=== PATIENT | male | born 1950 | race African-American/Black ===

== ENCOUNTER 2022-11-03 07:01 | Emergency (ER) | payer OTHER ==
--- OUTSIDE RECORDS SUMMARY | 2022-11-03 07:13 | XMS REPORT | Continuity of Care Document ---
:1950 Author Organization [facility] t Address [address] [facility] [address] [place] [address] Care Team Providers Name Role Phone Shannan RECIO, [facility] Primary Care Physician [phone] Problems This patient has no known problems. Allergies, Adverse Reactions, Alerts This patient has no known allergies or adverse reactions. Medications Ordered Filled Start Stop Current Ordering Indication Dosage Frequency Signature Comments Components Source Medication Medication Date Date Medication? Clinician (SIG) Name Name memantine No 14 mg 1-15 capsule 00:00: monika merino 00 tended release 24hr celecoxib No 200 mg 1-15 capsule 00:00: 00 Dose 2021-08 No Unknown 2-13 00:00: 00 TAKE 1 2021-08 No CAPSULE BY 2-13 MOUTH DAILY 00:00: FOR 00 URINATION ONCE A DAY 90 DAYS lisinopril 2021-08 No 40 mg 2-13 tablet 00:00: 00 TAKE 1 2021-08 No TABLET BY 2-13 MOUTH TWICE 00:00: A DAY WITH 00 FOOD FOR 90 DAYS memantine 5 2021-08 No mg tablet 2-13 00:00: 00 Dose 2021-08 No Unknown 2-13 00:00: 00 TAKE 1 2021-08 No TABLET BY 2-13 MOUTH EVERY 00:00: DAY FOR 90 00 DAYS Shingrix 2021-08 No (PF) 50 2-13 mcg/0.5 mL 00:00: intramuscul 00 ar suspension, kit Fluad Quad 2021-08 No [id number](6 2-13 5yr up)(PF) 00:00: 60 mcg (15 00 mcg x 4)/0.5mL IM syringe Fluzone 2021-08 No High-Dose 2-13 Quad 00:00: 00 (PF) 240 mcg/0.7 mL IM syringe Dose 2021-08 No Unknown 2-13 00:00: 00 LISINOPRIL 2021-08 No 40 MG 2-13 TABLET 00:00: 00 tamsulosin 2021-08 No 0.4 mg 2-13 capsule 00:00: 00 celecoxib 2021-08 No 200 mg 2-13 capsule 00:00: 00 Dose 2021-08 No Unknown 2-13 00:00: 00 TAKE 2021-08 No CAPSULE BY 2-13 MOUTH DAILY 00:00: FOR 00 URINATION ONCE A DAY 90 DAYS TAKE 2021-08 No TABLET BY 2-13 MOUTH EVERY 00:00: DAY FOR 90 00 DAYS TAKE 2021-08 No TABLET BY 2-13 MOUTH TWICE 00:00: A DAY WITH 00 FOOD FOR 90 DAYS Dose 2021-08 No Unknown 2-13 00:00: 00 memantine 2021-08 No 10 mg 2-13 tablet 00:00: 00 TAKE 2021-08 No TABLET BY 2-13 MOUTH EVERY 00:00: DAY FOR 90 00 DAYS Shingrix 2021-08 No (PF) 50 2-13 mcg/0.5 mL 00:00: intramuscul 00 ar suspension, kit Fluad Quad 2021-08 No [id number](6 2-13 5yr up)(PF) 00:00: 60 mcg (15 00 mcg x 4)/0.5mL IM syringe Fluzone 2021-08 No High-Dose 2-13 Quad 00:00: 00 (PF) 240 mcg/0.7 mL IM syringe donepezil 5 2021-08 No mg tablet 2-13 00:00: 00 TAKE 2021-08 No TABLET BY 2-13 MOUTH EVERY 00:00: DAY FOR 90 00 DAYS tamsulosin 2021-08 No 0.4 mg 2-13 capsule 00:00: 00 celecoxib 2021-08 No 200 mg 2-13 capsule 00:00: 00 Dose 2021-08 No Unknown 2-13 00:00: 00 TAKE 2021-08 No CAPSULE BY 2-13 MOUTH DAILY 00:00: FOR 00 URINATION ONCE A DAY 90 DAYS lisinopril 2021-08 No 40 mg 2-13 tablet 00:00: 00 TAKE 2021-08 No TABLET BY 2-13 MOUTH TWICE 00:00: A DAY WITH 00 FOOD FOR 90 DAYS memantine 5 2021-08 No mg tablet 2-13 00:00: 00 Dose 2021-08 No Unknown 2-13 00:00: 00 TAKE 2021-08 No TABLET BY 2-13 MOUTH EVERY 00:00: DAY FOR 90 00 DAYS Shingrix 2021-08 No (PF) 50 2-13 mcg/0.5 mL 00:00: intramuscul 00 ar suspension, kit Fluad Quad 2021-08 No [id number](6 2-13 5yr up)(PF) 00:00: 60 mcg (15 00 mcg x 4)/0.5mL IM syringe Fluzone 2021-08 No High-Dose 2-13 Quad 00:00: 00 (PF) 240 mcg/0.7 mL IM syringe Dose 2021-08 No Unknown 2-13 00:00: 00 LISINOPRIL 2021-08 No 40 MG 2-13 TABLET 00:00: 00 tamsulosin 2021-08 No 0.4 mg 2-13 capsule 00:00: 00 TAKE 2021-08 No TABLET BY 0-05 MOUTH TWICE 00:00: A DAY 00 TAKE 2021-08 No TABLET BY 0-05 MOUTH TWICE 00:00: A DAY 00 TAKE 2021-08 No TABLET BY 0-05 MOUTH TWICE 00:00: A DAY 00 TAKE 2021-08 No TABLET BY 0-05 MOUTH TWICE 00:00: A DAY 00 memantine 2021-08 No 14 mg 0-04 capsule 00:00: sprinkle,ex 00 tended release 24hr memantine 2021-08 No 14 mg 0-04 capsule 00:00: sprinkle,ex 00 tended release 24hr memantine 2021-08 No 14 mg 0-04 capsule 00:00: sprinkle,ex 00 tended release 24hr Dose 2021-0 No Unknown 4-13 00:00: 00 Dose 2021-0 No Unknown 4-13 00:00: 00 Dose 2021-0 No Unknown 4-13 00:00: 00 Dose 2021-0 No Unknown 4-13 00:00: 00 Dose 2021-0 No Unknown 4-13 00:00: 00 Dose 2021-0 No Unknown 4-13 00:00: 00 Dose 2022-0 No Unknown 4-13 00:00: 00 Dose 2022-0 No Unknown 4-13 00:00: 00 Dose 2022-0 No Unknown 4-13 00:00: 00 Dose 2022-0 No Unknown 4-13 00:00: 00 Dose 2022-0 No Unknown 4-13 00:00: 00 Dose 2022-0 No Unknown 4-13 00:00: 00 Dose 2022-0 No Unknown 4-13 00:00: 00 Dose 2022-0 No Unknown 4-13 00:00: 00 Dose 2022-0 No Unknown 4-13 00:00: 00 Dose 2022-0 No Unknown 4-13 00:00: 00 Dose 2022-0 No Unknown 4-13 00:00: 00 Dose 2022-0 No Unknown 4-13 00:00: 00 Dose 2022-0 No Unknown 4-13 00:00: 00 Dose 2022-0 No Unknown 4-13 00:00: 00 Dose 2022-0 No Unknown 4-13 00:00: 00 Dose 2022-0 No Unknown 4-13 00:00: 00 Dose 2022-0 No Unknown 4-13 00:00: 00 Dose 2022-0 No Unknown 4-13 00:00: 00 Dose 2022-0 No Unknown 4-13 00:00: 00 Dose 2022-0 No Unknown 4-13 00:00: 00 Dose 2022-0 No Unknown 4-13 00:00: 00 Dose 2022-0 No Unknown 4-13 00:00: 00 Dose 2021-0 No Unknown 3-12 00:00: 00 Dose 2021-0 No Unknown 3-12 00:00: 00 Dose 2021-0 No Unknown 3-12 00:00: 00 Dose 2021-0 No Unknown 3-12 00:00: 00 Dose 2021-0 No Unknown 1-04 00:00: 00 Dose 2021-0 No Unknown 1-04 00:00: 00 Dose 2021-0 No Unknown 1-04 00:00: 00 Dose 2021-0 No Unknown 1-04 00:00: 00 Dose 2021-0 No Unknown 1-04 00:00: 00 Dose 2021-0 No Unknown 1-04 00:00: 00 Dose 2021-0 No Unknown 1-04 00:00: 00 Dose 2021-0 No Unknown 1-04 00:00: 00 Dose 1-0 No Unknown 1-04 00:00: 00 Dose 2020-0 No Unknown 1-04 00:00: 00 Dose 2020-0 No Unknown 1-04 00:00: 00 Dose 2020-0 No Unknown 1-04 00:00: 00 Dose 2020-0 No Unknown 1-04 00:00: 00 Dose 2020-0 No Unknown 1-04 00:00: 00 Dose 2020-0 No Unknown 1-04 00:00: 00 Dose 2020-0 No Unknown 1-04 00:00: 00 Dose 2020-0 No Unknown 1-04 00:00: 00 Dose 2020-0 No Unknown 1-04 00:00: 00 Dose 2020-0 No Unknown 1-04 00:00: 00 Dose 2020-0 No Unknown 1-04 00:00: 00 Dose 2019-1 No Unknown 2-14 00:00: 00 lisinopril 2019-08 No 1mg 40 mg 2-14 tablet 00:00: 00 amlodipine 2019-08 No 1mg 5 mg tablet 2-14 00:00: 00 memantine 5 2019-08 No 1mg mg tablet 2-14 00:00: 00 metoprolol 2019-08 No 1mg tartrate 50 2-14 mg tablet 00:00: 00 Flomax 0.4 2019-08 No 1mg mg capsule 2-14 00:00: 00 Dose 2019- No Unknown 2-14 00:00: 00 Dose 2019-1 No Unknown 2-14 00:00: 00 lisinopril 2019- No 1mg 40 mg 2-14 tablet 00:00: 00 amlodipine 2019-08 No 1mg 5 mg tablet 2-14 00:00: 00 memantine 5 2019-08 No 1mg mg tablet 2-14 00:00: 00 metoprolol 2019-08 No 1mg tartrate 50 2-14 mg tablet 00:00: 00 Flomax 0.4 2019-08 No 1mg mg capsule 2-14 00:00: 00 Vitamin D3 2019- No 1%-" 50 mcg 2-14 (2,000 00:00: unit) 00 capsule Dose 2019-08 No Unknown 2-14 00:00: 00 lisinopril 2019- No 1mg 40 mg 2-14 tablet 00:00: 00 amlodipine 2020-1 No 1mg 5 mg tablet 2-14 00:00: 00 memantine 5 2020-1 No 1mg mg tablet 2-14 00:00: 00 metoprolol 2020-1 No 1mg tartrate 50 2-14 mg tablet 00:00: 00 Flomax 0.4 2020-1 No 1mg mg capsule 2-14 00:00: 00 Dose 2020-1 No Unknown 2-14 00:00: 00 Dose 2020-1 No Unknown 2-14 00:00: 00 lisinopril 2020-1 No 1mg 40 mg 2-14 tablet 00:00: 00 amlodipine 2019-1 No 1mg 5 mg tablet 2-14 00:00: 00 memantine 5 2019-1 No 1mg mg tablet 2-14 00:00: 00 metoprolol 2020-1 No 1mg tartrate 50 2-14 mg tablet 00:00: 00 Flomax 0.4 2019-1 No 1mg mg capsule 2-14 00:00: 00 Dose 2020-1 No Unknown 2-14 00:00: 00 lisinopril 2020-0 No 1mg 20 8-25 mg-hydrochl 00:00: orothiazide 00 12.5 mg tablet Flomax 0.4 2020-0 No 1mg mg capsule 8-25 00:00: 00 lisinopril 2020-0 No 1mg 20 8-25 mg-hydrochl 00:00: orothiazide 00 12.5 mg tablet Flomax 0.4 2020-0 No 1mg mg capsule 8-25 00:00: 00 lisinopril 2020-0 No 1mg 20 8-25 mg-hydrochl 00:00: orothiazide 00 12.5 mg tablet Flomax 0.4 2020-0 No 1mg mg capsule 8-25 00:00: 00 lisinopril 2020-0 No 1mg 20 8-25 mg-hydrochl 00:00: orothiazide 00 12.5 mg tablet Flomax 0.4 2020-0 No 1mg mg capsule 825 00:00: 00 diclofenac 2020-0 No 1% 1 % topical 6-16 gel 00:00: 00 diclofenac 2020-0 No 1% 1 % topical 6-16 gel 00:00: 00 donepezil 2020-0 No 1mg 10 mg 6-16 tablet 00:00: 00 lisinopril 2020-0 No 1mg 20 6-16 mg-hydrochl 00:00: orothiazide 00 12.5 mg tablet lisinopril 2020-0 No 1mg 20 6-16 mg-hydrochl 00:00: orothiazide 00 12.5 mg tablet rivastigmin 2020-0 No 2mg e 6 mg 6-16 capsule 00:00: 00 Flomax 0.4 2020-0 No 1mg mg capsule 6-16 00:00: 00 rivastigmin 2020-0 No 2mg e 6 mg 6-16 capsule 00:00: 00 Flomax 0.4 2020-0 No 1mg mg capsule 6-16 00:00: 00 Vitamin D2 2020-0 No 1(50,00 1,250 mcg 6-16 0 unit) (50,000 00:00: unit) 00 capsule Vitamin D2 2020-0 No 1(50,00 1,250 mcg 6-16 0 unit) (50,000 00:00: unit) 00 capsule diclofenac 2020-0 No 1% 1 % topical 6-16 gel 00:00: 00 diclofenac 2020-0 No 1% 1 % topical 6-16 gel 00:00: 00 donepezil 2020-0 No 1mg 10 mg 6-16 tablet 00:00: 00 lisinopril 2020-0 No 1mg 20 6-16 mg-hydrochl 00:00: orothiazide 00 12.5 mg tablet lisinopril 2020-0 No 1mg 20 6-16 mg-hydrochl 00:00: orothiazide 00 12.5 mg tablet rivastigmin 2020-0 No 2mg e 6 mg 6-16 capsule 00:00: 00 Flomax 0.4 2020-0 No 1mg mg capsule 6-16 00:00: 00 rivastigmin 2020-0 No 2mg e 6 mg 6-16 capsule 00:00: 00 Flomax 0.4 2020-0 No 1mg mg capsule 6-16 00:00: 00 Vitamin D2 2020-0 No 1(50,00 1,250 mcg 6-16 0 unit) (50,000 00:00: unit) 00 capsule Vitamin D2 2020-0 No 1(50,00 1,250 mcg 6-16 0 unit) (50,000 00:00: unit) 00 capsule diclofenac 2020-0 No 1% 1 % topical 6-16 gel 00:00: 00 diclofenac 2020-0 No 1% 1 % topical 6-16 gel 00:00: 00 donepezil 2020-0 No 1mg 10 mg 6-16 tablet 00:00: 00 lisinopril 2020-0 No 1mg 20 6-16 mg-hydrochl 00:00: orothiazide 00 12.5 mg tablet lisinopril 2020-0 No 1mg 20 6-16 mg-hydrochl 00:00: orothiazide 00 12.5 mg tablet rivastigmin 2020-0 No 2mg e 6 mg 6-16 capsule 00:00: 00 Flomax 0.4 2020-0 No 1mg mg capsule 6-16 00:00: 00 rivastigmin 2020-0 No 2mg e 6 mg 6-16 capsule 00:00: 00 Flomax 0.4 2020-0 No 1mg mg capsule 6-16 00:00: 00 Vitamin D2 2020-0 No 1(50,00 1,250 mcg 6-16 0 unit) (50,000 00:00: unit) 00 capsule Vitamin D2 2020-0 No 1(50,00 1,250 mcg 6-16 0 unit) (50,000 00:00: unit) 00 capsule diclofenac 2020-0 No 1% 1 % topical 6-16 gel 00:00: 00 diclofenac 2020-0 No 1% 1 % topical 6-16 gel 00:00: 00 donepezil 2020-0 No 1mg 10 mg 6-16 tablet 00:00: 00 lisinopril 2020-0 No 1mg 20 6-16 mg-hydrochl 00:00: orothiazide 00 12.5 mg tablet lisinopril 2020-0 No 1mg 20 6-16 mg-hydrochl 00:00: orothiazide 00 12.5 mg tablet rivastigmin 2020-0 No 2mg e 6 mg 6-16 capsule 00:00: 00 Flomax 0.4 2020-0 No 1mg mg capsule 6-16 00:00: 00 rivastigmin 2020-0 No 2mg e 6 mg 6-16 capsule 00:00: 00 Flomax 0.4 2020-0 No 1mg mg capsule 6-16 00:00: 00 Vitamin D2 2020-0 No 1(50,00 1,250 mcg 6-16 0 unit) (50,000 00:00: unit) 00 capsule Vitamin D2 2020-0 No 1(50,00 1,250 mcg 6-16 0 unit) (50,000 00:00: unit) 00 capsule diclofenac 2020-0 No 1% 1 % topical 3-24 gel 00:00: 00 diclofenac 2020-0 No 1% 1 % topical 3-24 gel 00:00: 00 lisinopril 2020-0 No 1mg 20 3-24 mg-hydrochl 00:00: orothiazide 00 12.5 mg tablet metoprolol 2020-0 No 1mg tartrate 50 3-24 mg tablet 00:00: 00 lisinopril 2020-0 No 1mg 20 3-24 mg-hydrochl 00:00: orothiazide 00 12.5 mg tablet metoprolol 2020-0 No 1mg tartrate 50 3-24 mg tablet 00:00: 00 diclofenac 2020-0 No 1% 1 % topical 3-24 gel 00:00: 00 diclofenac 2020-0 No 1% 1 % topical 3-24 gel 00:00: 00 lisinopril 2020-0 No 1mg 20 3-24 mg-hydrochl 00:00: orothiazide 00 12.5 mg tablet metoprolol 2020-0 No 1mg tartrate 50 3-24 mg tablet 00:00: 00 lisinopril 2020-0 No 1mg 20 3-24 mg-hydrochl 00:00: orothiazide 00 12.5 mg tablet metoprolol 2020-0 No 1mg tartrate 50 3-24 mg tablet 00:00: 00 rivastigmin 2020-0 No 2mg e 6 mg 3-24 capsule 00:00: 00 rivastigmin 2020-0 No 2mg e 6 mg 3-24 capsule 00:00: 00 Flomax 0.4 2020-0 No 1mg mg capsule 3-24 00:00: 00 rivastigmin 2020-0 No 2mg e 6 mg 3-24 capsule 00:00: 00 Flomax 0.4 2020-0 No 1mg mg capsule 3-24 00:00: 00 Vitamin D2 2020-0 No 1(50,00 1,250 mcg 3-24 0 unit) (50, 00:00: unit) 00 capsule Vitamin D2 2020-0 No 1(50,00 1,250 mcg 3-24 0 unit) (50, 00:00: unit) 00 capsule Flomax 0.4 2020-0 No 1mg mg capsule 3-24 00:00: 00 rivastigmin 2020-0 No 2mg e 6 mg 3-24 capsule 00:00: 00 Flomax 0.4 2020-0 No 1mg mg capsule 3-24 00:00: 00 Vitamin D2 2020-0 No 1(50,00 1,250 mcg 3-24 0 unit) (50,000 00:00: unit) 00 capsule Vitamin D2 2020-0 No 1(50,00 1,250 mcg 3-24 0 unit) (50,000 00:00: unit) 00 capsule diclofenac 2020-0 No 1% 1 % topical 3-24 gel 00:00: 00 diclofenac 2020-0 No 1% 1 % topical 3-24 gel 00:00: 00 lisinopril 2020-0 No 1mg 20 3-24 mg-hydrochl 00:00: orothiazide 00 12.5 mg tablet metoprolol 2020-0 No 1mg tartrate 50 3-24 mg tablet 00:00: 00 lisinopril 2020-0 No 1mg 20 3-24 mg-hydrochl 00:00: orothiazide 00 12.5 mg tablet metoprolol 2020-0 No 1mg tartrate 50 3-24 mg tablet 00:00: 00 rivastigmin 2020-0 No 2mg e 6 mg 3-24 capsule 00:00: 00 Flomax 0.4 2020-0 No 1mg mg capsule 3-24 00:00: 00 rivastigmin 2020-0 No 2mg e 6 mg 3-24 capsule 00:00: 00 Flomax 0.4 2020-0 No 1mg mg capsule 3-24 00:00: 00 Vitamin D2 2020-0 No 1(50,00 1,250 mcg 3-24 0 unit) (50,000 00:00: unit) 00 capsule Vitamin D2 2020-0 No 1(50,00 1,250 mcg 3-24 0 unit) (50,000 00:00: unit) 00 capsule diclofenac 2020-0 No 1% 1 % topical 3-24 gel 00:00: 00 diclofenac 2020-0 No 1% 1 % topical 3-24 gel 00:00: 00 lisinopril 2020-0 No 1mg 20 3-24 mg-hydrochl 00:00: orothiazide 00 12.5 mg tablet metoprolol 2020-0 No 1mg tartrate 50 3-24 mg tablet 00:00: 00 lisinopril 2020-0 No 1mg 20 3-24 mg-hydrochl 00:00: orothiazide 00 12.5 mg tablet metoprolol 2020-0 No 1mg tartrate 50 3-24 mg tablet 00:00: 00 rivastigmin 2020-0 No 2mg e 6 mg 3-24 capsule 00:00: 00 Flomax 0.4 2020-0 No 1mg mg capsule 3-24 00:00: 00 rivastigmin 2020-0 No 2mg e 6 mg 3-24 capsule 00:00: 00 Flomax 0.4 2020-0 No 1mg mg capsule 3-24 00:00: 00 Vitamin D2 2020-0 No 1(50,00 1,250 mcg 3-24 0 unit) (50,000 00:00: unit) 00 capsule Vitamin D2 2020-0 No 1(50,00 1,250 mcg 3-24 0 unit) (50,000 00:00: unit) 00 capsule rivastigmin 2020-0 No 2mg e 6 mg 1-15 capsule 00:00: 00 Vitamin D2 2020-0 No 1(50,00 1,250 mcg 1-15 0 unit) (50,000 00:00: unit) 00 capsule rivastigmin 2020-0 No 2mg e 6 mg 1-15 capsule 00:00: 00 Vitamin D2 2020-0 No 1(50,00 1,250 mcg 1-15 0 unit) (50,000 00:00: unit) 00 capsule rivastigmin 2020-0 No 2mg e 6 mg 1-15 capsule 00:00: 00 Vitamin D2 2020-0 No 1(50,00 1,250 mcg 1-15 0 unit) (50,000 00:00: unit) 00 capsule rivastigmin 2020-0 No 2mg e 6 mg 1-15 capsule 00:00: 00 Vitamin D2 2020-0 No 1(50,00 1,250 mcg 1-15 0 unit) (50,000 00:00: unit) 00 capsule Flomax 0.4 2020-0 No 1mg mg capsule 1-14 00:00: 00 diclofenac 2020-0 No 1% 1 % topical 1-14 gel 00:00: 00 metoprolol 2020-0 No 1mg tartrate 50 1-14 mg tablet 00:00: 00 lisinopril 2020-0 No 1mg 20 1-14 mg-hydrochl 00:00: orothiazide 00 12.5 mg tablet lisinopril 2020-0 No 1mg 20 1-14 mg-hydrochl 00:00: orothiazide 00 12.5 mg tablet simvastatin 2020-0 No 1mg 20 mg 1-14 tablet 00:00: 00 Flomax 0.4 2020-0 No 1mg mg capsule 1-14 00:00: 00 diclofenac 2020-0 No 1% 1 % topical 1-14 gel 00:00: 00 metoprolol 2020-0 No 1mg tartrate 50 1-14 mg tablet 00:00: 00 lisinopril 2020-0 No 1mg 20 1-14 mg-hydrochl 00:00: orothiazide 00 12.5 mg tablet lisinopril 2020-0 No 1mg 20 1-14 mg-hydrochl 00:00: orothiazide 00 12.5 mg tablet simvastatin 2020-0 No 1mg 20 mg 1-14 tablet 00:00: 00 Flomax 0.4 2020-0 No 1mg mg capsule 1-14 00:00: 00 diclofenac 2020-0 No 1% 1 % topical 1-14 gel 00:00: 00 metoprolol 2020-0 No 1mg tartrate 50 1-14 mg tablet 00:00: 00 lisinopril 2020-0 No 1mg 20 1-14 mg-hydrochl 00:00: orothiazide 00 12.5 mg tablet lisinopril 2020-0 No 1mg 20 1-14 mg-hydrochl 00:00: orothiazide 00 12.5 mg tablet simvastatin 2020-0 No 1mg 20 mg 1-14 tablet 00:00: 00 Flomax 0.4 2020-0 No 1mg mg capsule 1-14 00:00: 00 diclofenac 2020-0 No 1% 1 % topical 1-14 gel 00:00: 00 metoprolol 2020-0 No 1mg tartrate 50 1-14 mg tablet 00:00: 00 lisinopril 2020-0 No 1mg 20 1-14 mg-hydrochl 00:00: orothiazide 00 12.5 mg tablet lisinopril 2020-0 No 1mg 20 1-14 mg-hydrochl 00:00: orothiazide 00 12.5 mg tablet simvastatin 2020-0 No 1mg 20 mg 1-14 tablet 00:00: 00 lisinopril 2019-0 No 1mg 20 9-26 mg-hydrochl 00:00: orothiazide 00 12.5 mg tablet metoprolol 2019-0 No 1mg tartrate 50 9-26 mg tablet 00:00: 00 lisinopril 2019-0 No 1mg 20 9-26 mg-hydrochl 00:00: orothiazide 00 12.5 mg tablet metoprolol 2019-0 No 1mg tartrate 50 9-26 mg tablet 00:00: 00 lisinopril 2019-0 No 1mg 20 9-26 mg-hydrochl 00:00: orothiazide 00 12.5 mg tablet metoprolol 2019-0 No 1mg tartrate 50 9-26 mg tablet 00:00: 00 lisinopril 2019-0 No 1mg 20 9-26 mg-hydrochl 00:00: orothiazide 00 12.5 mg tablet simvastatin 2019-0 No 1mg 20 mg 9-26 tablet 00:00: 00 simvastatin 2019-0 No 1mg 20 mg 9-26 tablet 00:00: 00 simvastatin 2019-0 No 1mg 20 mg 9-26 tablet 00:00: 00 Flomax 0.4 2019-0 No 1mg mg capsule 05-23 00:00: 00 Flomax 0.4 2019-0 No 1mg mg capsule 05-23 00:00: 00 Flomax 0.4 2019-0 No 1mg mg capsule 05-23 00:00: 00 lisinopril 2019-0 No 1mg 20 9-26 mg-hydrochl 00:00: orothiazide 00 12.5 mg tablet metoprolol 2019-0 No 1mg tartrate 50 9-26 mg tablet 00:00: 00 lisinopril 2019-0 No 1mg 20 9-26 mg-hydrochl 00:00: orothiazide 00 12.5 mg tablet metoprolol 2019-0 No 1mg tartrate 50 9-26 mg tablet 00:00: 00 lisinopril 2019-0 No 1mg 20 9-26 mg-hydrochl 00:00: orothiazide 00 12.5 mg tablet metoprolol 2019-0 No 1mg tartrate 50 9-26 mg tablet 00:00: 00 lisinopril 2019-0 No 1mg 20 9-26 mg-hydrochl 00:00: orothiazide 00 12.5 mg tablet simvastatin 2019-0 No 1mg 20 mg 9-26 tablet 00:00: 00 simvastatin 2019-0 No 1mg 20 mg 9-26 tablet 00:00: 00 simvastatin 2019-0 No 1mg 20 mg 9- tablet 00:00: 00 Flomax 0.4 2019-0 No 1mg mg capsule 05-23 00:00: 00 Flomax 0.4 2019-0 No 1mg mg capsule 05-23 00:00: 00 Flomax 0.4 2019-0 No 1mg mg capsule 05-23 00:00: 00 lisinopril 2019-0 No 1mg 20 9-26 mg-hydrochl 00:00: orothiazide 00 12.5 mg tablet metoprolol 2019-0 No 1mg tartrate 50 9-26 mg tablet 00:00: 00 lisinopril 2019-0 No 1mg 20 9-26 mg-hydrochl 00:00: orothiazide 00 12.5 mg tablet metoprolol 2019-0 No 1mg tartrate 50 9-26 mg tablet 00:00: 00 lisinopril 2019-0 No 1mg 20 9-26 mg-hydrochl 00:00: orothiazide 00 12.5 mg tablet metoprolol 2019-0 No 1mg tartrate 50 9-26 mg tablet 00:00: 00 lisinopril 2019-0 No 1mg 20 9-26 mg-hydrochl 00:00: orothiazide 00 12.5 mg tablet simvastatin 2019-0 No 1mg 20 mg - tablet 00:00: 00 simvastatin 2019-0 No 1mg 20 mg - tablet 00:00: 00 simvastatin 2019-0 No 1mg 20 mg -26 tablet 00:00: 00 Flomax 0.4 2019-0 No 1mg mg capsule 05-23 00:00: 00 Flomax 0.4 2019-0 No 1mg mg capsule 05-23 00:00: 00 Flomax 0.4 2019-0 No 1mg mg capsule 05-23 00:00: 00 lisinopril 2019-0 No 1mg 20 9-26 mg-hydrochl 00:00: orothiazide 00 12.5 mg tablet metoprolol 2019-0 No 1mg tartrate 50 9-26 mg tablet 00:00: 00 lisinopril 2019-0 No 1mg 20 9-26 mg-hydrochl 00:00: orothiazide 00 12.5 mg tablet metoprolol 2019-0 No 1mg tartrate 50 9-26 mg tablet 00:00: 00 lisinopril 2019-0 No 1mg 20 9-26 mg-hydrochl 00:00: orothiazide 00 12.5 mg tablet metoprolol 2019-0 No 1mg tartrate 50 9-26 mg tablet 00:00: 00 lisinopril 2019-0 No 1mg 20 9-26 mg-hydrochl 00:00: orothiazide 00 12.5 mg tablet simvastatin 2019-0 No 1mg 20 mg 9-26 tablet 00:00: 00 simvastatin 2019-0 No 1mg 20 mg 9-26 tablet 00:00: 00 simvastatin 2019-0 No 1mg 20 mg 9-26 tablet 00:00: 00 Flomax 0.4 2019-0 No 1mg mg capsule 05-23 00:00: 00 Flomax 0.4 2019-0 No 1mg mg capsule 05-23 00:00: 00 Flomax 0.4 2019-0 No 1mg mg capsule 05-23 00:00: 00 metoprolol 2019-0 No 1mg tartrate 50 9-24 mg tablet 00:00: 00 lisinopril 2019-0 No 1mg 20 9-24 mg-hydrochl 00:00: orothiazide 00 12.5 mg tablet metoprolol 2019-0 No 1mg tartrate 50 9-24 mg tablet 00:00: 00 lisinopril 2019-0 No 1mg 20 9-24 mg-hydrochl 00:00: orothiazide 00 12.5 mg tablet simvastatin 2019-0 No 1mg 20 mg 9-24 tablet 00:00: 00 simvastatin 2019-0 No 1mg 20 mg 9-24 tablet 00:00: 00 Flomax 0.4 2019-0 No 1mg mg capsule 05-21 00:00: 00 Flomax 0.4 2019-0 No 1mg mg capsule 05-21 00:00: 00 metoprolol 2019-0 No 1mg tartrate 50 9-24 mg tablet 00:00: 00 lisinopril 2019-0 No 1mg 20 9-24 mg-hydrochl 00:00: orothiazide 00 12.5 mg tablet metoprolol 2019-0 No 1mg tartrate 50 9-24 mg tablet 00:00: 00 lisinopril 2019-0 No 1mg 20 9-24 mg-hydrochl 00:00: orothiazide 00 12.5 mg tablet simvastatin 2019-0 No 1mg 20 mg 9-24 tablet 00:00: 00 simvastatin 2019-0 No 1mg 20 mg 9-24 tablet 00:00: 00 Flomax 0.4 2019-0 No 1mg mg capsule 05-21 00:00: 00 Flomax 0.4 2019-0 No 1mg mg capsule 05-21 00:00: 00 metoprolol 2019-0 No 1mg tartrate 50 9-24 mg tablet 00:00: 00 lisinopril 2019-0 No 1mg 20 9-24 mg-hydrochl 00:00: orothiazide 00 12.5 mg tablet metoprolol 2019-0 No 1mg tartrate 50 9-24 mg tablet 00:00: 00 lisinopril 2019-0 No 1mg 20 9-24 mg-hydrochl 00:00: orothiazide 00 12.5 mg tablet simvastatin 2019-0 No 1mg 20 mg 9-24 tablet 00:00: 00 simvastatin 2019-0 No 1mg 20 mg 9-24 tablet 00:00: 00 Flomax 0.4 2019-0 No 1mg mg capsule 05-21 00:00: 00 metoprolol 2019-0 No 1mg tartrate 50 9-24 mg tablet 00:00: 00 Flomax 0.4 2019-0 No 1mg mg capsule 05-21 00:00: 00 lisinopril 2019-0 No 1mg 20 9-24 mg-hydrochl 00:00: orothiazide 00 12.5 mg tablet metoprolol 2019-0 No 1mg tartrate 50 9-24 mg tablet 00:00: 00 lisinopril 2019-0 No 1mg 20 9-24 mg-hydrochl 00:00: orothiazide 00 12.5 mg tablet simvastatin 2019-0 No 1mg 20 mg 9-24 tablet 00:00: 00 simvastatin 2019-0 No 1mg 20 mg 9-24 tablet 00:00: 00 Flomax 0.4 2019-0 No 1mg mg capsule 05-21 00:00: 00 Flomax 0.4 2019-0 No 1mg mg capsule 05-21 00:00: 00 metoprolol 2019-0 No 1mg tartrate 50 6-13 mg tablet 00:00: 00 lisinopril 2019-0 No 1mg 20 6-13 mg-hydrochl 00:00: orothiazide 00 12.5 mg tablet simvastatin 2019-0 No 1mg 20 mg 6-13 tablet 00:00: 00 Flomax 0.4 2019-0 No 1mg mg capsule 6-13 00:00: 00 metoprolol 2019-0 No 1mg tartrate 50 6-13 mg tablet 00:00: 00 lisinopril 2019-0 No 1mg 20 6-13 mg-hydrochl 00:00: orothiazide 00 12.5 mg tablet simvastatin 2019-0 No 1mg 20 mg 6-13 tablet 00:00: 00 Flomax 0.4 2019-0 No 1mg mg capsule 613 00:00: 00 metoprolol 2019-0 No 1mg tartrate 50 6-13 mg tablet 00:00: 00 lisinopril 2019-0 No 1mg 20 6-13 mg-hydrochl 00:00: orothiazide 00 12.5 mg tablet simvastatin 2019-0 No 1mg 20 mg 6-13 tablet 00:00: 00 metoprolol 2019-0 No 1mg tartrate 50 6-13 mg tablet 00:00: 00 Flomax 0.4 2019-0 No 1mg mg capsule 613 00:00: 00 lisinopril 2019-0 No 1mg 20 6-13 mg-hydrochl 00:00: orothiazide 00 12.5 mg tablet simvastatin 2019-0 No 1mg 20 mg 6-13 tablet 00:00: 00 Flomax 0.4 2019-0 No 1mg mg capsule 613 00:00: 00 metoprolol 2019-0 No 1mg tartrate 50 3-19 mg tablet 00:00: 00 lisinopril 2019-0 No 1mg 20 3-19 mg-hydrochl 00:00: orothiazide 00 12.5 mg tablet simvastatin 2019-0 No 1mg 20 mg 3-19 tablet 00:00: 00 Flomax 0.4 2019-0 No 1mg mg capsule 3-19 00:00: 00 metoprolol 2019-0 No 1mg tartrate 50 3-19 mg tablet 00:00: 00 lisinopril 2019-0 No 1mg 20 3-19 mg-hydrochl 00:00: orothiazide 00 12.5 mg tablet simvastatin 2019-0 No 1mg 20 mg 3-19 tablet 00:00: 00 Flomax 0.4 2019-0 No 1mg mg capsule 3-19 00:00: 00 metoprolol 2019-0 No 1mg tartrate 50 3-19 mg tablet 00:00: 00 lisinopril 2019-0 No 1mg 20 3-19 mg-hydrochl 00:00: orothiazide 00 12.5 mg tablet simvastatin 2019-0 No 1mg 20 mg 3-19 tablet 00:00: 00 Flomax 0.4 2019-0 No 1mg mg capsule 3-19 00:00: 00 metoprolol 2019-0 No 1mg tartrate 50 3-19 mg tablet 00:00: 00 lisinopril 2019-0 No 1mg 20 3-19 mg-hydrochl 00:00: orothiazide 00 12.5 mg tablet simvastatin 2019-0 No 1mg 20 mg 3-19 tablet 00:00: 00 Flomax 0.4 2019-0 No 1mg mg capsule 319 00:00: 00 metoprolol 2018-1 No 1mg tartrate 50 2-04 mg tablet 00:00: 00 lisinopril 2018-1 No 1mg 20 2-04 mg-hydrochl 00:00: orothiazide 00 12.5 mg tablet simvastatin 2018-1 No 1mg 20 mg 2-04 tablet 00:00: 00 Flomax 0.4 2018-1 No 1mg mg capsule 2-04 00:00: 00 metoprolol 2018-1 No 1mg tartrate 50 2-04 mg tablet 00:00: 00 lisinopril 2018-1 No 1mg 20 2-04 mg-hydrochl 00:00: orothiazide 00 12.5 mg tablet simvastatin 2018-1 No 1mg 20 mg 2-04 tablet 00:00: 00 Flomax 0.4 2018-1 No 1mg mg capsule 2-04 00:00: 00 metoprolol 2018-1 No 1mg tartrate 50 2-04 mg tablet 00:00: 00 lisinopril 2018-1 No 1mg 20 2-04 mg-hydrochl 00:00: orothiazide 00 12.5 mg tablet simvastatin 2018-1 No 1mg 20 mg 2-04 tablet 00:00: 00 Flomax 0.4 2018-1 No 1mg mg capsule 2-04 00:00: 00 metoprolol 2018-1 No 1mg tartrate 50 2-04 mg tablet 00:00: 00 lisinopril 2018-1 No 1mg 20 2-04 mg-hydrochl 00:00: orothiazide 00 12.5 mg tablet simvastatin 2018-1 No 1mg 20 mg 2-04 tablet 00:00: 00 Flomax 0.4 2018-1 No 1mg mg capsule 2-04 00:00: 00 meloxicam 2018-1 No 5mg 15 mg 0-10 tablet 00:00: 00 prednisone 2018-1 No mg 20 mg 0-10 tablet 00:00: 00 meloxicam 2018-1 No 5mg 15 mg 0-10 tablet 00:00: 00 prednisone 2018-1 No mg 20 mg 0-10 tablet 00:00: 00 meloxicam 2018-1 No 5mg 15 mg 0-10 tablet 00:00: 00 prednisone 2018-1 No mg 20 mg 0-10 tablet 00:00: 00 meloxicam 2018-1 No 5mg 15 mg 0-10 tablet 00:00: 00 prednisone 2018-1 No mg 20 mg 0-10 tablet 00:00: 00 simvastatin 2018-0 No 1mg 20 mg 8-08 tablet 00:00: 00 Flomax 0.4 2018-0 No 1mg mg capsule 8 00:00: 00 Flomax 0.4 2018-0 No 1mg mg capsule 8 00:00: 00 lisinopril 2018-0 No 1mg 20 8-08 mg-hydrochl 00:00: orothiazide 00 12.5 mg tablet metoprolol 2018-0 No 1mg tartrate 50 8-08 mg tablet 00:00: 00 lisinopril 2018-0 No 1mg 20 8-08 mg-hydrochl 00:00: orothiazide 00 12.5 mg tablet metoprolol 2018-0 No 1mg tartrate 50 8-08 mg tablet 00:00: 00 simvastatin 2018-0 No 1mg 20 mg 8-08 tablet 00:00: 00 simvastatin 2018-0 No 1mg 20 mg 8-08 tablet 00:00: 00 Flomax 0.4 2018-0 No 1mg mg capsule 808 00:00: 00 Flomax 0.4 2018-0 No 1mg mg capsule 808 00:00: 00 lisinopril 2018-0 No 1mg 20 8-08 mg-hydrochl 00:00: orothiazide 00 12.5 mg tablet metoprolol 2018-0 No 1mg tartrate 50 8-08 mg tablet 00:00: 00 lisinopril 2018-0 No 1mg 20 8-08 mg-hydrochl 00:00: orothiazide 00 12.5 mg tablet metoprolol 2018-0 No 1mg tartrate 50 8-08 mg tablet 00:00: 00 simvastatin 2018-0 No 1mg 20 mg 8-08 tablet 00:00: 00 simvastatin 2018-0 No 1mg 20 mg 8-08 tablet 00:00: 00 Flomax 0.4 2018-0 No 1mg mg capsule 8 00:00: 00 Flomax 0.4 2018-0 No 1mg mg capsule 8 00:00: 00 lisinopril 2018-0 No 1mg 20 8-08 mg-hydrochl 00:00: orothiazide 00 12.5 mg tablet metoprolol 2018-0 No 1mg tartrate 50 8-08 mg tablet 00:00: 00 lisinopril 2018-0 No 1mg 20 8-08 mg-hydrochl 00:00: orothiazide 00 12.5 mg tablet metoprolol 2018-0 No 1mg tartrate 50 8-08 mg tablet 00:00: 00 simvastatin 2018-0 No 1mg 20 mg 8-08 tablet 00:00: 00 simvastatin 2018-0 No 1mg 20 mg 8-08 tablet 00:00: 00 Flomax 0.4 2018-0 No 1mg mg capsule 8 00:00: 00 Flomax 0.4 2018-0 No 1mg mg capsule 8 00:00: 00 lisinopril 2018-0 No 1mg 20 8-08 mg-hydrochl 00:00: orothiazide 00 12.5 mg tablet metoprolol 2018-0 No 1mg tartrate 50 8-08 mg tablet 00:00: 00 lisinopril 2018-0 No 1mg 20 8-08 mg-hydrochl 00:00: orothiazide 00 12.5 mg tablet metoprolol 2018-0 No 1mg tartrate 50 8-08 mg tablet 00:00: 00 simvastatin 2018-0 No 1mg 20 mg 8-08 tablet 00:00: 00 metoprolol 2018-0 No 1mg tartrate 50 7-06 mg tablet 00:00: 00 lisinopril 2018-0 No 1mg 20 7-06 mg-hydrochl 00:00: orothiazide 00 12.5 mg tablet simvastatin 2018-0 No 1mg 20 mg 7-06 tablet 00:00: 00 Flomax 0.4 2018-0 No 1mg mg capsule 03-02 00:00: 00 metoprolol 2018-0 No 1mg tartrate 50 7-06 mg tablet 00:00: 00 lisinopril 2018-0 No 1mg 20 7-06 mg-hydrochl 00:00: orothiazide 00 12.5 mg tablet simvastatin 2018-0 No 1mg 20 mg 7-06 tablet 00:00: 00 Flomax 0.4 2018-0 No 1mg mg capsule 03-02 00:00: 00 metoprolol 2018-0 No 1mg tartrate 50 7-06 mg tablet 00:00: 00 lisinopril 2018-0 No 1mg 20 7-06 mg-hydrochl 00:00: orothiazide 00 12.5 mg tablet simvastatin 2018-0 No 1mg 20 mg 7-06 tablet 00:00: 00 Flomax 0.4 2018-0 No 1mg mg capsule 03-02 00:00: 00 metoprolol 2018-0 No 1mg tartrate 50 7-06 mg tablet 00:00: 00 lisinopril 2018-0 No 1mg 20 7-06 mg-hydrochl 00:00: orothiazide 00 12.5 mg tablet simvastatin 2018-0 No 1mg 20 mg 7-06 tablet 00:00: 00 Flomax 0.4 2018-0 No 1mg mg capsule 03-02 00:00: 00 Vitamin D2 2018-0 No 1unit 50,000 unit 4-08 capsule 00:00: 00 Vitamin D2 2018-0 No 1unit 50,000 unit 4-08 capsule 00:00: 00 Vitamin D2 2018-0 No 1unit 50,000 unit 4-08 capsule 00:00: 00 Vitamin D2 2018-0 No 1unit 50,000 unit 4-08 capsule 00:00: 00 lisinopril 2018-0 No 1mg 20 3-29 mg-hydrochl 00:00: orothiazide 00 12.5 mg tablet metoprolol 2018-0 No 1mg tartrate 50 3-29 mg tablet 00:00: 00 simvastatin 2018-0 No 1mg 20 mg 3-29 tablet 00:00: 00 Flomax 0.4 2018-0 No 1mg mg capsule 3-29 00:00: 00 lisinopril 2018-0 No 1mg 20 3-29 mg-hydrochl 00:00: orothiazide 00 12.5 mg tablet metoprolol 2018-0 No 1mg tartrate 50 3-29 mg tablet 00:00: 00 simvastatin 2018-0 No 1mg 20 mg 3-29 tablet 00:00: 00 Flomax 0.4 2018-0 No 1mg mg capsule 3 00:00: 00 lisinopril 2018-0 No 1mg 20 3-29 mg-hydrochl 00:00: orothiazide 00 12.5 mg tablet metoprolol 2018-0 No 1mg tartrate 50 3-29 mg tablet 00:00: 00 simvastatin 2018-0 No 1mg 20 mg 3-29 tablet 00:00: 00 Flomax 0.4 2018-0 No 1mg mg capsule 3 00:00: 00 lisinopril 2018-0 No 1mg 20 3-29 mg-hydrochl 00:00: orothiazide 00 12.5 mg tablet metoprolol 2018-0 No 1mg tartrate 50 3-29 mg tablet 00:00: 00 simvastatin 2018-0 No 1mg 20 mg 3-29 tablet 00:00: 00 Flomax 0.4 2018-0 No 1mg mg capsule 3 00:00: 00 metoprolol 2017-1 No 1mg tartrate 50 2-15 mg tablet 00:00: 00 lisinopril 2017-1 No 1mg 20 2-15 mg-hydrochl 00:00: orothiazide 00 12.5 mg tablet simvastatin 2017-1 No 1mg 20 mg 2-15 tablet 00:00: 00 Flomax 0.4 2017-1 No 1mg mg capsule 2-15 00:00: 00 metoprolol 2017-1 No 1mg tartrate 50 2-15 mg tablet 00:00: 00 metoprolol 2017-1 No 1mg tartrate 50 2-15 mg tablet 00:00: 00 lisinopril 2017-1 No 1mg 20 2-15 mg-hydrochl 00:00: orothiazide 00 12.5 mg tablet simvastatin 2017-1 No 1mg 20 mg 2-15 tablet 00:00: 00 Flomax 0.4 2016-1 No 1mg mg capsule 2-15 00:00: 00 lisinopril 2017-1 No 1mg 20 2-15 mg-hydrochl 00:00: orothiazide 00 12.5 mg tablet simvastatin 2017-1 No 1mg 20 mg 2-15 tablet 00:00: 00 Flomax 0.4 2017-1 No 1mg mg capsule 2-15 00:00: 00 metoprolol 2017-1 No 1mg tartrate 50 2-15 mg tablet 00:00: 00 lisinopril 2017-1 No 1mg 20 2-15 mg-hydrochl 00:00: orothiazide 00 12.5 mg tablet simvastatin 2017-1 No 1mg 20 mg 2-15 tablet 00:00: 00 Flomax 0.4 2017-1 No 1mg mg capsule 2-15 00:00: 00 lisinopril 2017-0 No 1mg 20 9-25 mg-hydrochl 00:00: orothiazide 00 12.5 mg tablet metoprolol 2017-0 No 1mg tartrate 50 9-25 mg tablet 00:00: 00 simvastatin 2017-0 No 1mg 20 mg 9-25 tablet 00:00: 00 Flomax 0.4 2017-0 No 1mg mg capsule 05-22 00:00: 00 lisinopril 2017-0 No 1mg 20 9-25 mg-hydrochl 00:00: orothiazide 00 12.5 mg tablet metoprolol 2017-0 No 1mg tartrate 50 9-25 mg tablet 00:00: 00 simvastatin 2017-0 No 1mg 20 mg 9-25 tablet 00:00: 00 Flomax 0.4 2017-0 No 1mg mg capsule 05-22 00:00: 00 lisinopril 2017-0 No 1mg 20 9-25 mg-hydrochl 00:00: orothiazide 00 12.5 mg tablet metoprolol 2017-0 No 1mg tartrate 50 9-25 mg tablet 00:00: 00 simvastatin 2017-0 No 1mg 20 mg 9-25 tablet 00:00: 00 Flomax 0.4 2017-0 No 1mg mg capsule 05-22 00:00: 00 lisinopril 2017-0 No 1mg 20 9-25 mg-hydrochl 00:00: orothiazide 00 12.5 mg tablet metoprolol 2017-0 No 1mg tartrate 50 9-25 mg tablet 00:00: 00 simvastatin 2017-0 No 1mg 20 mg 9-25 tablet 00:00: 00 Flomax 0.4 2017-0 No 1mg mg capsule 05-22 00:00: 00 lisinopril 2017-0 No 1mg 20 6-07 mg-hydrochl 00:00: orothiazide 00 12.5 mg tablet metoprolol 2017-0 No 1mg tartrate 50 6-07 mg tablet 00:00: 00 simvastatin 2017-0 No 1mg 20 mg 6-07 tablet 00:00: 00 Flomax 0.4 2017-0 No 1mg mg capsule 02-01 00:00: 00 lisinopril 2017-0 No 1mg 20 6-07 mg-hydrochl 00:00: orothiazide 00 12.5 mg tablet metoprolol 2017-0 No 1mg tartrate 50 6-07 mg tablet 00:00: 00 simvastatin 2017-0 No 1mg 20 mg 6-07 tablet 00:00: 00 Flomax 0.4 2017-0 No 1mg mg capsule 02-01 00:00: 00 lisinopril 2017-0 No 1mg 20 6-07 mg-hydrochl 00:00: orothiazide 00 12.5 mg tablet metoprolol 2017-0 No 1mg tartrate 50 6-07 mg tablet 00:00: 00 simvastatin 2017-0 No 1mg 20 mg 6-07 tablet 00:00: 00 Flomax 0.4 2017-0 No 1mg mg capsule 02-01 00:00: 00 lisinopril 2017-0 No 1mg 20 6-07 mg-hydrochl 00:00: orothiazide 00 12.5 mg tablet metoprolol 2017-0 No 1mg tartrate 50 6-07 mg tablet 00:00: 00 simvastatin 2017-0 No 1mg 20 mg 6-07 tablet 00:00: 00 Flomax 0.4 2017-0 No 1mg mg capsule 02-01 00:00: 00 metoprolol 2017-0 No 1mg tartrate 50 2-28 mg tablet 00:00: 00 lisinopril 2017-0 No 1mg 20 2-28 mg-hydrochl 00:00: orothiazide 00 12.5 mg tablet simvastatin 2017-0 No 1mg 20 mg 2-28 tablet 00:00: 00 Flomax 0.4 2017-0 No 1mg mg capsule 10-25 00:00: 00 metoprolol 2017-0 No 1mg tartrate 50 2-28 mg tablet 00:00: 00 lisinopril 2017-0 No 1mg 20 2-28 mg-hydrochl 00:00: orothiazide 00 12.5 mg tablet simvastatin 2017-0 No 1mg 20 mg 2-28 tablet 00:00: 00 Flomax 0.4 2017-0 No 1mg mg capsule 2-28 00:00: 00 metoprolol 2017-0 No 1mg tartrate 50 2-28 mg tablet 00:00: 00 lisinopril 2017-0 No 1mg 20 2-28 mg-hydrochl 00:00: orothiazide 00 12.5 mg tablet simvastatin 2017-0 No 1mg 20 mg 2-28 tablet 00:00: 00 Flomax 0.4 2017-0 No 1mg mg capsule 2-28 00:00: 00 metoprolol 2017-0 No 1mg tartrate 50 2-28 mg tablet 00:00: 00 lisinopril 2017-0 No 1mg 20 2-28 mg-hydrochl 00:00: orothiazide 00 12.5 mg tablet simvastatin 2017-0 No 1mg 20 mg 2-28 tablet 00:00: 00 Flomax 0.4 2017-0 No 1mg mg capsule 2-28 00:00: 00 Flomax 0.4 2017-0 No 1mg mg capsule 1-17 00:00: 00 Flomax 0.4 2016-0 No 1mg mg capsule 1-17 00:00: 00 Flomax 0.4 2016-0 No 1mg mg capsule 1-17 00:00: 00 Flomax 0.4 2016-0 No 1mg mg capsule 1-17 00:00: 00 lisinopril 2015-1 No 1mg 20 0-14 mg-hydrochl 00:00: orothiazide 00 12.5 mg tablet metoprolol 2015-1 No 1mg tartrate 50 0-14 mg tablet 00:00: 00 simvastatin 2015-1 No 1mg 20 mg 0-14 tablet 00:00: 00 lisinopril 2015-1 No 1mg 20 0-14 mg-hydrochl 00:00: orothiazide 00 12.5 mg tablet metoprolol 2015-1 No 1mg tartrate 50 0-14 mg tablet 00:00: 00 simvastatin 2015-1 No 1mg 20 mg 0-14 tablet 00:00: 00 lisinopril 2015- No 1mg 20 0-14 mg-hydrochl 00:00: orothiazide 00 12.5 mg tablet metoprolol 2016-1 No 1mg tartrate 50 0-14 mg tablet 00:00: 00 simvastatin 2016-1 No 1mg 20 mg 0-14 tablet 00:00: 00 lisinopril 2016-1 No 1mg 20 0-14 mg-hydrochl 00:00: orothiazide 00 12.5 mg tablet metoprolol 2016-1 No 1mg tartrate 50 0-14 mg tablet 00:00: 00 simvastatin 2016-1 No 1mg 20 mg 0-14 tablet 00:00: 00 metoprolol 2016-0 No 1mg tartrate 50 7-22 mg tablet 00:00: 00 naproxen 2016-0 No 1mg 500 mg 7-22 tablet 00:00: 00 simvastatin 2016-0 No 1mg 20 mg 7-22 tablet 00:00: 00 lisinopril 2016-0 No 1mg 20 7-22 mg-hydrochl 00:00: orothiazide 00 12.5 mg tablet metoprolol 2016-0 No 1mg tartrate 50 7-22 mg tablet 00:00: 00 naproxen 2016-0 No 1mg 500 mg 7-22 tablet 00:00: 00 simvastatin 2016-0 No 1mg 20 mg 7-22 tablet 00:00: 00 lisinopril 2016-0 No 1mg 20 7-22 mg-hydrochl 00:00: orothiazide 00 12.5 mg tablet metoprolol 2016-0 No 1mg tartrate 50 7-22 mg tablet 00:00: 00 naproxen 2016-0 No 1mg 500 mg 7-22 tablet 00:00: 00 simvastatin 2016-0 No 1mg 20 mg 7-22 tablet 00:00: 00 lisinopril 2016-0 No 1mg 20 7-22 mg-hydrochl 00:00: orothiazide 00 12.5 mg tablet metoprolol 2016-0 No 1mg tartrate 50 7-22 mg tablet 00:00: 00 naproxen 2016-0 No 1mg 500 mg 7-22 tablet 00:00: 00 simvastatin 2016-0 No 1mg 20 mg 7-22 tablet 00:00: 00 lisinopril 2016-0 No 1mg 20 7-22 mg-hydrochl 00:00: orothiazide 00 12.5 mg tablet metoprolol 2016-0 No 1mg tartrate 50 1-04 mg tablet 00:00: 00 lisinopril 2016-0 No 1mg 20 1-04 mg-hydrochl 00:00: orothiazide 00 12.5 mg tablet simvastatin 2016-0 No 1mg 20 mg 1-04 tablet 00:00: 00 metoprolol 2016-0 No 1mg tartrate 50 1-04 mg tablet 00:00: 00 lisinopril 2016-0 No 1mg 20 1-04 mg-hydrochl 00:00: orothiazide 00 12.5 mg tablet simvastatin 2016-0 No 1mg 20 mg 1-04 tablet 00:00: 00 metoprolol 2016-0 No 1mg tartrate 50 1-04 mg tablet 00:00: 00 lisinopril 2016-0 No 1mg 20 1-04 mg-hydrochl 00:00: orothiazide 00 12.5 mg tablet simvastatin 2016-0 No 1mg 20 mg 1-04 tablet 00:00: 00 metoprolol 2016-0 No 1mg tartrate 50 1-04 mg tablet 00:00: 00 lisinopril 2016-0 No 1mg 20 1-04 mg-hydrochl 00:00: orothiazide 00 12.5 mg tablet simvastatin 2016-0 No 1mg 20 mg 1-04 tablet 00:00: 00 metoprolol 2015-0 No 1mg tartrate 50 9-22 mg tablet 00:00: 00 metoprolol 2015-0 No 1mg tartrate 50 9-22 mg tablet 00:00: 00 metoprolol 2015-0 No 1mg tartrate 50 9-22 mg tablet 00:00: 00 metoprolol 2015-0 No 1mg tartrate 50 9-22 mg tablet 00:00: 00 Aricept 10 2015-0 No 1mg mg tablet 05-14 00:00: 00 simvastatin 2015-0 No 1mg 20 mg 9-17 tablet 00:00: 00 Aricept 10 2015-0 No 1mg mg tablet 05-14 00:00: 00 simvastatin 2015-0 No 1mg 20 mg 9-17 tablet 00:00: 00 Aricept 10 2015-0 No 1mg mg tablet 05-14 00:00: 00 simvastatin 2015-0 No 1mg 20 mg 9-17 tablet 00:00: 00 Aricept 10 2014-0 No 1mg mg tablet 05-14 00:00: 00 simvastatin 2015-0 No 1mg 20 mg 9-17 tablet 00:00: 00 lisinopril 2015-0 No 1mg 20 9-08 mg-hydrochl 00:00: orothiazide 00 12.5 mg tablet amlodipine 2015-0 No 1mg 5 mg tablet 05-05 00:00: 00 naproxen 2015-0 No 1mg 500 mg 9-08 tablet 00:00: 00 lisinopril 2015-0 No 1mg 20 9-08 mg-hydrochl 00:00: orothiazide 00 12.5 mg tablet amlodipine 2015-0 No 1mg 5 mg tablet 05-05 00:00: 00 naproxen 2015-0 No 1mg 500 mg 9-08 tablet 00:00: 00 lisinopril 2015-0 No 1mg 20 9-08 mg-hydrochl 00:00: orothiazide 00 12.5 mg tablet amlodipine 2015-0 No 1mg 5 mg tablet 05-05 00:00: 00 naproxen 2015-0 No 1mg 500 mg 9-08 tablet 00:00: 00 lisinopril 2015-0 No 1mg 20 9-08 mg-hydrochl 00:00: orothiazide 00 12.5 mg tablet amlodipine 2015-0 No 1mg 5 mg tablet 05-05 00:00: 00 naproxen 2015-0 No 1mg 500 mg 9-08 tablet 00:00: 00 Norvasc 5 2015-0 No 1mg mg tablet 3 00:00: 00 Norvasc 5 2015-0 No 1mg mg tablet 3 00:00: 00 Norvasc 5 2015-0 No 1mg mg tablet 3 00:00: 00 Norvasc 5 2015-0 No 1mg mg tablet 3 00:00: 00 lisinopril 2015-0 No 2mg 20 2-27 mg-hydrochl 00:00: orothiazide 00 12.5 mg tablet Aricept 10 2015-0 No 1mg mg tablet 2-27 00:00: 00 cetirizine 2015-0 No 1mg 10 mg 2-27 tablet 00:00: 00 naproxen 2015-0 No 1mg 500 mg 2-27 tablet 00:00: 00 lisinopril 2015-0 No 2mg 20 2-27 mg-hydrochl 00:00: orothiazide 00 12.5 mg tablet Aricept 10 2014-0 No 1mg mg tablet 2-27 00:00: 00 lisinopril 2015-0 No 2mg 20 2-27 mg-hydrochl 00:00: orothiazide 00 12.5 mg tablet Aricept 10 2015-0 No 1mg mg tablet 2-27 00:00: 00 cetirizine 2015-0 No 1mg 10 mg 2-27 tablet 00:00: 00 naproxen 2015-0 No 1mg 500 mg 2-27 tablet 00:00: 00 cetirizine 2015-0 No 1mg 10 mg 2-27 tablet 00:00: 00 naproxen 2015-0 No 1mg 500 mg 2-27 tablet 00:00: 00 lisinopril 2015-0 No 2mg 20 2-27 mg-hydrochl 00:00: orothiazide 00 12.5 mg tablet Aricept 10 2014-0 No 1mg mg tablet 2-27 00:00: 00 cetirizine 2015-0 No 1mg 10 mg 2-27 tablet 00:00: 00 naproxen 2015-0 No 1mg 500 mg 2-27 tablet 00:00: 00 Aricept 10 2015-0 No 1mg mg tablet 1-30 00:00: 00 Aricept 10 2015-0 No 1mg mg tablet 1-30 00:00: 00 lisinopril 2015-0 No 1mg 20 1-30 mg-hydrochl 00:00: orothiazide 00 12.5 mg tablet lisinopril 2015-0 No 1mg 20 1-30 mg-hydrochl 00:00: orothiazide 00 12.5 mg tablet Aricept 10 2014-0 No 1mg mg tablet 1-30 00:00: 00 lisinopril 2015-0 No 1mg 20 1-30 mg-hydrochl 00:00: orothiazide 00 12.5 mg tablet Aricept 10 2015-0 No 1mg mg tablet 1-30 00:00: 00 lisinopril 2015-0 No 1mg 20 1-30 mg-hydrochl 00:00: orothiazide 00 12.5 mg tablet Immunizations Ordered Immunization Filled Immunization Date Status Commen ts Source Name Name Meche NGID-19 2022-03-15 Completed Vaccine 00:00:00 Meche COVID-19 2022-03-15 Completed Vaccine 00:00:00 Peterjeff COVID-19 2022-03-15 Completed Vaccine 00:00:00 Meche COVID-19 2022-03-15 Completed Vaccine 00:00:00 Moderna COVID-19 2021-07-01 Completed Vaccine 00:00:00 Moderna COVID-19 2021-07-01 Completed Vaccine 00:00:00 Moderna COVID-19 2021-07-01 Completed Vaccine 00:00:00 Moderna COVID-19 2021-07-01 Completed Vaccine 00:00:00 Moderna COVID-19 2020-11-30 Completed Vaccine 00:00:00 Moderna COVID-19 2020-11-30 Completed Vaccine 00:00:00 Moderna COVID-19 2020-11-30 Completed Vaccine 00:00:00 Moderna COVID-19 2020-11-30 Completed Vaccine 00:00:00 Moderna COVID-19 2020-11-02 Completed Vaccine 00:00:00 Moderna COVID-19 2020-11-02 Completed Vaccine 00:00:00 Moderna COVID-19 2020-11-02 Completed Vaccine 00:00:00 Moderna COVID-19 2020-11-02 Completed Vaccine 00:00:00 Vital Signs Vital Name Observation Time Observation Value Comments Source BP Systolic 2022-09-08 11:01:00 159 mm[Hg] BP Diastolic 2022-09-08 11:01:00 80 mm[Hg] Weight Measured 2022-09-08 11:01:00 160.00 pounds Height Measured 2022-09-08 11:01:00 67.00 inches Body Temperature 2022-09-08 11:01:00 98.30 degrees Heart Rate 2022-09-08 11:01:00 53.00 /min Respiratory Rate 2022-09-08 11:01:00 18.00 /min BP Systolic 2022-08-18 10:24:00 152 mm[Hg] BP Diastolic 2022-08-18 10:24:00 79 mm[Hg] Weight Measured 2022-08-18 10:24:00 161.00 pounds Height Measured 2022-08-18 10:24:00 67.00 inches Body Temperature 2022-08-18 10:24:00 98.10 degrees Heart Rate 2022-08-18 10:24:00 70.00 /min Respiratory Rate 2022-08-18 10:24:00 18.00 /min BP Systolic 2022-08-09 11:00:00 167 mm[Hg] BP Diastolic 2022-08-09 11:00:00 80 mm[Hg] Weight Measured 2022-08-09 11:00:00 162.80 pounds Height Measured 2022-08-09 11:00:00 67.00 inches Body Temperature 2022-08-09 11:00:00 98.30 degrees Heart Rate 2022-08-09 11:00:00 63.00 /min Respiratory Rate 2022-08-09 11:00:00 18.00 /min BP Systolic 2022-06-01 10:10:00 159 mm[Hg] BP Diastolic 2022-06-01 10:10:00 86 mm[Hg] Weight Measured 2022-06-01 10:10:00 164.00 pounds Height Measured 2022-06-01 10:10:00 67.00 inches Body Temperature 2022-06-01 10:10:00 97.90 degrees Heart Rate 2022-06-01 10:10:00 59.00 /min Respiratory Rate 2022-06-01 10:10:00 BP Systolic 2020-08-31 09:15:00 125 mm[Hg] BP Diastolic 2020-08-31 09:15:00 68 mm[Hg] Weight Measured 2020-08-31 09:15:00 174.00 pounds Height Measured 2020-08-31 09:15:00 67.00 inches Body Temperature 2020-08-31 09:15:00 98.40 degrees Heart Rate 2020-08-31 09:15:00 54.00 /min Respiratory Rate 2020-08-31 09:15:00 16.00 /min BP Systolic 2020-08-10 10:21:00 143 mm[Hg] BP Diastolic 2020-08-10 10:21:00 74 mm[Hg] Weight Measured 2020-08-10 10:21:00 177.00 pounds Height Measured 2020-08-10 10:21:00 67.00 inches Body Temperature 2020-08-10 10:21:00 98.40 degrees Heart Rate 2020-08-10 10:21:00 61.00 /min Respiratory Rate 2020-08-10 10:21:00 15.00 /min BP Systolic 2020-04-21 10:22:00 135 mm[Hg] BP Diastolic 2020-04-21 10:22:00 75 mm[Hg] Weight Measured 2020-04-21 10:22:00 174.40 pounds Height Measured 2020-04-21 10:22:00 67.00 inches Body Temperature 2020-04-21 10:22:00 98.70 degrees Heart Rate 2020-04-21 10:22:00 52.00 /min Respiratory Rate 2020-04-21 10:22:00 16.00 /min BP Systolic 2020-04-21 09:41:00 135 mm[Hg] BP Diastolic 2020-04-21 09:41:00 75 mm[Hg] Weight Measured 2020-04-21 09:41:00 174.40 pounds Height Measured 2020-04-21 09:41:00 67.00 inches Body Temperature 2020-04-21 09:41:00 98.70 degrees Heart Rate 2020-04-21 09:41:00 52.00 /min Respiratory Rate 2020-04-21 09:41:00 16.00 /min BP Systolic 2020-02-11 10:50:00 152 mm[Hg] BP Diastolic 2020-02-11 10:50:00 76 mm[Hg] Weight Measured 2020-02-11 10:50:00 172.20 pounds Height Measured 2020-02-11 10:50:00 67.00 inches Body Temperature 2020-02-11 10:50:00 98.70 degrees Heart Rate 2020-02-11 10:50:00 51.00 /min Respiratory Rate 2020-02-11 10:50:00 16.00 /min BP Systolic 2019-11-19 14:09:00 123 mm[Hg] BP Diastolic 2019-11-19 14:09:00 70 mm[Hg] Weight Measured 2019-11-19 14:09:00 170.40 pounds Height Measured 2019-11-19 14:09:00 67.00 inches Body Temperature 2019-11-19 14:09:00 98.10 degrees Heart Rate 2019-11-19 14:09:00 64.00 /min Respiratory Rate 2019-11-19 14:09:00 18.00 /min BP Systolic 2019-09-10 10:29:00 111 mm[Hg] BP Diastolic 2019-09-10 10:29:00 70 mm[Hg] Weight Measured 2019-09-10 10:29:00 174.80 pounds Height Measured 2019-09-10 10:29:00 67.00 inches Body Temperature 2019-09-10 10:29:00 98.80 degrees Heart Rate 2019-09-10 10:29:00 65.00 /min Respiratory Rate 2019-09-10 10:29:00 17.00 /min BP Systolic 2019-06-19 08:25:00 147 mm[Hg] BP Diastolic 2019-06-19 08:25:00 74 mm[Hg] Weight Measured 2019-06-19 08:25:00 174.00 pounds Height Measured 2019-06-19 08:25:00 67.00 inches Body Temperature 2019-06-19 08:25:00 97.50 degrees Heart Rate 2019-06-19 08:25:00 75.00 /min Respiratory Rate 2019-06-19 08:25:00 18.00 /min BP Systolic 2019-05-21 08:36:00 158 mm[Hg] BP Diastolic 2019-05-21 08:36:00 82 mm[Hg] Weight Measured 2019-05-21 08:36:00 179.00 pounds Height Measured 2019-05-21 08:36:00 67.00 inches Body Temperature 2019-05-21 08:36:00 98.20 degrees Heart Rate 2019-05-21 08:36:00 55.00 /min Respiratory Rate 2019-05-21 08:36:00 19.00 /min Procedures Procedure Date / Time Performed Performing Clinician [facility] e [address] Ecg Routine Ecg W/least 12 2016-06-10 00:00:00 Lds W/i r Plan of Care Planned Activity Planned Date Details Comments Source Goal Plan of Care Note [code = 76775-0] Goal Plan of Care Note [code = 44731-6] Goal Plan of Care Note [code = 71504-3] Goal Plan of Care Note [code = 59959-6] Goal Plan of Care Note [code = 50904-5] Goal Plan of Care Note [code = 30151-6] Goal Plan of Care Note [code = 30657-1] Goal Plan of Care Note [code = 88179-5] Goal Plan of Care Note [code = 95601-6] Goal Plan of Care Note [code = 14138-8] Goal Plan of Care Note [code = 65086-7] Goal Plan of Care Note [code = 65989-1] Goal Plan of Care Note [code = 11295-5] Goal Plan of Care Note [code = 28516-4] Goal Plan of Care Note [code = 92093-1] Goal Plan of Care Note [code = 81425-1] Goal Plan of Care Note [code = 75424-7] Goal Plan of Care Note [code = 06372-7] Goal Plan of Care Note [code = 12561-6] Goal Plan of Care Note [code = 58460-2] Goal Plan of Care Note [code = 82869-8] Goal Plan of Care Note [code = 08051-4] Goal Plan of Care Note [code = 12392-0] Goal Plan of Care Note [code = 62999-0] Goal Plan of Care Note [code = 77710-7] Goal Plan of Care Note [code = 12309-7] Goal Plan of Care Note [code = 41446-3] Goal Plan of Care Note [code = 32041-6] Goal Plan of Care Note [code = 65509-9] Goal Plan of Care Note [code = 96590-4] Goal Plan of Care Note [code = 39468-8] Goal Plan of Care Note [code = 04763-9] Goal Plan of Care Note [code = 55888-5] Goal Plan of Care Note [code = 73048-2] Goal Plan of Care Note [code = 56173-2] Goal Plan of Care Note [code = 20897-8] Goal Plan of Care Note [code = 16227-2] Goal Plan of Care Note [code = 50442-9] Goal Plan of Care Note [code = 53046-0] Goal Plan of Care Note [code = 76544-1] Goal Plan of Care Note [code = 01389-3] Goal Plan of Care Note [code = 73171-8] Goal Plan of Care Note [code = 55776-0] Goal Plan of Care Note [code = 19717-6] Goal Plan of Care Note [code = 90009-8] Goal Plan of Care Note [code = 16138-7] Goal Plan of Care Note [code = 38845-7] Goal Plan of Care Note [code = 32812-2] Goal Plan of Care Note [code = 06079-3] Goal Plan of Care Note [code = 61753-1] Goal Plan of Care Note [code = 53034-4] Goal Plan of Care Note [code = 90854-2] Goal Plan of Care Note [code = 02270-1] Goal Plan of Care Note [code = 62309-3] Goal Plan of Care Note [code = 29838-6] Goal Plan of Care Note [code = 40943-1] Goal Plan of Care Note [code = 35942-0] Goal Plan of Care Note [code = 91762-4] Goal Plan of Care Note [code = 18923-9] Goal Plan of Care Note [code = 18110-9] Goal Plan of Care Note [code = 16699-3] Goal Plan of Care Note [code = 88480-0] Goal Plan of Care Note [code = 24720-2] Goal Plan of Care Note [code = 14471-9] Goal Plan of Care Note [code = 65761-1] Goal Plan of Care Note [code = 47266-4] Goal Plan of Care Note [code = 68434-1] Goal Plan of Care Note [code = 78061-0] Goal Plan of Care Note [code = 02587-8] Goal Plan of Care Note [code = 23621-0] Goal Plan of Care Note [code = 24445-9] Goal Plan of Care Note [code = 43378-8] Goal Plan of Care Note [code = 49075-0] Goal Plan of Care Note [code = 39542-5] Goal Plan of Care Note [code = 36200-4] Goal Plan of Care Note [code = 51026-8] Goal Plan of Care Note [code = 74942-8] Goal Plan of Care Note [code = 60373-9] Goal Plan of Care Note [code = 84363-1] Goal Plan of Care Note [code = 21073-9] Goal Plan of Care Note [code = 19850-8] Goal Plan of Care Note [code = 60078-7] Goal Plan of Care Note [code = 52772-9] Goal Plan of Care Note [code = 21782-2] Goal Plan of Care Note [code = 42204-4] Goal Plan of Care Note [code = 78385-5] Goal Plan of Care Note [code = 67055-2] Goal Plan of Care Note [code = 57940-8] Goal Plan of Care Note [code = 88084-7] Goal Plan of Care Note [code = 88485-6] Goal Plan of Care Note [code = 77126-3] Goal Plan of Care Note [code = 50595-2] Goal Plan of Care Note [code = 24635-4] Goal Plan of Care Note [code = 86957-5] Goal Plan of Care Note [code = 63741-9] Goal Plan of Care Note [code = 89953-6] Goal Plan of Care Note [code = 00443-0] Goal Plan of Care Note [code = 92489-2] Goal Plan of Care Note [code = 22397-2] Goal Plan of Care Note [code = 76809-2] Goal Plan of Care Note [code = 92387-0] Goal Plan of Care Note [code = 47972-3] Goal Plan of Care Note [code = 45395-3] Goal Plan of Care Note [code = 52495-4] Goal Plan of Care Note [code = 10484-4] Goal Plan of Care Note [code = 20943-2] Goal Plan of Care Note [code = 07067-2] Goal Plan of Care Note [code = 37958-8] Goal Plan of Care Note [code = 11799-5] Goal Plan of Care Note [code = 25693-4] Goal Plan of Care Note [code = 93655-5] Goal Plan of Care Note [code = 57167-8] Goal Plan of Care Note [code = 89720-6] Goal Plan of Care Note [code = 16671-0] Goal Plan of Care Note [code = 03514-5] Goal Plan of Care Note [code = 96851-3] Goal Plan of Care Note [code = 28854-4] Goal Plan of Care Note [code = 29398-1] Goal Plan of Care Note [code = 27112-6] Goal Plan of Care Note [code = 89022-2] Goal Plan of Care Note [code = 78911-9] Goal Plan of Care Note [code = 99353-7] Goal Plan of Care Note [code = 96700-6] Goal Plan of Care Note [code = 76902-3] Goal Plan of Care Note [code = 10796-6] Goal Plan of Care Note [code = 08396-3] Goal Plan of Care Note [code = 98596-1] Goal Plan of Care Note [code = 95153-9] Goal Plan of Care Note [code = 23758-7] Goal Plan of Care Note [code = 18512-6] Goal Plan of Care Note [code = 93278-7] Goal Plan of Care Note [code = 83073-4] Goal Plan of Care Note [code = 01063-8] Goal Plan of Care Note [code = 26173-6] Goal Plan of Care Note [code = 76414-5] Goal Plan of Care Note [code = 95878-4] Goal Plan of Care Note [code = 78450-3] Goal Plan of Care Note [code = 19481-3] Goal Plan of Care Note [code = 89062-8] Goal Plan of Care Note [code = 66275-8] Goal Plan of Care Note [code = 80264-9] Encounters Start End Encounter Admission Attending Care Care Encounter Source Date/Time Date/Time Type Type Clinicians Facility Department ID 2022-09-14 2022-09-14 Outpatient SFA SFA [id number] 023 [place] 09:25:22 09:25:22 0118 F Juarez 2022-09-08 2022-09-08 Outpatient SFA SFA [id number] 023 Roger 10:45:06 10:45:06 0112 F Juarez 2022-09-08 2022-09-08 Outpatient [id number] 00:00:00 00:00:00 Visit 7k6e-58gj h0e-49xk-m -f664-e3f 027-e6c4af 7kemx6dsn df5bfe 2022-08-18 2022-08-18 Outpatient SFA SFA [id number] 022 Roger 10:15:05 10:15:05 1222 F Juarez 2022-08-18 2022-08-18 Outpatient [id number] 00:00:00 00:00:00 Visit h59i-3e55 39d-4d55-8 -84ed-98b 4ed-98ba57 o02k90yo5 c29dd9 2022-08-09 2022-08-09 Outpatient SFA SFA [id number] 022 [place] 10:49:12 10:49:12 1213 F Juarez 2022-08-09 2022-08-09 Outpatient [id number] 00:00:00 00:00:00 Visit 0595-5007 769-4596-a -d97h-433 64a-0559b6 [id number] 74f006 2022-06-01 2022-06-01 Outpatient SFA SFA [id number] 022 [place] 11:18:06 11:18:06 1005 F Juarez 2022-06-01 2022-06-01 Outpatient [id number]- [id number] fa [id number]-q 00:00:00 00:00:00 Visit dfd2-458c fd2-458c-a -i40t-mgq 85c-adebcd ezs1qm47d 0fd62e Results Test Description Test Time Test Comments Results Result Comments Source VITAMIN B 12 AND FOLIC ACID 2022-08-10 06:16:45 Test Item Value Reference Range Interpretation Comme nts VITAMIN B-12 (test code = 379 PG/ML [phone]) FOLIC ACID (test code = 2695) 5.1 UG/L SEE BELOW L INTERPRETIVE RANGES DEFICIENCY . . . . . . . . . . . . . . . UG/L <4.0 POSSIBLE DEFICIENCY. . . . . . . . . . . UG/L 4.0-5.9 PAZ FFICIENT . . . . . . . . . . . . . . . UG/L >=6.0 TSH, THIRD [id number] 06:16:45 Test Item Value Reference Range Interpretation Comments TSH, THIRD 1.790 UIU/ML 0.400-4.100 UNLESS OTHERWI SE GENERATION (test INDICATED, ALL TESTING code = 2821) PERFORMED [facility], [facility]. [address] [place] [address] [facility] DIRECTOR: TOMER QUEZADA M.D. CLIA NUMBER [id number] CAP ACCREDITATION N O. [id number] HEPATITIS PANEL, [id number] 05:58:55 Test Item Value Reference Range Interpretation Comments HEPATITIS A IgM (test NON-REACTIVE NON-REACTIVE code = 74348) HEPATITIS B CORE IgM NON-REACTIVE NON-REACTIVE (test code = 4644) HEPATITIS B SURF AG NON-REACTIVE NON-REACTIVE (test code = 2739) HEPATITIS C ANTIBODY NON-REACTIVE NON-REACTIVE (test code = 4675) INTERPRETATION (NOTE) Hepatitis A HEPATITIS A: (test code sero logy shows no = 2552) evidence of acu te hepatitis A. INTERPRETATION (NOTE) Hepatitis B HEPATITIS B: (test code sero logy shows no = 09936) evidence of acu te hepatitis B and no indication of exposure to hepatitis B vir us in the previous juve eight months. INTERPRETATION (NOTE) Hepatitis C HEPATITIS C: (test code sero logy shows no = 40309) evidence of exposure to hepatitisC viru s at this time. I t can take up to 12 months after exposure tothe hepatitis C vir us for antibodies to become detectab le in the blood in certain patient s. COMPREHENSIVE METABOLIC [id number] 05:20:19 Test Item Value Reference Range Interpretation Comments GLUCOSE (test code = 100 MG/DL 70-99 H 2216) BUN (test code = 7 MG/DL 8-23 L 2207) CREATININE (test 1.07 MG/DL 0.80-1.40 code = 2214) eGFR (2020 CKD-EPI) 75 ML/MIN/1.73 >60 (test code = 89810) CALC BUN/CREAT (test 7 RATIO 6-28 code = 2235) SODIUM (test code = 144 MEQ/L 008-785 8267) POTASSIUM (test code 4.1 MEQ/L 3.5-5.4 = 2227) CHLORIDE (test code 105 MEQ/L 95-107 = 2215) CARBON DIOXIDE (test 26 MEQ/L 19-31 code = 2206) CALCIUM (test code = 10.5 MG/DL 8.5-10.5 2208) PROTEIN, TOTAL (test 7.5 G/DL 6.1-8.3 code = 222) ALBUMIN (test code = 4.7 G/DL 3.5-5.2 2200) CALC GLOBULIN (test 2.8 G/DL 1.9-3.7 code = 2240) CALC A/G RATIO (test 1.7 RATIO 1.0-2.6 code = 2234) BILIRUBIN, TOTAL 0.4 MG/DL See_Comment [Automated message] (test code = 2207) The syste m which generated this result transmit donnell reference range : <=1.2. The refe rence range was not u sed to interpret th is result as normal/abnormal . ALKALINE PHOSPHATASE 120 U/L 40-125 (test code = 2204) AST (test code = 14 U/L 9-50 2217) ALT (test code = 12 U/L 5-50 2218) RPR REFLEX TO T. PALLIDUM - [id number] 04:29:46 Test Item Value Reference Range Interpretation Comments RPR (test code = 31203) NON-REACTIVE NON-REACTIVE RPR TITER (test code = 3500) NOT INDIC. TITER NOT INDIC. COMPREHENSIVE METABOLIC [id number] 00:00:00 Test Item Value Reference Range Interpretation Comments GLUCOSE (test code = 2217) 100 MG/DL BUN (test code = 2208) 7 MG/DL CREATININE (test code = 2214) 1.07 MG/DL eGFR (2020 CKD-EPI) (test code 75 ML/MIN/1.73 = 81056) CALC BUN/CREAT (test code = 7 RATIO 2235) SODIUM (test code = 2231) 144 MEQ/L POTASSIUM (test code = 2228) 4.1 MEQ/L CHLORIDE (test code = 2215) 105 MEQ/L CARBON DIOXIDE (test code = 26 MEQ/L 2205) CALCIUM (test code = 2209) 10.5 MG/DL PROTEIN, TOTAL (test code = 7.5 G/DL 2228) ALBUMIN (test code = 2201) 4.7 G/DL CALC GLOBULIN (test code = 2.8 G/DL 2239) CALC A/G RATIO (test code = 1.7 RATIO 2233) BILIRUBIN, TOTAL (test code = 0.4 MG/DL 2206) ALKALINE PHOSPHATASE (test 120 U/L code = 2204) AST (test code = 2218) 14 U/L ALT (test code = 2219) 12 U/L COMPREHENSIVE METABOLIC [id number] 00:00:00 Test Item Value Reference Range Interpretation Comments GLUCOSE (test code = 2217) 100 MG/DL BUN (test code = 2208) 7 MG/DL CREATININE (test code = 2214) 1.07 MG/DL eGFR (2020 CKD-EPI) (test code 75 ML/MIN/1.73 = 65923) CALC BUN/CREAT (test code = 7 RATIO 2234) SODIUM (test code = 2231) 144 MEQ/L POTASSIUM (test code = 2228) 4.1 MEQ/L CHLORIDE (test code = 2215) 105 MEQ/L CARBON DIOXIDE (test code = 26 MEQ/L 2205) CALCIUM (test code = 220) 10.5 MG/DL PROTEIN, TOTAL (test code = 7.5 G/DL 2228) ALBUMIN (test code = 220) 4.7 G/DL CALC GLOBULIN (test code = 2.8 G/DL 2239) CALC A/G RATIO (test code = 1.7 RATIO 2233) BILIRUBIN, TOTAL (test code = 0.4 MG/DL 2206) ALKALINE PHOSPHATASE (test 120 U/L code = 2203) AST (test code = 2218) 14 U/L ALT (test code = 2219) 12 U/L RPR REFLEX TO T. PALLIDUM - [id number] 00:00:00 Test Item Value Reference Range Interpretation Comments RPR (test code = 13591) NON-REACTIVE RPR TITER (test code = 3500) NOT INDIC. TITER RPR REFLEX TO T. PALLIDUM - [id number] 00:00:00 Test Item Value Reference Range Interpretation Comments RPR (test code = 05801) NON-REACTIVE RPR TITER (test code = 3500) NOT INDIC. TITER VITAMIN B 12 AND FOLIC [id number] 00:00:00 Test Item Value Reference Range Interpretation Comments VITAMIN B-12 (test code = 2840) 379 PG/ML FOLIC ACID (test code = 2695) 5.1 UG/L VITAMIN B 12 AND FOLIC [id number] 00:00:00 Test Item Value Reference Range Interpretation Comments VITAMIN B-12 (test code = 2840) 379 PG/ML FOLIC ACID (test code = 2695) 5.1 UG/L ACUTE HEPATITIS [id number] 00:00:00 Test Item Value Reference Range Interpretation Comments HEPATITIS A IgM (test code = NON-REACTIVE 39662) HEPATITIS B CORE IgM (test code NON-REACTIVE = 3912) HEPATITIS B SURF AG (test code = NON-REACTIVE 2739) HEPATITIS C ANTIBODY (test code NON-REACTIVE = 4675) INTERPRETATION HEPATITIS A: (NOTE) (test code = 2552) INTERPRETATION HEPATITIS B: (NOTE) (test code = 91934) INTERPRETATION HEPATITIS C: (NOTE) (test code = 04277) ACUTE HEPATITIS [id number] 00:00:00 Test Item Value Reference Range Interpretation Comments HEPATITIS A IgM (test code = NON-REACTIVE 96155) HEPATITIS B CORE IgM (test code NON-REACTIVE = 4644) HEPATITIS B SURF AG (test code = NON-REACTIVE 2739) HEPATITIS C ANTIBODY (test code NON-REACTIVE = 4675) INTERPRETATION HEPATITIS A: (NOTE) (test code = 2552) INTERPRETATION HEPATITIS B: (NOTE) (test code = 97490) INTERPRETATION HEPATITIS C: (NOTE) (test code = 84779) [id number] 00:00:00 Test Item Value Reference Range Interpretation Comments TSH, THIRD GENERATION (test code 1.790 UIU/ML = 2821) [id number] 00:00:00 Test Item Value Reference Range Interpretation Comments TSH, THIRD GENERATION (test code 1.790 UIU/ML = 2821) [id number] 00:00:00 Test Item Value Reference Range Interpretation Comments TSH, THIRD GENERATION (test code 1.790 UIU/ML = 2821) COMPREHENSIVE METABOLIC [id number] 00:00:00 Test Item Value Reference Range Interpretation Comments GLUCOSE (test code = 2217) 100 MG/DL BUN (test code = 2208) 7 MG/DL CREATININE (test code = 2214) 1.07 MG/DL eGFR (2020 CKD-EPI) (test code 75 ML/MIN/1.73 = 37945) CALC BUN/CREAT (test code = 7 RATIO 2235) SODIUM (test code = 2231) 144 MEQ/L POTASSIUM (test code = 2228) 4.1 MEQ/L CHLORIDE (test code = 2215) 105 MEQ/L CARBON DIOXIDE (test code = 26 MEQ/L 2205) CALCIUM (test code = 2209) 10.5 MG/DL PROTEIN, TOTAL (test code = 7.5 G/DL 2228) ALBUMIN (test code = 2201) 4.7 G/DL CALC GLOBULIN (test code = 2.8 G/DL 2239) CALC A/G RATIO (test code = 1.7 RATIO 2234) BILIRUBIN, TOTAL (test code = 0.4 MG/DL 2206) ALKALINE PHOSPHATASE (test 120 U/L code = 2204) AST (test code = 2218) 14 U/L ALT (test code = 2219) 12 U/L COMPREHENSIVE METABOLIC [id number] 00:00:00 Test Item Value Reference Range Interpretation Comments GLUCOSE (test code = 2217) 100 MG/DL BUN (test code = 2208) 7 MG/DL CREATININE (test code = 2214) 1.07 MG/DL eGFR (2020 CKD-EPI) (test code 75 ML/MIN/1.73 = 72811) CALC BUN/CREAT (test code = 7 RATIO 2235) SODIUM (test code = 2231) 144 MEQ/L POTASSIUM (test code = 2228) 4.1 MEQ/L CHLORIDE (test code = 2215) 105 MEQ/L CARBON DIOXIDE (test code = 26 MEQ/L 2205) CALCIUM (test code = 2209) 10.5 MG/DL PROTEIN, TOTAL (test code = 7.5 G/DL 2228) ALBUMIN (test code = 2201) 4.7 G/DL CALC GLOBULIN (test code = 2.8 G/DL 2240) CALC A/G RATIO (test code = 1.7 RATIO 2234) BILIRUBIN, TOTAL (test code = 0.4 MG/DL 2206) ALKALINE PHOSPHATASE (test 120 U/L code = 2204) AST (test code = 2218) 14 U/L ALT (test code = 2219) 12 U/L RPR REFLEX TO T. PALLIDUM - [id number] 00:00:00 Test Item Value Reference Range Interpretation Comments RPR (test code = 19109) NON-REACTIVE RPR TITER (test code = 3500) NOT INDIC. TITER RPR REFLEX TO T. PALLIDUM - [id number] 00:00:00 Test Item Value Reference Range Interpretation Comments RPR (test code = 08717) NON-REACTIVE RPR TITER (test code = 3500) NOT INDIC. TITER VITAMIN B 12 AND FOLIC [id number] 00:00:00 Test Item Value Reference Range Interpretation Comments VITAMIN B-12 (test code = 2840) 379 PG/ML FOLIC ACID (test code = 5875) 5.1 UG/L VITAMIN B 12 AND FOLIC [id number] 00:00:00 Test Item Value Reference Range Interpretation Comments VITAMIN B-12 (test code = 2840) 379 PG/ML FOLIC ACID (test code = 2695) 5.1 UG/L ACUTE HEPATITIS [id number] 00:00:00 Test Item Value Reference Range Interpretation Comments HEPATITIS A IgM (test code = NON-REACTIVE 86016) HEPATITIS B CORE IgM (test code NON-REACTIVE = 4644) HEPATITIS B SURF AG (test code = NON-REACTIVE 2739) HEPATITIS C ANTIBODY (test code NON-REACTIVE = 4675) INTERPRETATION HEPATITIS A: (NOTE) (test code = 2552) INTERPRETATION HEPATITIS B: (NOTE) (test code = 61353) INTERPRETATION HEPATITIS C: (NOTE) (test code = 19292) ACUTE HEPATITIS [id number] 00:00:00 Test Item Value Reference Range Interpretation Comments HEPATITIS A IgM (test code = NON-REACTIVE 89768) HEPATITIS B CORE IgM (test code NON-REACTIVE = 4644) HEPATITIS B SURF AG (test code = NON-REACTIVE 2739) HEPATITIS C ANTIBODY (test code NON-REACTIVE = 4675) INTERPRETATION HEPATITIS A: (NOTE) (test code = 2552) INTERPRETATION HEPATITIS B: (NOTE) (test code = 43948) INTERPRETATION HEPATITIS C: (NOTE) (test code = 37729) [id number] 00:00:00 Test Item Value Reference Range Interpretation Comments TSH, THIRD GENERATION (test code 1.790 UIU/ML = 2821) [id number] 00:00:00 Test Item Value Reference Range Interpretation Comments TSH, THIRD GENERATION (test code 1.790 UIU/ML = 2821) [id number] 00:00:00 Test Item Value Reference Range Interpretation Comments TSH, THIRD GENERATION (test code 1.790 UIU/ML = 2821) CBC W/AUTO DIFF WITH [id number] 06:52:48 Test Item Value Reference Range Interpretation Comments WBC (test code = 6.3 K/UL 3.5-11.0 1001) RBC (test code = 4.78 M/UL 4.50-6.10 1002) HEMOGLOBIN (test code 13.2 G/DL 13.5-17.0 L = 1003) HEMATOCRIT (test code 40.3 % 40.0-51.0 = 1004) MCV (test code = 84.3 fL 80.0-99.0 1005) MCH (test code = 27.6 PG 25.0-33.0 1006) MCHC (test code = 32.8 G/DL 31.0-36.0 1007) RDW (test code = 13.8 % 11.5-15.0 1038) NEUTROPHILS (test 63.5 % code = 1008) LYMPHOCYTES (test 25.0 % code = 1010) MONOCYTES (test code 8.3 % = 1011) EOSINOPHILS (test 2.4 % code = 1012) BASOPHILS (test code 0.6 % = 1013) IMMATURE GRANULOCYTES 0.2 % (test code = 1036) NUCLEATED RBCS (test 0.0 /100 WBC'S See_Comment [Aut omated code = 1065) message] The sy stem which generated this result transmitted reference range : 0.0. The refere nce range was not u sed to interpret th is result as normal/abnormal . PLATELET COUNT (test 271 K/UL 130-400 code = 1015) ABSOLUTE NEUTROPHILS 4.00 K/UL 1.50-7.50 (test code = 1066) ABSOLUTE LYMPHOCYTES 1.57 K/UL 1.00-4.00 (test code = 1067) ABSOLUTE MONOCYTES 0.52 K/UL 0.20-1.00 (test code = 1068) ABSOLUTE EOSINOPHILS 0.15 K/UL 0.00-0.50 (test code = 1040) ABSOLUTE BASOPHILS 0.04 K/UL 0.00-0.20 (test code = 1069) ABS IMMATURE 0.01 K/UL 0.00-0.10 GRANULOCYTES (test code = 1020) ABS NUCLEATED RBCS 0.00 K/UL 0.00-0.11 (test code = 78016) HEMOGLOBIN [id number] 06:15:02 Test Item Value Reference Range Interpretation Comments HEMOGLOBIN A1c (test 5.6 % 4.2-5.6 UNLESS OTHERWISE code = 49815) INDICATED, ALL TESTING PERFORMED [facility] [employer] [address] [facility] [place] [address] [facility] DIRECTOR: TOMER QUEZADA M.D. CLIA NUMBER [id number] CAP ACCREDITATION N O. [id number] COMPREHENSIVE METABOLIC [id number] 03:59:12 Test Item Value Reference Range Interpretation Comments GLUCOSE (test code = 81 MG/DL 70-99 2216) BUN (test code = 9 MG/DL 8-23 2207) CREATININE (test 1.09 MG/DL 0.80-1.40 code = 2214) eGFR (2020 CKD-EPI) 73 ML/MIN/1.73 >60 (test code = 37487) CALC BUN/CREAT (test 8 RATIO 6-28 code = 2235) SODIUM (test code = 145 MEQ/L 892-806 4205) POTASSIUM (test code 4.7 MEQ/L 3.5-5.4 = 2227) CHLORIDE (test code 105 MEQ/L 95-107 = 221) CARBON DIOXIDE (test 28 MEQ/L 19-31 code = 220) CALCIUM (test code = 10.4 MG/DL 8.5-10.5 2208) PROTEIN, TOTAL (test 7.2 G/DL 6.1-8.3 code = 222) ALBUMIN (test code = 4.7 G/DL 3.5-5.2 2200) CALC GLOBULIN (test 2.5 G/DL 1.9-3.7 code = 224) CALC A/G RATIO (test 1.9 RATIO 1.0-2.6 code = 2234) BILIRUBIN, TOTAL 0.5 MG/DL See_Comment [Automated message] (test code = 220) The syste m which generated this result transmit donnell reference range : <=1.2. The refe rence range was not u sed to interpret th is result as normal/abnormal . ALKALINE PHOSPHATASE 116 U/L 40-125 (test code = 2204) AST (test code = 14 U/L 9-50 2217) ALT (test code = 11 U/L 5-50 2218) COMPREHENSIVE METABOLIC [id number] 00:00:00 Test Item Value Reference Range Interpretation Comments GLUCOSE (test code = 2216) 81 MG/DL BUN (test code = 2207) 9 MG/DL CREATININE (test code = 2214) 1.09 MG/DL eGFR (2020 CKD-EPI) (test code 73 ML/MIN/1.73 = 94094) CALC BUN/CREAT (test code = 8 RATIO 2234) SODIUM (test code = 2231) 145 MEQ/L POTASSIUM (test code = 2228) 4.7 MEQ/L CHLORIDE (test code = 2215) 105 MEQ/L CARBON DIOXIDE (test code = 28 MEQ/L 220) CALCIUM (test code = 2209) 10.4 MG/DL PROTEIN, TOTAL (test code = 7.2 G/DL 2228) ALBUMIN (test code = 2201) 4.7 G/DL CALC GLOBULIN (test code = 2.5 G/DL 2240) CALC A/G RATIO (test code = 1.9 RATIO 2234) BILIRUBIN, TOTAL (test code = 0.5 MG/DL 2206) ALKALINE PHOSPHATASE (test 116 U/L code = 2204) AST (test code = 2218) 14 U/L ALT (test code = 2219) 11 U/L COMPREHENSIVE METABOLIC [id number] 00:00:00 Test Item Value Reference Range Interpretation Comments GLUCOSE (test code = 2217) 81 MG/DL BUN (test code = 2208) 9 MG/DL CREATININE (test code = 2214) 1.09 MG/DL eGFR (2020 CKD-EPI) (test code 73 ML/MIN/1.73 = 29121) CALC BUN/CREAT (test code = 8 RATIO 2235) SODIUM (test code = 2231) 145 MEQ/L POTASSIUM (test code = 2228) 4.7 MEQ/L CHLORIDE (test code = 2215) 105 MEQ/L CARBON DIOXIDE (test code = 28 MEQ/L 2205) CALCIUM (test code = 2209) 10.4 MG/DL PROTEIN, TOTAL (test code = 7.2 G/DL 2228) ALBUMIN (test code = 2201) 4.7 G/DL CALC GLOBULIN (test code = 2.5 G/DL 2240) CALC A/G RATIO (test code = 1.9 RATIO 2234) BILIRUBIN, TOTAL (test code = 0.5 MG/DL 7) ALKALINE PHOSPHATASE (test 116 U/L code = 2204) AST (test code = 2218) 14 U/L ALT (test code = 2219) 11 U/L CBC W/AUTO [id number] 00:00:00 Test Item Value Reference Range Interpretation Comments WBC (test code = 1001) 6.3 K/UL RBC (test code = 1002) 4.78 M/UL HEMOGLOBIN (test code = 1003) 13.2 G/DL HEMATOCRIT (test code = 1004) 40.3 % MCV (test code = 1005) 84.3 fL MCH (test code = 1006) 27.6 PG MCHC (test code = 1007) 32.8 G/DL RDW (test code = 1038) 13.8 % NEUTROPHILS (test code = 1008) 63.5 % LYMPHOCYTES (test code = 1010) 25.0 % MONOCYTES (test code = 1011) 8.3 % EOSINOPHILS (test code = 1012) 2.4 % BASOPHILS (test code = 1013) 0.6 % IMMATURE GRANULOCYTES (test 0.2 % code = 1036) NUCLEATED RBCS (test code = 0.0 /100WBC'S 1065) PLATELET COUNT (test code = 271 K/UL 1015) ABSOLUTE NEUTROPHILS (test code 4.00 K/UL = 1066) ABSOLUTE LYMPHOCYTES (test code 1.57 K/UL = 1067) ABSOLUTE MONOCYTES (test code = 0.52 K/UL 1068) ABSOLUTE EOSINOPHILS (test code 0.15 K/UL = 1040) ABSOLUTE BASOPHILS (test code = 0.04 K/UL 1069) ABS IMMATURE GRANULOCYTES (test 0.01 K/UL code = 1020) ABS NUCLEATED RBCS (test code = 0.00 K/UL 87668) CBC W/AUTO [id number] 00:00:00 Test Item Value Reference Range Interpretation Comments WBC (test code = 1001) 6.3 K/UL RBC (test code = 1002) 4.78 M/UL HEMOGLOBIN (test code = 1003) 13.2 G/DL HEMATOCRIT (test code = 1004) 40.3 % MCV (test code = 1005) 84.3 fL MCH (test code = 1006) 27.6 PG MCHC (test code = 1007) 32.8 G/DL RDW (test code = 1038) 13.8 % NEUTROPHILS (test code = 1008) 63.5 % LYMPHOCYTES (test code = 1010) 25.0 % MONOCYTES (test code = 1011) 8.3 % EOSINOPHILS (test code = 1012) 2.4 % BASOPHILS (test code = 1013) 0.6 % IMMATURE GRANULOCYTES (test 0.2 % code = 1036) NUCLEATED RBCS (test code = 0.0 /100WBC'S 1065) PLATELET COUNT (test code = 271 K/UL 1015) ABSOLUTE NEUTROPHILS (test code 4.00 K/UL = 1066) ABSOLUTE LYMPHOCYTES (test code 1.57 K/UL = 1067) ABSOLUTE MONOCYTES (test code = 0.52 K/UL 1068) ABSOLUTE EOSINOPHILS (test code 0.15 K/UL = 1040) ABSOLUTE BASOPHILS (test code = 0.04 K/UL 1069) ABS IMMATURE GRANULOCYTES (test 0.01 K/UL code = 1020) ABS NUCLEATED RBCS (test code = 0.00 K/UL 82114) CBC W/AUTO [id number] 00:00:00 Test Item Value Reference Range Interpretation Comments WBC (test code = 1001) 6.3 K/UL RBC (test code = 1002) 4.78 M/UL HEMOGLOBIN (test code = 1003) 13.2 G/DL HEMATOCRIT (test code = 1004) 40.3 % MCV (test code = 1005) 84.3 fL MCH (test code = 1006) 27.6 PG MCHC (test code = 1007) 32.8 G/DL RDW (test code = 1038) 13.8 % NEUTROPHILS (test code = 1008) 63.5 % LYMPHOCYTES (test code = 1010) 25.0 % MONOCYTES (test code = 1011) 8.3 % EOSINOPHILS (test code = 1012) 2.4 % BASOPHILS (test code = 1013) 0.6 % IMMATURE GRANULOCYTES (test 0.2 % code = 1036) NUCLEATED RBCS (test code = 0.0 /100WBC'S 1065) PLATELET COUNT (test code = 271 K/UL 1015) ABSOLUTE NEUTROPHILS (test code 4.00 K/UL = 1066) ABSOLUTE LYMPHOCYTES (test code 1.57 K/UL = 1067) ABSOLUTE MONOCYTES (test code = 0.52 K/UL 1068) ABSOLUTE EOSINOPHILS (test code 0.15 K/UL = 1040) ABSOLUTE BASOPHILS (test code = 0.04 K/UL 1069) ABS IMMATURE GRANULOCYTES (test 0.01 K/UL code = 1020) ABS NUCLEATED RBCS (test code = 0.00 K/UL 23594) HEMOGLOBIN [id number] 00:00:00 Test Item Value Reference Range Interpretation Comments HEMOGLOBIN A1c (test code = 97653) 5.6 % HEMOGLOBIN [id number] 00:00:00 Test Item Value Reference Range Interpretation Comments HEMOGLOBIN A1c (test code = 84179) 5.6 % HEMOGLOBIN [id number] 00:00:00 Test Item Value Reference Range Interpretation Comments HEMOGLOBIN A1c (test code = 21703) 5.6 % COMPREHENSIVE METABOLIC [id number] 00:00:00 Test Item Value Reference Range Interpretation Comments GLUCOSE (test code = 2217) 81 MG/DL BUN (test code = 2208) 9 MG/DL CREATININE (test code = 2214) 1.09 MG/DL eGFR (2020 CKD-EPI) (test code 73 ML/MIN/1.73 = 60152) CALC BUN/CREAT (test code = 8 RATIO 2235) SODIUM (test code = 2231) 145 MEQ/L POTASSIUM (test code = 2228) 4.7 MEQ/L CHLORIDE (test code = 2215) 105 MEQ/L CARBON DIOXIDE (test code = 28 MEQ/L 2206) CALCIUM (test code = 2209) 10.4 MG/DL PROTEIN, TOTAL (test code = 7.2 G/DL 2228) ALBUMIN (test code = 2201) 4.7 G/DL CALC GLOBULIN (test code = 2.5 G/DL 2240) CALC A/G RATIO (test code = 1.9 RATIO 2234) BILIRUBIN, TOTAL (test code = 0.5 MG/DL 2206) ALKALINE PHOSPHATASE (test 116 U/L code = 2204) AST (test code = 2218) 14 U/L ALT (test code = 2219) 11 U/L COMPREHENSIVE METABOLIC [id number] 00:00:00 Test Item Value Reference Range Interpretation Comments GLUCOSE (test code = 2217) 81 MG/DL BUN (test code = 2208) 9 MG/DL CREATININE (test code = 2214) 1.09 MG/DL eGFR (2020 CKD-EPI) (test code 73 ML/MIN/1.73 = 17557) CALC BUN/CREAT (test code = 8 RATIO 2235) SODIUM (test code = 2231) 145 MEQ/L POTASSIUM (test code = 2228) 4.7 MEQ/L CHLORIDE (test code = 2215) 105 MEQ/L CARBON DIOXIDE (test code = 28 MEQ/L 2206) CALCIUM (test code = 2209) 10.4 MG/DL PROTEIN, TOTAL (test code = 7.2 G/DL 2229) ALBUMIN (test code = 2201) 4.7 G/DL CALC GLOBULIN (test code = 2.5 G/DL 2240) CALC A/G RATIO (test code = 1.9 RATIO 2234) BILIRUBIN, TOTAL (test code = 0.5 MG/DL 2207) ALKALINE PHOSPHATASE (test 116 U/L code = 2204) AST (test code = 2218) 14 U/L ALT (test code = 2219) 11 U/L CBC W/AUTO [id number] 00:00:00 Test Item Value Reference Range Interpretation Comments WBC (test code = 1001) 6.3 K/UL RBC (test code = 1002) 4.78 M/UL HEMOGLOBIN (test code = 1003) 13.2 G/DL HEMATOCRIT (test code = 1004) 40.3 % MCV (test code = 1005) 84.3 fL MCH (test code = 1006) 27.6 PG MCHC (test code = 1007) 32.8 G/DL RDW (test code = 1038) 13.8 % NEUTROPHILS (test code = 1008) 63.5 % LYMPHOCYTES (test code = 1010) 25.0 % MONOCYTES (test code = 1011) 8.3 % EOSINOPHILS (test code = 1012) 2.4 % BASOPHILS (test code = 1013) 0.6 % IMMATURE GRANULOCYTES (test 0.2 % code = 1036) NUCLEATED RBCS (test code = 0.0 /100WBC'S 1065) PLATELET COUNT (test code = 271 K/UL 1015) ABSOLUTE NEUTROPHILS (test code 4.00 K/UL = 1066) ABSOLUTE LYMPHOCYTES (test code 1.57 K/UL = 1067) ABSOLUTE MONOCYTES (test code = 0.52 K/UL 1068) ABSOLUTE EOSINOPHILS (test code 0.15 K/UL = 1040) ABSOLUTE BASOPHILS (test code = 0.04 K/UL 1069) ABS IMMATURE GRANULOCYTES (test 0.01 K/UL code = 1020) ABS NUCLEATED RBCS (test code = 0.00 K/UL 22080) CBC W/AUTO [id number] 00:00:00 Test Item Value Reference Range Interpretation Comments WBC (test code = 1001) 6.3 K/UL RBC (test code = 1002) 4.78 M/UL HEMOGLOBIN (test code = 1003) 13.2 G/DL HEMATOCRIT (test code = 1004) 40.3 % MCV (test code = 1005) 84.3 fL MCH (test code = 1006) 27.6 PG MCHC (test code = 1007) 32.8 G/DL RDW (test code = 1038) 13.8 % NEUTROPHILS (test code = 1008) 63.5 % LYMPHOCYTES (test code = 1010) 25.0 % MONOCYTES (test code = 1011) 8.3 % EOSINOPHILS (test code = 1012) 2.4 % BASOPHILS (test code = 1013) 0.6 % IMMATURE GRANULOCYTES (test 0.2 % code = 1036) NUCLEATED RBCS (test code = 0.0 /100WBC'S 1065) PLATELET COUNT (test code = 271 K/UL 1015) ABSOLUTE NEUTROPHILS (test code 4.00 K/UL = 1066) ABSOLUTE LYMPHOCYTES (test code 1.57 K/UL = 1067) ABSOLUTE MONOCYTES (test code = 0.52 K/UL 1068) ABSOLUTE EOSINOPHILS (test code 0.15 K/UL = 1040) ABSOLUTE BASOPHILS (test code = 0.04 K/UL 1069) ABS IMMATURE GRANULOCYTES (test 0.01 K/UL code = 1020) ABS NUCLEATED RBCS (test code = 0.00 K/UL 05624) CBC W/AUTO [id number] 00:00:00 Test Item Value Reference Range Interpretation Comments WBC (test code = 1001) 6.3 K/UL RBC (test code = 1002) 4.78 M/UL HEMOGLOBIN (test code = 1003) 13.2 G/DL HEMATOCRIT (test code = 1004) 40.3 % MCV (test code = 1005) 84.3 fL MCH (test code = 1006) 27.6 PG MCHC (test code = 1007) 32.8 G/DL RDW (test code = 1038) 13.8 % NEUTROPHILS (test code = 1008) 63.5 % LYMPHOCYTES (test code = 1010) 25.0 % MONOCYTES (test code = 1011) 8.3 % EOSINOPHILS (test code = 1012) 2.4 % BASOPHILS (test code = 1013) 0.6 % IMMATURE GRANULOCYTES (test 0.2 % code = 1036) NUCLEATED RBCS (test code = 0.0 /100WBC'S 1065) PLATELET COUNT (test code = 271 K/UL 1015) ABSOLUTE NEUTROPHILS (test code 4.00 K/UL = 1066) ABSOLUTE LYMPHOCYTES (test code 1.57 K/UL = 1067) ABSOLUTE MONOCYTES (test code = 0.52 K/UL 1068) ABSOLUTE EOSINOPHILS (test code 0.15 K/UL = 1040) ABSOLUTE BASOPHILS (test code = 0.04 K/UL 1069) ABS IMMATURE GRANULOCYTES (test 0.01 K/UL code = 1020) ABS NUCLEATED RBCS (test code = 0.00 K/UL 96140) HEMOGLOBIN [id number] 00:00:00 Test Item Value Reference Range Interpretation Comments HEMOGLOBIN A1c (test code = 72333) 5.6 % HEMOGLOBIN [id number] 00:00:00 Test Item Value Reference Range Interpretation Comments HEMOGLOBIN A1c (test code = 43066) 5.6 % HEMOGLOBIN [id number] 00:00:00 Test Item Value Reference Range Interpretation Comments HEMOGLOBIN A1c (test code = 71698) 5.6 % COMPREHENSIVE METABOLIC [id number] 00:00:00 Test Item Value Reference Range Interpretation Comments GLUCOSE (test code = 2217) 81 MG/DL BUN (test code = 2208) 9 MG/DL CREATININE (test code = 2214) 1.09 MG/DL eGFR (2020 CKD-EPI) (test code 73 ML/MIN/1.73 = 47157) CALC BUN/CREAT (test code = 8 RATIO 2235) SODIUM (test code = 2231) 145 MEQ/L POTASSIUM (test code = 2228) 4.7 MEQ/L CHLORIDE (test code = 2215) 105 MEQ/L CARBON DIOXIDE (test code = 28 MEQ/L 2206) CALCIUM (test code = 2209) 10.4 MG/DL PROTEIN, TOTAL (test code = 7.2 G/DL 222) ALBUMIN (test code = 2201) 4.7 G/DL CALC GLOBULIN (test code = 2.5 G/DL 2240) CALC A/G RATIO (test code = 1.9 RATIO 2234) BILIRUBIN, TOTAL (test code = 0.5 MG/DL 2207) ALKALINE PHOSPHATASE (test 116 U/L code = 2204) AST (test code = 2218) 14 U/L ALT (test code = 2219) 11 U/L COMPREHENSIVE METABOLIC [id number] 00:00:00 Test Item Value Reference Range Interpretation Comments GLUCOSE (test code = 2217) 81 MG/DL BUN (test code = 2208) 9 MG/DL CREATININE (test code = 2214) 1.09 MG/DL eGFR (2020 CKD-EPI) (test code 73 ML/MIN/1.73 = 62098) CALC BUN/CREAT (test code = 8 RATIO 2235) SODIUM (test code = 2231) 145 MEQ/L POTASSIUM (test code = 2228) 4.7 MEQ/L CHLORIDE (test code = 2215) 105 MEQ/L CARBON DIOXIDE (test code = 28 MEQ/L 2205) CALCIUM (test code = 2209) 10.4 MG/DL PROTEIN, TOTAL (test code = 7.2 G/DL 2228) ALBUMIN (test code = 2201) 4.7 G/DL CALC GLOBULIN (test code = 2.5 G/DL 2239) CALC A/G RATIO (test code = 1.9 RATIO 2233) BILIRUBIN, TOTAL (test code = 0.5 MG/DL 2206) ALKALINE PHOSPHATASE (test 116 U/L code = 2204) AST (test code = 2218) 14 U/L ALT (test code = 2219) 11 U/L CBC W/AUTO [id number] 00:00:00 Test Item Value Reference Range Interpretation Comments WBC (test code = 1001) 6.3 K/UL RBC (test code = 1002) 4.78 M/UL HEMOGLOBIN (test code = 1003) 13.2 G/DL HEMATOCRIT (test code = 1004) 40.3 % MCV (test code = 1005) 84.3 fL MCH (test code = 1006) 27.6 PG MCHC (test code = 1007) 32.8 G/DL RDW (test code = 1038) 13.8 % NEUTROPHILS (test code = 1008) 63.5 % LYMPHOCYTES (test code = 1010) 25.0 % MONOCYTES (test code = 1011) 8.3 % EOSINOPHILS (test code = 1012) 2.4 % BASOPHILS (test code = 1013) 0.6 % IMMATURE GRANULOCYTES (test 0.2 % code = 1036) NUCLEATED RBCS (test code = 0.0 /100WBC'S 1065) PLATELET COUNT (test code = 271 K/UL 1015) ABSOLUTE NEUTROPHILS (test code 4.00 K/UL = 1066) ABSOLUTE LYMPHOCYTES (test code 1.57 K/UL = 1067) ABSOLUTE MONOCYTES (test code = 0.52 K/UL 1068) ABSOLUTE EOSINOPHILS (test code 0.15 K/UL = 1040) ABSOLUTE BASOPHILS (test code = 0.04 K/UL 1069) ABS IMMATURE GRANULOCYTES (test 0.01 K/UL code = 1020) ABS NUCLEATED RBCS (test code = 0.00 K/UL 44271) CBC W/AUTO [id number] 00:00:00 Test Item Value Reference Range Interpretation Comments WBC (test code = 1001) 6.3 K/UL RBC (test code = 1002) 4.78 M/UL HEMOGLOBIN (test code = 1003) 13.2 G/DL HEMATOCRIT (test code = 1004) 40.3 % MCV (test code = 1005) 84.3 fL MCH (test code = 1006) 27.6 PG MCHC (test code = 1007) 32.8 G/DL RDW (test code = 1038) 13.8 % NEUTROPHILS (test code = 1008) 63.5 % LYMPHOCYTES (test code = 1010) 25.0 % MONOCYTES (test code = 1011) 8.3 % EOSINOPHILS (test code = 1012) 2.4 % BASOPHILS (test code = 1013) 0.6 % IMMATURE GRANULOCYTES (test 0.2 % code = 1036) NUCLEATED RBCS (test code = 0.0 /100WBC'S 1065) PLATELET COUNT (test code = 271 K/UL 1015) ABSOLUTE NEUTROPHILS (test code 4.00 K/UL = 1066) ABSOLUTE LYMPHOCYTES (test code 1.57 K/UL = 1067) ABSOLUTE MONOCYTES (test code = 0.52 K/UL 1068) ABSOLUTE EOSINOPHILS (test code 0.15 K/UL = 1040) ABSOLUTE BASOPHILS (test code = 0.04 K/UL 1069) ABS IMMATURE GRANULOCYTES (test 0.01 K/UL code = 1020) ABS NUCLEATED RBCS (test code = 0.00 K/UL 08797) CBC W/AUTO [id number] 00:00:00 Test Item Value Reference Range Interpretation Comments WBC (test code = 1001) 6.3 K/UL RBC (test code = 1002) 4.78 M/UL HEMOGLOBIN (test code = 1003) 13.2 G/DL HEMATOCRIT (test code = 1004) 40.3 % MCV (test code = 1005) 84.3 fL MCH (test code = 1006) 27.6 PG MCHC (test code = 1007) 32.8 G/DL RDW (test code = 1038) 13.8 % NEUTROPHILS (test code = 1008) 63.5 % LYMPHOCYTES (test code = 1010) 25.0 % MONOCYTES (test code = 1011) 8.3 % EOSINOPHILS (test code = 1012) 2.4 % BASOPHILS (test code = 1013) 0.6 % IMMATURE GRANULOCYTES (test 0.2 % code = 1036) NUCLEATED RBCS (test code = 0.0 /100WBC'S 1065) PLATELET COUNT (test code = 271 K/UL 1015) ABSOLUTE NEUTROPHILS (test code 4.00 K/UL = 1066) ABSOLUTE LYMPHOCYTES (test code 1.57 K/UL = 1067) ABSOLUTE MONOCYTES (test code = 0.52 K/UL 1068) ABSOLUTE EOSINOPHILS (test code 0.15 K/UL = 1040) ABSOLUTE BASOPHILS (test code = 0.04 K/UL 1069) ABS IMMATURE GRANULOCYTES (test 0.01 K/UL code = 1020) ABS NUCLEATED RBCS (test code = 0.00 K/UL 98850) HEMOGLOBIN [id number] 00:00:00 Test Item Value Reference Range Interpretation Comments HEMOGLOBIN A1c (test code = 13020) 5.6 % HEMOGLOBIN [id number] 00:00:00 Test Item Value Reference Range Interpretation Comments HEMOGLOBIN A1c (test code = 49689) 5.6 % HEMOGLOBIN [id number] 00:00:00 Test Item Value Reference Range Interpretation Comments HEMOGLOBIN A1c (test code = 46513) 5.6 % COMPREHENSIVE METABOLIC [id number] 00:00:00 Test Item Value Reference Range Interpretation Comments GLUCOSE (test code = 2217) 100 MG/DL BUN (test code = 2208) 7 MG/DL CREATININE (test code = 2214) 1.08 MG/DL eGFR AMER. (test code 82 ML/MIN/1.73 = 43863) eGFR NON- AMER. (test 71 ML/MIN/1.73 code = 22771) CALC BUN/CREAT (test code = 6 RATIO 2235) SODIUM (test code = 2231) 139 MEQ/L POTASSIUM (test code = 2228) 4.2 MEQ/L CHLORIDE (test code = 2215) 100 MEQ/L CARBON DIOXIDE (test code = 28 MEQ/L 2205) CALCIUM (test code = 2209) 10.6 MG/DL PROTEIN, TOTAL (test code = 7.4 G/DL 2228) ALBUMIN (test code = 2201) 4.7 G/DL CALC GLOBULIN (test code = 2.7 G/DL 2240) CALC A/G RATIO (test code = 1.7 RATIO 2234) BILIRUBIN, TOTAL (test code = 0.2 MG/DL 2206) ALKALINE PHOSPHATASE (test 87 U/L code = 2204) AST (test code = 2218) 27 U/L ALT (test code = 2219) 29 U/L COMPREHENSIVE METABOLIC [id number] 00:00:00 Test Item Value Reference Range Interpretation Comments GLUCOSE (test code = 2217) 100 MG/DL BUN (test code = 2208) 7 MG/DL CREATININE (test code = 2214) 1.08 MG/DL eGFR AMER. (test code 82 ML/MIN/1.73 = 94675) eGFR NON- AMER. (test 71 ML/MIN/1.73 code = 31498) CALC BUN/CREAT (test code = 6 RATIO 2235) SODIUM (test code = 2231) 139 MEQ/L POTASSIUM (test code = 2228) 4.2 MEQ/L CHLORIDE (test code = 2215) 100 MEQ/L CARBON DIOXIDE (test code = 28 MEQ/L 2205) CALCIUM (test code = 2209) 10.6 MG/DL PROTEIN, TOTAL (test code = 7.4 G/DL 2228) ALBUMIN (test code = 2201) 4.7 G/DL CALC GLOBULIN (test code = 2.7 G/DL 2240) CALC A/G RATIO (test code = 1.7 RATIO 2234) BILIRUBIN, TOTAL (test code = 0.2 MG/DL 2206) ALKALINE PHOSPHATASE (test 87 U/L code = 2204) AST (test code = 2218) 27 U/L ALT (test code = 2219) 29 U/L LIPID [id number] 00:00:00 Test Item Value Reference Range Interpretation Comments CHOLESTEROL (test code = 2210) 182 MG/DL TRIGLYCERIDES (test code = 2232) 96 MG/DL HDL CHOLESTEROL (test code = 2220) 44 MG/DL CALC LDL CHOL (test code = 2237) 118 MG/DL RISK RATIO LDL/HDL (test code = 2.68 RATIO 2238) LIPID [id number] 00:00:00 Test Item Value Reference Range Interpretation Comments CHOLESTEROL (test code = 2210) 182 MG/DL TRIGLYCERIDES (test code = 2232) 96 MG/DL HDL CHOLESTEROL (test code = 2220) 44 MG/DL CALC LDL CHOL (test code = 2237) 118 MG/DL RISK RATIO LDL/HDL (test code = 2.68 RATIO 2238) COMPREHENSIVE METABOLIC [id number] 00:00:00 Test Item Value Reference Range Interpretation Comments GLUCOSE (test code = 2217) 100 MG/DL BUN (test code = 2208) 7 MG/DL CREATININE (test code = 2214) 1.08 MG/DL eGFR AMER. (test code 82 ML/MIN/1.73 = 30388) eGFR NON- AMER. (test 71 ML/MIN/1.73 code = 47740) CALC BUN/CREAT (test code = 6 RATIO 2235) SODIUM (test code = 2231) 139 MEQ/L POTASSIUM (test code = 2228) 4.2 MEQ/L CHLORIDE (test code = 2215) 100 MEQ/L CARBON DIOXIDE (test code = 28 MEQ/L 2205) CALCIUM (test code = 2209) 10.6 MG/DL PROTEIN, TOTAL (test code = 7.4 G/DL 2228) ALBUMIN (test code = 2201) 4.7 G/DL CALC GLOBULIN (test code = 2.7 G/DL 2240) CALC A/G RATIO (test code = 1.7 RATIO 2234) BILIRUBIN, TOTAL (test code = 0.2 MG/DL 2206) ALKALINE PHOSPHATASE (test 87 U/L code = 2204) AST (test code = 2218) 27 U/L ALT (test code = 2219) 29 U/L COMPREHENSIVE METABOLIC [id number] 00:00:00 Test Item Value Reference Range Interpretation Comments GLUCOSE (test code = 2217) 100 MG/DL BUN (test code = 2208) 7 MG/DL CREATININE (test code = 2214) 1.08 MG/DL eGFR AMER. (test code 82 ML/MIN/1.73 = 33741) eGFR NON- AMER. (test 71 ML/MIN/1.73 code = 79173) CALC BUN/CREAT (test code = 6 RATIO 2235) SODIUM (test code = 2231) 139 MEQ/L POTASSIUM (test code = 2228) 4.2 MEQ/L CHLORIDE (test code = 2215) 100 MEQ/L CARBON DIOXIDE (test code = 28 MEQ/L 2205) CALCIUM (test code = 2209) 10.6 MG/DL PROTEIN, TOTAL (test code = 7.4 G/DL 2228) ALBUMIN (test code = 2201) 4.7 G/DL CALC GLOBULIN (test code = 2.7 G/DL 224) CALC A/G RATIO (test code = 1.7 RATIO 4) BILIRUBIN, TOTAL (test code = 0.2 MG/DL 2206) ALKALINE PHOSPHATASE (test 87 U/L code = 2204) AST (test code = 2218) 27 U/L ALT (test code = 2219) 29 U/L LIPID [id number] 00:00:00 Test Item Value Reference Range Interpretation Comments CHOLESTEROL (test code = 2210) 182 MG/DL TRIGLYCERIDES (test code = 2232) 96 MG/DL HDL CHOLESTEROL (test code = 2220) 44 MG/DL CALC LDL CHOL (test code = 2237) 118 MG/DL RISK RATIO LDL/HDL (test code = 2.68 RATIO 2238) LIPID [id number] 00:00:00 Test Item Value Reference Range Interpretation Comments CHOLESTEROL (test code = 2210) 182 MG/DL TRIGLYCERIDES (test code = 2232) 96 MG/DL HDL CHOLESTEROL (test code = 2220) 44 MG/DL CALC LDL CHOL (test code = 2237) 118 MG/DL RISK RATIO LDL/HDL (test code = 2.68 RATIO 2238) COMPREHENSIVE METABOLIC [id number] 00:00:00 Test Item Value Reference Range Interpretation Comments GLUCOSE (test code = 2217) 100 MG/DL BUN (test code = 2208) 7 MG/DL CREATININE (test code = 2214) 1.08 MG/DL eGFR AMER. (test code 82 ML/MIN/1.73 = 75235) eGFR NON- AMER. (test 71 ML/MIN/1.73 code = 59211) CALC BUN/CREAT (test code = 6 RATIO 2235) SODIUM (test code = 2231) 139 MEQ/L POTASSIUM (test code = 2228) 4.2 MEQ/L CHLORIDE (test code = 2215) 100 MEQ/L CARBON DIOXIDE (test code = 28 MEQ/L 2206) CALCIUM (test code = 2209) 10.6 MG/DL PROTEIN, TOTAL (test code = 7.4 G/DL 222) ALBUMIN (test code = 2201) 4.7 G/DL CALC GLOBULIN (test code = 2.7 G/DL 2240) CALC A/G RATIO (test code = 1.7 RATIO 2234) BILIRUBIN, TOTAL (test code = 0.2 MG/DL 2206) ALKALINE PHOSPHATASE (test 87 U/L code = 2204) AST (test code = 2218) 27 U/L ALT (test code = 2219) 29 U/L COMPREHENSIVE METABOLIC [id number] 00:00:00 Test Item Value Reference Range Interpretation Comments GLUCOSE (test code = 2217) 100 MG/DL BUN (test code = 2208) 7 MG/DL CREATININE (test code = 2214) 1.08 MG/DL eGFR AMER. (test code 82 ML/MIN/1.73 = 06152) eGFR NON- AMER. (test 71 ML/MIN/1.73 code = 56376) CALC BUN/CREAT (test code = 6 RATIO 2235) SODIUM (test code = 2231) 139 MEQ/L POTASSIUM (test code = 2228) 4.2 MEQ/L CHLORIDE (test code = 2215) 100 MEQ/L CARBON DIOXIDE (test code = 28 MEQ/L 2205) CALCIUM (test code = 2209) 10.6 MG/DL PROTEIN, TOTAL (test code = 7.4 G/DL 2229) ALBUMIN (test code = 2201) 4.7 G/DL CALC GLOBULIN (test code = 2.7 G/DL 2240) CALC A/G RATIO (test code = 1.7 RATIO 2234) BILIRUBIN, TOTAL (test code = 0.2 MG/DL 2206) ALKALINE PHOSPHATASE (test 87 U/L code = 2204) AST (test code = 2218) 27 U/L ALT (test code = 2219) 29 U/L LIPID [id number] 00:00:00 Test Item Value Reference Range Interpretation Comments CHOLESTEROL (test code = 2210) 182 MG/DL TRIGLYCERIDES (test code = 2232) 96 MG/DL HDL CHOLESTEROL (test code = 2220) 44 MG/DL CALC LDL CHOL (test code = 2237) 118 MG/DL RISK RATIO LDL/HDL (test code = 2.68 RATIO 2238) LIPID [id number] 00:00:00 Test Item Value Reference Range Interpretation Comments CHOLESTEROL (test code = 2210) 182 MG/DL TRIGLYCERIDES (test code = 2232) 96 MG/DL HDL CHOLESTEROL (test code = 2220) 44 MG/DL CALC LDL CHOL (test code = 2237) 118 MG/DL RISK RATIO LDL/HDL (test code = 2.68 RATIO 2238) COMPREHENSIVE METABOLIC [id number] 00:00:00 Test Item Value Reference Range Interpretation Comments GLUCOSE (test code = 2217) 100 MG/DL BUN (test code = 2208) 7 MG/DL CREATININE (test code = 2214) 1.08 MG/DL eGFR AMER. (test code 82 ML/MIN/1.73 = 35656) eGFR NON- AMER. (test 71 ML/MIN/1.73 code = 69714) CALC BUN/CREAT (test code = 6 RATIO 2235) SODIUM (test code = 2231) 139 MEQ/L POTASSIUM (test code = 2228) 4.2 MEQ/L CHLORIDE (test code = 2215) 100 MEQ/L CARBON DIOXIDE (test code = 28 MEQ/L 2206) CALCIUM (test code = 2209) 10.6 MG/DL PROTEIN, TOTAL (test code = 7.4 G/DL 2228) ALBUMIN (test code = 2201) 4.7 G/DL CALC GLOBULIN (test code = 2.7 G/DL 2240) CALC A/G RATIO (test code = 1.7 RATIO 2234) BILIRUBIN, TOTAL (test code = 0.2 MG/DL 2206) ALKALINE PHOSPHATASE (test 87 U/L code = 2204) AST (test code = 2218) 27 U/L ALT (test code = 2219) 29 U/L COMPREHENSIVE METABOLIC [id number] 00:00:00 Test Item Value Reference Range Interpretation Comments GLUCOSE (test code = 2217) 100 MG/DL BUN (test code = 2208) 7 MG/DL CREATININE (test code = 2214) 1.08 MG/DL eGFR AMER. (test code 82 ML/MIN/1.73 = 34523) eGFR NON- AMER. (test 71 ML/MIN/1.73 code = 61405) CALC BUN/CREAT (test code = 6 RATIO 2235) SODIUM (test code = 2231) 139 MEQ/L POTASSIUM (test code = 2228) 4.2 MEQ/L CHLORIDE (test code = 2215) 100 MEQ/L CARBON DIOXIDE (test code = 28 MEQ/L 2205) CALCIUM (test code = 2209) 10.6 MG/DL PROTEIN, TOTAL (test code = 7.4 G/DL 2228) ALBUMIN (test code = 2201) 4.7 G/DL CALC GLOBULIN (test code = 2.7 G/DL 2239) CALC A/G RATIO (test code = 1.7 RATIO 2234) BILIRUBIN, TOTAL (test code = 0.2 MG/DL 2206) ALKALINE PHOSPHATASE (test 87 U/L code = 2204) AST (test code = 2218) 27 U/L ALT (test code = 2219) 29 U/L LIPID [id number] 00:00:00 Test Item Value Reference Range Interpretation Comments CHOLESTEROL (test code = 2210) 182 MG/DL TRIGLYCERIDES (test code = 2232) 96 MG/DL HDL CHOLESTEROL (test code = 2220) 44 MG/DL CALC LDL CHOL (test code = 2237) 118 MG/DL RISK RATIO LDL/HDL (test code = 2.68 RATIO 2238) LIPID [id number] 00:00:00 Test Item Value Reference Range Interpretation Comments CHOLESTEROL (test code = 2210) 182 MG/DL TRIGLYCERIDES (test code = 2232) 96 MG/DL HDL CHOLESTEROL (test code = 2220) 44 MG/DL CALC LDL CHOL (test code = 2237) 118 MG/DL RISK RATIO LDL/HDL (test code = 2.68 RATIO 2238) VITAMIN [id number] 00:00:00 Test Item Value Reference Range Interpretation Comments VITAMIN B-12 (test code = 2840) 421 PG/ML VITAMIN [id number] 00:00:00 Test Item Value Reference Range Interpretation Comments VITAMIN B-12 (test code = 2840) 421 PG/ML VITAMIN [id number] 00:00:00 Test Item Value Reference Range Interpretation Comments VITAMIN B-12 (test code = 2840) 421 PG/ML VITAMIN D, 25 [id number] 00:00:00 Test Item Value Reference Range Interpretation Comments VITAMIN D, 25 OH (test code = 4958) 23 NG/ML VITAMIN D, 25 [id number] 00:00:00 Test Item Value Reference Range Interpretation Comments VITAMIN D, 25 OH (test code = 4958) 23 NG/ML [id number] 00:00:00 Test Item Value Reference Range Interpretation Comments TESTOSTERONE (test code = 2830) 419 NG/DL [id number] 00:00:00 Test Item Value Reference Range Interpretation Comments TESTOSTERONE (test code = 2830) 419 NG/DL VITAMIN [id number] 00:00:00 Test Item Value Reference Range Interpretation Comments VITAMIN B-12 (test code = 2840) 421 PG/ML VITAMIN [id number] 00:00:00 Test Item Value Reference Range Interpretation Comments VITAMIN B-12 (test code = 2840) 421 PG/ML VITAMIN [id number] 00:00:00 Test Item Value Reference Range Interpretation Comments VITAMIN B-12 (test code = 2840) 421 PG/ML VITAMIN D, 25 [id number] 00:00:00 Test Item Value Reference Range Interpretation Comments VITAMIN D, 25 OH (test code = 4958) 23 NG/ML VITAMIN D, 25 [id number] 00:00:00 Test Item Value Reference Range Interpretation Comments VITAMIN D, 25 OH (test code = 4958) 23 NG/ML [id number] 00:00:00 Test Item Value Reference Range Interpretation Comments TESTOSTERONE (test code = 2830) 419 NG/DL [id number] 00:00:00 Test Item Value Reference Range Interpretation Comments TESTOSTERONE (test code = 2830) 419 NG/DL VITAMIN [id number] 00:00:00 Test Item Value Reference Range Interpretation Comments VITAMIN B-12 (test code = 2840) 421 PG/ML VITAMIN [id number] 00:00:00 Test Item Value Reference Range Interpretation Comments VITAMIN B-12 (test code = 2840) 421 PG/ML VITAMIN [id number] 00:00:00 Test Item Value Reference Range Interpretation Comments VITAMIN B-12 (test code = 2840) 421 PG/ML VITAMIN D, 25 [id number] 00:00:00 Test Item Value Reference Range Interpretation Comments VITAMIN D, 25 OH (test code = 4958) 23 NG/ML VITAMIN D, 25 [id number] 00:00:00 Test Item Value Reference Range Interpretation Comments VITAMIN D, 25 OH (test code = 4958) 23 NG/ML [id number] 00:00:00 Test Item Value Reference Range Interpretation Comments TESTOSTERONE (test code = 2830) 419 NG/DL [id number] 00:00:00 Test Item Value Reference Range Interpretation Comments TESTOSTERONE (test code = 2830) 419 NG/DL VITAMIN [id number] 00:00:00 Test Item Value Reference Range Interpretation Comments VITAMIN B-12 (test code = 2840) 421 PG/ML VITAMIN [id number] 00:00:00 Test Item Value Reference Range Interpretation Comments VITAMIN B-12 (test code = 2840) 421 PG/ML VITAMIN [id number] 00:00:00 Test Item Value Reference Range Interpretation Comments VITAMIN B-12 (test code = 2840) 421 PG/ML VITAMIN D, 25 [id number] 00:00:00 Test Item Value Reference Range Interpretation Comments VITAMIN D, 25 OH (test code = 4958) 23 NG/ML VITAMIN D, 25 [id number] 00:00:00 Test Item Value Reference Range Interpretation Comments VITAMIN D, 25 OH (test code = 4958) 23 NG/ML [id number] 00:00:00 Test Item Value Reference Range Interpretation Comments TESTOSTERONE (test code = 2830) 419 NG/DL [id number] 00:00:00 Test Item Value Reference Range Interpretation Comments TESTOSTERONE (test code = 2830) 419 NG/DL HEMOGLOBIN [id number] 00:00:00 Test Item Value Reference Range Interpretation Comments HEMOGLOBIN A1c (test code = 84412) 5.8 % HEMOGLOBIN [id number] 00:00:00 Test Item Value Reference Range Interpretation Comments HEMOGLOBIN A1c (test code = 12690) 5.8 % HEMOGLOBIN [id number] 00:00:00 Test Item Value Reference Range Interpretation Comments HEMOGLOBIN A1c (test code = 75361) 5.8 % LIPID [id number] 00:00:00 Test Item Value Reference Range Interpretation Comments CHOLESTEROL (test code = 2210) 151 MG/DL TRIGLYCERIDES (test code = 2232) 82 MG/DL HDL CHOLESTEROL (test code = 2220) 39 MG/DL CALC LDL CHOL (test code = 2237) 96 MG/DL RISK RATIO LDL/HDL (test code = 2.45 RATIO 2238) LIPID [id number] 00:00:00 Test Item Value Reference Range Interpretation Comments CHOLESTEROL (test code = 2210) 151 MG/DL TRIGLYCERIDES (test code = 2232) 82 MG/DL HDL CHOLESTEROL (test code = 2220) 39 MG/DL CALC LDL CHOL (test code = 2237) 96 MG/DL RISK RATIO LDL/HDL (test code = 2.45 RATIO 2238) COMPREHENSIVE METABOLIC [id number] 00:00:00 Test Item Value Reference Range Interpretation Comments GLUCOSE (test code = 2217) 93 MG/DL BUN (test code = 2208) 5 MG/DL CREATININE (test code = 2214) 0.95 MG/DL eGFR AMER. (test code 96 ML/MIN/1.73 = 48603) eGFR NON- AMER. (test 83 ML/MIN/1.73 code = 98923) CALC BUN/CREAT (test code = 5 RATIO 2235) SODIUM (test code = 2231) 143 MEQ/L POTASSIUM (test code = 2228) 4.6 MEQ/L CHLORIDE (test code = 2215) 102 MEQ/L CARBON DIOXIDE (test code = 27 MEQ/L 2205) CALCIUM (test code = 2209) 10.4 MG/DL PROTEIN, TOTAL (test code = 7.6 G/DL 2228) ALBUMIN (test code = 2201) 4.7 G/DL CALC GLOBULIN (test code = 2.9 G/DL 2240) CALC A/G RATIO (test code = 1.6 RATIO 2234) BILIRUBIN, TOTAL (test code = 0.4 MG/DL 2206) ALKALINE PHOSPHATASE (test 95 U/L code = 2204) AST (test code = 2218) 22 U/L ALT (test code = 2219) 22 U/L COMPREHENSIVE METABOLIC [id number] 00:00:00 Test Item Value Reference Range Interpretation Comments GLUCOSE (test code = 2217) 93 MG/DL BUN (test code = 2208) 5 MG/DL CREATININE (test code = 2214) 0.95 MG/DL eGFR AMER. (test code 96 ML/MIN/1.73 = 77227) eGFR NON- AMER. (test 83 ML/MIN/1.73 code = 86645) CALC BUN/CREAT (test code = 5 RATIO 2235) SODIUM (test code = 2231) 143 MEQ/L POTASSIUM (test code = 2228) 4.6 MEQ/L CHLORIDE (test code = 2215) 102 MEQ/L CARBON DIOXIDE (test code = 27 MEQ/L 2205) CALCIUM (test code = 2209) 10.4 MG/DL PROTEIN, TOTAL (test code = 7.6 G/DL 2228) ALBUMIN (test code = 2201) 4.7 G/DL CALC GLOBULIN (test code = 2.9 G/DL 2239) CALC A/G RATIO (test code = 1.6 RATIO 2233) BILIRUBIN, TOTAL (test code = 0.4 MG/DL 2206) ALKALINE PHOSPHATASE (test 95 U/L code = 2204) AST (test code = 2218) 22 U/L ALT (test code = 2219) 22 U/L VITAMIN D, 25 [id number] 00:00:00 Test Item Value Reference Range Interpretation Comments VITAMIN D, 25 OH (test code = 4958) 22 NG/ML VITAMIN D, 25 [id number] 00:00:00 Test Item Value Reference Range Interpretation Comments VITAMIN D, 25 OH (test code = 4958) 22 NG/ML VITAMIN B 12 AND FOLIC [id number] 00:00:00 Test Item Value Reference Range Interpretation Comments VITAMIN B-12 (test code = 2840) 437 PG/ML FOLIC ACID (test code = 2695) 6.6 UG/L VITAMIN B 12 AND FOLIC [id number] 00:00:00 Test Item Value Reference Range Interpretation Comments VITAMIN B-12 (test code = 2840) 437 PG/ML FOLIC ACID (test code = 2695) 6.6 UG/L HEPATITIS C [id number] 00:00:00 Test Item Value Reference Range Interpretation Comments HEPATITIS C ANTIBODY (test code NON-REACTIVE = 4675) HCV INDEX (test code = 94375) 0.12 HEPATITIS C [id number] 00:00:00 Test Item Value Reference Range Interpretation Comments HEPATITIS C ANTIBODY (test code NON-REACTIVE = 4675) HCV INDEX (test code = 52289) 0.12 HEMOGLOBIN [id number] 00:00:00 Test Item Value Reference Range Interpretation Comments HEMOGLOBIN A1c (test code = 22292) 5.8 % HEMOGLOBIN [id number] 00:00:00 Test Item Value Reference Range Interpretation Comments HEMOGLOBIN A1c (test code = 68848) 5.8 % HEMOGLOBIN [id number] 00:00:00 Test Item Value Reference Range Interpretation Comments HEMOGLOBIN A1c (test code = 04185) 5.8 % LIPID [id number] 00:00:00 Test Item Value Reference Range Interpretation Comments CHOLESTEROL (test code = 2210) 151 MG/DL TRIGLYCERIDES (test code = 2232) 82 MG/DL HDL CHOLESTEROL (test code = 2220) 39 MG/DL CALC LDL CHOL (test code = 2237) 96 MG/DL RISK RATIO LDL/HDL (test code = 2.45 RATIO 2238) LIPID [id number] 00:00:00 Test Item Value Reference Range Interpretation Comments CHOLESTEROL (test code = 2210) 151 MG/DL TRIGLYCERIDES (test code = 2232) 82 MG/DL HDL CHOLESTEROL (test code = 2220) 39 MG/DL CALC LDL CHOL (test code = 2237) 96 MG/DL RISK RATIO LDL/HDL (test code = 2.45 RATIO 2238) COMPREHENSIVE METABOLIC [id number] 00:00:00 Test Item Value Reference Range Interpretation Comments GLUCOSE (test code = 2217) 93 MG/DL BUN (test code = 2208) 5 MG/DL CREATININE (test code = 2214) 0.95 MG/DL eGFR AMER. (test code 96 ML/MIN/1.73 = 78729) eGFR NON- AMER. (test 83 ML/MIN/1.73 code = 62224) CALC BUN/CREAT (test code = 5 RATIO 2235) SODIUM (test code = 2231) 143 MEQ/L POTASSIUM (test code = 2228) 4.6 MEQ/L CHLORIDE (test code = 2215) 102 MEQ/L CARBON DIOXIDE (test code = 27 MEQ/L 2205) CALCIUM (test code = 2209) 10.4 MG/DL PROTEIN, TOTAL (test code = 7.6 G/DL 2228) ALBUMIN (test code = 2201) 4.7 G/DL CALC GLOBULIN (test code = 2.9 G/DL 2240) CALC A/G RATIO (test code = 1.6 RATIO 2234) BILIRUBIN, TOTAL (test code = 0.4 MG/DL 2206) ALKALINE PHOSPHATASE (test 95 U/L code = 2204) AST (test code = 2218) 22 U/L ALT (test code = 2219) 22 U/L COMPREHENSIVE METABOLIC [id number] 00:00:00 Test Item Value Reference Range Interpretation Comments GLUCOSE (test code = 2217) 93 MG/DL BUN (test code = 2208) 5 MG/DL CREATININE (test code = 2214) 0.95 MG/DL eGFR AMER. (test code 96 ML/MIN/1.73 = 18163) eGFR NON- AMER. (test 83 ML/MIN/1.73 code = 92160) CALC BUN/CREAT (test code = 5 RATIO 2235) SODIUM (test code = 2231) 143 MEQ/L POTASSIUM (test code = 2228) 4.6 MEQ/L CHLORIDE (test code = 2215) 102 MEQ/L CARBON DIOXIDE (test code = 27 MEQ/L 2205) CALCIUM (test code = 2209) 10.4 MG/DL PROTEIN, TOTAL (test code = 7.6 G/DL 2228) ALBUMIN (test code = 2201) 4.7 G/DL CALC GLOBULIN (test code = 2.9 G/DL 2240) CALC A/G RATIO (test code = 1.6 RATIO 2234) BILIRUBIN, TOTAL (test code = 0.4 MG/DL 2206) ALKALINE PHOSPHATASE (test 95 U/L code = 2204) AST (test code = 2218) 22 U/L ALT (test code = 2219) 22 U/L VITAMIN D, 25 [id number] 00:00:00 Test Item Value Reference Range Interpretation Comments VITAMIN D, 25 OH (test code = 4958) 22 NG/ML VITAMIN D, 25 [id number] 00:00:00 Test Item Value Reference Range Interpretation Comments VITAMIN D, 25 OH (test code = 4958) 22 NG/ML VITAMIN B 12 AND FOLIC [id number] 00:00:00 Test Item Value Reference Range Interpretation Comments VITAMIN B-12 (test code = 2840) 437 PG/ML FOLIC ACID (test code = 2695) 6.6 UG/L VITAMIN B 12 AND FOLIC [id number] 00:00:00 Test Item Value Reference Range Interpretation Comments VITAMIN B-12 (test code = 2840) 437 PG/ML FOLIC ACID (test code = 2695) 6.6 UG/L HEPATITIS C [id number] 00:00:00 Test Item Value Reference Range Interpretation Comments HEPATITIS C ANTIBODY (test code NON-REACTIVE = 4675) HCV INDEX (test code = 11533) 0.12 HEPATITIS C [id number] 00:00:00 Test Item Value Reference Range Interpretation Comments HEPATITIS C ANTIBODY (test code NON-REACTIVE = 4675) HCV INDEX (test code = 10396) 0.12 HEMOGLOBIN [id number] 00:00:00 Test Item Value Reference Range Interpretation Comments HEMOGLOBIN A1c (test code = 65751) 5.8 % HEMOGLOBIN [id number] 00:00:00 Test Item Value Reference Range Interpretation Comments HEMOGLOBIN A1c (test code = 79904) 5.8 % HEMOGLOBIN [id number] 00:00:00 Test Item Value Reference Range Interpretation Comments HEMOGLOBIN A1c (test code = 20206) 5.8 % LIPID [id number] 00:00:00 Test Item Value Reference Range Interpretation Comments CHOLESTEROL (test code = 2210) 151 MG/DL TRIGLYCERIDES (test code = 2232) 82 MG/DL HDL CHOLESTEROL (test code = 2220) 39 MG/DL CALC LDL CHOL (test code = 2237) 96 MG/DL RISK RATIO LDL/HDL (test code = 2.45 RATIO 2238) LIPID [id number] 00:00:00 Test Item Value Reference Range Interpretation Comments CHOLESTEROL (test code = 2210) 151 MG/DL TRIGLYCERIDES (test code = 2232) 82 MG/DL HDL CHOLESTEROL (test code = 2220) 39 MG/DL CALC LDL CHOL (test code = 2237) 96 MG/DL RISK RATIO LDL/HDL (test code = 2.45 RATIO 2238) COMPREHENSIVE METABOLIC [id number] 00:00:00 Test Item Value Reference Range Interpretation Comments GLUCOSE (test code = 2217) 93 MG/DL BUN (test code = 2208) 5 MG/DL CREATININE (test code = 2214) 0.95 MG/DL eGFR AMER. (test code 96 ML/MIN/1.73 = 29360) eGFR NON- AMER. (test 83 ML/MIN/1.73 code = 22457) CALC BUN/CREAT (test code = 5 RATIO 2235) SODIUM (test code = 2231) 143 MEQ/L POTASSIUM (test code = 2228) 4.6 MEQ/L CHLORIDE (test code = 2215) 102 MEQ/L CARBON DIOXIDE (test code = 27 MEQ/L 220) CALCIUM (test code = 2209) 10.4 MG/DL PROTEIN, TOTAL (test code = 7.6 G/DL 2228) ALBUMIN (test code = 2201) 4.7 G/DL CALC GLOBULIN (test code = 2.9 G/DL 2240) CALC A/G RATIO (test code = 1.6 RATIO 2234) BILIRUBIN, TOTAL (test code = 0.4 MG/DL 2206) ALKALINE PHOSPHATASE (test 95 U/L code = 2204) AST (test code = 2218) 22 U/L ALT (test code = 2219) 22 U/L COMPREHENSIVE METABOLIC [id number] 00:00:00 Test Item Value Reference Range Interpretation Comments GLUCOSE (test code = 2217) 93 MG/DL BUN (test code = 2208) 5 MG/DL CREATININE (test code = 2214) 0.95 MG/DL eGFR AMER. (test code 96 ML/MIN/1.73 = 57484) eGFR NON- AMER. (test 83 ML/MIN/1.73 code = 75191) CALC BUN/CREAT (test code = 5 RATIO 2235) SODIUM (test code = 2231) 143 MEQ/L POTASSIUM (test code = 2228) 4.6 MEQ/L CHLORIDE (test code = 2215) 102 MEQ/L CARBON DIOXIDE (test code = 27 MEQ/L 2206) CALCIUM (test code = 2209) 10.4 MG/DL PROTEIN, TOTAL (test code = 7.6 G/DL 222) ALBUMIN (test code = 2201) 4.7 G/DL CALC GLOBULIN (test code = 2.9 G/DL 2240) CALC A/G RATIO (test code = 1.6 RATIO 2234) BILIRUBIN, TOTAL (test code = 0.4 MG/DL 2206) ALKALINE PHOSPHATASE (test 95 U/L code = 2204) AST (test code = 2218) 22 U/L ALT (test code = 2219) 22 U/L VITAMIN D, 25 [id number] 00:00:00 Test Item Value Reference Range Interpretation Comments VITAMIN D, 25 OH (test code = 4958) 22 NG/ML VITAMIN D, 25 [id number] 00:00:00 Test Item Value Reference Range Interpretation Comments VITAMIN D, 25 OH (test code = 4958) 22 NG/ML VITAMIN B 12 AND FOLIC [id number] 00:00:00 Test Item Value Reference Range Interpretation Comments VITAMIN B-12 (test code = 2840) 437 PG/ML FOLIC ACID (test code = 2695) 6.6 UG/L VITAMIN B 12 AND FOLIC [id number] 00:00:00 Test Item Value Reference Range Interpretation Comments VITAMIN B-12 (test code = 2840) 437 PG/ML FOLIC ACID (test code = 2695) 6.6 UG/L HEPATITIS C [id number] 00:00:00 Test Item Value Reference Range Interpretation Comments HEPATITIS C ANTIBODY (test code NON-REACTIVE = 4675) HCV INDEX (test code = 27811) 0.12 HEPATITIS C [id number] 00:00:00 Test Item Value Reference Range Interpretation Comments HEPATITIS C ANTIBODY (test code NON-REACTIVE = 4675) HCV INDEX (test code = 46938) 0.12 HEMOGLOBIN [id number] 00:00:00 Test Item Value Reference Range Interpretation Comments HEMOGLOBIN A1c (test code = 18616) 5.8 % HEMOGLOBIN [id number] 00:00:00 Test Item Value Reference Range Interpretation Comments HEMOGLOBIN A1c (test code = 43969) 5.8 % HEMOGLOBIN [id number] 00:00:00 Test Item Value Reference Range Interpretation Comments HEMOGLOBIN A1c (test code = 06346) 5.8 % LIPID [id number] 00:00:00 Test Item Value Reference Range Interpretation Comments CHOLESTEROL (test code = 2210) 151 MG/DL TRIGLYCERIDES (test code = 2232) 82 MG/DL HDL CHOLESTEROL (test code = 2220) 39 MG/DL CALC LDL CHOL (test code = 2237) 96 MG/DL RISK RATIO LDL/HDL (test code = 2.45 RATIO 2238) LIPID [id number] 00:00:00 Test Item Value Reference Range Interpretation Comments CHOLESTEROL (test code = 2210) 151 MG/DL TRIGLYCERIDES (test code = 2232) 82 MG/DL HDL CHOLESTEROL (test code = 2220) 39 MG/DL CALC LDL CHOL (test code = 2237) 96 MG/DL RISK RATIO LDL/HDL (test code = 2.45 RATIO 2238) COMPREHENSIVE METABOLIC [id number] 00:00:00 Test Item Value Reference Range Interpretation Comments GLUCOSE (test code = 2217) 93 MG/DL BUN (test code = 2208) 5 MG/DL CREATININE (test code = 2214) 0.95 MG/DL eGFR AMER. (test code 96 ML/MIN/1.73 = 07997) eGFR NON- AMER. (test 83 ML/MIN/1.73 code = 08137) CALC BUN/CREAT (test code = 5 RATIO 2235) SODIUM (test code = 2231) 143 MEQ/L POTASSIUM (test code = 2228) 4.6 MEQ/L CHLORIDE (test code = 2215) 102 MEQ/L CARBON DIOXIDE (test code = 27 MEQ/L 2205) CALCIUM (test code = 2209) 10.4 MG/DL PROTEIN, TOTAL (test code = 7.6 G/DL 2228) ALBUMIN (test code = 2201) 4.7 G/DL CALC GLOBULIN (test code = 2.9 G/DL 2240) CALC A/G RATIO (test code = 1.6 RATIO 2234) BILIRUBIN, TOTAL (test code = 0.4 MG/DL 2206) ALKALINE PHOSPHATASE (test 95 U/L code = 2204) AST (test code = 2218) 22 U/L ALT (test code = 2219) 22 U/L COMPREHENSIVE METABOLIC [id number] 00:00:00 Test Item Value Reference Range Interpretation Comments GLUCOSE (test code = 2217) 93 MG/DL BUN (test code = 2208) 5 MG/DL CREATININE (test code = 2214) 0.95 MG/DL eGFR AMER. (test code 96 ML/MIN/1.73 = 59097) eGFR NON- AMER. (test 83 ML/MIN/1.73 code = 57387) CALC BUN/CREAT (test code = 5 RATIO 5) SODIUM (test code = 2231) 143 MEQ/L POTASSIUM (test code = 2228) 4.6 MEQ/L CHLORIDE (test code = 2215) 102 MEQ/L CARBON DIOXIDE (test code = 27 MEQ/L 2205) CALCIUM (test code = 2209) 10.4 MG/DL PROTEIN, TOTAL (test code = 7.6 G/DL 2228) ALBUMIN (test code = 220) 4.7 G/DL CALC GLOBULIN (test code = 2.9 G/DL 2239) CALC A/G RATIO (test code = 1.6 RATIO 2233) BILIRUBIN, TOTAL (test code = 0.4 MG/DL 2206) ALKALINE PHOSPHATASE (test 95 U/L code = 220) AST (test code = 2218) 22 U/L ALT (test code = 2219) 22 U/L VITAMIN D, 25 [id number] 00:00:00 Test Item Value Reference Range Interpretation Comments VITAMIN D, 25 OH (test code = 4958) 22 NG/ML VITAMIN D, 25 [id number] 00:00:00 Test Item Value Reference Range Interpretation Comments VITAMIN D, 25 OH (test code = 4958) 22 NG/ML VITAMIN B 12 AND FOLIC [id number] 00:00:00 Test Item Value Reference Range Interpretation Comments VITAMIN B-12 (test code = 2840) 437 PG/ML FOLIC ACID (test code = 2695) 6.6 UG/L VITAMIN B 12 AND FOLIC [id number] 00:00:00 Test Item Value Reference Range Interpretation Comments VITAMIN B-12 (test code = 2840) 437 PG/ML FOLIC ACID (test code = 2695) 6.6 UG/L HEPATITIS C [id number] 00:00:00 Test Item Value Reference Range Interpretation Comments HEPATITIS C ANTIBODY (test code NON-REACTIVE = 4675) HCV INDEX (test code = 60354) 0.12 HEPATITIS C [id number] 00:00:00 Test Item Value Reference Range Interpretation Comments HEPATITIS C ANTIBODY (test code NON-REACTIVE = 4675) HCV INDEX (test code = 21672) 0.12 COMPREHENSIVE METABOLIC [id number] 00:00:00 Test Item Value Reference Range Interpretation Comments GLUCOSE (test code = 2217) 97 MG/DL BUN (test code = 2208) 14 MG/DL CREATININE (test code = 2214) 1.10 MG/DL eGFR AMER. (test code 81 ML/MIN/1.73 = 91311) eGFR NON- AMER. (test 70 ML/MIN/1.73 code = 35891) CALC BUN/CREAT (test code = 13 RATIO 2235) SODIUM (test code = 2231) 138 MEQ/L POTASSIUM (test code = 2228) 4.4 MEQ/L CHLORIDE (test code = 2215) 98 MEQ/L CARBON DIOXIDE (test code = 25 MEQ/L 2205) CALCIUM (test code = 2209) 10.1 MG/DL PROTEIN, TOTAL (test code = 7.5 G/DL 2228) ALBUMIN (test code = 2201) 4.8 G/DL CALC GLOBULIN (test code = 2.7 G/DL 2239) CALC A/G RATIO (test code = 1.8 RATIO 2234) BILIRUBIN, TOTAL (test code = 0.3 MG/DL 2206) ALKALINE PHOSPHATASE (test 85 U/L code = 2204) AST (test code = 2218) 17 U/L ALT (test code = 2219) 20 U/L COMPREHENSIVE METABOLIC [id number] 00:00:00 Test Item Value Reference Range Interpretation Comments GLUCOSE (test code = 2217) 97 MG/DL BUN (test code = 2208) 14 MG/DL CREATININE (test code = 2214) 1.10 MG/DL eGFR AMER. (test code 81 ML/MIN/1.73 = 65198) eGFR NON- AMER. (test 70 ML/MIN/1.73 code = 18210) CALC BUN/CREAT (test code = 13 RATIO 2235) SODIUM (test code = 2231) 138 MEQ/L POTASSIUM (test code = 2228) 4.4 MEQ/L CHLORIDE (test code = 2215) 98 MEQ/L CARBON DIOXIDE (test code = 25 MEQ/L 220) CALCIUM (test code = 2209) 10.1 MG/DL PROTEIN, TOTAL (test code = 7.5 G/DL 2228) ALBUMIN (test code = 2201) 4.8 G/DL CALC GLOBULIN (test code = 2.7 G/DL 2240) CALC A/G RATIO (test code = 1.8 RATIO 2234) BILIRUBIN, TOTAL (test code = 0.3 MG/DL 2206) ALKALINE PHOSPHATASE (test 85 U/L code = 2204) AST (test code = 2218) 17 U/L ALT (test code = 2219) 20 U/L LIPID [id number] 00:00:00 Test Item Value Reference Range Interpretation Comments CHOLESTEROL (test code = 2210) 149 MG/DL TRIGLYCERIDES (test code = 2232) 102 MG/DL HDL CHOLESTEROL (test code = 2220) 37 MG/DL CALC LDL CHOL (test code = 2237) 92 MG/DL RISK RATIO LDL/HDL (test code = 2.48 RATIO 2238) LIPID [id number] 00:00:00 Test Item Value Reference Range Interpretation Comments CHOLESTEROL (test code = 2210) 149 MG/DL TRIGLYCERIDES (test code = 2232) 102 MG/DL HDL CHOLESTEROL (test code = 2220) 37 MG/DL CALC LDL CHOL (test code = 2237) 92 MG/DL RISK RATIO LDL/HDL (test code = 2.48 RATIO 2238) CBC W/AUTO [id number] 00:00:00 Test Item Value Reference Range Interpretation Comments WBC (test code = 1001) 6.3 K/UL RBC (test code = 1002) 5.03 M/UL HEMOGLOBIN (test code = 1003) 13.6 G/DL HEMATOCRIT (test code = 1004) 40.7 % MCV (test code = 1005) 80.9 fL MCH (test code = 1006) 27.0 PG MCHC (test code = 1007) 33.4 G/DL RDW (test code = 1038) 13.6 % NEUTROPHILS (test code = 1008) 56.4 % LYMPHOCYTES (test code = 1010) 31.3 % MONOCYTES (test code = 1011) 10.0 % EOSINOPHILS (test code = 1012) 1.8 % BASOPHILS (test code = 1013) 0.5 % PLATELET COUNT (test code = 1015) 300 K/UL CBC W/AUTO [id number] 00:00:00 Test Item Value Reference Range Interpretation Comments WBC (test code = 1001) 6.3 K/UL RBC (test code = 1002) 5.03 M/UL HEMOGLOBIN (test code = 1003) 13.6 G/DL HEMATOCRIT (test code = 1004) 40.7 % MCV (test code = 1005) 80.9 fL MCH (test code = 1006) 27.0 PG MCHC (test code = 1007) 33.4 G/DL RDW (test code = 1038) 13.6 % NEUTROPHILS (test code = 1008) 56.4 % LYMPHOCYTES (test code = 1010) 31.3 % MONOCYTES (test code = 1011) 10.0 % EOSINOPHILS (test code = 1012) 1.8 % BASOPHILS (test code = 1013) 0.5 % PLATELET COUNT (test code = 1015) 300 K/UL CBC W/AUTO [id number] 00:00:00 Test Item Value Reference Range Interpretation Comments WBC (test code = 1001) 6.3 K/UL RBC (test code = 1002) 5.03 M/UL HEMOGLOBIN (test code = 1003) 13.6 G/DL HEMATOCRIT (test code = 1004) 40.7 % MCV (test code = 1005) 80.9 fL MCH (test code = 1006) 27.0 PG MCHC (test code = 1007) 33.4 G/DL RDW (test code = 1038) 13.6 % NEUTROPHILS (test code = 1008) 56.4 % LYMPHOCYTES (test code = 1010) 31.3 % MONOCYTES (test code = 1011) 10.0 % EOSINOPHILS (test code = 1012) 1.8 % BASOPHILS (test code = 1013) 0.5 % PLATELET COUNT (test code = 1015) 300 K/UL HEMOGLOBIN [id number] 00:00:00 Test Item Value Reference Range Interpretation Comments HEMOGLOBIN A1c (test code = 07780) 5.7 % HEMOGLOBIN [id number] 00:00:00 Test Item Value Reference Range Interpretation Comments HEMOGLOBIN A1c (test code = 54633) 5.7 % HEMOGLOBIN [id number] 00:00:00 Test Item Value Reference Range Interpretation Comments HEMOGLOBIN A1c (test code = 36515) 5.7 % [id number] 00:00:00 Test Item Value Reference Range Interpretation Comments TSH (test code = 2821) 1.170 UIU/ML [id number] 00:00:00 Test Item Value Reference Range Interpretation Comments TSH (test code = 2821) 1.170 UIU/ML [id number] 00:00:00 Test Item Value Reference Range Interpretation Comments TSH (test code = 2821) 1.170 UIU/ML VITAMIN [id number] 00:00:00 Test Item Value Reference Range Interpretation Comments VITAMIN B-12 (test code = 2840) 380 PG/ML VITAMIN [id number] 00:00:00 Test Item Value Reference Range Interpretation Comments VITAMIN B-12 (test code = 2840) 380 PG/ML VITAMIN [id number] 00:00:00 Test Item Value Reference Range Interpretation Comments VITAMIN B-12 (test code = 2840) 380 PG/ML VITAMIN D, 25 [id number] 00:00:00 Test Item Value Reference Range Interpretation Comments VITAMIN D, 25 OH (test code = 4958) 19 NG/ML VITAMIN D, 25 [id number] 00:00:00 Test Item Value Reference Range Interpretation Comments VITAMIN D, 25 OH (test code = 4958) 19 NG/ML COMPREHENSIVE METABOLIC [id number] 00:00:00 Test Item Value Reference Range Interpretation Comments GLUCOSE (test code = 2217) 97 MG/DL BUN (test code = 2208) 14 MG/DL CREATININE (test code = 2214) 1.10 MG/DL eGFR AMER. (test code 81 ML/MIN/1.73 = 80023) eGFR NON- AMER. (test 70 ML/MIN/1.73 code = 64759) CALC BUN/CREAT (test code = 13 RATIO 2234) SODIUM (test code = 2231) 138 MEQ/L POTASSIUM (test code = 2228) 4.4 MEQ/L CHLORIDE (test code = 2215) 98 MEQ/L CARBON DIOXIDE (test code = 25 MEQ/L 2205) CALCIUM (test code = 2209) 10.1 MG/DL PROTEIN, TOTAL (test code = 7.5 G/DL 2228) ALBUMIN (test code = 220) 4.8 G/DL CALC GLOBULIN (test code = 2.7 G/DL 2239) CALC A/G RATIO (test code = 1.8 RATIO 2233) BILIRUBIN, TOTAL (test code = 0.3 MG/DL 2207) ALKALINE PHOSPHATASE (test 85 U/L code = 2204) AST (test code = 2218) 17 U/L ALT (test code = 2219) 20 U/L COMPREHENSIVE METABOLIC [id number] 00:00:00 Test Item Value Reference Range Interpretation Comments GLUCOSE (test code = 2217) 97 MG/DL BUN (test code = 2208) 14 MG/DL CREATININE (test code = 2214) 1.10 MG/DL eGFR AMER. (test code 81 ML/MIN/1.73 = 07189) eGFR NON- AMER. (test 70 ML/MIN/1.73 code = 09831) CALC BUN/CREAT (test code = 13 RATIO 2235) SODIUM (test code = 2231) 138 MEQ/L POTASSIUM (test code = 2228) 4.4 MEQ/L CHLORIDE (test code = 2215) 98 MEQ/L CARBON DIOXIDE (test code = 25 MEQ/L 2205) CALCIUM (test code = 2209) 10.1 MG/DL PROTEIN, TOTAL (test code = 7.5 G/DL 2228) ALBUMIN (test code = 2201) 4.8 G/DL CALC GLOBULIN (test code = 2.7 G/DL 2240) CALC A/G RATIO (test code = 1.8 RATIO 2234) BILIRUBIN, TOTAL (test code = 0.3 MG/DL 2206) ALKALINE PHOSPHATASE (test 85 U/L code = 2204) AST (test code = 2218) 17 U/L ALT (test code = 2219) 20 U/L LIPID [id number] 00:00:00 Test Item Value Reference Range Interpretation Comments CHOLESTEROL (test code = 2210) 149 MG/DL TRIGLYCERIDES (test code = 2232) 102 MG/DL HDL CHOLESTEROL (test code = 2220) 37 MG/DL CALC LDL CHOL (test code = 2237) 92 MG/DL RISK RATIO LDL/HDL (test code = 2.48 RATIO 2238) LIPID [id number] 00:00:00 Test Item Value Reference Range Interpretation Comments CHOLESTEROL (test code = 2210) 149 MG/DL TRIGLYCERIDES (test code = 2232) 102 MG/DL HDL CHOLESTEROL (test code = 2220) 37 MG/DL CALC LDL CHOL (test code = 2237) 92 MG/DL RISK RATIO LDL/HDL (test code = 2.48 RATIO 2238) CBC W/AUTO [id number] 00:00:00 Test Item Value Reference Range Interpretation Comments WBC (test code = 1001) 6.3 K/UL RBC (test code = 1002) 5.03 M/UL HEMOGLOBIN (test code = 1003) 13.6 G/DL HEMATOCRIT (test code = 1004) 40.7 % MCV (test code = 1005) 80.9 fL MCH (test code = 1006) 27.0 PG MCHC (test code = 1007) 33.4 G/DL RDW (test code = 1038) 13.6 % NEUTROPHILS (test code = 1008) 56.4 % LYMPHOCYTES (test code = 1010) 31.3 % MONOCYTES (test code = 1011) 10.0 % EOSINOPHILS (test code = 1012) 1.8 % BASOPHILS (test code = 1013) 0.5 % PLATELET COUNT (test code = 1015) 300 K/UL CBC W/AUTO [id number] 00:00:00 Test Item Value Reference Range Interpretation Comments WBC (test code = 1001) 6.3 K/UL RBC (test code = 1002) 5.03 M/UL HEMOGLOBIN (test code = 1003) 13.6 G/DL HEMATOCRIT (test code = 1004) 40.7 % MCV (test code = 1005) 80.9 fL MCH (test code = 1006) 27.0 PG MCHC (test code = 1007) 33.4 G/DL RDW (test code = 1038) 13.6 % NEUTROPHILS (test code = 1008) 56.4 % LYMPHOCYTES (test code = 1010) 31.3 % MONOCYTES (test code = 1011) 10.0 % EOSINOPHILS (test code = 1012) 1.8 % BASOPHILS (test code = 1013) 0.5 % PLATELET COUNT (test code = 1015) 300 K/UL CBC W/AUTO [id number] 00:00:00 Test Item Value Reference Range Interpretation Comments WBC (test code = 1001) 6.3 K/UL RBC (test code = 1002) 5.03 M/UL HEMOGLOBIN (test code = 1003) 13.6 G/DL HEMATOCRIT (test code = 1004) 40.7 % MCV (test code = 1005) 80.9 fL MCH (test code = 1006) 27.0 PG MCHC (test code = 1007) 33.4 G/DL RDW (test code = 1038) 13.6 % NEUTROPHILS (test code = 1008) 56.4 % LYMPHOCYTES (test code = 1010) 31.3 % MONOCYTES (test code = 1011) 10.0 % EOSINOPHILS (test code = 1012) 1.8 % BASOPHILS (test code = 1013) 0.5 % PLATELET COUNT (test code = 1015) 300 K/UL HEMOGLOBIN [id number] 00:00:00 Test Item Value Reference Range Interpretation Comments HEMOGLOBIN A1c (test code = 44109) 5.7 % HEMOGLOBIN [id number] 00:00:00 Test Item Value Reference Range Interpretation Comments HEMOGLOBIN A1c (test code = 11333) 5.7 % HEMOGLOBIN [id number] 00:00:00 Test Item Value Reference Range Interpretation Comments HEMOGLOBIN A1c (test code = 00832) 5.7 % [id number] 00:00:00 Test Item Value Reference Range Interpretation Comments TSH (test code = 2821) 1.170 UIU/ML [id number] 00:00:00 Test Item Value Reference Range Interpretation Comments TSH (test code = 2821) 1.170 UIU/ML [id number] 00:00:00 Test Item Value Reference Range Interpretation Comments TSH (test code = 2821) 1.170 UIU/ML VITAMIN [id number] 00:00:00 Test Item Value Reference Range Interpretation Comments VITAMIN B-12 (test code = 2840) 380 PG/ML VITAMIN [id number] 00:00:00 Test Item Value Reference Range Interpretation Comments VITAMIN B-12 (test code = 2840) 380 PG/ML VITAMIN [id number] 00:00:00 Test Item Value Reference Range Interpretation Comments VITAMIN B-12 (test code = 2840) 380 PG/ML VITAMIN D, 25 [id number] 00:00:00 Test Item Value Reference Range Interpretation Comments VITAMIN D, 25 OH (test code = 4958) 19 NG/ML VITAMIN D, 25 [id number] 00:00:00 Test Item Value Reference Range Interpretation Comments VITAMIN D, 25 OH (test code = 4958) 19 NG/ML COMPREHENSIVE METABOLIC [id number] 00:00:00 Test Item Value Reference Range Interpretation Comments GLUCOSE (test code = 2217) 97 MG/DL BUN (test code = 2208) 14 MG/DL CREATININE (test code = 2214) 1.10 MG/DL eGFR AMER. (test code 81 ML/MIN/1.73 = 72122) eGFR NON- AMER. (test 70 ML/MIN/1.73 code = 83511) CALC BUN/CREAT (test code = 13 RATIO 2235) SODIUM (test code = 2231) 138 MEQ/L POTASSIUM (test code = 2228) 4.4 MEQ/L CHLORIDE (test code = 2215) 98 MEQ/L CARBON DIOXIDE (test code = 25 MEQ/L 2205) CALCIUM (test code = 2209) 10.1 MG/DL PROTEIN, TOTAL (test code = 7.5 G/DL 2228) ALBUMIN (test code = 2201) 4.8 G/DL CALC GLOBULIN (test code = 2.7 G/DL 2240) CALC A/G RATIO (test code = 1.8 RATIO 2233) BILIRUBIN, TOTAL (test code = 0.3 MG/DL 2206) ALKALINE PHOSPHATASE (test 85 U/L code = 2204) AST (test code = 2218) 17 U/L ALT (test code = 2219) 20 U/L COMPREHENSIVE METABOLIC [id number] 00:00:00 Test Item Value Reference Range Interpretation Comments GLUCOSE (test code = 2217) 97 MG/DL BUN (test code = 2208) 14 MG/DL CREATININE (test code = 2214) 1.10 MG/DL eGFR AMER. (test code 81 ML/MIN/1.73 = 54870) eGFR NON- AMER. (test 70 ML/MIN/1.73 code = 41756) CALC BUN/CREAT (test code = 13 RATIO 2235) SODIUM (test code = 2231) 138 MEQ/L POTASSIUM (test code = 2228) 4.4 MEQ/L CHLORIDE (test code = 2215) 98 MEQ/L CARBON DIOXIDE (test code = 25 MEQ/L 220) CALCIUM (test code = 2209) 10.1 MG/DL PROTEIN, TOTAL (test code = 7.5 G/DL 2228) ALBUMIN (test code = 2201) 4.8 G/DL CALC GLOBULIN (test code = 2.7 G/DL 2240) CALC A/G RATIO (test code = 1.8 RATIO 2234) BILIRUBIN, TOTAL (test code = 0.3 MG/DL 2206) ALKALINE PHOSPHATASE (test 85 U/L code = 2204) AST (test code = 2218) 17 U/L ALT (test code = 2219) 20 U/L LIPID [id number] 00:00:00 Test Item Value Reference Range Interpretation Comments CHOLESTEROL (test code = 2210) 149 MG/DL TRIGLYCERIDES (test code = 2232) 102 MG/DL HDL CHOLESTEROL (test code = 2220) 37 MG/DL CALC LDL CHOL (test code = 2237) 92 MG/DL RISK RATIO LDL/HDL (test code = 2.48 RATIO 2238) LIPID [id number] 00:00:00 Test Item Value Reference Range Interpretation Comments CHOLESTEROL (test code = 2210) 149 MG/DL TRIGLYCERIDES (test code = 2232) 102 MG/DL HDL CHOLESTEROL (test code = 2220) 37 MG/DL CALC LDL CHOL (test code = 2237) 92 MG/DL RISK RATIO LDL/HDL (test code = 2.48 RATIO 2238) CBC W/AUTO [id number] 00:00:00 Test Item Value Reference Range Interpretation Comments WBC (test code = 1001) 6.3 K/UL RBC (test code = 1002) 5.03 M/UL HEMOGLOBIN (test code = 1003) 13.6 G/DL HEMATOCRIT (test code = 1004) 40.7 % MCV (test code = 1005) 80.9 fL MCH (test code = 1006) 27.0 PG MCHC (test code = 1007) 33.4 G/DL RDW (test code = 1038) 13.6 % NEUTROPHILS (test code = 1008) 56.4 % LYMPHOCYTES (test code = 1010) 31.3 % MONOCYTES (test code = 1011) 10.0 % EOSINOPHILS (test code = 1012) 1.8 % BASOPHILS (test code = 1013) 0.5 % PLATELET COUNT (test code = 1015) 300 K/UL CBC W/AUTO [id number] 00:00:00 Test Item Value Reference Range Interpretation Comments WBC (test code = 1001) 6.3 K/UL RBC (test code = 1002) 5.03 M/UL HEMOGLOBIN (test code = 1003) 13.6 G/DL HEMATOCRIT (test code = 1004) 40.7 % MCV (test code = 1005) 80.9 fL MCH (test code = 1006) 27.0 PG MCHC (test code = 1007) 33.4 G/DL RDW (test code = 1038) 13.6 % NEUTROPHILS (test code = 1008) 56.4 % LYMPHOCYTES (test code = 1010) 31.3 % MONOCYTES (test code = 1011) 10.0 % EOSINOPHILS (test code = 1012) 1.8 % BASOPHILS (test code = 1013) 0.5 % PLATELET COUNT (test code = 1015) 300 K/UL CBC W/AUTO [id number] 00:00:00 Test Item Value Reference Range Interpretation Comments WBC (test code = 1001) 6.3 K/UL RBC (test code = 1002) 5.03 M/UL HEMOGLOBIN (test code = 1003) 13.6 G/DL HEMATOCRIT (test code = 1004) 40.7 % MCV (test code = 1005) 80.9 fL MCH (test code = 1006) 27.0 PG MCHC (test code = 1007) 33.4 G/DL RDW (test code = 1038) 13.6 % NEUTROPHILS (test code = 1008) 56.4 % LYMPHOCYTES (test code = 1010) 31.3 % MONOCYTES (test code = 1011) 10.0 % EOSINOPHILS (test code = 1012) 1.8 % BASOPHILS (test code = 1013) 0.5 % PLATELET COUNT (test code = 1015) 300 K/UL HEMOGLOBIN [id number] 00:00:00 Test Item Value Reference Range Interpretation Comments HEMOGLOBIN A1c (test code = 04634) 5.7 % HEMOGLOBIN [id number] 00:00:00 Test Item Value Reference Range Interpretation Comments HEMOGLOBIN A1c (test code = 94344) 5.7 % HEMOGLOBIN [id number] 00:00:00 Test Item Value Reference Range Interpretation Comments HEMOGLOBIN A1c (test code = 06811) 5.7 % [id number] 00:00:00 Test Item Value Reference Range Interpretation Comments TSH (test code = 2821) 1.170 UIU/ML [id number] 00:00:00 Test Item Value Reference Range Interpretation Comments TSH (test code = 2821) 1.170 UIU/ML [id number] 00:00:00 Test Item Value Reference Range Interpretation Comments TSH (test code = 2821) 1.170 UIU/ML VITAMIN [id number] 00:00:00 Test Item Value Reference Range Interpretation Comments VITAMIN B-12 (test code = 2840) 380 PG/ML VITAMIN [id number] 00:00:00 Test Item Value Reference Range Interpretation Comments VITAMIN B-12 (test code = 2840) 380 PG/ML VITAMIN [id number] 00:00:00 Test Item Value Reference Range Interpretation Comments VITAMIN B-12 (test code = 2840) 380 PG/ML VITAMIN D, 25 [id number] 00:00:00 Test Item Value Reference Range Interpretation Comments VITAMIN D, 25 OH (test code = 4958) 19 NG/ML VITAMIN D, 25 [id number] 00:00:00 Test Item Value Reference Range Interpretation Comments VITAMIN D, 25 OH (test code = 4958) 19 NG/ML COMPREHENSIVE METABOLIC [id number] 00:00:00 Test Item Value Reference Range Interpretation Comments GLUCOSE (test code = 2217) 97 MG/DL BUN (test code = 2208) 14 MG/DL CREATININE (test code = 2214) 1.10 MG/DL eGFR AMER. (test code 81 ML/MIN/1.73 = 99328) eGFR NON- AMER. (test 70 ML/MIN/1.73 code = 95779) CALC BUN/CREAT (test code = 13 RATIO 2234) SODIUM (test code = 2231) 138 MEQ/L POTASSIUM (test code = 2228) 4.4 MEQ/L CHLORIDE (test code = 2215) 98 MEQ/L CARBON DIOXIDE (test code = 25 MEQ/L 2205) CALCIUM (test code = 2209) 10.1 MG/DL PROTEIN, TOTAL (test code = 7.5 G/DL 2228) ALBUMIN (test code = 220) 4.8 G/DL CALC GLOBULIN (test code = 2.7 G/DL 2239) CALC A/G RATIO (test code = 1.8 RATIO 2233) BILIRUBIN, TOTAL (test code = 0.3 MG/DL 2207) ALKALINE PHOSPHATASE (test 85 U/L code = 2204) AST (test code = 2218) 17 U/L ALT (test code = 2219) 20 U/L COMPREHENSIVE METABOLIC [id number] 00:00:00 Test Item Value Reference Range Interpretation Comments GLUCOSE (test code = 2217) 97 MG/DL BUN (test code = 2208) 14 MG/DL CREATININE (test code = 2214) 1.10 MG/DL eGFR AMER. (test code 81 ML/MIN/1.73 = 89015) eGFR NON- AMER. (test 70 ML/MIN/1.73 code = 92521) CALC BUN/CREAT (test code = 13 RATIO 2235) SODIUM (test code = 2231) 138 MEQ/L POTASSIUM (test code = 2228) 4.4 MEQ/L CHLORIDE (test code = 2215) 98 MEQ/L CARBON DIOXIDE (test code = 25 MEQ/L 2205) CALCIUM (test code = 2209) 10.1 MG/DL PROTEIN, TOTAL (test code = 7.5 G/DL 2228) ALBUMIN (test code = 2201) 4.8 G/DL CALC GLOBULIN (test code = 2.7 G/DL 2240) CALC A/G RATIO (test code = 1.8 RATIO 2234) BILIRUBIN, TOTAL (test code = 0.3 MG/DL 2206) ALKALINE PHOSPHATASE (test 85 U/L code = 2204) AST (test code = 2218) 17 U/L ALT (test code = 2219) 20 U/L LIPID [id number] 00:00:00 Test Item Value Reference Range Interpretation Comments CHOLESTEROL (test code = 2210) 149 MG/DL TRIGLYCERIDES (test code = 2232) 102 MG/DL HDL CHOLESTEROL (test code = 2220) 37 MG/DL CALC LDL CHOL (test code = 2237) 92 MG/DL RISK RATIO LDL/HDL (test code = 2.48 RATIO 2238) LIPID [id number] 00:00:00 Test Item Value Reference Range Interpretation Comments CHOLESTEROL (test code = 2210) 149 MG/DL TRIGLYCERIDES (test code = 2232) 102 MG/DL HDL CHOLESTEROL (test code = 2220) 37 MG/DL CALC LDL CHOL (test code = 2237) 92 MG/DL RISK RATIO LDL/HDL (test code = 2.48 RATIO 2238) CBC W/AUTO [id number] 00:00:00 Test Item Value Reference Range Interpretation Comments WBC (test code = 1001) 6.3 K/UL RBC (test code = 1002) 5.03 M/UL HEMOGLOBIN (test code = 1003) 13.6 G/DL HEMATOCRIT (test code = 1004) 40.7 % MCV (test code = 1005) 80.9 fL MCH (test code = 1006) 27.0 PG MCHC (test code = 1007) 33.4 G/DL RDW (test code = 1038) 13.6 % NEUTROPHILS (test code = 1008) 56.4 % LYMPHOCYTES (test code = 1010) 31.3 % MONOCYTES (test code = 1011) 10.0 % EOSINOPHILS (test code = 1012) 1.8 % BASOPHILS (test code = 1013) 0.5 % PLATELET COUNT (test code = 1015) 300 K/UL CBC W/AUTO [id number] 00:00:00 Test Item Value Reference Range Interpretation Comments WBC (test code = 1001) 6.3 K/UL RBC (test code = 1002) 5.03 M/UL HEMOGLOBIN (test code = 1003) 13.6 G/DL HEMATOCRIT (test code = 1004) 40.7 % MCV (test code = 1005) 80.9 fL MCH (test code = 1006) 27.0 PG MCHC (test code = 1007) 33.4 G/DL RDW (test code = 1038) 13.6 % NEUTROPHILS (test code = 1008) 56.4 % LYMPHOCYTES (test code = 1010) 31.3 % MONOCYTES (test code = 1011) 10.0 % EOSINOPHILS (test code = 1012) 1.8 % BASOPHILS (test code = 1013) 0.5 % PLATELET COUNT (test code = 1015) 300 K/UL CBC W/AUTO [id number] 00:00:00 Test Item Value Reference Range Interpretation Comments WBC (test code = 1001) 6.3 K/UL RBC (test code = 1002) 5.03 M/UL HEMOGLOBIN (test code = 1003) 13.6 G/DL HEMATOCRIT (test code = 1004) 40.7 % MCV (test code = 1005) 80.9 fL MCH (test code = 1006) 27.0 PG MCHC (test code = 1007) 33.4 G/DL RDW (test code = 1038) 13.6 % NEUTROPHILS (test code = 1008) 56.4 % LYMPHOCYTES (test code = 1010) 31.3 % MONOCYTES (test code = 1011) 10.0 % EOSINOPHILS (test code = 1012) 1.8 % BASOPHILS (test code = 1013) 0.5 % PLATELET COUNT (test code = 1015) 300 K/UL HEMOGLOBIN [id number] 00:00:00 Test Item Value Reference Range Interpretation Comments HEMOGLOBIN A1c (test code = 51820) 5.7 % HEMOGLOBIN [id number] 00:00:00 Test Item Value Reference Range Interpretation Comments HEMOGLOBIN A1c (test code = 34109) 5.7 % HEMOGLOBIN [id number] 00:00:00 Test Item Value Reference Range Interpretation Comments HEMOGLOBIN A1c (test code = 05922) 5.7 % [id number] 00:00:00 Test Item Value Reference Range Interpretation Comments TSH (test code = 2821) 1.170 UIU/ML [id number] 00:00:00 Test Item Value Reference Range Interpretation Comments TSH (test code = 2821) 1.170 UIU/ML [id number] 00:00:00 Test Item Value Reference Range Interpretation Comments TSH (test code = 2821) 1.170 UIU/ML VITAMIN [id number] 00:00:00 Test Item Value Reference Range Interpretation Comments VITAMIN B-12 (test code = 2840) 380 PG/ML VITAMIN [id number] 00:00:00 Test Item Value Reference Range Interpretation Comments VITAMIN B-12 (test code = 2840) 380 PG/ML VITAMIN [id number] 00:00:00 Test Item Value Reference Range Interpretation Comments VITAMIN B-12 (test code = 2840) 380 PG/ML VITAMIN D, 25 [id number] 00:00:00 Test Item Value Reference Range Interpretation Comments VITAMIN D, 25 OH (test code = 4958) 19 NG/ML VITAMIN D, 25 [id number] 00:00:00 Test Item Value Reference Range Interpretation Comments VITAMIN D, 25 OH (test code = 4958) 19 NG/ML COMPREHENSIVE METABOLIC [id number] 00:00:00 Test Item Value Reference Range Interpretation Comments GLUCOSE (test code = 2217) 101 MG/DL BUN (test code = 2208) 8 MG/DL CREATININE (test code = 2214) 1.04 MG/DL eGFR AMER. (test code 87 ML/MIN/1.73 = 10331) eGFR NON- AMER. (test 75 ML/MIN/1.73 code = 94182) CALC BUN/CREAT (test code = 8 RATIO 2235) SODIUM (test code = 2231) 143 MEQ/L POTASSIUM (test code = 2228) 4.3 MEQ/L CHLORIDE (test code = 2215) 102 MEQ/L CARBON DIOXIDE (test code = 27 MEQ/L 220) CALCIUM (test code = 2209) 9.8 MG/DL PROTEIN, TOTAL (test code = 7.4 G/DL 2228) ALBUMIN (test code = 2201) 4.7 G/DL CALC GLOBULIN (test code = 2.7 G/DL 2240) CALC A/G RATIO (test code = 1.7 RATIO 2234) BILIRUBIN, TOTAL (test code = 0.2 MG/DL 2206) ALKALINE PHOSPHATASE (test 89 U/L code = 2204) AST (test code = 2218) 22 U/L ALT (test code = 2219) 26 U/L COMPREHENSIVE METABOLIC [id number] 00:00:00 Test Item Value Reference Range Interpretation Comments GLUCOSE (test code = 2217) 101 MG/DL BUN (test code = 2208) 8 MG/DL CREATININE (test code = 2214) 1.04 MG/DL eGFR AMER. (test code 87 ML/MIN/1.73 = 49085) eGFR NON- AMER. (test 75 ML/MIN/1.73 code = 51904) CALC BUN/CREAT (test code = 8 RATIO 2235) SODIUM (test code = 2231) 143 MEQ/L POTASSIUM (test code = 2228) 4.3 MEQ/L CHLORIDE (test code = 2215) 102 MEQ/L CARBON DIOXIDE (test code = 27 MEQ/L 2206) CALCIUM (test code = 2209) 9.8 MG/DL PROTEIN, TOTAL (test code = 7.4 G/DL 2228) ALBUMIN (test code = 2201) 4.7 G/DL CALC GLOBULIN (test code = 2.7 G/DL 2240) CALC A/G RATIO (test code = 1.7 RATIO 2234) BILIRUBIN, TOTAL (test code = 0.2 MG/DL 2207) ALKALINE PHOSPHATASE (test 89 U/L code = 2204) AST (test code = 2218) 22 U/L ALT (test code = 2219) 26 U/L COMPREHENSIVE METABOLIC [id number] 00:00:00 Test Item Value Reference Range Interpretation Comments GLUCOSE (test code = 2217) 101 MG/DL BUN (test code = 2208) 8 MG/DL CREATININE (test code = 2214) 1.04 MG/DL eGFR AMER. (test code 87 ML/MIN/1.73 = 61287) eGFR NON- AMER. (test 75 ML/MIN/1.73 code = 64195) CALC BUN/CREAT (test code = 8 RATIO 2235) SODIUM (test code = 2231) 143 MEQ/L POTASSIUM (test code = 2228) 4.3 MEQ/L CHLORIDE (test code = 2215) 102 MEQ/L CARBON DIOXIDE (test code = 27 MEQ/L 2205) CALCIUM (test code = 2209) 9.8 MG/DL PROTEIN, TOTAL (test code = 7.4 G/DL 9) ALBUMIN (test code = 2201) 4.7 G/DL CALC GLOBULIN (test code = 2.7 G/DL 2240) CALC A/G RATIO (test code = 1.7 RATIO 2234) BILIRUBIN, TOTAL (test code = 0.2 MG/DL 2206) ALKALINE PHOSPHATASE (test 89 U/L code = 2204) AST (test code = 2218) 22 U/L ALT (test code = 2219) 26 U/L COMPREHENSIVE METABOLIC [id number] 00:00:00 Test Item Value Reference Range Interpretation Comments GLUCOSE (test code = 2217) 101 MG/DL BUN (test code = 2208) 8 MG/DL CREATININE (test code = 2214) 1.04 MG/DL eGFR AMER. (test code 87 ML/MIN/1.73 = 83329) eGFR NON- AMER. (test 75 ML/MIN/1.73 code = 42111) CALC BUN/CREAT (test code = 8 RATIO 2235) SODIUM (test code = 2231) 143 MEQ/L POTASSIUM (test code = 2228) 4.3 MEQ/L CHLORIDE (test code = 2215) 102 MEQ/L CARBON DIOXIDE (test code = 27 MEQ/L 220) CALCIUM (test code = 2209) 9.8 MG/DL PROTEIN, TOTAL (test code = 7.4 G/DL 222) ALBUMIN (test code = 2201) 4.7 G/DL CALC GLOBULIN (test code = 2.7 G/DL 2240) CALC A/G RATIO (test code = 1.7 RATIO 2234) BILIRUBIN, TOTAL (test code = 0.2 MG/DL 2206) ALKALINE PHOSPHATASE (test 89 U/L code = 2204) AST (test code = 2218) 22 U/L ALT (test code = 2219) 26 U/L COMPREHENSIVE METABOLIC [id number] 00:00:00 Test Item Value Reference Range Interpretation Comments GLUCOSE (test code = 2217) 101 MG/DL BUN (test code = 2208) 8 MG/DL CREATININE (test code = 2214) 1.04 MG/DL eGFR AMER. (test code 87 ML/MIN/1.73 = 71867) eGFR NON- AMER. (test 75 ML/MIN/1.73 code = 19575) CALC BUN/CREAT (test code = 8 RATIO 2235) SODIUM (test code = 2231) 143 MEQ/L POTASSIUM (test code = 2228) 4.3 MEQ/L CHLORIDE (test code = 2215) 102 MEQ/L CARBON DIOXIDE (test code = 27 MEQ/L 2205) CALCIUM (test code = 2209) 9.8 MG/DL PROTEIN, TOTAL (test code = 7.4 G/DL 2228) ALBUMIN (test code = 2201) 4.7 G/DL CALC GLOBULIN (test code = 2.7 G/DL 2240) CALC A/G RATIO (test code = 1.7 RATIO 2234) BILIRUBIN, TOTAL (test code = 0.2 MG/DL 2206) ALKALINE PHOSPHATASE (test 89 U/L code = 2204) AST (test code = 2218) 22 U/L ALT (test code = 2219) 26 U/L COMPREHENSIVE METABOLIC [id number] 00:00:00 Test Item Value Reference Range Interpretation Comments GLUCOSE (test code = 2217) 101 MG/DL BUN (test code = 2208) 8 MG/DL CREATININE (test code = 2214) 1.04 MG/DL eGFR AMER. (test code 87 ML/MIN/1.73 = 21333) eGFR NON- AMER. (test 75 ML/MIN/1.73 code = 67474) CALC BUN/CREAT (test code = 8 RATIO 2235) SODIUM (test code = 2231) 143 MEQ/L POTASSIUM (test code = 2228) 4.3 MEQ/L CHLORIDE (test code = 2215) 102 MEQ/L CARBON DIOXIDE (test code = 27 MEQ/L 220) CALCIUM (test code = 2209) 9.8 MG/DL PROTEIN, TOTAL (test code = 7.4 G/DL 2228) ALBUMIN (test code = 2201) 4.7 G/DL CALC GLOBULIN (test code = 2.7 G/DL 2240) CALC A/G RATIO (test code = 1.7 RATIO 2234) BILIRUBIN, TOTAL (test code = 0.2 MG/DL 2206) ALKALINE PHOSPHATASE (test 89 U/L code = 2204) AST (test code = 2218) 22 U/L ALT (test code = 2219) 26 U/L COMPREHENSIVE METABOLIC [id number] 00:00:00 Test Item Value Reference Range Interpretation Comments GLUCOSE (test code = 2217) 101 MG/DL BUN (test code = 2208) 8 MG/DL CREATININE (test code = 2214) 1.04 MG/DL eGFR AMER. (test code 87 ML/MIN/1.73 = 93467) eGFR NON- AMER. (test 75 ML/MIN/1.73 code = 12214) CALC BUN/CREAT (test code = 8 RATIO 2235) SODIUM (test code = 2231) 143 MEQ/L POTASSIUM (test code = 2228) 4.3 MEQ/L CHLORIDE (test code = 2215) 102 MEQ/L CARBON DIOXIDE (test code = 27 MEQ/L 220) CALCIUM (test code = 2209) 9.8 MG/DL PROTEIN, TOTAL (test code = 7.4 G/DL 2228) ALBUMIN (test code = 2201) 4.7 G/DL CALC GLOBULIN (test code = 2.7 G/DL 2240) CALC A/G RATIO (test code = 1.7 RATIO 2234) BILIRUBIN, TOTAL (test code = 0.2 MG/DL 2206) ALKALINE PHOSPHATASE (test 89 U/L code = 2204) AST (test code = 2218) 22 U/L ALT (test code = 2219) 26 U/L COMPREHENSIVE METABOLIC [id number] 00:00:00 Test Item Value Reference Range Interpretation Comments GLUCOSE (test code = 2217) 101 MG/DL BUN (test code = 2208) 8 MG/DL CREATININE (test code = 2214) 1.04 MG/DL eGFR AMER. (test code 87 ML/MIN/1.73 = 71823) eGFR NON- AMER. (test 75 ML/MIN/1.73 code = 36331) CALC BUN/CREAT (test code = 8 RATIO 2235) SODIUM (test code = 2231) 143 MEQ/L POTASSIUM (test code = 2228) 4.3 MEQ/L CHLORIDE (test code = 2215) 102 MEQ/L CARBON DIOXIDE (test code = 27 MEQ/L 2205) CALCIUM (test code = 2209) 9.8 MG/DL PROTEIN, TOTAL (test code = 7.4 G/DL 2228) ALBUMIN (test code = 2201) 4.7 G/DL CALC GLOBULIN (test code = 2.7 G/DL 2240) CALC A/G RATIO (test code = 1.7 RATIO 4) BILIRUBIN, TOTAL (test code = 0.2 MG/DL 2206) ALKALINE PHOSPHATASE (test 89 U/L code = 2204) AST (test code = 2218) 22 U/L ALT (test code = 2219) 26 U/L HEMOGLOBIN [id number] 00:00:00 Test Item Value Reference Range Interpretation Comments HEMOGLOBIN A1c (test code = 72763) 5.9 % HEMOGLOBIN [id number] 00:00:00 Test Item Value Reference Range Interpretation Comments HEMOGLOBIN A1c (test code = 45762) 5.9 % HEMOGLOBIN [id number] 00:00:00 Test Item Value Reference Range Interpretation Comments HEMOGLOBIN A1c (test code = 64407) 5.9 % HEMOGLOBIN [id number] 00:00:00 Test Item Value Reference Range Interpretation Comments HEMOGLOBIN A1c (test code = 37840) 5.9 % HEMOGLOBIN [id number] 00:00:00 Test Item Value Reference Range Interpretation Comments HEMOGLOBIN A1c (test code = 72347) 5.9 % HEMOGLOBIN [id number] 00:00:00 Test Item Value Reference Range Interpretation Comments HEMOGLOBIN A1c (test code = 52607) 5.9 % HEMOGLOBIN [id number] 00:00:00 Test Item Value Reference Range Interpretation Comments HEMOGLOBIN A1c (test code = 78479) 5.9 % HEMOGLOBIN [id number] 00:00:00 Test Item Value Reference Range Interpretation Comments HEMOGLOBIN A1c (test code = 08801) 5.9 % HEMOGLOBIN [id number] 00:00:00 Test Item Value Reference Range Interpretation Comments HEMOGLOBIN A1c (test code = 33045) 5.9 % HEMOGLOBIN [id number] 00:00:00 Test Item Value Reference Range Interpretation Comments HEMOGLOBIN A1c (test code = 51157) 5.9 % HEMOGLOBIN [id number] 00:00:00 Test Item Value Reference Range Interpretation Comments HEMOGLOBIN A1c (test code = 79960) 5.9 % HEMOGLOBIN [id number] 00:00:00 Test Item Value Reference Range Interpretation Comments HEMOGLOBIN A1c (test code = 84782) 5.9 % LIPID [id number] 00:00:00 Test Item Value Reference Range Interpretation Comments CHOLESTEROL (test code = 2210) 139 MG/DL TRIGLYCERIDES (test code = 2232) 122 MG/DL HDL CHOLESTEROL (test code = 2220) 40 MG/DL CALC LDL CHOL (test code = 2237) 75 MG/DL RISK RATIO LDL/HDL (test code = 1.87 RATIO 2238) LIPID [id number] 00:00:00 Test Item Value Reference Range Interpretation Comments CHOLESTEROL (test code = 2210) 139 MG/DL TRIGLYCERIDES (test code = 2232) 122 MG/DL HDL CHOLESTEROL (test code = 2220) 40 MG/DL CALC LDL CHOL (test code = 2237) 75 MG/DL RISK RATIO LDL/HDL (test code = 1.87 RATIO 2238) HEMOGLOBIN [id number] 00:00:00 Test Item Value Reference Range Interpretation Comments HEMOGLOBIN A1c (test code = 95223) 6.0 % HEMOGLOBIN [id number] 00:00:00 Test Item Value Reference Range Interpretation Comments HEMOGLOBIN A1c (test code = 23205) 6.0 % HEMOGLOBIN [id number] 00:00:00 Test Item Value Reference Range Interpretation Comments HEMOGLOBIN A1c (test code = 94003) 6.0 % COMPREHENSIVE METABOLIC [id number] 00:00:00 Test Item Value Reference Range Interpretation Comments GLUCOSE (test code = 2217) 89 MG/DL BUN (test code = 2208) 9 MG/DL CREATININE (test code = 2214) 1.03 MG/DL eGFR AMER. (test code 89 ML/MIN/1.73 = 49980) eGFR NON- AMER. (test 76 ML/MIN/1.73 code = 99988) CALC BUN/CREAT (test code = 9 RATIO 2235) SODIUM (test code = 2231) 138 MEQ/L POTASSIUM (test code = 2228) 4.3 MEQ/L CHLORIDE (test code = 2215) 99 MEQ/L CARBON DIOXIDE (test code = 27 MEQ/L 2205) CALCIUM (test code = 2209) 10.1 MG/DL PROTEIN, TOTAL (test code = 7.4 G/DL 2228) ALBUMIN (test code = 2201) 4.8 G/DL CALC GLOBULIN (test code = 2.6 G/DL 2239) CALC A/G RATIO (test code = 1.8 RATIO 2234) BILIRUBIN, TOTAL (test code = 0.3 MG/DL 2206) ALKALINE PHOSPHATASE (test 89 U/L code = 2204) AST (test code = 2218) 24 U/L ALT (test code = 2219) 15 U/L COMPREHENSIVE METABOLIC [id number] 00:00:00 Test Item Value Reference Range Interpretation Comments GLUCOSE (test code = 2217) 89 MG/DL BUN (test code = 2208) 9 MG/DL CREATININE (test code = 2214) 1.03 MG/DL eGFR AMER. (test code 89 ML/MIN/1.73 = 81347) eGFR NON- AMER. (test 76 ML/MIN/1.73 code = 81890) CALC BUN/CREAT (test code = 9 RATIO 2235) SODIUM (test code = 2231) 138 MEQ/L POTASSIUM (test code = 2228) 4.3 MEQ/L CHLORIDE (test code = 2215) 99 MEQ/L CARBON DIOXIDE (test code = 27 MEQ/L 220) CALCIUM (test code = 2209) 10.1 MG/DL PROTEIN, TOTAL (test code = 7.4 G/DL 2228) ALBUMIN (test code = 2201) 4.8 G/DL CALC GLOBULIN (test code = 2.6 G/DL 2240) CALC A/G RATIO (test code = 1.8 RATIO 2234) BILIRUBIN, TOTAL (test code = 0.3 MG/DL 2206) ALKALINE PHOSPHATASE (test 89 U/L code = 2204) AST (test code = 2218) 24 U/L ALT (test code = 2219) 15 U/L LIPID [id number] 00:00:00 Test Item Value Reference Range Interpretation Comments CHOLESTEROL (test code = 2210) 139 MG/DL TRIGLYCERIDES (test code = 2232) 122 MG/DL HDL CHOLESTEROL (test code = 2220) 40 MG/DL CALC LDL CHOL (test code = 2237) 75 MG/DL RISK RATIO LDL/HDL (test code = 1.87 RATIO 2238) LIPID [id number] 00:00:00 Test Item Value Reference Range Interpretation Comments CHOLESTEROL (test code = 2210) 139 MG/DL TRIGLYCERIDES (test code = 2232) 122 MG/DL HDL CHOLESTEROL (test code = 2220) 40 MG/DL CALC LDL CHOL (test code = 2237) 75 MG/DL RISK RATIO LDL/HDL (test code = 1.87 RATIO 2238) HEMOGLOBIN [id number] 00:00:00 Test Item Value Reference Range Interpretation Comments HEMOGLOBIN A1c (test code = 19989) 6.0 % HEMOGLOBIN [id number] 00:00:00 Test Item Value Reference Range Interpretation Comments HEMOGLOBIN A1c (test code = 49278) 6.0 % HEMOGLOBIN [id number] 00:00:00 Test Item Value Reference Range Interpretation Comments HEMOGLOBIN A1c (test code = 28021) 6.0 % COMPREHENSIVE METABOLIC [id number] 00:00:00 Test Item Value Reference Range Interpretation Comments GLUCOSE (test code = 2217) 89 MG/DL BUN (test code = 2208) 9 MG/DL CREATININE (test code = 2214) 1.03 MG/DL eGFR AMER. (test code 89 ML/MIN/1.73 = 13838) eGFR NON- AMER. (test 76 ML/MIN/1.73 code = 52315) CALC BUN/CREAT (test code = 9 RATIO 2235) SODIUM (test code = 2231) 138 MEQ/L POTASSIUM (test code = 2228) 4.3 MEQ/L CHLORIDE (test code = 2215) 99 MEQ/L CARBON DIOXIDE (test code = 27 MEQ/L 2206) CALCIUM (test code = 2209) 10.1 MG/DL PROTEIN, TOTAL (test code = 7.4 G/DL 2228) ALBUMIN (test code = 2201) 4.8 G/DL CALC GLOBULIN (test code = 2.6 G/DL 2240) CALC A/G RATIO (test code = 1.8 RATIO 2234) BILIRUBIN, TOTAL (test code = 0.3 MG/DL 2206) ALKALINE PHOSPHATASE (test 89 U/L code = 2204) AST (test code = 2218) 24 U/L ALT (test code = 2219) 15 U/L COMPREHENSIVE METABOLIC [id number] 00:00:00 Test Item Value Reference Range Interpretation Comments GLUCOSE (test code = 2217) 89 MG/DL BUN (test code = 2208) 9 MG/DL CREATININE (test code = 2214) 1.03 MG/DL eGFR AMER. (test code 89 ML/MIN/1.73 = 77248) eGFR NON- AMER. (test 76 ML/MIN/1.73 code = 04655) CALC BUN/CREAT (test code = 9 RATIO 2235) SODIUM (test code = 2231) 138 MEQ/L POTASSIUM (test code = 2228) 4.3 MEQ/L CHLORIDE (test code = 2215) 99 MEQ/L CARBON DIOXIDE (test code = 27 MEQ/L 2206) CALCIUM (test code = 2209) 10.1 MG/DL PROTEIN, TOTAL (test code = 7.4 G/DL 2228) ALBUMIN (test code = 2201) 4.8 G/DL CALC GLOBULIN (test code = 2.6 G/DL 2240) CALC A/G RATIO (test code = 1.8 RATIO 2234) BILIRUBIN, TOTAL (test code = 0.3 MG/DL 2206) ALKALINE PHOSPHATASE (test 89 U/L code = 2204) AST (test code = 2218) 24 U/L ALT (test code = 2219) 15 U/L LIPID [id number] 00:00:00 Test Item Value Reference Range Interpretation Comments CHOLESTEROL (test code = 2210) 139 MG/DL TRIGLYCERIDES (test code = 2232) 122 MG/DL HDL CHOLESTEROL (test code = 2220) 40 MG/DL CALC LDL CHOL (test code = 2237) 75 MG/DL RISK RATIO LDL/HDL (test code = 1.87 RATIO 2238) LIPID [id number] 00:00:00 Test Item Value Reference Range Interpretation Comments CHOLESTEROL (test code = 2210) 139 MG/DL TRIGLYCERIDES (test code = 2232) 122 MG/DL HDL CHOLESTEROL (test code = 2220) 40 MG/DL CALC LDL CHOL (test code = 2237) 75 MG/DL RISK RATIO LDL/HDL (test code = 1.87 RATIO 2238) HEMOGLOBIN [id number] 00:00:00 Test Item Value Reference Range Interpretation Comments HEMOGLOBIN A1c (test code = 20419) 6.0 % HEMOGLOBIN [id number] 00:00:00 Test Item Value Reference Range Interpretation Comments HEMOGLOBIN A1c (test code = 79134) 6.0 % HEMOGLOBIN [id number] 00:00:00 Test Item Value Reference Range Interpretation Comments HEMOGLOBIN A1c (test code = 90778) 6.0 % COMPREHENSIVE METABOLIC [id number] 00:00:00 Test Item Value Reference Range Interpretation Comments GLUCOSE (test code = 2217) 89 MG/DL BUN (test code = 2208) 9 MG/DL CREATININE (test code = 2214) 1.03 MG/DL eGFR AMER. (test code 89 ML/MIN/1.73 = 09157) eGFR NON- AMER. (test 76 ML/MIN/1.73 code = 50757) CALC BUN/CREAT (test code = 9 RATIO 2235) SODIUM (test code = 2231) 138 MEQ/L POTASSIUM (test code = 2228) 4.3 MEQ/L CHLORIDE (test code = 2215) 99 MEQ/L CARBON DIOXIDE (test code = 27 MEQ/L 2205) CALCIUM (test code = 2209) 10.1 MG/DL PROTEIN, TOTAL (test code = 7.4 G/DL 2228) ALBUMIN (test code = 220) 4.8 G/DL CALC GLOBULIN (test code = 2.6 G/DL 2239) CALC A/G RATIO (test code = 1.8 RATIO 223) BILIRUBIN, TOTAL (test code = 0.3 MG/DL 2206) ALKALINE PHOSPHATASE (test 89 U/L code = 2204) AST (test code = 2218) 24 U/L ALT (test code = 2219) 15 U/L COMPREHENSIVE METABOLIC [id number] 00:00:00 Test Item Value Reference Range Interpretation Comments GLUCOSE (test code = 2217) 89 MG/DL BUN (test code = 2208) 9 MG/DL CREATININE (test code = 2214) 1.03 MG/DL eGFR AMER. (test code 89 ML/MIN/1.73 = 13736) eGFR NON- AMER. (test 76 ML/MIN/1.73 code = 05111) CALC BUN/CREAT (test code = 9 RATIO 2235) SODIUM (test code = 2231) 138 MEQ/L POTASSIUM (test code = 2228) 4.3 MEQ/L CHLORIDE (test code = 2215) 99 MEQ/L CARBON DIOXIDE (test code = 27 MEQ/L 2205) CALCIUM (test code = 2209) 10.1 MG/DL PROTEIN, TOTAL (test code = 7.4 G/DL 2228) ALBUMIN (test code = 2201) 4.8 G/DL CALC GLOBULIN (test code = 2.6 G/DL 224) CALC A/G RATIO (test code = 1.8 RATIO 2234) BILIRUBIN, TOTAL (test code = 0.3 MG/DL 2206) ALKALINE PHOSPHATASE (test 89 U/L code = 2204) AST (test code = 2218) 24 U/L ALT (test code = 2219) 15 U/L LIPID [id number] 00:00:00 Test Item Value Reference Range Interpretation Comments CHOLESTEROL (test code = 2210) 139 MG/DL TRIGLYCERIDES (test code = 2232) 122 MG/DL HDL CHOLESTEROL (test code = 2220) 40 MG/DL CALC LDL CHOL (test code = 2237) 75 MG/DL RISK RATIO LDL/HDL (test code = 1.87 RATIO 2238) LIPID [id number] 00:00:00 Test Item Value Reference Range Interpretation Comments CHOLESTEROL (test code = 2210) 139 MG/DL TRIGLYCERIDES (test code = 2232) 122 MG/DL HDL CHOLESTEROL (test code = 2220) 40 MG/DL CALC LDL CHOL (test code = 2237) 75 MG/DL RISK RATIO LDL/HDL (test code = 1.87 RATIO 2238) HEMOGLOBIN [id number] 00:00:00 Test Item Value Reference Range Interpretation Comments HEMOGLOBIN A1c (test code = 13339) 6.0 % HEMOGLOBIN [id number] 00:00:00 Test Item Value Reference Range Interpretation Comments HEMOGLOBIN A1c (test code = 63749) 6.0 % HEMOGLOBIN [id number] 00:00:00 Test Item Value Reference Range Interpretation Comments HEMOGLOBIN A1c (test code = 64152) 6.0 % COMPREHENSIVE METABOLIC [id number] 00:00:00 Test Item Value Reference Range Interpretation Comments GLUCOSE (test code = 2217) 89 MG/DL BUN (test code = 2208) 9 MG/DL CREATININE (test code = 2214) 1.03 MG/DL eGFR AMER. (test code 89 ML/MIN/1.73 = 12689) eGFR NON- AMER. (test 76 ML/MIN/1.73 code = 75583) CALC BUN/CREAT (test code = 9 RATIO 2235) SODIUM (test code = 2231) 138 MEQ/L POTASSIUM (test code = 2228) 4.3 MEQ/L CHLORIDE (test code = 2215) 99 MEQ/L CARBON DIOXIDE (test code = 27 MEQ/L 2205) CALCIUM (test code = 2209) 10.1 MG/DL PROTEIN, TOTAL (test code = 7.4 G/DL 2228) ALBUMIN (test code = 2201) 4.8 G/DL CALC GLOBULIN (test code = 2.6 G/DL 2240) CALC A/G RATIO (test code = 1.8 RATIO 2234) BILIRUBIN, TOTAL (test code = 0.3 MG/DL 2206) ALKALINE PHOSPHATASE (test 89 U/L code = 2204) AST (test code = 2218) 24 U/L ALT (test code = 2219) 15 U/L COMPREHENSIVE METABOLIC [id number] 00:00:00 Test Item Value Reference Range Interpretation Comments GLUCOSE (test code = 2217) 89 MG/DL BUN (test code = 2208) 9 MG/DL CREATININE (test code = 2214) 1.03 MG/DL eGFR AMER. (test code 89 ML/MIN/1.73 = 26299) eGFR NON- AMER. (test 76 ML/MIN/1.73 code = 10032) CALC BUN/CREAT (test code = 9 RATIO 2235) SODIUM (test code = 2231) 138 MEQ/L POTASSIUM (test code = 2228) 4.3 MEQ/L CHLORIDE (test code = 2215) 99 MEQ/L CARBON DIOXIDE (test code = 27 MEQ/L 2205) CALCIUM (test code = 2209) 10.1 MG/DL PROTEIN, TOTAL (test code = 7.4 G/DL 2228) ALBUMIN (test code = 2201) 4.8 G/DL CALC GLOBULIN (test code = 2.6 G/DL 2239) CALC A/G RATIO (test code = 1.8 RATIO 2233) BILIRUBIN, TOTAL (test code = 0.3 MG/DL 2206) ALKALINE PHOSPHATASE (test 89 U/L code = 2204) AST (test code = 2218) 24 U/L ALT (test code = 2219) 15 U/L CULTURE, [id number] 00:00:00 Test Item Value Reference Range Interpretation Comments CULTURE, URINE (test SPECIMEN NUMBER: code = 33893) [id number] CULTURE, [id number] 00:00:00 Test Item Value Reference Range Interpretation Comments CULTURE, URINE (test SPECIMEN NUMBER: code = 89336) [id number] CULTURE, [id number] 00:00:00 Test Item Value Reference Range Interpretation Comments CULTURE, URINE (test SPECIMEN NUMBER: code = 34245) [id number] CULTURE, [id number] 00:00:00 Test Item Value Reference Range Interpretation Comments CULTURE, URINE (test SPECIMEN NUMBER: code = 93479) [id number] CULTURE, [id number] 00:00:00 Test Item Value Reference Range Interpretation Comments CULTURE, URINE (test SPECIMEN NUMBER: code = 00085) [id number] CULTURE, [id number] 00:00:00 Test Item Value Reference Range Interpretation Comments CULTURE, URINE (test SPECIMEN NUMBER: code = 08780) [id number] CULTURE, [id number] 00:00:00 Test Item Value Reference Range Interpretation Comments CULTURE, URINE (test SPECIMEN NUMBER: code = 64478) [id number] CULTURE, [id number] 00:00:00 Test Item Value Reference Range Interpretation Comments CULTURE, URINE (test SPECIMEN NUMBER: code = 38988) [id number] COMPREHENSIVE METABOLIC [id number] 00:00:00 Test Item Value Reference Range Interpretation Comments GLUCOSE (test code = 2217) 102 MG/DL BUN (test code = 2208) 8 MG/DL CREATININE (test code = 2214) 1.14 MG/DL eGFR AMER. (test code 78 ML/MIN/1.73 = 24183) eGFR NON- AMER. (test 68 ML/MIN/1.73 code = 70419) CALC BUN/CREAT (test code = 7 RATIO 2235) SODIUM (test code = 2231) 143 MEQ/L POTASSIUM (test code = 2228) 4.3 MEQ/L CHLORIDE (test code = 2215) 102 MEQ/L CARBON DIOXIDE (test code = 29 MEQ/L 220) CALCIUM (test code = 2209) 9.8 MG/DL PROTEIN, TOTAL (test code = 7.1 G/DL 2228) ALBUMIN (test code = 2201) 4.5 G/DL CALC GLOBULIN (test code = 2.6 G/DL 2240) CALC A/G RATIO (test code = 1.7 RATIO 2234) BILIRUBIN, TOTAL (test code = 0.1 MG/DL 2206) ALKALINE PHOSPHATASE (test 88 U/L code = 2204) AST (test code = 2218) 17 U/L ALT (test code = 2219) 20 U/L COMPREHENSIVE METABOLIC [id number] 00:00:00 Test Item Value Reference Range Interpretation Comments GLUCOSE (test code = 2217) 102 MG/DL BUN (test code = 2208) 8 MG/DL CREATININE (test code = 2214) 1.14 MG/DL eGFR AMER. (test code 78 ML/MIN/1.73 = 35954) eGFR NON- AMER. (test 68 ML/MIN/1.73 code = 23014) CALC BUN/CREAT (test code = 7 RATIO 2235) SODIUM (test code = 2231) 143 MEQ/L POTASSIUM (test code = 2228) 4.3 MEQ/L CHLORIDE (test code = 2215) 102 MEQ/L CARBON DIOXIDE (test code = 29 MEQ/L 2206) CALCIUM (test code = 2209) 9.8 MG/DL PROTEIN, TOTAL (test code = 7.1 G/DL 2228) ALBUMIN (test code = 2201) 4.5 G/DL CALC GLOBULIN (test code = 2.6 G/DL 2240) CALC A/G RATIO (test code = 1.7 RATIO 2233) BILIRUBIN, TOTAL (test code = 0.1 MG/DL 2206) ALKALINE PHOSPHATASE (test 88 U/L code = 2204) AST (test code = 2218) 17 U/L ALT (test code = 2219) 20 U/L PSA, [id number] 00:00:00 Test Item Value Reference Range Interpretation Comments PSA, TOTAL (test code = 2606) 1.39 NG/ML PSA, [id number] 00:00:00 Test Item Value Reference Range Interpretation Comments PSA, TOTAL (test code = 2606) 1.39 NG/ML PSA, [id number] 00:00:00 Test Item Value Reference Range Interpretation Comments PSA, TOTAL (test code = 2606) 1.39 NG/ML HEMOGLOBIN [id number] 00:00:00 Test Item Value Reference Range Interpretation Comments HEMOGLOBIN A1c (test code = 69420) 6.2 % HEMOGLOBIN [id number] 00:00:00 Test Item Value Reference Range Interpretation Comments HEMOGLOBIN A1c (test code = 44884) 6.2 % HEMOGLOBIN [id number] 00:00:00 Test Item Value Reference Range Interpretation Comments HEMOGLOBIN A1c (test code = 27849) 6.2 % COMPREHENSIVE METABOLIC [id number] 00:00:00 Test Item Value Reference Range Interpretation Comments GLUCOSE (test code = 2217) 102 MG/DL BUN (test code = 2208) 8 MG/DL CREATININE (test code = 2214) 1.14 MG/DL eGFR AMER. (test code 78 ML/MIN/1.73 = 91615) eGFR NON- AMER. (test 68 ML/MIN/1.73 code = 97400) CALC BUN/CREAT (test code = 7 RATIO 2235) SODIUM (test code = 2231) 143 MEQ/L POTASSIUM (test code = 2228) 4.3 MEQ/L CHLORIDE (test code = 2215) 102 MEQ/L CARBON DIOXIDE (test code = 29 MEQ/L 2205) CALCIUM (test code = 2209) 9.8 MG/DL PROTEIN, TOTAL (test code = 7.1 G/DL 2228) ALBUMIN (test code = 2201) 4.5 G/DL CALC GLOBULIN (test code = 2.6 G/DL 2240) CALC A/G RATIO (test code = 1.7 RATIO 2234) BILIRUBIN, TOTAL (test code = 0.1 MG/DL 220) ALKALINE PHOSPHATASE (test 88 U/L code = 2204) AST (test code = 2218) 17 U/L ALT (test code = 2219) 20 U/L COMPREHENSIVE METABOLIC [id number] 00:00:00 Test Item Value Reference Range Interpretation Comments GLUCOSE (test code = 2217) 102 MG/DL BUN (test code = 2208) 8 MG/DL CREATININE (test code = 2214) 1.14 MG/DL eGFR AMER. (test code 78 ML/MIN/1.73 = 13134) eGFR NON- AMER. (test 68 ML/MIN/1.73 code = 26747) CALC BUN/CREAT (test code = 7 RATIO 2235) SODIUM (test code = 2231) 143 MEQ/L POTASSIUM (test code = 2228) 4.3 MEQ/L CHLORIDE (test code = 2215) 102 MEQ/L CARBON DIOXIDE (test code = 29 MEQ/L 2205) CALCIUM (test code = 2209) 9.8 MG/DL PROTEIN, TOTAL (test code = 7.1 G/DL 9) ALBUMIN (test code = 2201) 4.5 G/DL CALC GLOBULIN (test code = 2.6 G/DL 2240) CALC A/G RATIO (test code = 1.7 RATIO 2234) BILIRUBIN, TOTAL (test code = 0.1 MG/DL 2206) ALKALINE PHOSPHATASE (test 88 U/L code = 2204) AST (test code = 2218) 17 U/L ALT (test code = 2219) 20 U/L PSA, [id number] 00:00:00 Test Item Value Reference Range Interpretation Comments PSA, TOTAL (test code = 2606) 1.39 NG/ML PSA, [id number] 00:00:00 Test Item Value Reference Range Interpretation Comments PSA, TOTAL (test code = 2606) 1.39 NG/ML PSA, [id number] 00:00:00 Test Item Value Reference Range Interpretation Comments PSA, TOTAL (test code = 2606) 1.39 NG/ML HEMOGLOBIN [id number] 00:00:00 Test Item Value Reference Range Interpretation Comments HEMOGLOBIN A1c (test code = 03677) 6.2 % HEMOGLOBIN [id number] 00:00:00 Test Item Value Reference Range Interpretation Comments HEMOGLOBIN A1c (test code = 31054) 6.2 % HEMOGLOBIN [id number] 00:00:00 Test Item Value Reference Range Interpretation Comments HEMOGLOBIN A1c (test code = 65689) 6.2 % COMPREHENSIVE METABOLIC [id number] 00:00:00 Test Item Value Reference Range Interpretation Comments GLUCOSE (test code = 2217) 102 MG/DL BUN (test code = 2208) 8 MG/DL CREATININE (test code = 2214) 1.14 MG/DL eGFR AMER. (test code 78 ML/MIN/1.73 = 81064) eGFR NON- AMER. (test 68 ML/MIN/1.73 code = 97242) CALC BUN/CREAT (test code = 7 RATIO 2235) SODIUM (test code = 2231) 143 MEQ/L POTASSIUM (test code = 2228) 4.3 MEQ/L CHLORIDE (test code = 2215) 102 MEQ/L CARBON DIOXIDE (test code = 29 MEQ/L 6) CALCIUM (test code = 2209) 9.8 MG/DL PROTEIN, TOTAL (test code = 7.1 G/DL 222) ALBUMIN (test code = 2201) 4.5 G/DL CALC GLOBULIN (test code = 2.6 G/DL 2240) CALC A/G RATIO (test code = 1.7 RATIO 2234) BILIRUBIN, TOTAL (test code = 0.1 MG/DL 2207) ALKALINE PHOSPHATASE (test 88 U/L code = 2204) AST (test code = 2218) 17 U/L ALT (test code = 2219) 20 U/L COMPREHENSIVE METABOLIC [id number] 00:00:00 Test Item Value Reference Range Interpretation Comments GLUCOSE (test code = 2217) 102 MG/DL BUN (test code = 2208) 8 MG/DL CREATININE (test code = 2214) 1.14 MG/DL eGFR AMER. (test code 78 ML/MIN/1.73 = 26339) eGFR NON- AMER. (test 68 ML/MIN/1.73 code = 35135) CALC BUN/CREAT (test code = 7 RATIO 2235) SODIUM (test code = 2231) 143 MEQ/L POTASSIUM (test code = 2228) 4.3 MEQ/L CHLORIDE (test code = 2215) 102 MEQ/L CARBON DIOXIDE (test code = 29 MEQ/L 2205) CALCIUM (test code = 2209) 9.8 MG/DL PROTEIN, TOTAL (test code = 7.1 G/DL 2228) ALBUMIN (test code = 2201) 4.5 G/DL CALC GLOBULIN (test code = 2.6 G/DL 2239) CALC A/G RATIO (test code = 1.7 RATIO 2233) BILIRUBIN, TOTAL (test code = 0.1 MG/DL 2206) ALKALINE PHOSPHATASE (test 88 U/L code = 2204) AST (test code = 2218) 17 U/L ALT (test code = 2219) 20 U/L PSA, [id number] 00:00:00 Test Item Value Reference Range Interpretation Comments PSA, TOTAL (test code = 2606) 1.39 NG/ML PSA, [id number] 00:00:00 Test Item Value Reference Range Interpretation Comments PSA, TOTAL (test code = 2606) 1.39 NG/ML PSA, [id number] 00:00:00 Test Item Value Reference Range Interpretation Comments PSA, TOTAL (test code = 2606) 1.39 NG/ML HEMOGLOBIN [id number] 00:00:00 Test Item Value Reference Range Interpretation Comments HEMOGLOBIN A1c (test code = 36187) 6.2 % HEMOGLOBIN [id number] 00:00:00 Test Item Value Reference Range Interpretation Comments HEMOGLOBIN A1c (test code = 91396) 6.2 % HEMOGLOBIN [id number] 00:00:00 Test Item Value Reference Range Interpretation Comments HEMOGLOBIN A1c (test code = 20432) 6.2 % COMPREHENSIVE METABOLIC [id number] 00:00:00 Test Item Value Reference Range Interpretation Comments GLUCOSE (test code = 2217) 102 MG/DL BUN (test code = 2208) 8 MG/DL CREATININE (test code = 2214) 1.14 MG/DL eGFR AMER. (test code 78 ML/MIN/1.73 = 14409) eGFR NON- AMER. (test 68 ML/MIN/1.73 code = 35852) CALC BUN/CREAT (test code = 7 RATIO 2235) SODIUM (test code = 2231) 143 MEQ/L POTASSIUM (test code = 2228) 4.3 MEQ/L CHLORIDE (test code = 2215) 102 MEQ/L CARBON DIOXIDE (test code = 29 MEQ/L 2205) CALCIUM (test code = 2209) 9.8 MG/DL PROTEIN, TOTAL (test code = 7.1 G/DL 222) ALBUMIN (test code = 2201) 4.5 G/DL CALC GLOBULIN (test code = 2.6 G/DL 2240) CALC A/G RATIO (test code = 1.7 RATIO 2234) BILIRUBIN, TOTAL (test code = 0.1 MG/DL 2206) ALKALINE PHOSPHATASE (test 88 U/L code = 2204) AST (test code = 2218) 17 U/L ALT (test code = 2219) 20 U/L COMPREHENSIVE METABOLIC [id number] 00:00:00 Test Item Value Reference Range Interpretation Comments GLUCOSE (test code = 2217) 102 MG/DL BUN (test code = 2208) 8 MG/DL CREATININE (test code = 2214) 1.14 MG/DL eGFR AMER. (test code 78 ML/MIN/1.73 = 38317) eGFR NON- AMER. (test 68 ML/MIN/1.73 code = 05141) CALC BUN/CREAT (test code = 7 RATIO 2235) SODIUM (test code = 2231) 143 MEQ/L POTASSIUM (test code = 2228) 4.3 MEQ/L CHLORIDE (test code = 2215) 102 MEQ/L CARBON DIOXIDE (test code = 29 MEQ/L 2205) CALCIUM (test code = 2209) 9.8 MG/DL PROTEIN, TOTAL (test code = 7.1 G/DL 2228) ALBUMIN (test code = 2201) 4.5 G/DL CALC GLOBULIN (test code = 2.6 G/DL 2240) CALC A/G RATIO (test code = 1.7 RATIO 2234) BILIRUBIN, TOTAL (test code = 0.1 MG/DL 2206) ALKALINE PHOSPHATASE (test 88 U/L code = 2204) AST (test code = 2218) 17 U/L ALT (test code = 2219) 20 U/L PSA, [id number] 00:00:00 Test Item Value Reference Range Interpretation Comments PSA, TOTAL (test code = 2606) 1.39 NG/ML PSA, [id number] 00:00:00 Test Item Value Reference Range Interpretation Comments PSA, TOTAL (test code = 2606) 1.39 NG/ML PSA, [id number] 00:00:00 Test Item Value Reference Range Interpretation Comments PSA, TOTAL (test code = 2606) 1.39 NG/ML HEMOGLOBIN [id number] 00:00:00 Test Item Value Reference Range Interpretation Comments HEMOGLOBIN A1c (test code = 86278) 6.2 % HEMOGLOBIN [id number] 00:00:00 Test Item Value Reference Range Interpretation Comments HEMOGLOBIN A1c (test code = 35737) 6.2 % HEMOGLOBIN [id number] 00:00:00 Test Item Value Reference Range Interpretation Comments HEMOGLOBIN A1c (test code = 14299) 6.2 % COMPREHENSIVE METABOLIC [id number] 00:00:00 Test Item Value Reference Range Interpretation Comments GLUCOSE (test code = 2217) 103 MG/DL BUN (test code = 2208) 10 MG/DL CREATININE (test code = 2214) 1.11 MG/DL eGFR AMER. (test code 81 ML/MIN/1.73 = 65011) eGFR NON- AMER. (test 70 ML/MIN/1.73 code = 15756) CALC BUN/CREAT (test code = 9 RATIO 5) SODIUM (test code = 2231) 134 MEQ/L POTASSIUM (test code = 2228) 4.4 MEQ/L CHLORIDE (test code = 2215) 91 MEQ/L CARBON DIOXIDE (test code = 21 MEQ/L 2205) CALCIUM (test code = 2209) 10.2 MG/DL PROTEIN, TOTAL (test code = 7.3 G/DL 2228) ALBUMIN (test code = 2201) 4.7 G/DL CALC GLOBULIN (test code = 2.6 G/DL 0) CALC A/G RATIO (test code = 1.8 RATIO 2233) BILIRUBIN, TOTAL (test code = 0.3 MG/DL 2206) ALKALINE PHOSPHATASE (test 100 U/L code = 2204) AST (test code = 2218) 21 U/L ALT (test code = 2219) 24 U/L COMPREHENSIVE METABOLIC [id number] 00:00:00 Test Item Value Reference Range Interpretation Comments GLUCOSE (test code = 2217) 103 MG/DL BUN (test code = 2208) 10 MG/DL CREATININE (test code = 2214) 1.11 MG/DL eGFR AMER. (test code 81 ML/MIN/1.73 = 53454) eGFR NON- AMER. (test 70 ML/MIN/1.73 code = 40488) CALC BUN/CREAT (test code = 9 RATIO 2235) SODIUM (test code = 2231) 134 MEQ/L POTASSIUM (test code = 2228) 4.4 MEQ/L CHLORIDE (test code = 2215) 91 MEQ/L CARBON DIOXIDE (test code = 21 MEQ/L 2205) CALCIUM (test code = 2209) 10.2 MG/DL PROTEIN, TOTAL (test code = 7.3 G/DL 2228) ALBUMIN (test code = 220) 4.7 G/DL CALC GLOBULIN (test code = 2.6 G/DL 2239) CALC A/G RATIO (test code = 1.8 RATIO 2233) BILIRUBIN, TOTAL (test code = 0.3 MG/DL 2206) ALKALINE PHOSPHATASE (test 100 U/L code = 2204) AST (test code = 2218) 21 U/L ALT (test code = 2219) 24 U/L LIPID [id number] 00:00:00 Test Item Value Reference Range Interpretation Comments CHOLESTEROL (test code = 2210) 140 MG/DL TRIGLYCERIDES (test code = 2232) 114 MG/DL HDL CHOLESTEROL (test code = 2220) 39 MG/DL CALC LDL CHOL (test code = 2237) 78 MG/DL RISK RATIO LDL/HDL (test code = 2.01 RATIO 2238) LIPID [id number] 00:00:00 Test Item Value Reference Range Interpretation Comments CHOLESTEROL (test code = 2210) 140 MG/DL TRIGLYCERIDES (test code = 2232) 114 MG/DL HDL CHOLESTEROL (test code = 2220) 39 MG/DL CALC LDL CHOL (test code = 2237) 78 MG/DL RISK RATIO LDL/HDL (test code = 2.01 RATIO 2238) [id number] 00:00:00 Test Item Value Reference Range Interpretation Comments TSH (test code = 2821) 0.9 UIU/ML [id number] 00:00:00 Test Item Value Reference Range Interpretation Comments TSH (test code = 2821) 0.9 UIU/ML [id number] 00:00:00 Test Item Value Reference Range Interpretation Comments TSH (test code = 2821) 0.9 UIU/ML PSA, [id number] 00:00:00 Test Item Value Reference Range Interpretation Comments PSA, TOTAL (test code = 2606) 1.3 NG/ML PSA, [id number] 00:00:00 Test Item Value Reference Range Interpretation Comments PSA, TOTAL (test code = 2606) 1.3 NG/ML PSA, [id number] 00:00:00 Test Item Value Reference Range Interpretation Comments PSA, TOTAL (test code = 2606) 1.3 NG/ML COMPREHENSIVE METABOLIC [id number] 00:00:00 Test Item Value Reference Range Interpretation Comments GLUCOSE (test code = 2217) 103 MG/DL BUN (test code = 2208) 10 MG/DL CREATININE (test code = 2214) 1.11 MG/DL eGFR AMER. (test code 81 ML/MIN/1.73 = 00193) eGFR NON- AMER. (test 70 ML/MIN/1.73 code = 00240) CALC BUN/CREAT (test code = 9 RATIO 2235) SODIUM (test code = 2231) 134 MEQ/L POTASSIUM (test code = 2228) 4.4 MEQ/L CHLORIDE (test code = 2215) 91 MEQ/L CARBON DIOXIDE (test code = 21 MEQ/L 2205) CALCIUM (test code = 2209) 10.2 MG/DL PROTEIN, TOTAL (test code = 7.3 G/DL 2228) ALBUMIN (test code = 2201) 4.7 G/DL CALC GLOBULIN (test code = 2.6 G/DL 2239) CALC A/G RATIO (test code = 1.8 RATIO 2234) BILIRUBIN, TOTAL (test code = 0.3 MG/DL 2206) ALKALINE PHOSPHATASE (test 100 U/L code = 2204) AST (test code = 2218) 21 U/L ALT (test code = 2219) 24 U/L COMPREHENSIVE METABOLIC [id number] 00:00:00 Test Item Value Reference Range Interpretation Comments GLUCOSE (test code = 2217) 103 MG/DL BUN (test code = 2208) 10 MG/DL CREATININE (test code = 2214) 1.11 MG/DL eGFR AMER. (test code 81 ML/MIN/1.73 = 68889) eGFR NON- AMER. (test 70 ML/MIN/1.73 code = 74896) CALC BUN/CREAT (test code = 9 RATIO 2235) SODIUM (test code = 2231) 134 MEQ/L POTASSIUM (test code = 2228) 4.4 MEQ/L CHLORIDE (test code = 2215) 91 MEQ/L CARBON DIOXIDE (test code = 21 MEQ/L 2205) CALCIUM (test code = 2209) 10.2 MG/DL PROTEIN, TOTAL (test code = 7.3 G/DL 2228) ALBUMIN (test code = 2201) 4.7 G/DL CALC GLOBULIN (test code = 2.6 G/DL 2239) CALC A/G RATIO (test code = 1.8 RATIO 223) BILIRUBIN, TOTAL (test code = 0.3 MG/DL 2206) ALKALINE PHOSPHATASE (test 100 U/L code = 2204) AST (test code = 2218) 21 U/L ALT (test code = 2219) 24 U/L LIPID [id number] 00:00:00 Test Item Value Reference Range Interpretation Comments CHOLESTEROL (test code = 2210) 140 MG/DL TRIGLYCERIDES (test code = 2232) 114 MG/DL HDL CHOLESTEROL (test code = 2220) 39 MG/DL CALC LDL CHOL (test code = 2237) 78 MG/DL RISK RATIO LDL/HDL (test code = 2.01 RATIO 2238) LIPID [id number] 00:00:00 Test Item Value Reference Range Interpretation Comments CHOLESTEROL (test code = 2210) 140 MG/DL TRIGLYCERIDES (test code = 2232) 114 MG/DL HDL CHOLESTEROL (test code = 2220) 39 MG/DL CALC LDL CHOL (test code = 2237) 78 MG/DL RISK RATIO LDL/HDL (test code = 2.01 RATIO 2238) [id number] 00:00:00 Test Item Value Reference Range Interpretation Comments TSH (test code = 2821) 0.9 UIU/ML [id number] 00:00:00 Test Item Value Reference Range Interpretation Comments TSH (test code = 2821) 0.9 UIU/ML [id number] 00:00:00 Test Item Value Reference Range Interpretation Comments TSH (test code = 2821) 0.9 UIU/ML PSA, [id number] 00:00:00 Test Item Value Reference Range Interpretation Comments PSA, TOTAL (test code = 2606) 1.3 NG/ML PSA, [id number] 00:00:00 Test Item Value Reference Range Interpretation Comments PSA, TOTAL (test code = 2606) 1.3 NG/ML PSA, [id number] 00:00:00 Test Item Value Reference Range Interpretation Comments PSA, TOTAL (test code = 2606) 1.3 NG/ML COMPREHENSIVE METABOLIC [id number] 00:00:00 Test Item Value Reference Range Interpretation Comments GLUCOSE (test code = 2217) 103 MG/DL BUN (test code = 2208) 10 MG/DL CREATININE (test code = 2214) 1.11 MG/DL eGFR AMER. (test code 81 ML/MIN/1.73 = 16819) eGFR NON- AMER. (test 70 ML/MIN/1.73 code = 42804) CALC BUN/CREAT (test code = 9 RATIO 2234) SODIUM (test code = 2231) 134 MEQ/L POTASSIUM (test code = 2228) 4.4 MEQ/L CHLORIDE (test code = 2215) 91 MEQ/L CARBON DIOXIDE (test code = 21 MEQ/L 2205) CALCIUM (test code = 2209) 10.2 MG/DL PROTEIN, TOTAL (test code = 7.3 G/DL 2228) ALBUMIN (test code = 2201) 4.7 G/DL CALC GLOBULIN (test code = 2.6 G/DL 2239) CALC A/G RATIO (test code = 1.8 RATIO 2233) BILIRUBIN, TOTAL (test code = 0.3 MG/DL 2206) ALKALINE PHOSPHATASE (test 100 U/L code = 2204) AST (test code = 2218) 21 U/L ALT (test code = 2219) 24 U/L COMPREHENSIVE METABOLIC [id number] 00:00:00 Test Item Value Reference Range Interpretation Comments GLUCOSE (test code = 2217) 103 MG/DL BUN (test code = 2208) 10 MG/DL CREATININE (test code = 2214) 1.11 MG/DL eGFR AMER. (test code 81 ML/MIN/1.73 = 08062) eGFR NON- AMER. (test 70 ML/MIN/1.73 code = 34851) CALC BUN/CREAT (test code = 9 RATIO 2235) SODIUM (test code = 2231) 134 MEQ/L POTASSIUM (test code = 2228) 4.4 MEQ/L CHLORIDE (test code = 2215) 91 MEQ/L CARBON DIOXIDE (test code = 21 MEQ/L 2205) CALCIUM (test code = 2209) 10.2 MG/DL PROTEIN, TOTAL (test code = 7.3 G/DL 2228) ALBUMIN (test code = 2201) 4.7 G/DL CALC GLOBULIN (test code = 2.6 G/DL 224) CALC A/G RATIO (test code = 1.8 RATIO 223) BILIRUBIN, TOTAL (test code = 0.3 MG/DL 2206) ALKALINE PHOSPHATASE (test 100 U/L code = 2204) AST (test code = 2218) 21 U/L ALT (test code = 2219) 24 U/L LIPID [id number] 00:00:00 Test Item Value Reference Range Interpretation Comments CHOLESTEROL (test code = 2210) 140 MG/DL TRIGLYCERIDES (test code = 2232) 114 MG/DL HDL CHOLESTEROL (test code = 2220) 39 MG/DL CALC LDL CHOL (test code = 2237) 78 MG/DL RISK RATIO LDL/HDL (test code = 2.01 RATIO 2238) LIPID [id number] 00:00:00 Test Item Value Reference Range Interpretation Comments CHOLESTEROL (test code = 2210) 140 MG/DL TRIGLYCERIDES (test code = 2232) 114 MG/DL HDL CHOLESTEROL (test code = 2220) 39 MG/DL CALC LDL CHOL (test code = 2237) 78 MG/DL RISK RATIO LDL/HDL (test code = 2.01 RATIO 2238) [id number] 00:00:00 Test Item Value Reference Range Interpretation Comments TSH (test code = 2821) 0.9 UIU/ML [id number] 00:00:00 Test Item Value Reference Range Interpretation Comments TSH (test code = 2821) 0.9 UIU/ML [id number] 00:00:00 Test Item Value Reference Range Interpretation Comments TSH (test code = 2821) 0.9 UIU/ML PSA, [id number] 00:00:00 Test Item Value Reference Range Interpretation Comments PSA, TOTAL (test code = 2606) 1.3 NG/ML PSA, [id number] 00:00:00 Test Item Value Reference Range Interpretation Comments PSA, TOTAL (test code = 2606) 1.3 NG/ML PSA, [id number] 00:00:00 Test Item Value Reference Range Interpretation Comments PSA, TOTAL (test code = 2606) 1.3 NG/ML COMPREHENSIVE METABOLIC [id number] 00:00:00 Test Item Value Reference Range Interpretation Comments GLUCOSE (test code = 2217) 103 MG/DL BUN (test code = 2208) 10 MG/DL CREATININE (test code = 2214) 1.11 MG/DL eGFR AMER. (test code 81 ML/MIN/1.73 = 75561) eGFR NON- AMER. (test 70 ML/MIN/1.73 code = 37492) CALC BUN/CREAT (test code = 9 RATIO 2235) SODIUM (test code = 2231) 134 MEQ/L POTASSIUM (test code = 2228) 4.4 MEQ/L CHLORIDE (test code = 2215) 91 MEQ/L CARBON DIOXIDE (test code = 21 MEQ/L 2205) CALCIUM (test code = 2209) 10.2 MG/DL PROTEIN, TOTAL (test code = 7.3 G/DL 2228) ALBUMIN (test code = 2201) 4.7 G/DL CALC GLOBULIN (test code = 2.6 G/DL 0) CALC A/G RATIO (test code = 1.8 RATIO 2233) BILIRUBIN, TOTAL (test code = 0.3 MG/DL 2206) ALKALINE PHOSPHATASE (test 100 U/L code = 2204) AST (test code = 2218) 21 U/L ALT (test code = 2219) 24 U/L COMPREHENSIVE METABOLIC [id number] 00:00:00 Test Item Value Reference Range Interpretation Comments GLUCOSE (test code = 2217) 103 MG/DL BUN (test code = 2208) 10 MG/DL CREATININE (test code = 2214) 1.11 MG/DL eGFR AMER. (test code 81 ML/MIN/1.73 = 73873) eGFR NON- AMER. (test 70 ML/MIN/1.73 code = 15875) CALC BUN/CREAT (test code = 9 RATIO 2235) SODIUM (test code = 2231) 134 MEQ/L POTASSIUM (test code = 2228) 4.4 MEQ/L CHLORIDE (test code = 2215) 91 MEQ/L CARBON DIOXIDE (test code = 21 MEQ/L 2205) CALCIUM (test code = 2209) 10.2 MG/DL PROTEIN, TOTAL (test code = 7.3 G/DL 2228) ALBUMIN (test code = 2201) 4.7 G/DL CALC GLOBULIN (test code = 2.6 G/DL 2240) CALC A/G RATIO (test code = 1.8 RATIO 2234) BILIRUBIN, TOTAL (test code = 0.3 MG/DL 2206) ALKALINE PHOSPHATASE (test 100 U/L code = 2204) AST (test code = 2218) 21 U/L ALT (test code = 2219) 24 U/L LIPID [id number] 00:00:00 Test Item Value Reference Range Interpretation Comments CHOLESTEROL (test code = 2210) 140 MG/DL TRIGLYCERIDES (test code = 2232) 114 MG/DL HDL CHOLESTEROL (test code = 2220) 39 MG/DL CALC LDL CHOL (test code = 2237) 78 MG/DL RISK RATIO LDL/HDL (test code = 2.01 RATIO 2238) LIPID [id number] 00:00:00 Test Item Value Reference Range Interpretation Comments CHOLESTEROL (test code = 2210) 140 MG/DL TRIGLYCERIDES (test code = 2232) 114 MG/DL HDL CHOLESTEROL (test code = 2220) 39 MG/DL CALC LDL CHOL (test code = 2237) 78 MG/DL RISK RATIO LDL/HDL (test code = 2.01 RATIO 2238) [id number] 00:00:00 Test Item Value Reference Range Interpretation Comments TSH (test code = 2821) 0.9 UIU/ML [id number] 00:00:00 Test Item Value Reference Range Interpretation Comments TSH (test code = 2821) 0.9 UIU/ML [id number] 00:00:00 Test Item Value Reference Range Interpretation Comments TSH (test code = 2821) 0.9 UIU/ML PSA, [id number] 00:00:00 Test Item Value Reference Range Interpretation Comments PSA, TOTAL (test code = 2606) 1.3 NG/ML PSA, [id number] 00:00:00 Test Item Value Reference Range Interpretation Comments PSA, TOTAL (test code = 2606) 1.3 NG/ML PSA, [id number] 00:00:00 Test Item Value Reference Range Interpretation Comments PSA, TOTAL (test code = 2606) 1.3 NG/ML CBC W/AUTO [id number] 00:00:00 Test Item Value Reference Range Interpretation Comments WBC (test code = 1001) 6.4 K/UL RBC (test code = 1002) 4.98 M/UL HEMOGLOBIN (test code = 1003) 13.5 G/DL HEMATOCRIT (test code = 1004) 39.4 % MCV (test code = 1005) 79.1 fL MCH (test code = 1006) 27.1 PG MCHC (test code = 1007) 34.3 G/DL RDW (test code = 1038) 14.7 % NEUTROPHILS (test code = 1008) 62 % LYMPHOCYTES (test code = 1010) 28 % MONOCYTES (test code = 1011) 8 % EOSINOPHILS (test code = 1012) 2 % BASOPHILS (test code = 1013) 1 % PLATELET COUNT (test code = 1015) 289 K/UL CBC W/AUTO [id number] 00:00:00 Test Item Value Reference Range Interpretation Comments WBC (test code = 1001) 6.4 K/UL RBC (test code = 1002) 4.98 M/UL HEMOGLOBIN (test code = 1003) 13.5 G/DL HEMATOCRIT (test code = 1004) 39.4 % MCV (test code = 1005) 79.1 fL MCH (test code = 1006) 27.1 PG MCHC (test code = 1007) 34.3 G/DL RDW (test code = 1038) 14.7 % NEUTROPHILS (test code = 1008) 62 % LYMPHOCYTES (test code = 1010) 28 % MONOCYTES (test code = 1011) 8 % EOSINOPHILS (test code = 1012) 2 % BASOPHILS (test code = 1013) 1 % PLATELET COUNT (test code = 1015) 289 K/UL CBC W/AUTO [id number] 00:00:00 Test Item Value Reference Range Interpretation Comments WBC (test code = 1001) 6.4 K/UL RBC (test code = 1002) 4.98 M/UL HEMOGLOBIN (test code = 1003) 13.5 G/DL HEMATOCRIT (test code = 1004) 39.4 % MCV (test code = 1005) 79.1 fL MCH (test code = 1006) 27.1 PG MCHC (test code = 1007) 34.3 G/DL RDW (test code = 1038) 14.7 % NEUTROPHILS (test code = 1008) 62 % LYMPHOCYTES (test code = 1010) 28 % MONOCYTES (test code = 1011) 8 % EOSINOPHILS (test code = 1012) 2 % BASOPHILS (test code = 1013) 1 % PLATELET COUNT (test code = 1015) 289 K/UL HEMOGLOBIN [id number] 00:00:00 Test Item Value Reference Range Interpretation Comments HEMOGLOBIN A1c (test code = 35773) 6.0 % HEMOGLOBIN [id number] 00:00:00 Test Item Value Reference Range Interpretation Comments HEMOGLOBIN A1c (test code = 53305) 6.0 % HEMOGLOBIN [id number] 00:00:00 Test Item Value Reference Range Interpretation Comments HEMOGLOBIN A1c (test code = 08495) 6.0 % CBC W/AUTO [id number] 00:00:00 Test Item Value Reference Range Interpretation Comments WBC (test code = 1001) 6.4 K/UL RBC (test code = 1002) 4.98 M/UL HEMOGLOBIN (test code = 1003) 13.5 G/DL HEMATOCRIT (test code = 1004) 39.4 % MCV (test code = 1005) 79.1 fL MCH (test code = 1006) 27.1 PG MCHC (test code = 1007) 34.3 G/DL RDW (test code = 1038) 14.7 % NEUTROPHILS (test code = 1008) 62 % LYMPHOCYTES (test code = 1010) 28 % MONOCYTES (test code = 1011) 8 % EOSINOPHILS (test code = 1012) 2 % BASOPHILS (test code = 1013) 1 % PLATELET COUNT (test code = 1015) 289 K/UL CBC W/AUTO [id number] 00:00:00 Test Item Value Reference Range Interpretation Comments WBC (test code = 1001) 6.4 K/UL RBC (test code = 1002) 4.98 M/UL HEMOGLOBIN (test code = 1003) 13.5 G/DL HEMATOCRIT (test code = 1004) 39.4 % MCV (test code = 1005) 79.1 fL MCH (test code = 1006) 27.1 PG MCHC (test code = 1007) 34.3 G/DL RDW (test code = 1038) 14.7 % NEUTROPHILS (test code = 1008) 62 % LYMPHOCYTES (test code = 1010) 28 % MONOCYTES (test code = 1011) 8 % EOSINOPHILS (test code = 1012) 2 % BASOPHILS (test code = 1013) 1 % PLATELET COUNT (test code = 1015) 289 K/UL CBC W/AUTO [id number] 00:00:00 Test Item Value Reference Range Interpretation Comments WBC (test code = 1001) 6.4 K/UL RBC (test code = 1002) 4.98 M/UL HEMOGLOBIN (test code = 1003) 13.5 G/DL HEMATOCRIT (test code = 1004) 39.4 % MCV (test code = 1005) 79.1 fL MCH (test code = 1006) 27.1 PG MCHC (test code = 1007) 34.3 G/DL RDW (test code = 1038) 14.7 % NEUTROPHILS (test code = 1008) 62 % LYMPHOCYTES (test code = 1010) 28 % MONOCYTES (test code = 1011) 8 % EOSINOPHILS (test code = 1012) 2 % BASOPHILS (test code = 1013) 1 % PLATELET COUNT (test code = 1015) 289 K/UL HEMOGLOBIN [id number] 00:00:00 Test Item Value Reference Range Interpretation Comments HEMOGLOBIN A1c (test code = 07072) 6.0 % HEMOGLOBIN [id number] 00:00:00 Test Item Value Reference Range Interpretation Comments HEMOGLOBIN A1c (test code = 92470) 6.0 % HEMOGLOBIN [id number] 00:00:00 Test Item Value Reference Range Interpretation Comments HEMOGLOBIN A1c (test code = 51190) 6.0 % CBC W/AUTO [id number] 00:00:00 Test Item Value Reference Range Interpretation Comments WBC (test code = 1001) 6.4 K/UL RBC (test code = 1002) 4.98 M/UL HEMOGLOBIN (test code = 1003) 13.5 G/DL HEMATOCRIT (test code = 1004) 39.4 % MCV (test code = 1005) 79.1 fL MCH (test code = 1006) 27.1 PG MCHC (test code = 1007) 34.3 G/DL RDW (test code = 1038) 14.7 % NEUTROPHILS (test code = 1008) 62 % LYMPHOCYTES (test code = 1010) 28 % MONOCYTES (test code = 1011) 8 % EOSINOPHILS (test code = 1012) 2 % BASOPHILS (test code = 1013) 1 % PLATELET COUNT (test code = 1015) 289 K/UL CBC W/AUTO [id number] 00:00:00 Test Item Value Reference Range Interpretation Comments WBC (test code = 1001) 6.4 K/UL RBC (test code = 1002) 4.98 M/UL HEMOGLOBIN (test code = 1003) 13.5 G/DL HEMATOCRIT (test code = 1004) 39.4 % MCV (test code = 1005) 79.1 fL MCH (test code = 1006) 27.1 PG MCHC (test code = 1007) 34.3 G/DL RDW (test code = 1038) 14.7 % NEUTROPHILS (test code = 1008) 62 % LYMPHOCYTES (test code = 1010) 28 % MONOCYTES (test code = 1011) 8 % EOSINOPHILS (test code = 1012) 2 % BASOPHILS (test code = 1013) 1 % PLATELET COUNT (test code = 1015) 289 K/UL CBC W/AUTO [id number] 00:00:00 Test Item Value Reference Range Interpretation Comments WBC (test code = 1001) 6.4 K/UL RBC (test code = 1002) 4.98 M/UL HEMOGLOBIN (test code = 1003) 13.5 G/DL HEMATOCRIT (test code = 1004) 39.4 % MCV (test code = 1005) 79.1 fL MCH (test code = 1006) 27.1 PG MCHC (test code = 1007) 34.3 G/DL RDW (test code = 1038) 14.7 % NEUTROPHILS (test code = 1008) 62 % LYMPHOCYTES (test code = 1010) 28 % MONOCYTES (test code = 1011) 8 % EOSINOPHILS (test code = 1012) 2 % BASOPHILS (test code = 1013) 1 % PLATELET COUNT (test code = 1015) 289 K/UL HEMOGLOBIN [id number] 00:00:00 Test Item Value Reference Range Interpretation Comments HEMOGLOBIN A1c (test code = 42910) 6.0 % HEMOGLOBIN [id number] 00:00:00 Test Item Value Reference Range Interpretation Comments HEMOGLOBIN A1c (test code = 44215) 6.0 % HEMOGLOBIN [id number] 00:00:00 Test Item Value Reference Range Interpretation Comments HEMOGLOBIN A1c (test code = 33811) 6.0 % CBC W/AUTO [id number] 00:00:00 Test Item Value Reference Range Interpretation Comments WBC (test code = 1001) 6.4 K/UL RBC (test code = 1002) 4.98 M/UL HEMOGLOBIN (test code = 1003) 13.5 G/DL HEMATOCRIT (test code = 1004) 39.4 % MCV (test code = 1005) 79.1 fL MCH (test code = 1006) 27.1 PG MCHC (test code = 1007) 34.3 G/DL RDW (test code = 1038) 14.7 % NEUTROPHILS (test code = 1008) 62 % LYMPHOCYTES (test code = 1010) 28 % MONOCYTES (test code = 1011) 8 % EOSINOPHILS (test code = 1012) 2 % BASOPHILS (test code = 1013) 1 % PLATELET COUNT (test code = 1015) 289 K/UL CBC W/AUTO [id number] 00:00:00 Test Item Value Reference Range Interpretation Comments WBC (test code = 1001) 6.4 K/UL RBC (test code = 1002) 4.98 M/UL HEMOGLOBIN (test code = 1003) 13.5 G/DL HEMATOCRIT (test code = 1004) 39.4 % MCV (test code = 1005) 79.1 fL MCH (test code = 1006) 27.1 PG MCHC (test code = 1007) 34.3 G/DL RDW (test code = 1038) 14.7 % NEUTROPHILS (test code = 1008) 62 % LYMPHOCYTES (test code = 1010) 28 % MONOCYTES (test code = 1011) 8 % EOSINOPHILS (test code = 1012) 2 % BASOPHILS (test code = 1013) 1 % PLATELET COUNT (test code = 1015) 289 K/UL CBC W/AUTO [id number] 00:00:00 Test Item Value Reference Range Interpretation Comments WBC (test code = 1001) 6.4 K/UL RBC (test code = 1002) 4.98 M/UL HEMOGLOBIN (test code = 1003) 13.5 G/DL HEMATOCRIT (test code = 1004) 39.4 % MCV (test code = 1005) 79.1 fL MCH (test code = 1006) 27.1 PG MCHC (test code = 1007) 34.3 G/DL RDW (test code = 1038) 14.7 % NEUTROPHILS (test code = 1008) 62 % LYMPHOCYTES (test code = 1010) 28 % MONOCYTES (test code = 1011) 8 % EOSINOPHILS (test code = 1012) 2 % BASOPHILS (test code = 1013) 1 % PLATELET COUNT (test code = 1015) 289 K/UL HEMOGLOBIN [id number] 00:00:00 Test Item Value Reference Range Interpretation Comments HEMOGLOBIN A1c (test code = 45458) 6.0 % HEMOGLOBIN [id number] 00:00:00 Test Item Value Reference Range Interpretation Comments HEMOGLOBIN A1c (test code = 83219) 6.0 % HEMOGLOBIN [id number] 00:00:00 Test Item Value Reference Range Interpretation Comments HEMOGLOBIN A1c (test code = 58634) 6.0 % COMPREHENSIVE METABOLIC [id number] 00:00:00 Test Item Value Reference Range Interpretation Comments GLUCOSE (test code = 2217) 92 MG/DL BUN (test code = 2208) 12 MG/DL CREATININE (test code = 2214) 1.1 MG/DL eGFR AMER. (test code 82 ML/MIN/1.73 = 57761) eGFR NON- AMER. (test 68 ML/MIN/1.73 code = 84661) CALCULATED BUN/CREAT (test 11 RATIO code = 2235) SODIUM (test code = 2231) 134 MEQ/L POTASSIUM (test code = 2228) 4.2 MEQ/L CHLORIDE (test code = 2215) 98 MEQ/L CARBON DIOXIDE (test code = 25 MEQ/L 2205) CALCIUM (test code = 2209) 10.0 MG/DL PROTEIN, TOTAL (test code = 8.1 G/DL 2228) ALBUMIN (test code = 2201) 4.7 G/DL CALCULATED GLOBULIN (test code 3.4 G/DL = 2240) CALCULATED A/G RATIO (test 1.4 RATIO code = 2234) BILIRUBIN, TOTAL (test code = 0.4 MG/DL 2207) ALKALINE PHOSPHATASE (test 84 U/L code = 2204) SGOT (AST) (test code = 2218) 18 U/L SGPT (ALT) (test code = 2219) 20 U/L COMPREHENSIVE METABOLIC [id number] 00:00:00 Test Item Value Reference Range Interpretation Comments GLUCOSE (test code = 2217) 92 MG/DL BUN (test code = 2208) 12 MG/DL CREATININE (test code = 2214) 1.1 MG/DL eGFR AMER. (test code 82 ML/MIN/1.73 = 61075) eGFR NON- AMER. (test 68 ML/MIN/1.73 code = 48913) CALCULATED BUN/CREAT (test 11 RATIO code = 2235) SODIUM (test code = 2231) 134 MEQ/L POTASSIUM (test code = 2228) 4.2 MEQ/L CHLORIDE (test code = 2215) 98 MEQ/L CARBON DIOXIDE (test code = 25 MEQ/L 2205) CALCIUM (test code = 2209) 10.0 MG/DL PROTEIN, TOTAL (test code = 8.1 G/DL 2228) ALBUMIN (test code = 2201) 4.7 G/DL CALCULATED GLOBULIN (test code 3.4 G/DL = 2240) CALCULATED A/G RATIO (test 1.4 RATIO code = 2234) BILIRUBIN, TOTAL (test code = 0.4 MG/DL 2206) ALKALINE PHOSPHATASE (test 84 U/L code = 2204) SGOT (AST) (test code = 2218) 18 U/L SGPT (ALT) (test code = 2219) 20 U/L LIPID [id number] 00:00:00 Test Item Value Reference Range Interpretation Comments CHOLESTEROL (test code = 2210) 204 MG/DL TRIGLYCERIDES (test code = 2232) 90 MG/DL HDL CHOLESTEROL (test code = 2220) 44 MG/DL CALCULATED LDL CHOL (test code = 142 MG/DL 2236) RISK RATIO LDL/HDL (test code = 3.23 RATIO 2238) LIPID [id number] 00:00:00 Test Item Value Reference Range Interpretation Comments CHOLESTEROL (test code = 2210) 204 MG/DL TRIGLYCERIDES (test code = 2232) 90 MG/DL HDL CHOLESTEROL (test code = 2220) 44 MG/DL CALCULATED LDL CHOL (test code = 142 MG/DL 2236) RISK RATIO LDL/HDL (test code = 3.23 RATIO 2238) CBC W/AUTO [id number] 00:00:00 Test Item Value Reference Range Interpretation Comments WBC (test code = 1001) 6.6 K/UL RBC (test code = 1002) 5.40 M/UL HEMOGLOBIN (test code = 1003) 14.4 G/DL HEMATOCRIT (test code = 1004) 43.3 % MCV (test code = 1005) 80.2 fL MCH (test code = 1006) 26.7 PG MCHC (test code = 1007) 33.3 G/DL RDW (test code = 1038) 15.2 % NEUTROPHILS (test code = 1008) 63 % LYMPHOCYTES (test code = 1010) 28 % MONOCYTES (test code = 1011) 8 % EOSINOPHILS (test code = 1012) 1 % BASOPHILS (test code = 1013) % PLATELET COUNT (test code = 1015) 324 K/UL CBC W/AUTO [id number] 00:00:00 Test Item Value Reference Range Interpretation Comments WBC (test code = 1001) 6.6 K/UL RBC (test code = 1002) 5.40 M/UL HEMOGLOBIN (test code = 1003) 14.4 G/DL HEMATOCRIT (test code = 1004) 43.3 % MCV (test code = 1005) 80.2 fL MCH (test code = 1006) 26.7 PG MCHC (test code = 1007) 33.3 G/DL RDW (test code = 1038) 15.2 % NEUTROPHILS (test code = 1008) 63 % LYMPHOCYTES (test code = 1010) 28 % MONOCYTES (test code = 1011) 8 % EOSINOPHILS (test code = 1012) 1 % BASOPHILS (test code = 1013) % PLATELET COUNT (test code = 1015) 324 K/UL CBC W/AUTO [id number] 00:00:00 Test Item Value Reference Range Interpretation Comments WBC (test code = 1001) 6.6 K/UL RBC (test code = 1002) 5.40 M/UL HEMOGLOBIN (test code = 1003) 14.4 G/DL HEMATOCRIT (test code = 1004) 43.3 % MCV (test code = 1005) 80.2 fL MCH (test code = 1006) 26.7 PG MCHC (test code = 1007) 33.3 G/DL RDW (test code = 1038) 15.2 % NEUTROPHILS (test code = 1008) 63 % LYMPHOCYTES (test code = 1010) 28 % MONOCYTES (test code = 1011) 8 % EOSINOPHILS (test code = 1012) 1 % BASOPHILS (test code = 1013) % PLATELET COUNT (test code = 1015) 324 K/UL HEMOGLOBIN [id number] 00:00:00 Test Item Value Reference Range Interpretation Comments HEMOGLOBIN A1c (test code = 28165) 6.0 % HEMOGLOBIN [id number] 00:00:00 Test Item Value Reference Range Interpretation Comments HEMOGLOBIN A1c (test code = 98619) 6.0 % HEMOGLOBIN [id number] 00:00:00 Test Item Value Reference Range Interpretation Comments HEMOGLOBIN A1c (test code = 05236) 6.0 % THYROID II PROFILE (T3U, T4, T7, TSH)[id number] 00:00:00 Test Item Value Reference Range Interpretation Comments T3 UPTAKE (test code = 2817) 25.8 % T4 (THYROXINE) (test code = 2819) 8.8 UG/DL CALCULATED T7 (FTI) (test code = 2.27 2820) TSH (test code = 2821) 1.2 UIU/ML THYROID II PROFILE (T3U, T4, T7, TSH)[id number] 00:00:00 Test Item Value Reference Range Interpretation Comments T3 UPTAKE (test code = 2817) 25.8 % T4 (THYROXINE) (test code = 2819) 8.8 UG/DL CALCULATED T7 (FTI) (test code = 2.27 2820) TSH (test code = 2821) 1.2 UIU/ML COMPREHENSIVE METABOLIC [id number] 00:00:00 Test Item Value Reference Range Interpretation Comments GLUCOSE (test code = 2217) 92 MG/DL BUN (test code = 2208) 12 MG/DL CREATININE (test code = 2214) 1.1 MG/DL eGFR AMER. (test code 82 ML/MIN/1.73 = 47062) eGFR NON- AMER. (test 68 ML/MIN/1.73 code = 97665) CALCULATED BUN/CREAT (test 11 RATIO code = 2235) SODIUM (test code = 2231) 134 MEQ/L POTASSIUM (test code = 2228) 4.2 MEQ/L CHLORIDE (test code = 2215) 98 MEQ/L CARBON DIOXIDE (test code = 25 MEQ/L 220) CALCIUM (test code = 2209) 10.0 MG/DL PROTEIN, TOTAL (test code = 8.1 G/DL 2228) ALBUMIN (test code = 2201) 4.7 G/DL CALCULATED GLOBULIN (test code 3.4 G/DL = 2240) CALCULATED A/G RATIO (test 1.4 RATIO code = 2234) BILIRUBIN, TOTAL (test code = 0.4 MG/DL 2206) ALKALINE PHOSPHATASE (test 84 U/L code = 2204) SGOT (AST) (test code = 2218) 18 U/L SGPT (ALT) (test code = 2219) 20 U/L COMPREHENSIVE METABOLIC [id number] 00:00:00 Test Item Value Reference Range Interpretation Comments GLUCOSE (test code = 2217) 92 MG/DL BUN (test code = 2208) 12 MG/DL CREATININE (test code = 2214) 1.1 MG/DL eGFR AMER. (test code 82 ML/MIN/1.73 = 95577) eGFR NON- AMER. (test 68 ML/MIN/1.73 code = 58134) CALCULATED BUN/CREAT (test 11 RATIO code = 2235) SODIUM (test code = 2231) 134 MEQ/L POTASSIUM (test code = 2228) 4.2 MEQ/L CHLORIDE (test code = 2215) 98 MEQ/L CARBON DIOXIDE (test code = 25 MEQ/L 2205) CALCIUM (test code = 2209) 10.0 MG/DL PROTEIN, TOTAL (test code = 8.1 G/DL 2228) ALBUMIN (test code = 2201) 4.7 G/DL CALCULATED GLOBULIN (test code 3.4 G/DL = 2240) CALCULATED A/G RATIO (test 1.4 RATIO code = 2234) BILIRUBIN, TOTAL (test code = 0.4 MG/DL 2206) ALKALINE PHOSPHATASE (test 84 U/L code = 2204) SGOT (AST) (test code = 2218) 18 U/L SGPT (ALT) (test code = 2219) 20 U/L LIPID [id number] 00:00:00 Test Item Value Reference Range Interpretation Comments CHOLESTEROL (test code = 2210) 204 MG/DL TRIGLYCERIDES (test code = 2232) 90 MG/DL HDL CHOLESTEROL (test code = 2220) 44 MG/DL CALCULATED LDL CHOL (test code = 142 MG/DL 2237) RISK RATIO LDL/HDL (test code = 3.23 RATIO 2238) LIPID [id number] 00:00:00 Test Item Value Reference Range Interpretation Comments CHOLESTEROL (test code = 2210) 204 MG/DL TRIGLYCERIDES (test code = 2232) 90 MG/DL HDL CHOLESTEROL (test code = 2220) 44 MG/DL CALCULATED LDL CHOL (test code = 142 MG/DL 2237) RISK RATIO LDL/HDL (test code = 3.23 RATIO 2238) CBC W/AUTO [id number] 00:00:00 Test Item Value Reference Range Interpretation Comments WBC (test code = 1001) 6.6 K/UL RBC (test code = 1002) 5.40 M/UL HEMOGLOBIN (test code = 1003) 14.4 G/DL HEMATOCRIT (test code = 1004) 43.3 % MCV (test code = 1005) 80.2 fL MCH (test code = 1006) 26.7 PG MCHC (test code = 1007) 33.3 G/DL RDW (test code = 1038) 15.2 % NEUTROPHILS (test code = 1008) 63 % LYMPHOCYTES (test code = 1010) 28 % MONOCYTES (test code = 1011) 8 % EOSINOPHILS (test code = 1012) 1 % BASOPHILS (test code = 1013) % PLATELET COUNT (test code = 1015) 324 K/UL CBC W/AUTO [id number] 00:00:00 Test Item Value Reference Range Interpretation Comments WBC (test code = 1001) 6.6 K/UL RBC (test code = 1002) 5.40 M/UL HEMOGLOBIN (test code = 1003) 14.4 G/DL HEMATOCRIT (test code = 1004) 43.3 % MCV (test code = 1005) 80.2 fL MCH (test code = 1006) 26.7 PG MCHC (test code = 1007) 33.3 G/DL RDW (test code = 1038) 15.2 % NEUTROPHILS (test code = 1008) 63 % LYMPHOCYTES (test code = 1010) 28 % MONOCYTES (test code = 1011) 8 % EOSINOPHILS (test code = 1012) 1 % BASOPHILS (test code = 1013) % PLATELET COUNT (test code = 1015) 324 K/UL CBC W/AUTO [id number] 00:00:00 Test Item Value Reference Range Interpretation Comments WBC (test code = 1001) 6.6 K/UL RBC (test code = 1002) 5.40 M/UL HEMOGLOBIN (test code = 1003) 14.4 G/DL HEMATOCRIT (test code = 1004) 43.3 % MCV (test code = 1005) 80.2 fL MCH (test code = 1006) 26.7 PG MCHC (test code = 1007) 33.3 G/DL RDW (test code = 1038) 15.2 % NEUTROPHILS (test code = 1008) 63 % LYMPHOCYTES (test code = 1010) 28 % MONOCYTES (test code = 1011) 8 % EOSINOPHILS (test code = 1012) 1 % BASOPHILS (test code = 1013) % PLATELET COUNT (test code = 1015) 324 K/UL HEMOGLOBIN [id number] 00:00:00 Test Item Value Reference Range Interpretation Comments HEMOGLOBIN A1c (test code = 19609) 6.0 % HEMOGLOBIN [id number] 00:00:00 Test Item Value Reference Range Interpretation Comments HEMOGLOBIN A1c (test code = 23692) 6.0 % HEMOGLOBIN [id number] 00:00:00 Test Item Value Reference Range Interpretation Comments HEMOGLOBIN A1c (test code = 83811) 6.0 % THYROID II PROFILE (T3U, T4, T7, TSH)[id number] 00:00:00 Test Item Value Reference Range Interpretation Comments T3 UPTAKE (test code = 2817) 25.8 % T4 (THYROXINE) (test code = 2819) 8.8 UG/DL CALCULATED T7 (FTI) (test code = 2.27 2820) TSH (test code = 2821) 1.2 UIU/ML THYROID II PROFILE (T3U, T4, T7, TSH)[id number] 00:00:00 Test Item Value Reference Range Interpretation Comments T3 UPTAKE (test code = 2817) 25.8 % T4 (THYROXINE) (test code = 2819) 8.8 UG/DL CALCULATED T7 (FTI) (test code = 2.27 2820) TSH (test code = 2821) 1.2 UIU/ML COMPREHENSIVE METABOLIC [id number] 00:00:00 Test Item Value Reference Range Interpretation Comments GLUCOSE (test code = 2217) 92 MG/DL BUN (test code = 2208) 12 MG/DL CREATININE (test code = 2214) 1.1 MG/DL eGFR AMER. (test code 82 ML/MIN/1.73 = 76781) eGFR NON- AMER. (test 68 ML/MIN/1.73 code = 69809) CALCULATED BUN/CREAT (test 11 RATIO code = 2235) SODIUM (test code = 2231) 134 MEQ/L POTASSIUM (test code = 2228) 4.2 MEQ/L CHLORIDE (test code = 2215) 98 MEQ/L CARBON DIOXIDE (test code = 25 MEQ/L 220) CALCIUM (test code = 2209) 10.0 MG/DL PROTEIN, TOTAL (test code = 8.1 G/DL 2228) ALBUMIN (test code = 2201) 4.7 G/DL CALCULATED GLOBULIN (test code 3.4 G/DL = 2240) CALCULATED A/G RATIO (test 1.4 RATIO code = 2234) BILIRUBIN, TOTAL (test code = 0.4 MG/DL 2206) ALKALINE PHOSPHATASE (test 84 U/L code = 2204) SGOT (AST) (test code = 2218) 18 U/L SGPT (ALT) (test code = 2219) 20 U/L COMPREHENSIVE METABOLIC [id number] 00:00:00 Test Item Value Reference Range Interpretation Comments GLUCOSE (test code = 2217) 92 MG/DL BUN (test code = 2208) 12 MG/DL CREATININE (test code = 2214) 1.1 MG/DL eGFR AMER. (test code 82 ML/MIN/1.73 = 03613) eGFR NON- AMER. (test 68 ML/MIN/1.73 code = 48220) CALCULATED BUN/CREAT (test 11 RATIO code = 2235) SODIUM (test code = 2231) 134 MEQ/L POTASSIUM (test code = 2228) 4.2 MEQ/L CHLORIDE (test code = 2215) 98 MEQ/L CARBON DIOXIDE (test code = 25 MEQ/L 2206) CALCIUM (test code = 2209) 10.0 MG/DL PROTEIN, TOTAL (test code = 8.1 G/DL 2228) ALBUMIN (test code = 2201) 4.7 G/DL CALCULATED GLOBULIN (test code 3.4 G/DL = 2240) CALCULATED A/G RATIO (test 1.4 RATIO code = 2234) BILIRUBIN, TOTAL (test code = 0.4 MG/DL 7) ALKALINE PHOSPHATASE (test 84 U/L code = 2204) SGOT (AST) (test code = 2218) 18 U/L SGPT (ALT) (test code = 2219) 20 U/L LIPID [id number] 00:00:00 Test Item Value Reference Range Interpretation Comments CHOLESTEROL (test code = 2210) 204 MG/DL TRIGLYCERIDES (test code = 2232) 90 MG/DL HDL CHOLESTEROL (test code = 2220) 44 MG/DL CALCULATED LDL CHOL (test code = 142 MG/DL 2237) RISK RATIO LDL/HDL (test code = 3.23 RATIO 2238) LIPID [id number] 00:00:00 Test Item Value Reference Range Interpretation Comments CHOLESTEROL (test code = 2210) 204 MG/DL TRIGLYCERIDES (test code = 2232) 90 MG/DL HDL CHOLESTEROL (test code = 2220) 44 MG/DL CALCULATED LDL CHOL (test code = 142 MG/DL 2237) RISK RATIO LDL/HDL (test code = 3.23 RATIO 2238) CBC W/AUTO [id number] 00:00:00 Test Item Value Reference Range Interpretation Comments WBC (test code = 1001) 6.6 K/UL RBC (test code = 1002) 5.40 M/UL HEMOGLOBIN (test code = 1003) 14.4 G/DL HEMATOCRIT (test code = 1004) 43.3 % MCV (test code = 1005) 80.2 fL MCH (test code = 1006) 26.7 PG MCHC (test code = 1007) 33.3 G/DL RDW (test code = 1038) 15.2 % NEUTROPHILS (test code = 1008) 63 % LYMPHOCYTES (test code = 1010) 28 % MONOCYTES (test code = 1011) 8 % EOSINOPHILS (test code = 1012) 1 % BASOPHILS (test code = 1013) % PLATELET COUNT (test code = 1015) 324 K/UL CBC W/AUTO [id number] 00:00:00 Test Item Value Reference Range Interpretation Comments WBC (test code = 1001) 6.6 K/UL RBC (test code = 1002) 5.40 M/UL HEMOGLOBIN (test code = 1003) 14.4 G/DL HEMATOCRIT (test code = 1004) 43.3 % MCV (test code = 1005) 80.2 fL MCH (test code = 1006) 26.7 PG MCHC (test code = 1007) 33.3 G/DL RDW (test code = 1038) 15.2 % NEUTROPHILS (test code = 1008) 63 % LYMPHOCYTES (test code = 1010) 28 % MONOCYTES (test code = 1011) 8 % EOSINOPHILS (test code = 1012) 1 % BASOPHILS (test code = 1013) % PLATELET COUNT (test code = 1015) 324 K/UL CBC W/AUTO [id number] 00:00:00 Test Item Value Reference Range Interpretation Comments WBC (test code = 1001) 6.6 K/UL RBC (test code = 1002) 5.40 M/UL HEMOGLOBIN (test code = 1003) 14.4 G/DL HEMATOCRIT (test code = 1004) 43.3 % MCV (test code = 1005) 80.2 fL MCH (test code = 1006) 26.7 PG MCHC (test code = 1007) 33.3 G/DL RDW (test code = 1038) 15.2 % NEUTROPHILS (test code = 1008) 63 % LYMPHOCYTES (test code = 1010) 28 % MONOCYTES (test code = 1011) 8 % EOSINOPHILS (test code = 1012) 1 % BASOPHILS (test code = 1013) % PLATELET COUNT (test code = 1015) 324 K/UL HEMOGLOBIN [id number] 00:00:00 Test Item Value Reference Range Interpretation Comments HEMOGLOBIN A1c (test code = 81975) 6.0 % HEMOGLOBIN [id number] 00:00:00 Test Item Value Reference Range Interpretation Comments HEMOGLOBIN A1c (test code = 02128) 6.0 % HEMOGLOBIN [id number] 00:00:00 Test Item Value Reference Range Interpretation Comments HEMOGLOBIN A1c (test code = 86401) 6.0 % THYROID II PROFILE (T3U, T4, T7, TSH)[id number] 00:00:00 Test Item Value Reference Range Interpretation Comments T3 UPTAKE (test code = 2817) 25.8 % T4 (THYROXINE) (test code = 2819) 8.8 UG/DL CALCULATED T7 (FTI) (test code = 2.27 5980) TSH (test code = 2821) 1.2 UIU/ML THYROID II PROFILE (T3U, T4, T7, TSH)2015-05-12 00:00:00 Test Item Value Reference Range Interpretation Comments T3 UPTAKE (test code = 2817) 25.8 % T4 (THYROXINE) (test code = 2819) 8.8 UG/DL CALCULATED T7 (FTI) (test code = 2.27 0) TSH (test code = 2821) 1.2 UIU/ML COMPREHENSIVE METABOLIC [id number] 00:00:00 Test Item Value Reference Range Interpretation Comments GLUCOSE (test code = 2217) 92 MG/DL BUN (test code = 2208) 12 MG/DL CREATININE (test code = 2214) 1.1 MG/DL eGFR AMER. (test code 82 ML/MIN/1.73 = 17284) eGFR NON- AMER. (test 68 ML/MIN/1.73 code = 25638) CALCULATED BUN/CREAT (test 11 RATIO code = 2235) SODIUM (test code = 2231) 134 MEQ/L POTASSIUM (test code = 2228) 4.2 MEQ/L CHLORIDE (test code = 2215) 98 MEQ/L CARBON DIOXIDE (test code = 25 MEQ/L 2205) CALCIUM (test code = 2209) 10.0 MG/DL PROTEIN, TOTAL (test code = 8.1 G/DL 2228) ALBUMIN (test code = 2201) 4.7 G/DL CALCULATED GLOBULIN (test code 3.4 G/DL = 2240) CALCULATED A/G RATIO (test 1.4 RATIO code = 2234) BILIRUBIN, TOTAL (test code = 0.4 MG/DL 2206) ALKALINE PHOSPHATASE (test 84 U/L code = 2204) SGOT (AST) (test code = 2218) 18 U/L SGPT (ALT) (test code = 2219) 20 U/L COMPREHENSIVE METABOLIC [id number] 00:00:00 Test Item Value Reference Range Interpretation Comments GLUCOSE (test code = 2217) 92 MG/DL BUN (test code = 2208) 12 MG/DL CREATININE (test code = 2214) 1.1 MG/DL eGFR AMER. (test code 82 ML/MIN/1.73 = 13472) eGFR NON- AMER. (test 68 ML/MIN/1.73 code = 26706) CALCULATED BUN/CREAT (test 11 RATIO code = 2235) SODIUM (test code = 2231) 134 MEQ/L POTASSIUM (test code = 2228) 4.2 MEQ/L CHLORIDE (test code = 2215) 98 MEQ/L CARBON DIOXIDE (test code = 25 MEQ/L 2205) CALCIUM (test code = 2209) 10.0 MG/DL PROTEIN, TOTAL (test code = 8.1 G/DL 2228) ALBUMIN (test code = 2201) 4.7 G/DL CALCULATED GLOBULIN (test code 3.4 G/DL = 2240) CALCULATED A/G RATIO (test 1.4 RATIO code = 2234) BILIRUBIN, TOTAL (test code = 0.4 MG/DL 2206) ALKALINE PHOSPHATASE (test 84 U/L code = 2204) SGOT (AST) (test code = 2218) 18 U/L SGPT (ALT) (test code = 221) 20 U/L LIPID [id number] 00:00:00 Test Item Value Reference Range Interpretation Comments CHOLESTEROL (test code = 2210) 204 MG/DL TRIGLYCERIDES (test code = 2232) 90 MG/DL HDL CHOLESTEROL (test code = 2220) 44 MG/DL CALCULATED LDL CHOL (test code = 142 MG/DL 2236) RISK RATIO LDL/HDL (test code = 3.23 RATIO 2238) LIPID [id number] 00:00:00 Test Item Value Reference Range Interpretation Comments CHOLESTEROL (test code = 2210) 204 MG/DL TRIGLYCERIDES (test code = 2232) 90 MG/DL HDL CHOLESTEROL (test code = 2220) 44 MG/DL CALCULATED LDL CHOL (test code = 142 MG/DL 2236) RISK RATIO LDL/HDL (test code = 3.23 RATIO 2238) CBC W/AUTO [id number] 00:00:00 Test Item Value Reference Range Interpretation Comments WBC (test code = 1001) 6.6 K/UL RBC (test code = 1002) 5.40 M/UL HEMOGLOBIN (test code = 1003) 14.4 G/DL HEMATOCRIT (test code = 1004) 43.3 % MCV (test code = 1005) 80.2 fL MCH (test code = 1006) 26.7 PG MCHC (test code = 1007) 33.3 G/DL RDW (test code = 1038) 15.2 % NEUTROPHILS (test code = 1008) 63 % LYMPHOCYTES (test code = 1010) 28 % MONOCYTES (test code = 1011) 8 % EOSINOPHILS (test code = 1012) 1 % BASOPHILS (test code = 1013) % PLATELET COUNT (test code = 1015) 324 K/UL CBC W/AUTO [id number] 00:00:00 Test Item Value Reference Range Interpretation Comments WBC (test code = 1001) 6.6 K/UL RBC (test code = 1002) 5.40 M/UL HEMOGLOBIN (test code = 1003) 14.4 G/DL HEMATOCRIT (test code = 1004) 43.3 % MCV (test code = 1005) 80.2 fL MCH (test code = 1006) 26.7 PG MCHC (test code = 1007) 33.3 G/DL RDW (test code = 1038) 15.2 % NEUTROPHILS (test code = 1008) 63 % LYMPHOCYTES (test code = 1010) 28 % MONOCYTES (test code = 1011) 8 % EOSINOPHILS (test code = 1012) 1 % BASOPHILS (test code = 1013) % PLATELET COUNT (test code = 1015) 324 K/UL CBC W/AUTO [id number] 00:00:00 Test Item Value Reference Range Interpretation Comments WBC (test code = 1001) 6.6 K/UL RBC (test code = 1002) 5.40 M/UL HEMOGLOBIN (test code = 1003) 14.4 G/DL HEMATOCRIT (test code = 1004) 43.3 % MCV (test code = 1005) 80.2 fL MCH (test code = 1006) 26.7 PG MCHC (test code = 1007) 33.3 G/DL RDW (test code = 1038) 15.2 % NEUTROPHILS (test code = 1008) 63 % LYMPHOCYTES (test code = 1010) 28 % MONOCYTES (test code = 1011) 8 % EOSINOPHILS (test code = 1012) 1 % BASOPHILS (test code = 1013) % PLATELET COUNT (test code = 1015) 324 K/UL HEMOGLOBIN [id number] 00:00:00 Test Item Value Reference Range Interpretation Comments HEMOGLOBIN A1c (test code = 09452) 6.0 % HEMOGLOBIN [id number] 00:00:00 Test Item Value Reference Range Interpretation Comments HEMOGLOBIN A1c (test code = 75621) 6.0 % HEMOGLOBIN [id number] 00:00:00 Test Item Value Reference Range Interpretation Comments HEMOGLOBIN A1c (test code = 62514) 6.0 % THYROID II PROFILE (T3U, T4, T7, TSH)2015-05-12 00:00:00 Test Item Value Reference Range Interpretation Comments T3 UPTAKE (test code = 2817) 25.8 % T4 (THYROXINE) (test code = 2819) 8.8 UG/DL CALCULATED T7 (FTI) (test code = 2.27 3790) TSH (test code = 2821) 1.2 UIU/ML THYROID II PROFILE (T3U, T4, T7, TSH)2015-05-12 00:00:00 Test Item Value Reference Range Interpretation Comments T3 UPTAKE (test code = 2817) 25.8 % T4 (THYROXINE) (test code = 2819) 8.8 UG/DL CALCULATED T7 (FTI) (test code = 2.27 2820) TSH (test code = 2821) 1.2 UIU/ML
[2022-11-03] MEDS ORDERED: IBUPROFEN 400 MG TAB ONE (07:34)
[2022-11-03 08:01] LABS: Absolute Lymphocytes (CBC) 1.4 K/uL (0.7-4.9); Hematocrit 38.7 % (39.6-49.0); Lymphocytes % 23.1 % (15.3-44.8); MCV 83.2 fL (80-100); MPV 7.9 fL (7.6-11.3); RBC Red Blood Cell Count 4.65 M/uL (4.33-5.43)
[2022-11-03 08:12] LABS: Troponin High Sensitivity 5.8 pg/mL (<58.9)
--- NOTE | 2022-11-03 08:47 | RAD REPORT ---
EXAM DESCRIPTION: RAD - Shoulder Left 2 View - 11/03/2022 8:26 am CLINICAL HISTORY: Pain COMPARISON: 12/27/2009 TECHNIQUE: Internal and external rotation views of the left shoulder were obtained. FINDINGS: There is no fracture or dislocation. Elongated radiodensity adjacent to the greater tubero sity seen on the AP view only, could reflect sequelae of calcific tendinitis. AC joint is normal in a ppearance. No other acute or suspicious findings. IMPRESSION: No acute osseous abnormality. Suggested sequelae of calcific tendinitis as above.
--- NOTE | 2022-11-03 09:23 | RAD REPORT ---
EXAM DESCRIPTION: CT - Angio Aorta For Dissection - 11/03/2022 8:45 am CLINICAL HISTORY: HTN, left arm pain COMPARISON: No comparisons TECHNIQUE: Dynamically enhanced 3 mm thick images of the chest, abdomen, and upper pelvis were obtai sudha during administration of approximately 100mL Isovue 370 IV contrast. Sagittal and coronal reconst ructions as well as maximal intensity projection reconstruction were generated and reviewed per [facility] angiography protocol. All CT scans are performed using dose optimization technique as appropriate and may include automated exposure control or mA/KV adjustment according to patient size. FINDINGS: Aorta is normal in diameter with no evidence of an acute dissection or aneurysmal dilation . Major aortic branches are patent. Scattered up to moderate mixed density plaque, most notable along the infrarenal abdominal aorta and its iliac branches. A focal crescentic filling defect is noted al yunior the mid left external iliac artery, with narrowest luminal diameter measuring 3.3 millimeter at t hat level, with degree of stenosis measuring slightly above 50%. Other major branches of the aorta ar e patent. The Pulmonary arteries are normal as well. No mass or infiltrate in the lung parenchyma. No pleural thickening, pleural effusion or pneumothorax . No abnormal mediastinal or hilar mass or lymphadenopathy seen. No chest wall mass or abnormal axillar y lymphadenopathy. Celiac, SMA and renal arteries show no suspicious findings. Few subcentimeter hypoattenuating lesions in the right and left liver lobe, not well characterized on this single-phase exam, but could repres ent small cysts or hemangiomas. Mildly prominent carmela hepatis and epigastric lymph nodes, the larges t measuring 1.2 centimeter in short axis. These are nonspecific, could be reactive. Other solid abdom inal viscera and bowel show no significant findings. No mass or abnormal lymphadenopathy. No suspicious osseous lesions. Geographic region of sclerosis in the subchondral superior left femora l head, could reflect sequelae of prior avascular necrosis. There appears to be an old left femoral n jorge luis compression screw tract. IMPRESSION: No acute abnormalities on CT angiogram of the aorta. 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 Other scattered up to moderate mixed density atherosclerotic c alcifications, without major vessel occlusion or high-grade stenosis. No other acute findings on chest, abdomen and upper pelvis examination. Incidental findings as noted above.
[2022-11-03 11:30] VITALS: BP 186/101; TEMP 97.8; O2SAT 100
--- NOTE | 2022-11-07 13:18 | EKG ---
Test Date: 2022-11-03 Test Time: 07:41:17 Chief Technologist: CAROLE MEASUREMENT RESULTS: Intervals: Rate: 48 NE: 168 QRSD: 96 QT: 422 QTc: 376 [place]: P: 58 NE: 168 QRS: 59 T: 55 INTERPRETIVE STATEMENTS: Marked sinus bradycardia Abnormal ECG Compared to ECG 07/01/2014 07:04:34 No significant changes Electronically Signed On 11-07-22 13:09:49 CDT by Gagan Pringle
--- NOTE | 2022-11-18 15:29 | ER ---
Nurse's Notes [facility] Name: Colt Casanova Age: 72 yrs Sex: Male : 1950 Arrival Date: 11/03/2022 Time: 07:07 Bed 9 Private MD: Diagnosis: Calcific tendinitis of left shoulder Presentation: 11/03 07:12 Chief complaint: Left shoulder pain that started after trimming trees yesterday. hb Coronavirus screen: At this time, the client does not indicate any symptoms associated with coronavirus-19. Ebola Screen: No symptoms or risks identified at this time. Initial Sepsis Screen: Does the patient meet any 2 criteria? No. Patient's initial sepsis screen is negative. Does the patient have a suspected source of infection? No. Patient's initial sepsis screen is negative. Risk Assessment: Do you want to hurt yourself or someone else? Patient reports no desire to harm self or others. Onset of symptoms was November 02, 2022. 07:12 Method Of Arrival: Ambulatory hb 07:12 Acuity: MADALYN 4 hb Historical: - Allergies: 07:13 No Known Allergies; hb - PMHx: 07:13 Hypertension; hb - Immunization history:: Client reports receiving the 2nd dose of the Covid vaccine. - Social history:: Smoking status: Patient denies any tobacco usage or history of. - Family history:: not pertinent. - Hospitalizations: : No recent hospitalization is reported. Screenin:50 [facility] [place] ED Fall Risk Assessment (Adult) History of falling in the last 3 months, ss including since admission No falls in past 3 months (0 pts). Abuse screen: Denies threats or abuse. Denies injuries from another. Nutritional screening: No deficits noted. Tuberculosis screening: Never had TB. Assessment: 07:50 General: Appears in no apparent distress. comfortable, Behavior is calm, cooperative. ss Pain: Complains of pain in L shoulder Pain currently is 9 out of 10 on a pain scale. Quality of pain is described as aching, tender, Pain began last night Is continuous. Neuro: Level of Consciousness is awake, alert, obeys commands, Oriented to person, place, time, situation. Cardiovascular: Denies lightheadedness, shortness of breath, Pulses are palpable in right radial artery, right posterior tibial artery, left radial artery and left posterior tibial artery Chest pain is denied. Respiratory: Airway is patent Respiratory effort is even, unlabored, Respiratory pattern is regular, symmetrical. GI: No signs and/or symptoms were reported involving the gastrointestinal system. Patient currently denies diarrhea, nausea, vomiting. Derm: Skin is pink, warm \T\ dry. normal. Musculoskeletal: Range of motion: limited in left shoulder Swelling absent. 08:21 Reassessment: Patient appears in no apparent distress at this time. XRAY at bedside at ss this time. Call light remains within reach. Awaiting rad results. 09:47 Reassessment: Patient appears in no apparent distress at this time. Patient and/or ss family updated on plan of care and expected duration. Pain level reassessed. Patient is alert, oriented x 3, equal unlabored respirations, skin warm/dry/pink. Patient states feeling better. Patient states symptoms have improved. Vital Signs: 07:12 BP 186 / 101; Pulse 58; Resp 16; Temp 97.8; Pulse Ox 100% on R/A; Weight 72.57 kg; hb Height 5 ft. 7 in. ; Pain 10/10; 07:12 Body Mass Index 25.06 (72.57 kg, 170.18 cm) hb 07:12 Pain Scale: Adult hb ED Course: 07:07 Patient arrived in ED. am2 07:13 Triage completed. hb 07:13 David Singh MD is Attending Physician. rn 07:29 Catherine Sims, PELON is Primary Nurse. ss 07:45 Inserted saline lock: 22 gauge in right antecubital area, using aseptic technique. ss Blood collected. Patient maintains SpO2 saturation greater than 95% on room air. Thermoregulation: warm blanket given to patient. 07:49 Arm band placed on right wrist. EKG completed in triage. Results shown to MD. ss 07:50 Patient has correct armband on for positive identification. ss 08:28 XRAY Shoulder LEFT 2 view In Process Unspecified. EDMS 08:47 CT Aorta for Dissection In Process Unspecified. EDMS 09:47 No provider procedures requiring assistance completed. IV discontinued, intact, ss bleeding controlled, No redness/swelling at site. Pressure dressing applied. Administered Medications: 07:49 Drug: Ibuprofen PO 800 mg Route: PO; ss 09:47 Follow up: Response: No adverse reaction; Pain is decreased ss Medication: 07:50 VIS not applicable for this client. Outcome: 09:26 Discharge ordered by . rn 09:47 Discharged to home ambulatory. 09:47 Condition: good 09:47 Discharge instructions given to patient, Instructed on discharge instructions, follow up and referral plans. medication usage, Demonstrated understanding of instructions, follow-up care, medications, Prescriptions given X 1. 09:48 Patient left the ED. Signatures: Dispatcher [employer] EDMS David Singh MD MD rn Smirch, Shelby, RN RN Kelsey López RN RN Tram Reed
--- NOTE | 2022-11-18 15:29 | EDPHYS ---
Physician Documentation [facility] Name: Colt Casanova Age: 72 yrs Sex: Male : 1950 Arrival Date: 11/03/2022 Time: 07:07 Bed 9 Private MD: ED Physician David Singh HPI: 11/03 08:35 This 72 yrs old Black Male presents to ER via Ambulatory with complaints of Arm Pain, rn Shoulder Pain. 08:35 The patient or guardian complains of pain. The complaints affect the anterior aspect of rn left shoulder and posterior aspect of left shoulder. Onset: The symptoms/episode began/occurred last night. Treatment prior to arrival includes: no previous treatment. Modifying factors: The symptoms are alleviated by remaining still, the symptoms are aggravated by movement, lifting weight. Associated signs and symptoms: Pertinent negatives: fever, swelling, tingling, weakness. Severity of symptoms: At their worst the symptoms were moderate, in the emergency department the symptoms are unchanged. The patient has not experienced similar symptoms in the past. The patient has not recently seen a physician. Pt reports cutting trees yesterday at [employer], was using skilsaw, started to have aches in left shoulder last night, got worse this AM. Denies chest pain/sob/back pain. Hurts to move left shoulder. No direct trauma or fall. NO weakness. Reports pain with rotation and elevating shoulder. . Historical: - Allergies: 07:13 No Known Allergies; hb - PMHx: 07:13 Hypertension; hb - Immunization history:: Client reports receiving the 2nd dose of the Covid vaccine. - Social history:: Smoking status: Patient denies any tobacco usage or history of. - Family history:: not pertinent. - Hospitalizations: : No recent hospitalization is reported. ROS: 08:35 Constitutional: Negative for fever, chills, and weight loss, Neck: Negative for injury, rn pain, and swelling, Cardiovascular: Negative for chest pain, palpitations, and edema, Respiratory: Negative for shortness of breath, cough, wheezing, and pleuritic chest pain, Abdomen/GI: Negative for abdominal pain, nausea, vomiting, diarrhea, and constipation, Back: Negative for injury and pain, MS/Extremity: + left shoulder pain Skin: Negative for injury, rash, and discoloration, Neuro: Negative for headache, weakness, numbness, tingling, and seizure. Exam: 07:43 ECG was reviewed by the Attending Physician. rn 08:35 Constitutional: This is a well developed, well nourished patient who is awake, alert, rn and in no acute distress. Head/Face: Normocephalic, atraumatic. Neck: Trachea midline. Supple, full range of motion without nuchal rigidity, or vertebral point tenderness. No Meningismus. Cardiovascular: Regular rate and rhythm. No pulse deficits. Respiratory: No increased work of breathing, no retractions or nasal flaring. Abdomen/GI: soft, non-tender Skin: Warm, dry MS/ Extremity: Pulses equal, no cyanosis. Neurovascular intact. Painful ROM left shoulder with elevation and rotation. No swelling or warmth of left shoulder. No skin lesions. Neuro: Awake and alert, GCS 15 Vital Signs: 07:12 BP 186 / 101; Pulse 58; Resp 16; Temp 97.8; Pulse Ox 100% on R/A; Weight 72.57 kg; hb Height 5 ft. 7 in. ; Pain 10/10; 07:12 Body Mass Index 25.06 (72.57 kg, 170.18 cm) hb 07:12 Pain Scale: Adult hb MDM: 07:16 Patient medically screened. rn 09:24 Differential diagnosis: dislocation, tendonitis, radiculopathy, referred cardiac pain, rn dissection, tendinitis. Data reviewed: vital signs, nurses notes, lab test result(s), EKG, radiologic studies, CT scan, plain films, and as a result, I will discharge patient. Independent interpretation of the following test(s) in the Emergency Department EKG: See my EKG interpretation above X-Ray: My interpretation is Xray left shoulder negative for acute fracture/dislocation per my interpretation. Care significantly affected by the following chronic conditions: Hypertension. Counseling: I had a detailed discussion with the patient and/or guardian regarding: the historical points, exam findings, and any diagnostic results supporting the discharge/admit diagnosis, lab results, radiology results, the need for outpatient follow up, to return to the emergency department if symptoms worsen or persist or if there are any questions or concerns that arise at home. Special discussion: I discussed with the patient/guardian in detail that at this point there is no indication for admission to the hospital. It is understood, however, that if the symptoms persist or worsen the patient needs to return immediately for re-evaluation. Based on the history and exam findings, there is no indication for further emergent testing or inpatient evaluation. I discussed with the patient/guardian the need to see the primary care provider for further evaluation of the symptoms. 11/03 07:26 Order name: CBC with Diff; Complete Time: 08:21 rn 11/03 07:26 Order name: Basic Metabolic Panel; Complete Time: 08:21 rn 11/03 07:26 Order name: Troponin High Sensitivity; Complete Time: 08:21 rn 11/03 07:24 Order name: XRAY Shoulder LEFT 2 view; Complete Time: 09:24 rn 11/03 07:26 Order name: CT Aorta for Dissection; Complete Time: 09:24 rn 11/03 07:24 Order name: EKG; Complete Time: 07:25 rn 11/03 07:24 Order name: EKG - Nurse/Tech; Complete Time: 07:49 rn 11/03 07:26 Order name: IV Start; Complete Time: 07:49 rn EC:43 Rate is 48 beats/min. Rhythm is regular. QRS [place] is Normal. SD interval is normal. QRS rn interval is normal. QT interval is normal. No Q waves. T waves are Normal. No ST changes noted. Clinical impression: Sinus bradycardia. Interpreted by me. Reviewed by me. Administered Medications: 07:49 Drug: Ibuprofen PO 800 mg Route: PO; ss 09:47 Follow up: Response: No adverse reaction; Pain is decreased ss Disposition Summary: 11/03/22 09:26 Discharge Ordered Location: Home rn Problem: new rn Symptoms: have improved rn Condition: Stable rn Diagnosis - Calcific tendinitis of left shoulder rn Followup: rn - With: Private Physician - When: As needed - Reason: Recheck today's complaints, Re-evaluation by your physician Discharge Instructions: - Discharge Summary Sheet rn - Calcific Tendinitis rn Forms: - Medication Reconciliation Form rn - Thank You Letter rn - Antibiotic government affairs specialist - Prescription Opioid Use rn Prescriptions: - Medrol (Vasquez) 4 mg Oral Tablets, Dose Pack - take 1 tablet by ORAL route as directed - follow package instructions; 1 rn packet; Refills: 0, Product Selection Permitted Signatures: Dispatcher [employer] EDMS Singh, David, MD MD rn Smirch, Catherine, RN RN ss López, Kelsey, RN RN hb
== END 2022-11-03 09:48 | disposition home or self-care (01) ==
LOC: ER 07:01
DX: M75.32 Calcific tendinitis of left shoulder (principal)
CPT/HCPCS: 93005; 85025; 80048; 36415; 84484; 71275; 74175; 73030; 99284; Q9967

== ENCOUNTER → 2023-10-23 | Emergency (ER) | payer OTHER ==
[~2023-10-23] MED LIST: NA CHLORIDE 0.9% 1,000 ML ONE; ONDANSETRON 4 MG/2 ML VIAL ONE
--- OUTSIDE RECORDS SUMMARY | 2023-10-23 22:28 | XMS REPORT | Continuity of Care Document ---
Author Name Unknown Address [address] [facility] [address] [place] [address] [email or web address] Address [address] [facility] 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 Ordering Clinician Indication Dosage Frequency Signature (SIG) Comments Components Source memantine 14 mg capsule sprinkle,ex tended release 24hr 09-11 00:00: 00 No celecoxib 200 mg capsule 09-11 00:00: 00 No Dose Unknown 2021-08 00:00: 00 No TAKE 1 CAPSULE BY MOUTH DAILY FOR URINATION ONCE A DAY 90 DAYS 2021-08 00:00: 00 No lisinopril 40 mg tablet 2021-08 00:00: 00 No TAKE 1 TABLET BY MOUTH TWICE A DAY WITH FOOD FOR 90 DAYS 2021-08 00:00: 00 No memantine 5 mg tablet 2021-08 00:00: 00 No Dose Unknown 2021-08 00:00: 00 No TAKE 1 TABLET BY MOUTH EVERY DAY FOR 90 DAYS 2021-08 00:00: 00 No Shingrix (PF) 50 mcg/0.5 mL intramuscul ar suspension, kit 2021-08 00:00: 00 No Fluad Quad (6 5yr up)(PF) 60 mcg (15 mcg x 4)/0.5mL IM syringe 2021-08 00:00: 00 No Fluzone High-Dose Quad (PF) 240 mcg/0.7 mL IM syringe 2021-08 00:00: 00 No Dose Unknown 2021-08 00:00: 00 No LISINOPRIL 40 MG TABLET 2021-08 00:00: 00 No tamsulosin 0.4 mg capsule 2021-08 00:00: 00 No celecoxib 200 mg capsule 2021-08 00:00: 00 No Dose Unknown 2021-08 00:00: 00 No TAKE 1 CAPSULE BY MOUTH DAILY FOR URINATION ONCE A DAY 90 DAYS 2021-08 00:00: 00 No TAKE 1 TABLET BY MOUTH EVERY DAY FOR 90 DAYS 2021-08 00:00: 00 No TAKE 1 TABLET BY MOUTH TWICE A DAY WITH FOOD FOR 2021-08 00:00: 00 No Dose Unknown 2021-08 00:00: 00 No memantine 10 mg tablet 2021-08 00:00: 00 No TAKE 1 TABLET BY MOUTH EVERY DAY FOR 90 DAYS 2021-08 00:00: 00 No Shingrix (PF) 50 mcg/0.5 mL intramuscul ar suspension, kit 2021-08 00:00: 00 No Fluad Quad (6 5yr up)(PF) 60 mcg (15 mcg x 4)/0.5mL IM syringe 2021-08 00:00: 00 No Fluzone High-Dose Quad (PF) 240 mcg/0.7 mL IM syringe 2021-08 00:00: 00 No donepezil 5 mg tablet 2021-08 00:00: 00 No TAKE 1 TABLET BY MOUTH EVERY DAY FOR 90 DAYS 2021-08 00:00: 00 No tamsulosin 0.4 mg capsule 2021-08 00:00: 00 No celecoxib 200 mg capsule 2021-08 00:00: 00 No Dose Unknown 2021-08 00:00: 00 No TAKE 1 CAPSULE BY MOUTH DAILY FOR URINATION ONCE A DAY 90 DAYS 2021-08 00:00: 00 No lisinopril 40 mg tablet 2021-08 00:00: 00 No TAKE 1 TABLET BY MOUTH TWICE A DAY WITH FOOD FOR 90 DAYS 2021-08 00:00: 00 No memantine 5 mg tablet 2021-08 00:00: 00 No Dose Unknown 2021-08 00:00: 00 No TAKE 1 TABLET BY MOUTH EVERY DAY FOR 90 DAYS 2021-08 00:00: 00 No Shingrix (PF) 50 mcg/0.5 mL intramuscul ar suspension, kit 2021-08 00:00: 00 No Fluad Quad (6 5yr up)(PF) 60 mcg (15 mcg x 4)/0.5mL IM syringe 2021-08 00:00: 00 No Fluzone High-Dose Quad (PF) 240 mcg/0.7 mL IM syringe 2021-08 00:00: 00 No Dose Unknown 2021-08 00:00: 00 No LISINOPRIL 40 MG TABLET 2021-08 00:00: 00 No tamsulosin 0.4 mg capsule 2021-08 00:00: 00 No TAKE 1 TABLET BY MOUTH TWICE A DAY 2021-08 0-05 00:00: 00 No TAKE 1 TABLET BY MOUTH TWICE A DAY 2021-08 0-05 00:00: 00 No TAKE 1 TABLET BY MOUTH TWICE A DAY 2021-08 0-05 00:00: 00 No TAKE 1 TABLET BY MOUTH TWICE A DAY 2021-08 0-05 00:00: 00 No memantine 14 mg capsule sprinkle,ex tended release 24hr 2021-08 0-04 00:00: 00 No memantine 14 mg capsule sprinkle,ex tended release 24hr 2021-08 0-04 00:00: 00 No memantine 14 mg capsule sprinkle,ex tended release 24hr 2021-08 0-04 00:00: 00 No Dose Unknown 0 - 00:00: 00 No Dose Unknown 0 - 00:00: 00 No Dose Unknown 0 12-08 00:00: 00 No Dose Unknown 0 4- 00:00: 00 No Dose Unknown 0 4- 00:00: 00 No Dose Unknown 0 - 00:00: 00 No Dose Unknown 2022-0 4-13 00:00: 00 No Dose Unknown 2022-0 4-13 00:00: 00 No Dose Unknown 2022-0 4-13 00:00: 00 No Dose Unknown 2022-0 4-13 00:00: 00 No Dose Unknown 2022-0 4-13 00:00: 00 No Dose Unknown 2022-0 4-13 00:00: 00 No Dose Unknown 2022-0 4-13 00:00: 00 No Dose Unknown 2022-0 4-13 00:00: 00 No Dose Unknown 2022-0 4-13 00:00: 00 No Dose Unknown 2022-0 4-13 00:00: 00 No Dose Unknown 2022-0 4-13 00:00: 00 No Dose Unknown 2022-0 4-13 00:00: 00 No Dose Unknown 2022-0 4-13 00:00: 00 No Dose Unknown 2022-0 4-13 00:00: 00 No Dose Unknown 2022-0 4-13 00:00: 00 No Dose Unknown 2022-0 4-13 00:00: 00 No Dose Unknown 2022-0 4-13 00:00: 00 No Dose Unknown 2022-0 4-13 00:00: 00 No Dose Unknown 2022-0 4-13 00:00: 00 No Dose Unknown 2022-0 4-13 00:00: 00 No Dose Unknown 2022-0 4-13 00:00: 00 No Dose Unknown 2022-0 4-13 00:00: 00 No Dose Unknown 2021-0 3-12 00:00: 00 No Dose Unknown 2021-0 3-12 00:00: 00 No Dose Unknown 2021-0 3-12 00:00: 00 No Dose Unknown 2021-0 3-12 00:00: 00 No Dose Unknown 2021-0 1-04 00:00: 00 No Dose Unknown 2021-0 1-04 00:00: 00 No Dose Unknown 2021-0 1-04 00:00: 00 No Dose Unknown 2021-0 1-04 00:00: 00 No Dose Unknown 2021-0 1-04 00:00: 00 No Dose Unknown 2021-0 1-04 00:00: 00 No Dose Unknown 2021-0 1-04 00:00: 00 No Dose Unknown 2021-0 1-04 00:00: 00 No Dose Unknown 0 1-04 00:00: 00 No Dose Unknown 0 1-04 00:00: 00 No Dose Unknown 0 1-04 00:00: 00 No Dose Unknown 0 1-04 00:00: 00 No Dose Unknown 0 1- 00:00: 00 No Dose Unknown 0 1- 00:00: 00 No Dose Unknown 0 1- 00:00: 00 No Dose Unknown 0 1- 00:00: 00 No Dose Unknown 0 1- 00:00: 00 No Dose Unknown 0 1- 00:00: 00 No Dose Unknown 0 1- 00:00: 00 No Dose Unknown 0 1- 00:00: 00 No Dose Unknown 2019-08 00:00: 00 No lisinopril 40 mg tablet 2019-08 00:00: 00 No 1mg amlodipine 5 mg tablet 2019-08 00:00: 00 No 1mg memantine 5 mg tablet 2019-08 00:00: 00 No 1mg metoprolol tartrate 50 mg tablet 2019-08 00:00: 00 No 1mg Flomax 0.4 mg capsule 2019-08 00:00: 00 No 1mg Dose Unknown 2019-08 00:00: 00 No Dose Unknown 2019-08 00:00: 00 No lisinopril 40 mg tablet 2019-08 00:00: 00 No 1mg amlodipine 5 mg tablet 2019-08 00:00: 00 No 1mg memantine 5 mg tablet 2019-08 00:00: 00 No 1mg metoprolol tartrate 50 mg tablet 2019-08 00:00: 00 No 1mg Flomax 0.4 mg capsule 2019-08 00:00: 00 No 1mg Vitamin D3 50 mcg (2,000 unit) capsule 2019-08 00:00: 00 No 1%-" Dose Unknown 2019-08 00:00: 00 No lisinopril 40 mg tablet 2019-08 00:00: 00 No 1mg amlodipine 5 mg tablet 2019-08 00:00: 00 No 1mg memantine 5 mg tablet 2019-08 00:00: 00 No 1mg metoprolol tartrate 50 mg tablet 2019-08 00:00: 00 No 1mg Flomax 0.4 mg capsule 2019-08 00:00: 00 No 1mg Dose Unknown 2019-08 00:00: 00 No Dose Unknown 2019-08 00:00: 00 No lisinopril 40 mg tablet 2019-08 00:00: 00 No 1mg amlodipine 5 mg tablet 2019-08 00:00: 00 No 1mg memantine 5 mg tablet 2019-08 00:00: 00 No 1mg metoprolol tartrate 50 mg tablet 2019-08 00:00: 00 No 1mg Flomax 0.4 mg capsule 2019-08 00:00: 00 No 1mg Dose Unknown 2019-08 00:00: 00 No lisinopril 20 mg-hydrochl orothiazide 12.5 mg tablet 04-21 00:00: 00 No 1mg Flomax 0.4 mg capsule 8 00:00: 00 No 1mg lisinopril 20 mg-hydrochl orothiazide 12.5 mg tablet 8 00:00: 00 No 1mg Flomax 0.4 mg capsule 8 00:00: 00 No 1mg lisinopril 20 mg-hydrochl orothiazide 12.5 mg tablet 8 00:00: 00 No 1mg Flomax 0.4 mg capsule 8 00:00: 00 No 1mg lisinopril 20 mg-hydrochl orothiazide 12.5 mg tablet 8 00:00: 00 No 1mg Flomax 0.4 mg capsule 8 00:00: 00 No 1mg diclofenac 1 % topical gel 0 616 00:00: 00 No 1% diclofenac 1 % topical gel 616 00:00: 00 No 1% donepezil 10 mg tablet 616 00:00: 00 No 1mg lisinopril 20 mg-hydrochl orothiazide 12.5 mg tablet 02-10 00:00: 00 No 1mg lisinopril 20 mg-hydrochl orothiazide 12.5 mg tablet 02-10 00:00: 00 No 1mg rivastigmin e 6 mg capsule 02-10 00:00: 00 No 2mg Flomax 0.4 mg capsule 02-10 00:00: 00 No 1mg rivastigmin e 6 mg capsule 02-10 00:00: 00 No 2mg Flomax 0.4 mg capsule 02-10 00:00: 00 No 1mg Vitamin D2 1,250 mcg (50,000 unit) capsule 02-10 00:00: 00 No 1(50,00 0 unit) Vitamin D2 1,250 mcg (50,000 unit) capsule 02-10 00:00: 00 No 1(50,00 0 unit) diclofenac 1 % topical gel 02-10 00:00: 00 No 1% diclofenac 1 % topical gel 02-10 00:00: 00 No 1% donepezil 10 mg tablet 02-10 00:00: 00 No 1mg lisinopril 20 mg-hydrochl orothiazide 12.5 mg tablet 02-10 00:00: 00 No 1mg lisinopril 20 mg-hydrochl orothiazide 12.5 mg tablet 02-10 00:00: 00 No 1mg rivastigmin e 6 mg capsule 02-10 00:00: 00 No 2mg Flomax 0.4 mg capsule 02-10 00:00: 00 No 1mg rivastigmin e 6 mg capsule 02-10 00:00: 00 No 2mg Flomax 0.4 mg capsule 02-10 00:00: 00 No 1mg Vitamin D2 1,250 mcg (50,000 unit) capsule 02-10 00:00: 00 No 1(50,00 0 unit) Vitamin D2 1,250 mcg (50,000 unit) capsule 02-10 00:00: 00 No 1(50,00 0 unit) diclofenac 1 % topical gel 02-10 00:00: 00 No 1% diclofenac 1 % topical gel 02-10 00:00: 00 No 1% donepezil 10 mg tablet 02-10 00:00: 00 No 1mg lisinopril 20 mg-hydrochl orothiazide 12.5 mg tablet 02-10 00:00: 00 No 1mg lisinopril 20 mg-hydrochl orothiazide 12.5 mg tablet 02-10 00:00: 00 No 1mg rivastigmin e 6 mg capsule 02-10 00:00: 00 No 2mg Flomax 0.4 mg capsule 02-10 00:00: 00 No 1mg rivastigmin e 6 mg capsule 02-10 00:00: 00 No 2mg Flomax 0.4 mg capsule 02-10 00:00: 00 No 1mg Vitamin D2 1,250 mcg (50,000 unit) capsule 02-10 00:00: 00 No 1(50,00 0 unit) Vitamin D2 1,250 mcg (50,000 unit) capsule 02-10 00:00: 00 No 1(50,00 0 unit) diclofenac 1 % topical gel 02-10 00:00: 00 No 1% diclofenac 1 % topical gel 02-10 00:00: 00 No 1% donepezil 10 mg tablet 02-10 00:00: 00 No 1mg lisinopril 20 mg-hydrochl orothiazide 12.5 mg tablet 02-10 00:00: 00 No 1mg lisinopril 20 mg-hydrochl orothiazide 12.5 mg tablet 02-10 00:00: 00 No 1mg rivastigmin e 6 mg capsule 02-10 00:00: 00 No 2mg Flomax 0.4 mg capsule 02-10 00:00: 00 No 1mg rivastigmin e 6 mg capsule 02-10 00:00: 00 No 2mg Flomax 0.4 mg capsule 02-10 00:00: 00 No 1mg Vitamin D2 1,250 mcg (50,000 unit) capsule 02-10 00:00: 00 No 1(50,00 0 unit) Vitamin D2 1,250 mcg (50,000 unit) capsule 16 00:00: 00 No 1(50,00 0 unit) diclofenac 1 % topical gel 24 00:00: 00 No 1% diclofenac 1 % topical gel 11-18 00:00: 00 No 1% lisinopril 20 mg-hydrochl orothiazide 12.5 mg tablet 11-18 00:00: 00 No 1mg metoprolol tartrate 50 mg tablet 11-18 00:00: 00 No 1mg lisinopril 20 mg-hydrochl orothiazide 12.5 mg tablet 11-18 00:00: 00 No 1mg metoprolol tartrate 50 mg tablet 11-18 00:00: 00 No 1mg diclofenac 1 % topical gel 11-18 00:00: 00 No 1% diclofenac 1 % topical gel 11-18 00:00: 00 No 1% lisinopril 20 mg-hydrochl orothiazide 12.5 mg tablet 11-18 00:00: 00 No 1mg metoprolol tartrate 50 mg tablet 11-18 00:00: 00 No 1mg lisinopril 20 mg-hydrochl orothiazide 12.5 mg tablet 11-18 00:00: 00 No 1mg metoprolol tartrate 50 mg tablet 11-18 00:00: 00 No 1mg rivastigmin e 6 mg capsule 11-18 00:00: 00 No 2mg rivastigmin e 6 mg capsule 11-18 00:00: 00 No 2mg Flomax 0.4 mg capsule 11-18 00:00: 00 No 1mg rivastigmin e 6 mg capsule 11-18 00:00: 00 No 2mg Flomax 0.4 mg capsule 11-18 00:00: 00 No 1mg Vitamin D2 1,250 mcg (50,000 unit) capsule 11-18 00:00: 00 No 1(50,00 0 unit) Vitamin D2 1,250 mcg (50,000 unit) capsule 11-18 00:00: 00 No 1(50,00 0 unit) Flomax 0.4 mg capsule 11-18 00:00: 00 No 1mg rivastigmin e 6 mg capsule 11-18 00:00: 00 No 2mg Flomax 0.4 mg capsule 11-18 00:00: 00 No 1mg Vitamin D2 1,250 mcg (50,000 unit) capsule 11-18 00:00: 00 No 1(50,00 0 unit) Vitamin D2 1,250 mcg (50,000 unit) capsule 11-18 00:00: 00 No 1(50,00 0 unit) diclofenac 1 % topical gel 11-18 00:00: 00 No 1% diclofenac 1 % topical gel 11-18 00:00: 00 No 1% lisinopril 20 mg-hydrochl orothiazide 12.5 mg tablet 11-18 00:00: 00 No 1mg metoprolol tartrate 50 mg tablet 11-18 00:00: 00 No 1mg lisinopril 20 mg-hydrochl orothiazide 12.5 mg tablet 11-18 00:00: 00 No 1mg metoprolol tartrate 50 mg tablet 11-18 00:00: 00 No 1mg rivastigmin e 6 mg capsule 11-18 00:00: 00 No 2mg Flomax 0.4 mg capsule 11-18 00:00: 00 No 1mg rivastigmin e 6 mg capsule 11-18 00:00: 00 No 2mg Flomax 0.4 mg capsule 11-18 00:00: 00 No 1mg Vitamin D2 1,250 mcg (50,000 unit) capsule 11-18 00:00: 00 No 1(50,00 0 unit) Vitamin D2 1,250 mcg (50,000 unit) capsule 11-18 00:00: 00 No 1(50,00 0 unit) diclofenac 1 % topical gel 11-18 00:00: 00 No 1% diclofenac 1 % topical gel 11-18 00:00: 00 No 1% lisinopril 20 mg-hydrochl orothiazide 12.5 mg tablet 11-18 00:00: 00 No 1mg metoprolol tartrate 50 mg tablet 11-18 00:00: 00 No 1mg lisinopril 20 mg-hydrochl orothiazide 12.5 mg tablet 24 00:00: 00 No 1mg metoprolol tartrate 50 mg tablet 24 00:00: 00 No 1mg rivastigmin e 6 mg capsule 24 00:00: 00 No 2mg Flomax 0.4 mg capsule 11-18 00:00: 00 No 1mg rivastigmin e 6 mg capsule 11-18 00:00: 00 No 2mg Flomax 0.4 mg capsule 11-18 00:00: 00 No 1mg Vitamin D2 1,250 mcg (50,000 unit) capsule 11-18 00:00: 00 No 1(50,00 0 unit) Vitamin D2 1,250 mcg (50,000 unit) capsule 11-18 00:00: 00 No 1(50,00 0 unit) rivastigmin e 6 mg capsule -15 00:00: 00 No 2mg Vitamin D2 1,250 mcg (50,000 unit) capsule 15 00:00: 00 No 1(50,00 0 unit) rivastigmin e 6 mg capsule -15 00:00: 00 No 2mg Vitamin D2 1,250 mcg (50,000 unit) capsule -15 00:00: 00 No 1(50,00 0 unit) rivastigmin e 6 mg capsule 15 00:00: 00 No 2mg Vitamin D2 1,250 mcg (50,000 unit) capsule -15 00:00: 00 No 1(50,00 0 unit) rivastigmin e 6 mg capsule -15 00:00: 00 No 2mg Vitamin D2 1,250 mcg (50,000 unit) capsule -15 00:00: 00 No 1(50,00 0 unit) Flomax 0.4 mg capsule -14 00:00: 00 No 1mg diclofenac 1 % topical gel -14 00:00: 00 No 1% metoprolol tartrate 50 mg tablet -14 00:00: 00 No 1mg lisinopril 20 mg-hydrochl orothiazide 12.5 mg tablet 09-10 00:00: 00 No 1mg lisinopril 20 mg-hydrochl orothiazide 12.5 mg tablet 09-10 00:00: 00 No 1mg simvastatin 20 mg tablet 09-10 00:00: 00 No 1mg Flomax 0.4 mg capsule 09-10 00:00: 00 No 1mg diclofenac 1 % topical gel 09-10 00:00: 00 No 1% metoprolol tartrate 50 mg tablet 09-10 00:00: 00 No 1mg lisinopril 20 mg-hydrochl orothiazide 12.5 mg tablet 09-10 00:00: 00 No 1mg lisinopril 20 mg-hydrochl orothiazide 12.5 mg tablet 09-10 00:00: 00 No 1mg simvastatin 20 mg tablet 09-10 00:00: 00 No 1mg Flomax 0.4 mg capsule 09-10 00:00: 00 No 1mg diclofenac 1 % topical gel 09-10 00:00: 00 No 1% metoprolol tartrate 50 mg tablet 09-10 00:00: 00 No 1mg lisinopril 20 mg-hydrochl orothiazide 12.5 mg tablet 09-10 00:00: 00 No 1mg lisinopril 20 mg-hydrochl orothiazide 12.5 mg tablet 09-10 00:00: 00 No 1mg simvastatin 20 mg tablet 09-10 00:00: 00 No 1mg Flomax 0.4 mg capsule 09-10 00:00: 00 No 1mg diclofenac 1 % topical gel 09-10 00:00: 00 No 1% metoprolol tartrate 50 mg tablet 09-10 00:00: 00 No 1mg lisinopril 20 mg-hydrochl orothiazide 12.5 mg tablet 09-10 00:00: 00 No 1mg lisinopril 20 mg-hydrochl orothiazide 12.5 mg tablet 09-10 00:00: 00 No 1mg simvastatin 20 mg tablet 09-10 00:00: 00 No 1mg lisinopril 20 mg-hydrochl orothiazide 12.5 mg tablet 05-23 00:00: 00 No 1mg metoprolol tartrate 50 mg tablet 05-23 00:00: 00 No 1mg lisinopril 20 mg-hydrochl orothiazide 12.5 mg tablet 05-23 00:00: 00 No 1mg metoprolol tartrate 50 mg tablet 05-23 00:00: 00 No 1mg lisinopril 20 mg-hydrochl orothiazide 12.5 mg tablet 05-23 00:00: 00 No 1mg metoprolol tartrate 50 mg tablet 05-23 00:00: 00 No 1mg lisinopril 20 mg-hydrochl orothiazide 12.5 mg tablet 05-23 00:00: 00 No 1mg simvastatin 20 mg tablet 05-23 00:00: 00 No 1mg simvastatin 20 mg tablet 05-23 00:00: 00 No 1mg simvastatin 20 mg tablet 05-23 00:00: 00 No 1mg Flomax 0.4 mg capsule 05-23 00:00: 00 No 1mg Flomax 0.4 mg capsule 05-23 00:00: 00 No 1mg Flomax 0.4 mg capsule 05-23 00:00: 00 No 1mg lisinopril 20 mg-hydrochl orothiazide 12.5 mg tablet 05-23 00:00: 00 No 1mg metoprolol tartrate 50 mg tablet 05-23 00:00: 00 No 1mg lisinopril 20 mg-hydrochl orothiazide 12.5 mg tablet 05-23 00:00: 00 No 1mg metoprolol tartrate 50 mg tablet 05-23 00:00: 00 No 1mg lisinopril 20 mg-hydrochl orothiazide 12.5 mg tablet 05-23 00:00: 00 No 1mg metoprolol tartrate 50 mg tablet 05-23 00:00: 00 No 1mg lisinopril 20 mg-hydrochl orothiazide 12.5 mg tablet 05-23 00:00: 00 No 1mg simvastatin 20 mg tablet 05-23 00:00: 00 No 1mg simvastatin 20 mg tablet 05-23 00:00: 00 No 1mg simvastatin 20 mg tablet 05-23 00:00: 00 No 1mg Flomax 0.4 mg capsule 05-23 00:00: 00 No 1mg Flomax 0.4 mg capsule 05-23 00:00: 00 No 1mg Flomax 0.4 mg capsule 05-23 00:00: 00 No 1mg lisinopril 20 mg-hydrochl orothiazide 12.5 mg tablet 05-23 00:00: 00 No 1mg metoprolol tartrate 50 mg tablet 05-23 00:00: 00 No 1mg lisinopril 20 mg-hydrochl orothiazide 12.5 mg tablet 05-23 00:00: 00 No 1mg metoprolol tartrate 50 mg tablet 05-23 00:00: 00 No 1mg lisinopril 20 mg-hydrochl orothiazide 12.5 mg tablet 05-23 00:00: 00 No 1mg metoprolol tartrate 50 mg tablet 05-23 00:00: 00 No 1mg lisinopril 20 mg-hydrochl orothiazide 12.5 mg tablet 05-23 00:00: 00 No 1mg simvastatin 20 mg tablet 05-23 00:00: 00 No 1mg simvastatin 20 mg tablet 05-23 00:00: 00 No 1mg simvastatin 20 mg tablet 05-23 00:00: 00 No 1mg Flomax 0.4 mg capsule 05-23 00:00: 00 No 1mg Flomax 0.4 mg capsule 05-23 00:00: 00 No 1mg Flomax 0.4 mg capsule 05-23 00:00: 00 No 1mg lisinopril 20 mg-hydrochl orothiazide 12.5 mg tablet 05-23 00:00: 00 No 1mg metoprolol tartrate 50 mg tablet 05-23 00:00: 00 No 1mg lisinopril 20 mg-hydrochl orothiazide 12.5 mg tablet 05-23 00:00: 00 No 1mg metoprolol tartrate 50 mg tablet 05-23 00:00: 00 No 1mg lisinopril 20 mg-hydrochl orothiazide 12.5 mg tablet 05-23 00:00: 00 No 1mg metoprolol tartrate 50 mg tablet 05-23 00:00: 00 No 1mg lisinopril 20 mg-hydrochl orothiazide 12.5 mg tablet 05-23 00:00: 00 No 1mg simvastatin 20 mg tablet 05-23 00:00: 00 No 1mg simvastatin 20 mg tablet 05-23 00:00: 00 No 1mg simvastatin 20 mg tablet 05-23 00:00: 00 No 1mg Flomax 0.4 mg capsule 05-23 00:00: 00 No 1mg Flomax 0.4 mg capsule 05-23 00:00: 00 No 1mg Flomax 0.4 mg capsule 05-23 00:00: 00 No 1mg metoprolol tartrate 50 mg tablet 05-21 00:00: 00 No 1mg lisinopril 20 mg-hydrochl orothiazide 12.5 mg tablet 05-21 00:00: 00 No 1mg metoprolol tartrate 50 mg tablet 05-21 00:00: 00 No 1mg lisinopril 20 mg-hydrochl orothiazide 12.5 mg tablet 05-21 00:00: 00 No 1mg simvastatin 20 mg tablet 05-21 00:00: 00 No 1mg simvastatin 20 mg tablet 05-21 00:00: 00 No 1mg Flomax 0.4 mg capsule 05-21 00:00: 00 No 1mg Flomax 0.4 mg capsule 05-21 00:00: 00 No 1mg metoprolol tartrate 50 mg tablet 05-21 00:00: 00 No 1mg lisinopril 20 mg-hydrochl orothiazide 12.5 mg tablet 05-21 00:00: 00 No 1mg metoprolol tartrate 50 mg tablet 05-21 00:00: 00 No 1mg lisinopril 20 mg-hydrochl orothiazide 12.5 mg tablet 05-21 00:00: 00 No 1mg simvastatin 20 mg tablet 05-21 00:00: 00 No 1mg simvastatin 20 mg tablet 05-21 00:00: 00 No 1mg Flomax 0.4 mg capsule 05-21 00:00: 00 No 1mg Flomax 0.4 mg capsule 05-21 00:00: 00 No 1mg metoprolol tartrate 50 mg tablet 05-21 00:00: 00 No 1mg lisinopril 20 mg-hydrochl orothiazide 12.5 mg tablet 05-21 00:00: 00 No 1mg metoprolol tartrate 50 mg tablet 05-21 00:00: 00 No 1mg lisinopril 20 mg-hydrochl orothiazide 12.5 mg tablet 05-21 00:00: 00 No 1mg simvastatin 20 mg tablet 05-21 00:00: 00 No 1mg simvastatin 20 mg tablet 05-21 00:00: 00 No 1mg Flomax 0.4 mg capsule 05-21 00:00: 00 No 1mg metoprolol tartrate 50 mg tablet 05-21 00:00: 00 No 1mg Flomax 0.4 mg capsule 05-21 00:00: 00 No 1mg lisinopril 20 mg-hydrochl orothiazide 12.5 mg tablet 05-21 00:00: 00 No 1mg metoprolol tartrate 50 mg tablet 05-21 00:00: 00 No 1mg lisinopril 20 mg-hydrochl orothiazide 12.5 mg tablet 05-21 00:00: 00 No 1mg simvastatin 20 mg tablet 05-21 00:00: 00 No 1mg simvastatin 20 mg tablet 05-21 00:00: 00 No 1mg Flomax 0.4 mg capsule 05-21 00:00: 00 No 1mg Flomax 0.4 mg capsule 05-21 00:00: 00 No 1mg metoprolol tartrate 50 mg tablet 02-07 00:00: 00 No 1mg lisinopril 20 mg-hydrochl orothiazide 12.5 mg tablet 02-07 00:00: 00 No 1mg simvastatin 20 mg tablet 02-07 00:00: 00 No 1mg Flomax 0.4 mg capsule 02-07 00:00: 00 No 1mg metoprolol tartrate 50 mg tablet 02-07 00:00: 00 No 1mg lisinopril 20 mg-hydrochl orothiazide 12.5 mg tablet 02-07 00:00: 00 No 1mg simvastatin 20 mg tablet 02-07 00:00: 00 No 1mg Flomax 0.4 mg capsule 02-07 00:00: 00 No 1mg metoprolol tartrate 50 mg tablet 02-07 00:00: 00 No 1mg lisinopril 20 mg-hydrochl orothiazide 12.5 mg tablet 02-07 00:00: 00 No 1mg simvastatin 20 mg tablet 02-07 00:00: 00 No 1mg metoprolol tartrate 50 mg tablet 02-07 00:00: 00 No 1mg Flomax 0.4 mg capsule 02-07 00:00: 00 No 1mg lisinopril 20 mg-hydrochl orothiazide 12.5 mg tablet 02-07 00:00: 00 No 1mg simvastatin 20 mg tablet 02-07 00:00: 00 No 1mg Flomax 0.4 mg capsule 02-07 00:00: 00 No 1mg metoprolol tartrate 50 mg tablet 11-13 00:00: 00 No 1mg lisinopril 20 mg-hydrochl orothiazide 12.5 mg tablet 11-13 00:00: 00 No 1mg simvastatin 20 mg tablet 11-13 00:00: 00 No 1mg Flomax 0.4 mg capsule 11-13 00:00: 00 No 1mg metoprolol tartrate 50 mg tablet 11-13 00:00: 00 No 1mg lisinopril 20 mg-hydrochl orothiazide 12.5 mg tablet 11-13 00:00: 00 No 1mg simvastatin 20 mg tablet 11-13 00:00: 00 No 1mg Flomax 0.4 mg capsule 11-13 00:00: 00 No 1mg metoprolol tartrate 50 mg tablet 11-13 00:00: 00 No 1mg lisinopril 20 mg-hydrochl orothiazide 12.5 mg tablet 11-13 00:00: 00 No 1mg simvastatin 20 mg tablet 11-13 00:00: 00 No 1mg Flomax 0.4 mg capsule 11-13 00:00: 00 No 1mg metoprolol tartrate 50 mg tablet 11-13 00:00: 00 No 1mg lisinopril 20 mg-hydrochl orothiazide 12.5 mg tablet 11-13 00:00: 00 No 1mg simvastatin 20 mg tablet 11-13 00:00: 00 No 1mg Flomax 0.4 mg capsule 11-13 00:00: 00 No 1mg Flomax 0.4 mg capsule 2017-08 2 00:00: 00 No 1mg metoprolol tartrate 50 mg tablet 2017-08 2 00:00: 00 No 1mg lisinopril 20 mg-hydrochl orothiazide 12.5 mg tablet 2017-08 2 00:00: 00 No 1mg simvastatin 20 mg tablet 2017-08 2 00:00: 00 No 1mg Flomax 0.4 mg capsule 2017-08 2 00:00: 00 No 1mg metoprolol tartrate 50 mg tablet 2017-08 2 00:00: 00 No 1mg lisinopril 20 mg-hydrochl orothiazide 12.5 mg tablet 2017-08 2 00:00: 00 No 1mg simvastatin 20 mg tablet 2017-08 2 00:00: 00 No 1mg Flomax 0.4 mg capsule 2017-08 2 00:00: 00 No 1mg metoprolol tartrate 50 mg tablet 2017-08 2- 00:00: 00 No 1mg lisinopril 20 mg-hydrochl orothiazide 12.5 mg tablet 2017-08 2 00:00: 00 No 1mg simvastatin 20 mg tablet 2017-08 2 00:00: 00 No 1mg Flomax 0.4 mg capsule 2017-08 2- 00:00: 00 No 1mg metoprolol tartrate 50 mg tablet 2017-08 00:00: 00 No 1mg lisinopril 20 mg-hydrochl orothiazide 12.5 mg tablet 2017-08 00:00: 00 No 1mg simvastatin 20 mg tablet 2017-08 00:00: 00 No 1mg meloxicam 15 mg tablet 2017-08 0 00:00: 00 No 5mg prednisone 20 mg tablet 2017-08 00:00: 00 No mg meloxicam 15 mg tablet 2017-08 00:00: 00 No 5mg prednisone 20 mg tablet 2017-08 00:00: 00 No mg meloxicam 15 mg tablet 2017-08 00:00: 00 No 5mg prednisone 20 mg tablet 2017-08 00:00: 00 No mg meloxicam 15 mg tablet 2017-08 00:00: 00 No 5mg prednisone 20 mg tablet 2017-08 00:00: 00 No mg lisinopril 20 mg-hydrochl orothiazide 12.5 mg tablet 04-04 00:00: 00 No 1mg metoprolol tartrate 50 mg tablet 04-04 00:00: 00 No 1mg lisinopril 20 mg-hydrochl orothiazide 12.5 mg tablet 04-04 00:00: 00 No 1mg metoprolol tartrate 50 mg tablet 04-04 00:00: 00 No 1mg simvastatin 20 mg tablet 04-04 00:00: 00 No 1mg simvastatin 20 mg tablet 04-04 00:00: 00 No 1mg Flomax 0.4 mg capsule 04-04 00:00: 00 No 1mg Flomax 0.4 mg capsule 04-04 00:00: 00 No 1mg lisinopril 20 mg-hydrochl orothiazide 12.5 mg tablet 04-04 00:00: 00 No 1mg metoprolol tartrate 50 mg tablet 04-04 00:00: 00 No 1mg lisinopril 20 mg-hydrochl orothiazide 12.5 mg tablet 04-04 00:00: 00 No 1mg metoprolol tartrate 50 mg tablet 04-04 00:00: 00 No 1mg simvastatin 20 mg tablet 04-04 00:00: 00 No 1mg simvastatin 20 mg tablet 04-04 00:00: 00 No 1mg Flomax 0.4 mg capsule 04-04 00:00: 00 No 1mg Flomax 0.4 mg capsule 04-04 00:00: 00 No 1mg lisinopril 20 mg-hydrochl orothiazide 12.5 mg tablet 04-04 00:00: 00 No 1mg metoprolol tartrate 50 mg tablet 04-04 00:00: 00 No 1mg lisinopril 20 mg-hydrochl orothiazide 12.5 mg tablet 04-04 00:00: 00 No 1mg metoprolol tartrate 50 mg tablet 04-04 00:00: 00 No 1mg simvastatin 20 mg tablet 04-04 00:00: 00 No 1mg simvastatin 20 mg tablet 04-04 00:00: 00 No 1mg Flomax 0.4 mg capsule 04-04 00:00: 00 No 1mg Flomax 0.4 mg capsule 04-04 00:00: 00 No 1mg lisinopril 20 mg-hydrochl orothiazide 12.5 mg tablet 04-04 00:00: 00 No 1mg metoprolol tartrate 50 mg tablet 04-04 00:00: 00 No 1mg lisinopril 20 mg-hydrochl orothiazide 12.5 mg tablet 04-04 00:00: 00 No 1mg metoprolol tartrate 50 mg tablet 04-04 00:00: 00 No 1mg simvastatin 20 mg tablet 04-04 00:00: 00 No 1mg simvastatin 20 mg tablet 04-04 00:00: 00 No 1mg Flomax 0.4 mg capsule 04-04 00:00: 00 No 1mg Flomax 0.4 mg capsule 04-04 00:00: 00 No 1mg metoprolol tartrate 50 mg tablet 03-02 00:00: 00 No 1mg lisinopril 20 mg-hydrochl orothiazide 12.5 mg tablet 03-02 00:00: 00 No 1mg simvastatin 20 mg tablet 03-02 00:00: 00 No 1mg Flomax 0.4 mg capsule 03-02 00:00: 00 No 1mg metoprolol tartrate 50 mg tablet 03-02 00:00: 00 No 1mg lisinopril 20 mg-hydrochl orothiazide 12.5 mg tablet 03-02 00:00: 00 No 1mg simvastatin 20 mg tablet 03-02 00:00: 00 No 1mg Flomax 0.4 mg capsule 03-02 00:00: 00 No 1mg metoprolol tartrate 50 mg tablet 03-02 00:00: 00 No 1mg lisinopril 20 mg-hydrochl orothiazide 12.5 mg tablet 03-02 00:00: 00 No 1mg simvastatin 20 mg tablet 03-02 00:00: 00 No 1mg Flomax 0.4 mg capsule 03-02 00:00: 00 No 1mg metoprolol tartrate 50 mg tablet 03-02 00:00: 00 No 1mg lisinopril 20 mg-hydrochl orothiazide 12.5 mg tablet 03-02 00:00: 00 No 1mg simvastatin 20 mg tablet 03-02 00:00: 00 No 1mg Flomax 0.4 mg capsule 03-02 00:00: 00 No 1mg Vitamin D2 50,000 unit capsule 12-03 00:00: 00 No 1unit Vitamin D2 50,000 unit capsule 12-03 00:00: 00 No 1unit Vitamin D2 50,000 unit capsule 12-03 00:00: 00 No 1unit Vitamin D2 50,000 unit capsule 12-03 00:00: 00 No 1unit lisinopril 20 mg-hydrochl orothiazide 12.5 mg tablet 11-23 00:00: 00 No 1mg metoprolol tartrate 50 mg tablet 11-23 00:00: 00 No 1mg simvastatin 20 mg tablet 11-23 00:00: 00 No 1mg Flomax 0.4 mg capsule 11-23 00:00: 00 No 1mg lisinopril 20 mg-hydrochl orothiazide 12.5 mg tablet 11-23 00:00: 00 No 1mg metoprolol tartrate 50 mg tablet 11-23 00:00: 00 No 1mg simvastatin 20 mg tablet 11-23 00:00: 00 No 1mg Flomax 0.4 mg capsule 11-23 00:00: 00 No 1mg lisinopril 20 mg-hydrochl orothiazide 12.5 mg tablet 11-23 00:00: 00 No 1mg metoprolol tartrate 50 mg tablet 11-23 00:00: 00 No 1mg simvastatin 20 mg tablet 11-23 00:00: 00 No 1mg Flomax 0.4 mg capsule 11-23 00:00: 00 No 1mg lisinopril 20 mg-hydrochl orothiazide 12.5 mg tablet 11-23 00:00: 00 No 1mg metoprolol tartrate 50 mg tablet 11-23 00:00: 00 No 1mg simvastatin 20 mg tablet 11-23 00:00: 00 No 1mg Flomax 0.4 mg capsule 11-23 00:00: 00 No 1mg metoprolol tartrate 50 mg tablet 2016-08 00:00: 00 No 1mg lisinopril 20 mg-hydrochl orothiazide 12.5 mg tablet 2016-08 00:00: 00 No 1mg simvastatin 20 mg tablet 2016-08 00:00: 00 No 1mg Flomax 0.4 mg capsule 2016-08 00:00: 00 No 1mg metoprolol tartrate 50 mg tablet 2016-08 00:00: 00 No 1mg metoprolol tartrate 50 mg tablet 2016-08 00:00: 00 No 1mg lisinopril 20 mg-hydrochl orothiazide 12.5 mg tablet 2016-08 00:00: 00 No 1mg simvastatin 20 mg tablet 2016-08 00:00: 00 No 1mg Flomax 0.4 mg capsule 2016-08 00:00: 00 No 1mg lisinopril 20 mg-hydrochl orothiazide 12.5 mg tablet 2016-08 00:00: 00 No 1mg simvastatin 20 mg tablet 2016-08 00:00: 00 No 1mg Flomax 0.4 mg capsule 2016-08 00:00: 00 No 1mg metoprolol tartrate 50 mg tablet 2016-08 00:00: 00 No 1mg lisinopril 20 mg-hydrochl orothiazide 12.5 mg tablet 2016-08 00:00: 00 No 1mg simvastatin 20 mg tablet 2016-08 00:00: 00 No 1mg Flomax 0.4 mg capsule 2016-08 00:00: 00 No 1mg lisinopril 20 mg-hydrochl orothiazide 12.5 mg tablet 05-22 00:00: 00 No 1mg metoprolol tartrate 50 mg tablet 05-22 00:00: 00 No 1mg simvastatin 20 mg tablet 05-22 00:00: 00 No 1mg Flomax 0.4 mg capsule 05-22 00:00: 00 No 1mg lisinopril 20 mg-hydrochl orothiazide 12.5 mg tablet 05-22 00:00: 00 No 1mg metoprolol tartrate 50 mg tablet 05-22 00:00: 00 No 1mg simvastatin 20 mg tablet 05-22 00:00: 00 No 1mg Flomax 0.4 mg capsule 05-22 00:00: 00 No 1mg lisinopril 20 mg-hydrochl orothiazide 12.5 mg tablet 05-22 00:00: 00 No 1mg metoprolol tartrate 50 mg tablet 05-22 00:00: 00 No 1mg simvastatin 20 mg tablet 05-22 00:00: 00 No 1mg Flomax 0.4 mg capsule 05-22 00:00: 00 No 1mg lisinopril 20 mg-hydrochl orothiazide 12.5 mg tablet 05-22 00:00: 00 No 1mg metoprolol tartrate 50 mg tablet 05-22 00:00: 00 No 1mg simvastatin 20 mg tablet 05-22 00:00: 00 No 1mg Flomax 0.4 mg capsule 05-22 00:00: 00 No 1mg lisinopril 20 mg-hydrochl orothiazide 12.5 mg tablet 02-01 00:00: 00 No 1mg metoprolol tartrate 50 mg tablet 02-01 00:00: 00 No 1mg simvastatin 20 mg tablet 02-01 00:00: 00 No 1mg Flomax 0.4 mg capsule 02-01 00:00: 00 No 1mg lisinopril 20 mg-hydrochl orothiazide 12.5 mg tablet 02-01 00:00: 00 No 1mg metoprolol tartrate 50 mg tablet 02-01 00:00: 00 No 1mg simvastatin 20 mg tablet 02-01 00:00: 00 No 1mg Flomax 0.4 mg capsule 02-01 00:00: 00 No 1mg lisinopril 20 mg-hydrochl orothiazide 12.5 mg tablet 02-01 00:00: 00 No 1mg metoprolol tartrate 50 mg tablet 02-01 00:00: 00 No 1mg simvastatin 20 mg tablet 02-01 00:00: 00 No 1mg Flomax 0.4 mg capsule 02-01 00:00: 00 No 1mg lisinopril 20 mg-hydrochl orothiazide 12.5 mg tablet 02-01 00:00: 00 No 1mg metoprolol tartrate 50 mg tablet 02-01 00:00: 00 No 1mg simvastatin 20 mg tablet 02-01 00:00: 00 No 1mg Flomax 0.4 mg capsule 02-01 00:00: 00 No 1mg metoprolol tartrate 50 mg tablet 10-25 00:00: 00 No 1mg lisinopril 20 mg-hydrochl orothiazide 12.5 mg tablet 10-25 00:00: 00 No 1mg simvastatin 20 mg tablet 10-25 00:00: 00 No 1mg Flomax 0.4 mg capsule 10-25 00:00: 00 No 1mg metoprolol tartrate 50 mg tablet 10-25 00:00: 00 No 1mg lisinopril 20 mg-hydrochl orothiazide 12.5 mg tablet 10-25 00:00: 00 No 1mg simvastatin 20 mg tablet 10-25 00:00: 00 No 1mg Flomax 0.4 mg capsule 10-25 00:00: 00 No 1mg metoprolol tartrate 50 mg tablet 10-25 00:00: 00 No 1mg lisinopril 20 mg-hydrochl orothiazide 12.5 mg tablet 10-25 00:00: 00 No 1mg simvastatin 20 mg tablet 10-25 00:00: 00 No 1mg Flomax 0.4 mg capsule 10-25 00:00: 00 No 1mg metoprolol tartrate 50 mg tablet 10-25 00:00: 00 No 1mg lisinopril 20 mg-hydrochl orothiazide 12.5 mg tablet 10-25 00:00: 00 No 1mg simvastatin 20 mg tablet 10-25 00:00: 00 No 1mg Flomax 0.4 mg capsule 10-25 00:00: 00 No 1mg Flomax 0.4 mg capsule 09-13 00:00: 00 No 1mg Flomax 0.4 mg capsule 09-13 00:00: 00 No 1mg Flomax 0.4 mg capsule 09-13 00:00: 00 No 1mg Flomax 0.4 mg capsule 09-13 00:00: 00 No 1mg lisinopril 20 mg-hydrochl orothiazide 12.5 mg tablet 2015-08 00:00: 00 No 1mg metoprolol tartrate 50 mg tablet 2015-08 00:00: 00 No 1mg simvastatin 20 mg tablet 2015-08 00:00: 00 No 1mg lisinopril 20 mg-hydrochl orothiazide 12.5 mg tablet 2015-08 00:00: 00 No 1mg metoprolol tartrate 50 mg tablet 2015-08 00:00: 00 No 1mg simvastatin 20 mg tablet 2015-08 00:00: 00 No 1mg lisinopril 20 mg-hydrochl orothiazide 12.5 mg tablet 2015-08 00:00: 00 No 1mg metoprolol tartrate 50 mg tablet 2015-08 00:00: 00 No 1mg simvastatin 20 mg tablet 2015-08 00:00: 00 No 1mg lisinopril 20 mg-hydrochl orothiazide 12.5 mg tablet 2015-08 00:00: 00 No 1mg metoprolol tartrate 50 mg tablet 2015-08 00:00: 00 No 1mg simvastatin 20 mg tablet 2015-08 00:00: 00 No 1mg metoprolol tartrate 50 mg tablet 03-18 00:00: 00 No 1mg naproxen 500 mg tablet 03-18 00:00: 00 No 1mg simvastatin 20 mg tablet 03-18 00:00: 00 No 1mg lisinopril 20 mg-hydrochl orothiazide 12.5 mg tablet 03-18 00:00: 00 No 1mg metoprolol tartrate 50 mg tablet 03-18 00:00: 00 No 1mg naproxen 500 mg tablet 03-18 00:00: 00 No 1mg simvastatin 20 mg tablet 03-18 00:00: 00 No 1mg lisinopril 20 mg-hydrochl orothiazide 12.5 mg tablet 03-18 00:00: 00 No 1mg metoprolol tartrate 50 mg tablet 03-18 00:00: 00 No 1mg naproxen 500 mg tablet 03-18 00:00: 00 No 1mg simvastatin 20 mg tablet 03-18 00:00: 00 No 1mg lisinopril 20 mg-hydrochl orothiazide 12.5 mg tablet 03-18 00:00: 00 No 1mg metoprolol tartrate 50 mg tablet 03-18 00:00: 00 No 1mg naproxen 500 mg tablet 03-18 00:00: 00 No 1mg simvastatin 20 mg tablet 03-18 00:00: 00 No 1mg lisinopril 20 mg-hydrochl orothiazide 12.5 mg tablet 03-18 00:00: 00 No 1mg metoprolol tartrate 50 mg tablet 08-31 00:00: 00 No 1mg lisinopril 20 mg-hydrochl orothiazide 12.5 mg tablet 08-31 00:00: 00 No 1mg simvastatin 20 mg tablet 08-31 00:00: 00 No 1mg metoprolol tartrate 50 mg tablet 08-31 00:00: 00 No 1mg lisinopril 20 mg-hydrochl orothiazide 12.5 mg tablet 08-31 00:00: 00 No 1mg simvastatin 20 mg tablet 08-31 00:00: 00 No 1mg metoprolol tartrate 50 mg tablet 08-31 00:00: 00 No 1mg lisinopril 20 mg-hydrochl orothiazide 12.5 mg tablet 08-31 00:00: 00 No 1mg simvastatin 20 mg tablet 08-31 00:00: 00 No 1mg metoprolol tartrate 50 mg tablet 08-31 00:00: 00 No 1mg lisinopril 20 mg-hydrochl orothiazide 12.5 mg tablet 08-31 00:00: 00 No 1mg simvastatin 20 mg tablet 08-31 00:00: 00 No 1mg metoprolol tartrate 50 mg tablet 05-19 00:00: 00 No 1mg metoprolol tartrate 50 mg tablet 05-19 00:00: 00 No 1mg metoprolol tartrate 50 mg tablet 05-19 00:00: 00 No 1mg metoprolol tartrate 50 mg tablet 05-19 00:00: 00 No 1mg Aricept 10 mg tablet 05-14 00:00: 00 No 1mg simvastatin 20 mg tablet 05-14 00:00: 00 No 1mg Aricept 10 mg tablet 05-14 00:00: 00 No 1mg simvastatin 20 mg tablet 05-14 00:00: 00 No 1mg Aricept 10 mg tablet 05-14 00:00: 00 No 1mg simvastatin 20 mg tablet 05-14 00:00: 00 No 1mg Aricept 10 mg tablet 05-14 00:00: 00 No 1mg simvastatin 20 mg tablet 05-14 00:00: 00 No 1mg lisinopril 20 mg-hydrochl orothiazide 12.5 mg tablet 05-05 00:00: 00 No 1mg amlodipine 5 mg tablet 05-05 00:00: 00 No 1mg naproxen 500 mg tablet 05-05 00:00: 00 No 1mg lisinopril 20 mg-hydrochl orothiazide 12.5 mg tablet 05-05 00:00: 00 No 1mg amlodipine 5 mg tablet 05-05 00:00: 00 No 1mg naproxen 500 mg tablet 05-05 00:00: 00 No 1mg lisinopril 20 mg-hydrochl orothiazide 12.5 mg tablet 05-05 00:00: 00 No 1mg amlodipine 5 mg tablet 05-05 00:00: 00 No 1mg naproxen 500 mg tablet 05-05 00:00: 00 No 1mg lisinopril 20 mg-hydrochl orothiazide 12.5 mg tablet 05-05 00:00: 00 No 1mg amlodipine 5 mg tablet 05-05 00:00: 00 No 1mg naproxen 500 mg tablet 05-05 00:00: 00 No 1mg Norvasc 5 mg tablet 11-01 00:00: 00 No 1mg Norvasc 5 mg tablet 11-01 00:00: 00 No 1mg Norvasc 5 mg tablet 11-01 00:00: 00 No 1mg Norvasc 5 mg tablet 11-01 00:00: 00 No 1mg lisinopril 20 mg-hydrochl orothiazide 12.5 mg tablet 10-24 00:00: 00 No 2mg Aricept 10 mg tablet 10-24 00:00: 00 No 1mg cetirizine 10 mg tablet 10-24 00:00: 00 No 1mg naproxen 500 mg tablet 10-24 00:00: 00 No 1mg lisinopril 20 mg-hydrochl orothiazide 12.5 mg tablet 10-24 00:00: 00 No 2mg Aricept 10 mg tablet 10-24 00:00: 00 No 1mg lisinopril 20 mg-hydrochl orothiazide 12.5 mg tablet 10-24 00:00: 00 No 2mg Aricept 10 mg tablet 10-24 00:00: 00 No 1mg cetirizine 10 mg tablet 10-24 00:00: 00 No 1mg naproxen 500 mg tablet 10-24 00:00: 00 No 1mg cetirizine 10 mg tablet 10-24 00:00: 00 No 1mg naproxen 500 mg tablet 10-24 00:00: 00 No 1mg lisinopril 20 mg-hydrochl orothiazide 12.5 mg tablet 10-24 00:00: 00 No 2mg Aricept 10 mg tablet 10-24 00:00: 00 No 1mg cetirizine 10 mg tablet 10-24 00:00: 00 No 1mg naproxen 500 mg tablet 10-24 00:00: 00 No 1mg Aricept 10 mg tablet 09-26 00:00: 00 No 1mg Aricept 10 mg tablet 09-26 00:00: 00 No 1mg lisinopril 20 mg-hydrochl orothiazide 12.5 mg tablet 09-26 00:00: 00 No 1mg lisinopril 20 mg-hydrochl orothiazide 12.5 mg tablet 09-26 00:00: 00 No 1mg Aricept 10 mg tablet 09-26 00:00: 00 No 1mg lisinopril 20 mg-hydrochl orothiazide 12.5 mg tablet 09-26 00:00: 00 No 1mg Aricept 10 mg tablet 09-26 00:00: 00 No 1mg lisinopril 20 mg-hydrochl orothiazide 12.5 mg tablet 09-26 00:00: 00 No 1mg Vital Signs Vital Name Observation Time Observation Value Comments S ource BP Systolic 2022-09-08 11:01:00 159 mm[Hg] BP [...] Procedures Procedure Date / Time Performed Performing [facility] Source 73880 Ecg Routine Ecg W/leas t 12 Lds W/i r 2016-06-10 00:00:00 Plan of Care Planned Activity Planned Date Details Comments Source Goal Plan of Care Note [code = 95585-9] Goal Plan of Care Note [code = 96101-2] Goal Plan of Care Note [code = 54080-2] Goal Plan of Care Note [code = 78525-1] Goal Plan of Care Note [code = 70765-2] Goal Plan of Care Note [code = 78580-8] Goal Plan of Care Note [code = 88052-4] Goal Plan of Care Note [code = 36786-0] Goal Plan of Care Note [code = 65206-6] Goal Plan of Care Note [code = 53234-6] Goal Plan of Care Note [code = 65351-0] Goal Plan of Care Note [code = 23444-3] Goal Plan of Care Note [code = 09057-4] Goal Plan of Care Note [code = 52951-0] Goal Plan of Care Note [code = 16180-8] Goal Plan of Care Note [code = 96576-9] Goal Plan of Care Note [code = 31693-9] Goal Plan of Care Note [code = 07802-6] Goal Plan of Care Note [code = 81609-7] Goal Plan of Care Note [code = 35140-8] Goal Plan of Care Note [code = 34590-1] Goal Plan of Care Note [code = 60612-3] Goal Plan of Care Note [code = 92266-7] Goal Plan of Care Note [code = 51947-0] Goal Plan of Care Note [code = 34385-4] Goal Plan of Care Note [code = 77390-6] Goal Plan of Care Note [code = 40538-8] Goal Plan of Care Note [code = 67612-2] Goal Plan of Care Note [code = 18064-6] Goal Plan of Care Note [code = 42240-4] Goal Plan of Care Note [code = 16217-1] Goal Plan of Care Note [code = 53643-8] Goal Plan of Care Note [code = 24821-0] Goal Plan of Care Note [code = 25013-7] Goal Plan of Care Note [code = 54989-1] Goal Plan of Care Note [code = 19162-7] Goal Plan of Care Note [code = 02987-3] Goal Plan of Care Note [code = 23377-8] Goal Plan of Care Note [code = 43943-9] Goal Plan of Care Note [code = 29138-4] Goal Plan of Care Note [code = 48410-8] Goal Plan of Care Note [code = 32357-2] Goal Plan of Care Note [code = 07124-6] Goal Plan of Care Note [code = 12237-9] Goal Plan of Care Note [code = 37626-8] Goal Plan of Care Note [code = 86921-9] Goal Plan of Care Note [code = 42262-8] Goal Plan of Care Note [code = 90803-2] Goal Plan of Care Note [code = 97894-3] Goal Plan of Care Note [code = 41767-3] Goal Plan of Care Note [code = 81141-4] Goal Plan of Care Note [code = 14511-6] Goal Plan of Care Note [code = 95309-4] Goal Plan of Care Note [code = 57233-8] Goal Plan of Care Note [code = 28741-3] Goal Plan of Care Note [code = 02278-7] Goal Plan of Care Note [code = 30613-6] Goal Plan of Care Note [code = 91222-2] Goal Plan of Care Note [code = 31980-4] Goal Plan of Care Note [code = 29944-2] Goal Plan of Care Note [code = 57855-7] Goal Plan of Care Note [code = 79322-7] Goal Plan of Care Note [code = 75106-8] Goal Plan of Care Note [code = 95379-9] Goal Plan of Care Note [code = 08307-2] Goal Plan of Care Note [code = 38111-4] Goal Plan of Care Note [code = 56611-2] Goal Plan of Care Note [code = 00987-8] Goal Plan of Care Note [code = 04585-2] Goal Plan of Care Note [code = 46167-0] Goal Plan of Care Note [code = 65931-9] Goal Plan of Care Note [code = 63302-3] Goal Plan of Care Note [code = 25571-0] Goal Plan of Care Note [code = 76872-9] Goal Plan of Care Note [code = 63330-3] Goal Plan of Care Note [code = 07251-6] Goal Plan of Care Note [code = 80314-9] Goal Plan of Care Note [code = 03017-3] Goal Plan of Care Note [code = 93778-1] Goal Plan of Care Note [code = 60114-7] Goal Plan of Care Note [code = 57899-6] Goal Plan of Care Note [code = 38043-5] Goal Plan of Care Note [code = 10973-4] Goal Plan of Care Note [code = 35602-9] Goal Plan of Care Note [code = 47290-9] Goal Plan of Care Note [code = 29855-3] Goal Plan of Care Note [code = 02384-9] Goal Plan of Care Note [code = 63763-4] Goal Plan of Care Note [code = 26180-1] Goal Plan of Care Note [code = 19789-0] Goal Plan of Care Note [code = 51040-6] Goal Plan of Care Note [code = 43316-4] Goal Plan of Care Note [code = 49588-8] Goal Plan of Care Note [code = 50661-4] Goal Plan of Care Note [code = 31801-1] Goal Plan of Care Note [code = 12490-6] Goal Plan of Care Note [code = 53011-3] Goal Plan of Care Note [code = 61760-1] Goal Plan of Care Note [code = 70041-2] Goal Plan of Care Note [code = 72137-7] Goal Plan of Care Note [code = 62597-7] Goal Plan of Care Note [code = 66604-3] Goal Plan of Care Note [code = 17916-8] Goal Plan of Care Note [code = 86770-8] Goal Plan of Care Note [code = 88375-0] Goal Plan of Care Note [code = 98024-4] Goal Plan of Care Note [code = 18230-8] Goal Plan of Care Note [code = 85878-8] Goal Plan of Care Note [code = 47236-5] Goal Plan of Care Note [code = 51918-3] Goal Plan of Care Note [code = 36967-5] Goal Plan of Care Note [code = 46923-9] Goal Plan of Care Note [code = 48400-3] Goal Plan of Care Note [code = 48812-0] Goal Plan of Care Note [code = 49069-4] Goal Plan of Care Note [code = 12487-0] Goal Plan of Care Note [code = 69416-3] Goal Plan of Care Note [code = 98064-0] Goal Plan of Care Note [code = 11338-3] Goal Plan of Care Note [code = 49882-9] Goal Plan of Care Note [code = 85741-3] Goal Plan of Care Note [code = 30459-7] Goal Plan of Care Note [code = 62858-7] Goal Plan of Care Note [code = 09330-7] Goal Plan of Care Note [code = 10317-4] Goal Plan of Care Note [code = 19157-0] Goal Plan of Care Note [code = 19148-3] Goal Plan of Care Note [code = 86531-4] Goal Plan of Care Note [code = 40543-3] Goal Plan of Care Note [code = 00125-0] Goal Plan of Care Note [code = 07032-6] Goal Plan of Care Note [code = 54787-0] Goal Plan of Care Note [code = 94102-4] Goal Plan of Care Note [code = 26297-9] Goal Plan of Care Note [code = 24319-8] Goal Plan of Care Note [code = 62871-9] Goal Plan of Care Note [code = 13458-6] Goal Plan of Care Note [code = 83905-2] Goal Plan of Care Note [code = 39442-7] Goal Plan of Care Note [code = 58548-2] Goal Plan of Care Note [code = 04704-8] Encounters Start Date/Time End Date/Time Encounter Type Admission Type Attending [facility] Care Facility Care Department Encounter ID Source 2023-08-23 11:33:16 2023-08-23 11:33:16 Outpatient [facility] [id number]ro 2023-07-06 08:46:24 2023-07-06 08:46:24 Outpatient [facility] [id number] Pizarro 2023-05-04 09:57:42 2023-05-04 09:57:42 Outpatient [facility] [id number] [address]izarro 2022-12-02 10:26:18 2022-12-02 10:26:18 Outpatient [facility] [id number] [address] Pizarro 2022-09-14 09:25:22 2022-09-14 09:25:22 Outpatient [facility] [id number] [address] Pizarro 2022-09-08 10:45:06 2022-09-08 10:45:06 Outpatient [facility] 011 [address] Pizarro 2022-09-08 00:00:00 2022-09-08 00:00:00 Outpatient Visit [id number] 2022-08-18 10:15:05 2022-08-18 10:15:05 Outpatient [facility] [id number] [address]izarro 2022-08-18 00:00:00 2022-08-18 00:00:00 Outpatient Visit [id number] 2022-08-09 10:49:12 2022-08-09 10:49:12 Outpatient [facility] [id number] [address] 2022-08-09 00:00:00 2022-08-09 00:00:00 Outpatient Visit [id number] 2022-06-01 11:18:06 2022-06-01 11:18:06 Outpatient [facility] [id number] [address] Pizarro 2022-06-01 00:00:00 2022-06-01 00:00:00 Outpatient Visit [id number] Results Test Description Test Time Test Comments Results Result Co mments Source COMPREHENSIVE METABOLIC [id number] 06:56:53* Test Item Value Reference Range Interpretation Comme nts GLUCOSE (test code = 2217) 110 MG/DL 70-99 H BUN (test code = 220) 5 MG/DL 8-23 L CREATININE (test code = 2214) 1.07 MG/DL 0.80-1.40 eGFR (2020 CKD-EPI) (test code = 87172) 75 ML/MIN/1.73 >60 CALC BUN/CREAT (test code = 2235) 5 RATIO 6-28 L SODIUM (test code = 223) 147 MEQ/L 133-146 H POTASSIUM (test code = 2228) 4.2 MEQ/L 3.5-5.4 CHLORIDE (test code = 2215) 108 MEQ/L 95-107 H CARBON DIOXIDE (test code = 2206) 28 MEQ/L 19-31 CALCIUM (test code = 2209) 10.2 MG/DL 8.5-10.5 PROTEIN, TOTAL (test code = 2229) 6.7 G/DL 6.1-8.3 ALBUMIN (test code = 2201) 4.3 G/DL 3.5-5.2 CALC GLOBULIN (test code = 2240) 2.4 G/DL 1.9-3.7 CALC A/G RATIO (test code = 2234) 1.8 RATIO 1.0-2.6 BILIRUBIN, TOTAL (test code = 2207) 0.5 MG/DL See_Comment [Automated me ssage] The system which generated this result transmitted reference range: <=1.2. The reference range was not used to interpret this result as normal/abnormal. ALKALINE PHOSPHATASE (test code = 2204) 103 U/L 40-125 AST (test code = 2218) 9 U/L 9-50 ALT (test code = 2219) 9 U/L 5-50 LIPID [id number] 06:56:53* Test Item Value Reference Range Interpretation Comme nts CHOLESTEROL (test code = 2210) 159 MG/DL <200 TRIGLYCERIDES (test code = 2232) 47 MG/DL <150 HDL CHOLESTEROL (test code = 2220) 48 MG/DL >39 CALC LDL CHOL (test code = 2237) 97 MG/DL <100 NOTE: CALCULATED LDL IS BASED ON ZORAN-MAGA[place]A METHOD WHICHINCLUDES ADJUSTABLE TRIGLYCERIDE:VLDL CHOLESTEROL RATIO.THIS FACTOR VARIES BY MEASURED TRIGLYCERIDE AND NON-HDLCHOLESTEROL CONCENTRATIONS WITH INCREASED CALCULATED LDL SEENIN HIGHER TRIGLYCERIDE OR LOWER NON-HDL SPECIMENS. FOR MOREINFORMATION, SEE CLIENT ANNOUNCEMENT AT [email or web address] RISK RATIO LDL/HDL (test code = 2238) 2.02 RATIO <3.55 VITAMIN B 12 AND FOLIC [id number] 05:46:23* Test Item Value Reference Range Interpretation Comme nts VITAMIN B-12 (test code = 2840) 318 PG/ML 200-950 FOLIC ACID (test code = 2695) 3.8 UG/L SEE BELOW L INTERPRETI VE RANGES DEFICIENCY . . . . . . . . . . . . . . . UG/L <4.0 POSSIBLE DEFICIENCY. . . . . . . . . . . UG/L 4.0-5.9 SUFFICIENT . . . . . . . . . . . . . . . UG/L >=6.0 UNLESS OTHERWISE INDICATED, ALL TESTING PERFORMED AT [facility] [address] [place] [address] OUTGOING INSPECTOR: EFRAIN BAXTER M.D. CLIA NUMBER [id number] [facility] [place]. [id number] HEMOGLOBIN [id number] 04:04:07* Test Item Value Reference Range Interpretation Comme [facility] HEMOGLOBIN A1c (test code = 46273) 5.9 % 4.2-5.6 H [employer] GUIDELINES FOR HGB A1C: PREDIABETES/INCREASED RISK . . . . . . . 5.7-6.4% DIAGNOSIS OF DIABETES . . . . . . . . . >=6.5% WITH CONFIRMATION OR APPROPRIATE SYMPTOMS NOTE: ASSAY MAY BE AFFECTED BY HEMOGLOBINOPATHIES (SICKLE CELL ANEMIA, S-C DISEASE, OTHERS) OR ARTIFICIALLY LOWERED BY DECREASED RED CELL SURVIVAL (HEMOLYTIC ANEMIAS, BLOOD LOSS, ETC.). CONSIDER ALTERNATE TESTING OR LABORATORY CONSULTATION. CBC W/AUTO DIFF WITH [id number] 03:33:42* Test Item Value Reference Range Interpretation Comme nts WBC (test code = 1001) 7.6 K/UL 3.5-11.0 RBC (test code = 1002) 4.56 M/UL 4.50-6.10 HEMOGLOBIN (test code = 1003) 12.9 G/DL 13.5-17.0 L HEMATOCRIT (test code = 1004) 38.3 % 40.0-51.0 L MCV (test code = 1005) 84.0 fL 80.0-99.0 MCH (test code = 1006) 28.3 PG 25.0-33.0 MCHC (test code = 1007) 33.7 G/DL 31.0-36.0 RDW (test code = 1038) 13.4 % 11.5-15.0 NEUTROPHILS (test code = 1008) 71.1 % LYMPHOCYTES (test code = 1010) 18.5 % MONOCYTES (test code = 1011) 8.1 % EOSINOPHILS (test code = 1012) 1.5 % BASOPHILS (test code = 1013) 0.4 % IMMATURE GRANULOCYTES (test code = 1036) 0.4 % NUCLEATED RBCS (test code = 1065) 0.0 /100 WBC'S See_Comment [Automated messa ge] The system which generated this result transmitted reference range: 0.0. The reference range was not used to interpret this result as normal/abnormal. PLATELET COUNT (test code = 1015) 269 K/UL 130-400 ABSOLUTE NEUTROPHILS (test code = 1066) 5.37 K/UL 1.50-7.50 ABSOLUTE LYMPHOCYTES (test code = 1067) 1.40 K/UL 1.00-4.00 ABSOLUTE MONOCYTES (test code = 1068) 0.61 K/UL 0.20-1.00 ABSOLUTE EOSINOPHILS (test code = 1040) 0.11 K/UL 0.00-0.50 ABSOLUTE BASOPHILS (test code = 1069) 0.03 K/UL 0.00-0.20 ABS IMMATURE GRANULOCYTES (test code = 1020) 0.03 K/UL 0.00-0.10 ABS NUCLEATED RBCS (test code = 55463) 0.02 K/UL 0.00-0.11 VITAMIN B 12 AND FOLIC [id number] 06:16:45* Test Item Value Reference Range Interpretation Comme [facility] VITAMIN B-12 (test code = 2840) 379 PG/ML 200-950 FOLIC ACID (test code = 2695) 5.1 UG/L SEE BELOW L INTERPRETI VE RANGES DEFICIENCY . . . . . . . . . . . . . . . UG/L <4.0 POSSIBLE DEFICIENCY. . . . . . . . . . . UG/L 4.0-5.9 SUFFICIENT . . . . . . . . . . . . . . . UG/L >=6.0 TSH, THIRD [id number] 06:16:45* Test Item Value Reference Range Interpretation Comme nts TSH, THIRD GENERATION (test code = 2821) 1.790 UIU/ML 0.400-4.100 UNLESS OTHERWISE INDICATED, ALL TESTING PERFORMED [facility] [address] [place] [id number] OUTGOING INSPECTOR: TOMER QUEZADA M.D. CLIA NUMBER [id number] [facility] [place]. [id number] HEPATITIS PANEL, [id number] 05:58:55* Test Item Value Reference Range Interpretation Comme nts HEPATITIS A IgM (test code = 16713) NON-REACTIVE NON-REACTIVE HEPATITIS B CORE IgM (test code = 4644) NON-REACTIVE NON-REACTIVE HEPATITIS B SURF AG (test code = 2739) NON-REACTIVE NON-REACTIVE HEPATITIS C ANTIBODY (test code = 4675) NON-REACTIVE NON-REACTIVE INTERPRETATION HEPATITIS A: (test code = 2552) (NOTE) Hepatitis A serology shows no evidence of acute hepatitis A. INTERPRETATION HEPATITIS B: (test code = 73416) (NOTE) Hepatitis B serology shows no evidence of acute hepatitis B andno indication of exposure to hepatitis B virus in the previous juve eight months. INTERPRETATION HEPATITIS C: (test code = 46838) (NOTE) Hepatitis C serology shows no evidence of exposure to hepatitisC virus at this time. It can take up to 12 months after exposure tothe hepatitis C virus for antibodies to become detectable in the blood in certain patients. COMPREHENSIVE METABOLIC [id number] 05:20:19* Test Item Value Reference Range Interpretation Comme nts GLUCOSE (test code = 2217) 100 MG/DL 70-99 H BUN (test code = 2208) 7 MG/DL 8-23 L CREATININE (test code = 2214) 1.07 MG/DL 0.80-1.40 eGFR (2020 CKD-EPI) (test code = 79446) 75 ML/MIN/1.73 >60 CALC BUN/CREAT (test code = 2235) 7 RATIO 6-28 SODIUM (test code = 2231) 144 MEQ/L 133-146 POTASSIUM (test code = 2228) 4.1 MEQ/L 3.5-5.4 CHLORIDE (test code = 2215) 105 MEQ/L 95-107 CARBON DIOXIDE (test code = 2206) 26 MEQ/L 19-31 CALCIUM (test code = 220) 10.5 MG/DL 8.5-10.5 PROTEIN, TOTAL (test code = 222) 7.5 G/DL 6.1-8.3 ALBUMIN (test code = 220) 4.7 G/DL 3.5-5.2 CALC GLOBULIN (test code = 2240) 2.8 G/DL 1.9-3.7 CALC A/G RATIO (test code = 223) 1.7 RATIO 1.0-2.6 BILIRUBIN, TOTAL (test code = 2206) 0.4 MG/DL See_Comment [Automated me ssage] The system which generated this result transmitted reference range: <=1.2. The reference range was not used to interpret this result as normal/abnormal. ALKALINE PHOSPHATASE (test code = 4) 120 U/L 40-125 AST (test code = 2218) 14 U/L 9-50 ALT (test code = 2219) 12 U/L 5-50 RPR REFLEX TO T. PALLIDUM - [id number] 04:29:46* Test Item Value Reference Range Interpretation Comme nts RPR (test code = 31443) NON-REACTIVE NON-REACTIVE RPR TITER (test code = 3500) NOT INDIC. TITER NOT INDIC. COMPREHENSIVE METABOLIC [id number] 00:00:00* Test Item Value Reference Range Interpretation Comme nts GLUCOSE (test code = 2217) 100 MG/DL BUN (test code = 8) 7 MG/DL CREATININE (test code = 2214) 1.07 MG/DL eGFR (2020 CKD-EPI) (test co de = 69220) 75 ML/MIN/1.73 CALC BUN/CREAT (test code = 2235) 7 RATIO SODIUM (test code = 2231) 144 MEQ/L POTASSIUM (test code = 2228) 4.1 MEQ/L CHLORIDE (test code = 2215) 105 MEQ/L CARBON DIOXIDE (test code = 2206) 26 MEQ/L CALCIUM (test code = 2209) 10.5 MG/DL PROTEIN, TOTAL (test code = 2229) 7.5 G/DL ALBUMIN (test code = 2201) 4.7 G/DL CALC GLOBULIN (test code = 2240) 2.8 G/DL CALC A/G RATIO (test code = 2234) 1.7 RATIO BILIRUBIN, TOTAL (test code = 2207) 0.4 MG/DL ALKALINE PHOSPHATASE (test code = 2204) 120 U/L AST (test code = 2218) 14 U/L ALT (test code = 2219) 12 U/L COMPREHENSIVE METABOLIC [id number] 00:00:00* Test Item Value Reference Range Interpretation Comme nts GLUCOSE (test code = 2217) 100 MG/DL BUN (test code = 2208) 7 MG/DL CREATININE (test code = 2214) 1.07 MG/DL eGFR (2020 CKD-EPI) (test co de = 90860) 75 ML/MIN/1.73 CALC BUN/CREAT (test code = 2235) 7 RATIO SODIUM (test code = 2231) 144 MEQ/L POTASSIUM (test code = 2228) 4.1 MEQ/L CHLORIDE (test code = 2215) 105 MEQ/L CARBON DIOXIDE (test code = 2206) 26 MEQ/L CALCIUM (test code = 2209) 10.5 MG/DL PROTEIN, TOTAL (test code = 2229) 7.5 G/DL ALBUMIN (test code = 2201) 4.7 G/DL CALC GLOBULIN (test code = 2240) 2.8 G/DL CALC A/G RATIO (test code = 2234) 1.7 RATIO BILIRUBIN, TOTAL (test code = 2207) 0.4 MG/DL ALKALINE PHOSPHATASE (test code = 2204) 120 U/L AST (test code = 2218) 14 U/L ALT (test code = 2219) 12 U/L RPR REFLEX TO T. PALLIDUM - [id number] 00:00:00* Test Item Value Reference Range Interpretation Comme nts RPR (test code = 93275) NON-REACTIVE RPR TITER (test code = 3500) NOT INDIC. TITER RPR REFLEX TO T. PALLIDUM - [id number] 00:00:00* Test Item Value Reference Range Interpretation Comme nts RPR (test code = 06524) NON-REACTIVE RPR TITER (test code = 3500) NOT INDIC. TITER VITAMIN B 12 AND FOLIC [id number] 00:00:00* Test Item Value Reference Range Interpretation Comme nts VITAMIN B-12 (test code = 2840) 379 PG/ML FOLIC ACID (test code = 2695) 5.1 UG/L VITAMIN B 12 AND FOLIC [id number] 00:00:00* Test Item Value Reference Range Interpretation Comme nts VITAMIN B-12 (test code = 2840) 379 PG/ML FOLIC ACID (test code = 2695) 5.1 UG/L ACUTE HEPATITIS [id number] 00:00:00* Test Item Value Reference Range Interpretation Comme nts HEPATITIS A IgM (test code = 37142) NON-REACTIVE HEPATITIS B CORE IgM (test c ode = 4644) NON-REACTIVE HEPATITIS B SURF AG (test co de = 2739) NON-REACTIVE HEPATITIS C ANTIBODY (test c ode = 4675) NON-REACTIVE INTERPRETATION HEPATITIS A: (test code = 2552) (NOTE) INTERPRETATION HEPATITIS B: (test code = 74660) (NOTE) INTERPRETATION HEPATITIS C: (test code = 12095) (NOTE) ACUTE HEPATITIS [id number] 00:00:00* Test Item Value Reference Range Interpretation Comme nts HEPATITIS A IgM (test code = 01569) NON-REACTIVE HEPATITIS B CORE IgM (test c ode = 4644) NON-REACTIVE HEPATITIS B SURF AG (test co de = 2739) NON-REACTIVE HEPATITIS C ANTIBODY (test c ode = 4675) NON-REACTIVE INTERPRETATION HEPATITIS A: (test code = 2552) (NOTE) INTERPRETATION HEPATITIS B: (test code = 88985) (NOTE) INTERPRETATION HEPATITIS C: (test code = 06990) (NOTE) [id number] 00:00:00* Test Item Value Reference Range Interpretation Comme nts TSH, THIRD GENERATION (test code = 2821) 1.790 UIU/ML [id number] 00:00:00* Test Item Value Reference Range Interpretation Comme nts TSH, THIRD GENERATION (test code = 2821) 1.790 UIU/ML [id number] 00:00:00* Test Item Value Reference Range Interpretation Comme nts TSH, THIRD GENERATION (test code = 2821) 1.790 UIU/ML COMPREHENSIVE METABOLIC [id number] 00:00:00* Test Item Value Reference Range Interpretation Comme nts GLUCOSE (test code = 2217) 100 MG/DL BUN (test code = 2208) 7 MG/DL CREATININE (test code = 2214) 1.07 MG/DL eGFR (2020 CKD-EPI) (test co de = 90916) 75 ML/MIN/1.73 CALC BUN/CREAT (test code = 2235) 7 RATIO SODIUM (test code = 2231) 144 MEQ/L POTASSIUM (test code = 2228) 4.1 MEQ/L CHLORIDE (test code = 2215) 105 MEQ/L CARBON DIOXIDE (test code = 2206) 26 MEQ/L CALCIUM (test code = 2209) 10.5 MG/DL PROTEIN, TOTAL (test code = 2229) 7.5 G/DL ALBUMIN (test code = 2201) 4.7 G/DL CALC GLOBULIN (test code = 2240) 2.8 G/DL CALC A/G RATIO (test code = 2234) 1.7 RATIO BILIRUBIN, TOTAL (test code = 2207) 0.4 MG/DL ALKALINE PHOSPHATASE (test code = 2204) 120 U/L AST (test code = 2218) 14 U/L ALT (test code = 2219) 12 U/L COMPREHENSIVE METABOLIC [id number] 00:00:00* Test Item Value Reference Range Interpretation Comme nts GLUCOSE (test code = 2217) 100 MG/DL BUN (test code = 2208) 7 MG/DL CREATININE (test code = 2214) 1.07 MG/DL eGFR (2020 CKD-EPI) (test co de = 04502) 75 ML/MIN/1.73 CALC BUN/CREAT (test code = 2235) 7 RATIO SODIUM (test code = 2231) 144 MEQ/L POTASSIUM (test code = 2228) 4.1 MEQ/L CHLORIDE (test code = 2215) 105 MEQ/L CARBON DIOXIDE (test code = 2206) 26 MEQ/L CALCIUM (test code = 2209) 10.5 MG/DL PROTEIN, TOTAL (test code = 2229) 7.5 G/DL ALBUMIN (test code = 2201) 4.7 G/DL CALC GLOBULIN (test code = 2240) 2.8 G/DL CALC A/G RATIO (test code = 2234) 1.7 RATIO BILIRUBIN, TOTAL (test code = 2207) 0.4 MG/DL ALKALINE PHOSPHATASE (test code = 2204) 120 U/L AST (test code = 2218) 14 U/L ALT (test code = 2219) 12 U/L RPR REFLEX TO T. PALLIDUM - [id number] 00:00:00* Test Item Value Reference Range Interpretation Comme nts RPR (test code = 89145) NON-REACTIVE RPR TITER (test code = 3500) NOT INDIC. TITER RPR REFLEX TO T. PALLIDUM - [id number] 00:00:00* Test Item Value Reference Range Interpretation Comme nts RPR (test code = 47483) NON-REACTIVE RPR TITER (test code = 3500) NOT INDIC. TITER VITAMIN B 12 AND FOLIC [id number] 00:00:00* Test Item Value Reference Range Interpretation Comme nts VITAMIN B-12 (test code = 2840) 379 PG/ML FOLIC ACID (test code = 2695) 5.1 UG/L VITAMIN B 12 AND FOLIC [id number] 00:00:00* Test Item Value Reference Range Interpretation Comme nts VITAMIN B-12 (test code = 2840) 379 PG/ML FOLIC ACID (test code = 2695) 5.1 UG/L ACUTE HEPATITIS [id number] 00:00:00* Test Item Value Reference Range Interpretation Comme nts HEPATITIS A IgM (test code = 29653) NON-REACTIVE HEPATITIS B CORE IgM (test c ode = 4644) NON-REACTIVE HEPATITIS B SURF AG (test co de = 2739) NON-REACTIVE HEPATITIS C ANTIBODY (test c ode = 4675) NON-REACTIVE INTERPRETATION HEPATITIS A: (test code = 2552) (NOTE) INTERPRETATION HEPATITIS B: (test code = 98525) (NOTE) INTERPRETATION HEPATITIS C: (test code = 57336) (NOTE) ACUTE HEPATITIS [id number] 00:00:00* Test Item Value Reference Range Interpretation Comme nts HEPATITIS A IgM (test code = 51505) NON-REACTIVE HEPATITIS B CORE IgM (test c ode = 4644) NON-REACTIVE HEPATITIS B SURF AG (test co de = 2739) NON-REACTIVE HEPATITIS C ANTIBODY (test c ode = 4635) NON-REACTIVE INTERPRETATION HEPATITIS A: (test code = 2552) (NOTE) INTERPRETATION HEPATITIS B: (test code = 30185) (NOTE) INTERPRETATION HEPATITIS C: (test code = 54586) (NOTE) [id number] 00:00:00* Test Item Value Reference Range Interpretation Comme nts TSH, THIRD GENERATION (test code = 2821) 1.790 UIU/ML [id number] 00:00:00* Test Item Value Reference Range Interpretation Comme nts TSH, THIRD GENERATION (test code = 2821) 1.790 UIU/ML [id number] 00:00:00* Test Item Value Reference Range Interpretation Comme nts TSH, THIRD GENERATION (test code = 2821) 1.790 UIU/ML CBC W/AUTO DIFF WITH [id number] 06:52:48* Test Item Value Reference Range Interpretation Comme nts WBC (test code = 1001) 6.3 K/UL 3.5-11.0 RBC (test code = 1002) 4.78 M/UL 4.50-6.10 HEMOGLOBIN (test code = 1003) 13.2 G/DL 13.5-17.0 L HEMATOCRIT (test code = 1004) 40.3 % 40.0-51.0 MCV (test code = 1005) 84.3 fL 80.0-99.0 MCH (test code = 1006) 27.6 PG 25.0-33.0 MCHC (test code = 1007) 32.8 G/DL 31.0-36.0 RDW (test code = 1038) 13.8 % 11.5-15.0 NEUTROPHILS (test code = 1008) 63.5 % LYMPHOCYTES (test code = 1010) 25.0 % MONOCYTES (test code = 1011) 8.3 % EOSINOPHILS (test code = 1012) 2.4 % BASOPHILS (test code = 1013) 0.6 % IMMATURE GRANULOCYTES (test code = 1036) 0.2 % NUCLEATED RBCS (test code = 1065) 0.0 /100 WBC'S See_Comment [Automated messa ge] The system which generated this result transmitted reference range: 0.0. The reference range was not used to interpret this result as normal/abnormal. PLATELET COUNT (test code = 1015) 271 K/UL 130-400 ABSOLUTE NEUTROPHILS (test code = 1066) 4.00 K/UL 1.50-7.50 ABSOLUTE LYMPHOCYTES (test code = 1067) 1.57 K/UL 1.00-4.00 ABSOLUTE MONOCYTES (test code = 1068) 0.52 K/UL 0.20-1.00 ABSOLUTE EOSINOPHILS (test code = 1040) 0.15 K/UL 0.00-0.50 ABSOLUTE BASOPHILS (test code = 1069) 0.04 K/UL 0.00-0.20 ABS IMMATURE GRANULOCYTES (test code = 1020) 0.01 K/UL 0.00-0.10 ABS NUCLEATED RBCS (test code = 46258) 0.00 K/UL 0.00-0.11 HEMOGLOBIN [id number] 06:15:02* Test Item Value Reference Range Interpretation Comme [facility] HEMOGLOBIN A1c (test code = 47178) 5.6 % 4.2-5.6 UNLESS OTHERWISE INDICATED, ALL TESTING PERFORMED [facility] [employer] [address] [place] [address] OUTGOING INSPECTOR: TOMER QUEZADA M.D. CLIA NUMBER [id number] [facility] [place]. [id number] COMPREHENSIVE METABOLIC [id number] 03:59:12* Test Item Value Reference Range Interpretation Comme nts GLUCOSE (test code = 2217) 81 MG/DL 70-99 BUN (test code = 8) 9 MG/DL 8-23 CREATININE (test code = 2214) 1.09 MG/DL 0.80-1.40 eGFR (2020 CKD-EPI) (test code = 73129) 73 ML/MIN/1.73 >60 CALC BUN/CREAT (test code = 2235) 8 RATIO 6-28 SODIUM (test code = 2231) 145 MEQ/L 133-146 POTASSIUM (test code = 2228) 4.7 MEQ/L 3.5-5.4 CHLORIDE (test code = 2215) 105 MEQ/L 95-107 CARBON DIOXIDE (test code = 2206) 28 MEQ/L 19-31 CALCIUM (test code = 2209) 10.4 MG/DL 8.5-10.5 PROTEIN, TOTAL (test code = 2229) 7.2 G/DL 6.1-8.3 ALBUMIN (test code = 2201) 4.7 G/DL 3.5-5.2 CALC GLOBULIN (test code = 2240) 2.5 G/DL 1.9-3.7 CALC A/G RATIO (test code = 2234) 1.9 RATIO 1.0-2.6 BILIRUBIN, TOTAL (test code = 2207) 0.5 MG/DL See_Comment [Automated me ssage] The system which generated this result transmitted reference range: <=1.2. The reference range was not used to interpret this result as normal/abnormal. ALKALINE PHOSPHATASE (test code = 2204) 116 U/L 40-125 AST (test code = 2218) 14 U/L 9-50 ALT (test code = 2219) 11 U/L 5-50 COMPREHENSIVE METABOLIC [id number] 00:00:00* Test Item Value Reference Range Interpretation Comme nts GLUCOSE (test code = 2217) 81 MG/DL BUN (test code = 2208) 9 MG/DL CREATININE (test code = 2214) 1.09 MG/DL eGFR (2020 CKD-EPI) (test co de = 89942) 73 ML/MIN/1.73 CALC BUN/CREAT (test code = 2235) 8 RATIO SODIUM (test code = 2231) 145 MEQ/L POTASSIUM (test code = 2228) 4.7 MEQ/L CHLORIDE (test code = 2215) 105 MEQ/L CARBON DIOXIDE (test code = 2206) 28 MEQ/L CALCIUM (test code = 2209) 10.4 MG/DL PROTEIN, TOTAL (test code = 2229) 7.2 G/DL ALBUMIN (test code = 2201) 4.7 G/DL CALC GLOBULIN (test code = 2240) 2.5 G/DL CALC A/G RATIO (test code = 2234) 1.9 RATIO BILIRUBIN, TOTAL (test code = 2207) 0.5 MG/DL ALKALINE PHOSPHATASE (test code = 2204) 116 U/L AST (test code = 2218) 14 U/L ALT (test code = 2219) 11 U/L COMPREHENSIVE METABOLIC [id number] 00:00:00* Test Item Value Reference Range Interpretation Comme nts GLUCOSE (test code = 2217) 81 MG/DL BUN (test code = 2208) 9 MG/DL CREATININE (test code = 2214) 1.09 MG/DL eGFR (2020 CKD-EPI) (test co de = 47675) 73 ML/MIN/1.73 CALC BUN/CREAT (test code = 2235) 8 RATIO SODIUM (test code = 2231) 145 MEQ/L POTASSIUM (test code = 2228) 4.7 MEQ/L CHLORIDE (test code = 2215) 105 MEQ/L CARBON DIOXIDE (test code = 2206) 28 MEQ/L CALCIUM (test code = 2209) 10.4 MG/DL PROTEIN, TOTAL (test code = 2229) 7.2 G/DL ALBUMIN (test code = 2201) 4.7 G/DL CALC GLOBULIN (test code = 2240) 2.5 G/DL CALC A/G RATIO (test code = 2234) 1.9 RATIO BILIRUBIN, TOTAL (test code = 2207) 0.5 MG/DL ALKALINE PHOSPHATASE (test code = 2204) 116 U/L AST (test code = 2218) 14 U/L ALT (test code = 2219) 11 U/L CBC W/AUTO [id number] 00:00:00* Test Item Value Reference Range Interpretation Comme nts WBC (test code = 1001) 6.3 K/UL [...] = 1013) 0.6 % IMMATURE GRANULOCYTES (test code = 1036) 0.2 % NUCLEATED RBCS (test code = 1065) 0.0 /100WBC'S PLATELET COUNT (test code = 1015) 271 K/UL ABSOLUTE NEUTROPHILS (test c ode = 1066) 4.00 K/UL ABSOLUTE LYMPHOCYTES (test c ode = 1067) 1.57 K/UL ABSOLUTE MONOCYTES (test cod e = 1068) 0.52 K/UL ABSOLUTE EOSINOPHILS (test c ode = 1040) 0.15 K/UL ABSOLUTE BASOPHILS (test cod e = 1069) 0.04 K/UL ABS IMMATURE GRANULOCYTES (t est code = 1020) 0.01 K/UL ABS NUCLEATED RBCS (test cod e = 59455) 0.00 K/UL CBC W/AUTO [id number] 00:00:00* Test Item Value Reference Range Interpretation Comme nts WBC (test code = 1001) 6.3 K/UL [...] = 1013) 0.6 % IMMATURE GRANULOCYTES (test code = 1036) 0.2 % NUCLEATED RBCS (test code = 1065) 0.0 /100WBC'S PLATELET COUNT (test code = 1015) 271 K/UL ABSOLUTE NEUTROPHILS (test c ode = 1066) 4.00 K/UL ABSOLUTE LYMPHOCYTES (test c ode = 1067) 1.57 K/UL ABSOLUTE MONOCYTES (test cod e = 1068) 0.52 K/UL ABSOLUTE EOSINOPHILS (test c ode = 1040) 0.15 K/UL ABSOLUTE BASOPHILS (test cod e = 1069) 0.04 K/UL ABS IMMATURE GRANULOCYTES (t est code = 1020) 0.01 K/UL ABS NUCLEATED RBCS (test cod e = 33581) 0.00 K/UL CBC W/AUTO [id number] 00:00:00* Test Item Value Reference Range Interpretation Comme nts WBC (test code = 1001) 6.3 K/UL [...] = 1013) 0.6 % IMMATURE GRANULOCYTES (test code = 1036) 0.2 % NUCLEATED RBCS (test code = 1065) 0.0 /100WBC'S PLATELET COUNT (test code = 1015) 271 K/UL ABSOLUTE NEUTROPHILS (test c ode = 1066) 4.00 K/UL ABSOLUTE LYMPHOCYTES (test c ode = 1067) 1.57 K/UL ABSOLUTE MONOCYTES (test cod e = 1068) 0.52 K/UL ABSOLUTE EOSINOPHILS (test c ode = 1040) 0.15 K/UL ABSOLUTE BASOPHILS (test cod e = 1069) 0.04 K/UL ABS IMMATURE GRANULOCYTES (t est code = 1020) 0.01 K/UL ABS NUCLEATED RBCS (test cod e = 64287) 0.00 K/UL HEMOGLOBIN [id number] 00:00:00* Test Item Value Reference Range Interpretation Comme nts HEMOGLOBIN A1c (test code = 75182) 5.6 % HEMOGLOBIN [id number] 00:00:00* Test Item Value Reference Range Interpretation Comme nts HEMOGLOBIN A1c (test code = 30459) 5.6 % HEMOGLOBIN [id number] 00:00:00* Test Item Value Reference Range Interpretation Comme nts HEMOGLOBIN A1c (test code = 68701) 5.6 % COMPREHENSIVE METABOLIC [id number] 00:00:00* Test Item Value Reference Range Interpretation Comme nts GLUCOSE (test code = 2217) 81 MG/DL BUN (test code = 2208) 9 MG/DL CREATININE (test code = 2214) 1.09 MG/DL eGFR (2020 CKD-EPI) (test co de = 44672) 73 ML/MIN/1.73 CALC BUN/CREAT (test code = 2235) 8 RATIO SODIUM (test code = 2231) 145 MEQ/L POTASSIUM (test code = 2228) 4.7 MEQ/L CHLORIDE (test code = 2215) 105 MEQ/L CARBON DIOXIDE (test code = 2206) 28 MEQ/L CALCIUM (test code = 2209) 10.4 MG/DL PROTEIN, TOTAL (test code = 2229) 7.2 G/DL ALBUMIN (test code = 2201) 4.7 G/DL CALC GLOBULIN (test code = 2240) 2.5 G/DL CALC A/G RATIO (test code = 2234) 1.9 RATIO BILIRUBIN, TOTAL (test code = 2207) 0.5 MG/DL ALKALINE PHOSPHATASE (test code = 2204) 116 U/L AST (test code = 2218) 14 U/L ALT (test code = 2219) 11 U/L COMPREHENSIVE METABOLIC [id number] 00:00:00* Test Item Value Reference Range Interpretation Comme nts GLUCOSE (test code = 2217) 81 MG/DL BUN (test code = 2208) 9 MG/DL CREATININE (test code = 2214) 1.09 MG/DL eGFR (2020 CKD-EPI) (test co de = 72946) 73 ML/MIN/1.73 CALC BUN/CREAT (test code = 2235) 8 RATIO SODIUM (test code = 2231) 145 MEQ/L POTASSIUM (test code = 2228) 4.7 MEQ/L CHLORIDE (test code = 2215) 105 MEQ/L CARBON DIOXIDE (test code = 2206) 28 MEQ/L CALCIUM (test code = 2209) 10.4 MG/DL PROTEIN, TOTAL (test code = 2229) 7.2 G/DL ALBUMIN (test code = 2201) 4.7 G/DL CALC GLOBULIN (test code = 2240) 2.5 G/DL CALC A/G RATIO (test code = 2234) 1.9 RATIO BILIRUBIN, TOTAL (test code = 2207) 0.5 MG/DL ALKALINE PHOSPHATASE (test code = 2204) 116 U/L AST (test code = 2218) 14 U/L ALT (test code = 2219) 11 U/L CBC W/AUTO [id number] 00:00:00* Test Item Value Reference Range Interpretation Comme nts WBC (test code = 1001) 6.3 K/UL [...] = 1013) 0.6 % IMMATURE GRANULOCYTES (test code = 1036) 0.2 % NUCLEATED RBCS (test code = 1065) 0.0 /100WBC'S PLATELET COUNT (test code = 1015) 271 K/UL ABSOLUTE NEUTROPHILS (test c ode = 1066) 4.00 K/UL ABSOLUTE LYMPHOCYTES (test c ode = 1067) 1.57 K/UL ABSOLUTE MONOCYTES (test cod e = 1068) 0.52 K/UL ABSOLUTE EOSINOPHILS (test c ode = 1040) 0.15 K/UL ABSOLUTE BASOPHILS (test cod e = 1069) 0.04 K/UL ABS IMMATURE GRANULOCYTES (t est code = 1020) 0.01 K/UL ABS NUCLEATED RBCS (test cod e = 67607) 0.00 K/UL CBC W/AUTO [id number] 00:00:00* Test Item Value Reference Range Interpretation Comme nts WBC (test code = 1001) 6.3 K/UL [...] = 1013) 0.6 % IMMATURE GRANULOCYTES (test code = 1036) 0.2 % NUCLEATED RBCS (test code = 1065) 0.0 /100WBC'S PLATELET COUNT (test code = 1015) 271 K/UL ABSOLUTE NEUTROPHILS (test c ode = 1066) 4.00 K/UL ABSOLUTE LYMPHOCYTES (test c ode = 1067) 1.57 K/UL ABSOLUTE MONOCYTES (test cod e = 1068) 0.52 K/UL ABSOLUTE EOSINOPHILS (test c ode = 1040) 0.15 K/UL ABSOLUTE BASOPHILS (test cod e = 1069) 0.04 K/UL ABS IMMATURE GRANULOCYTES (t est code = 1020) 0.01 K/UL ABS NUCLEATED RBCS (test cod e = 19686) 0.00 K/UL CBC W/AUTO [id number] 00:00:00* Test Item Value Reference Range Interpretation Comme nts WBC (test code = 1001) 6.3 K/UL [...] = 1013) 0.6 % IMMATURE GRANULOCYTES (test code = 1036) 0.2 % NUCLEATED RBCS (test code = 1065) 0.0 /100WBC'S PLATELET COUNT (test code = 1015) 271 K/UL ABSOLUTE NEUTROPHILS (test c ode = 1066) 4.00 K/UL ABSOLUTE LYMPHOCYTES (test c ode = 1067) 1.57 K/UL ABSOLUTE MONOCYTES (test cod e = 1068) 0.52 K/UL ABSOLUTE EOSINOPHILS (test c ode = 1040) 0.15 K/UL ABSOLUTE BASOPHILS (test cod e = 1069) 0.04 K/UL ABS IMMATURE GRANULOCYTES (t est code = 1020) 0.01 K/UL ABS NUCLEATED RBCS (test cod e = 42695) 0.00 K/UL HEMOGLOBIN [id number] 00:00:00* Test Item Value Reference Range Interpretation Comme nts HEMOGLOBIN A1c (test code = 93950) 5.6 % HEMOGLOBIN [id number] 00:00:00* Test Item Value Reference Range Interpretation Comme nts HEMOGLOBIN A1c (test code = 68964) 5.6 % HEMOGLOBIN [id number] 00:00:00* Test Item Value Reference Range Interpretation Comme nts HEMOGLOBIN A1c (test code = 23331) 5.6 % COMPREHENSIVE METABOLIC [id number] 00:00:00* Test Item Value Reference Range Interpretation Comme nts GLUCOSE (test code = 2217) 81 MG/DL BUN (test code = 2208) 9 MG/DL CREATININE (test code = 2214) 1.09 MG/DL eGFR (2020 CKD-EPI) (test co de = 59679) 73 ML/MIN/1.73 CALC BUN/CREAT (test code = 2235) 8 RATIO SODIUM (test code = 2231) 145 MEQ/L POTASSIUM (test code = 2228) 4.7 MEQ/L CHLORIDE (test code = 2215) 105 MEQ/L CARBON DIOXIDE (test code = 2206) 28 MEQ/L CALCIUM (test code = 2209) 10.4 MG/DL PROTEIN, TOTAL (test code = 2229) 7.2 G/DL ALBUMIN (test code = 2201) 4.7 G/DL CALC GLOBULIN (test code = 2240) 2.5 G/DL CALC A/G RATIO (test code = 2234) 1.9 RATIO BILIRUBIN, TOTAL (test code = 2207) 0.5 MG/DL ALKALINE PHOSPHATASE (test code = 2204) 116 U/L AST (test code = 2218) 14 U/L ALT (test code = 2219) 11 U/L COMPREHENSIVE METABOLIC [id number] 00:00:00* Test Item Value Reference Range Interpretation Comme nts GLUCOSE (test code = 2217) 81 MG/DL BUN (test code = 2208) 9 MG/DL CREATININE (test code = 2214) 1.09 MG/DL eGFR (2020 CKD-EPI) (test co de = 39238) 73 ML/MIN/1.73 CALC BUN/CREAT (test code = 2235) 8 RATIO SODIUM (test code = 2231) 145 MEQ/L POTASSIUM (test code = 2228) 4.7 MEQ/L CHLORIDE (test code = 2215) 105 MEQ/L CARBON DIOXIDE (test code = 2206) 28 MEQ/L CALCIUM (test code = 2209) 10.4 MG/DL PROTEIN, TOTAL (test code = 2229) 7.2 G/DL ALBUMIN (test code = 2201) 4.7 G/DL CALC GLOBULIN (test code = 2240) 2.5 G/DL CALC A/G RATIO (test code = 2234) 1.9 RATIO BILIRUBIN, TOTAL (test code = 2207) 0.5 MG/DL ALKALINE PHOSPHATASE (test code = 2204) 116 U/L AST (test code = 2218) 14 U/L ALT (test code = 2219) 11 U/L CBC W/AUTO [id number] 00:00:00* Test Item Value Reference Range Interpretation Comme nts WBC (test code = 1001) 6.3 K/UL [...] = 1013) 0.6 % IMMATURE GRANULOCYTES (test code = 1036) 0.2 % NUCLEATED RBCS (test code = 1065) 0.0 /100WBC'S PLATELET COUNT (test code = 1015) 271 K/UL ABSOLUTE NEUTROPHILS (test c ode = 1066) 4.00 K/UL ABSOLUTE LYMPHOCYTES (test c ode = 1067) 1.57 K/UL ABSOLUTE MONOCYTES (test cod e = 1068) 0.52 K/UL ABSOLUTE EOSINOPHILS (test c ode = 1040) 0.15 K/UL ABSOLUTE BASOPHILS (test cod e = 1069) 0.04 K/UL ABS IMMATURE GRANULOCYTES (t est code = 1020) 0.01 K/UL ABS NUCLEATED RBCS (test cod e = 64496) 0.00 K/UL CBC W/AUTO [id number] 00:00:00* Test Item Value Reference Range Interpretation Comme nts WBC (test code = 1001) 6.3 K/UL [...] = 1013) 0.6 % IMMATURE GRANULOCYTES (test code = 1036) 0.2 % NUCLEATED RBCS (test code = 1065) 0.0 /100WBC'S PLATELET COUNT (test code = 1015) 271 K/UL ABSOLUTE NEUTROPHILS (test c ode = 1066) 4.00 K/UL ABSOLUTE LYMPHOCYTES (test c ode = 1067) 1.57 K/UL ABSOLUTE MONOCYTES (test cod e = 1068) 0.52 K/UL ABSOLUTE EOSINOPHILS (test c ode = 1040) 0.15 K/UL ABSOLUTE BASOPHILS (test cod e = 1069) 0.04 K/UL ABS IMMATURE GRANULOCYTES (t est code = 1020) 0.01 K/UL ABS NUCLEATED RBCS (test cod e = 28094) 0.00 K/UL CBC W/AUTO [id number] 00:00:00* Test Item Value Reference Range Interpretation Comme nts WBC (test code = 1001) 6.3 K/UL [...] = 1013) 0.6 % IMMATURE GRANULOCYTES (test code = 1036) 0.2 % NUCLEATED RBCS (test code = 1065) 0.0 /100WBC'S PLATELET COUNT (test code = 1015) 271 K/UL ABSOLUTE NEUTROPHILS (test c ode = 1066) 4.00 K/UL ABSOLUTE LYMPHOCYTES (test c ode = 1067) 1.57 K/UL ABSOLUTE MONOCYTES (test cod e = 1068) 0.52 K/UL ABSOLUTE EOSINOPHILS (test c ode = 1040) 0.15 K/UL ABSOLUTE BASOPHILS (test cod e = 1069) 0.04 K/UL ABS IMMATURE GRANULOCYTES (t est code = 1020) 0.01 K/UL ABS NUCLEATED RBCS (test cod e = 63227) 0.00 K/UL HEMOGLOBIN [id number] 00:00:00* Test Item Value Reference Range Interpretation Comme nts HEMOGLOBIN A1c (test code = 38682) 5.6 % HEMOGLOBIN [id number] 00:00:00* Test Item Value Reference Range Interpretation Comme nts HEMOGLOBIN A1c (test code = 40357) 5.6 % HEMOGLOBIN [id number] 00:00:00* Test Item Value Reference Range Interpretation Comme nts HEMOGLOBIN A1c (test code = 23905) 5.6 % COMPREHENSIVE METABOLIC [id number] 00:00:00* Test Item Value Reference Range Interpretation Comme nts GLUCOSE (test code = 2217) 100 MG/DL BUN (test code = 2208) 7 MG/DL CREATININE (test code = 2214) 1.08 MG/DL eGFR AMER. (test cod e = 93513) 82 ML/MIN/1.73 eGFR NON- AMER. (test code = 96312) 71 ML/MIN/1.73 CALC BUN/CREAT (test code = 2235) 6 RATIO SODIUM (test code = 2231) 139 MEQ/L POTASSIUM (test code = 2228) 4.2 MEQ/L CHLORIDE (test code = 2215) 100 MEQ/L CARBON DIOXIDE (test code = 2206) 28 MEQ/L CALCIUM (test code = 2209) 10.6 MG/DL PROTEIN, TOTAL (test code = 2229) 7.4 G/DL ALBUMIN (test code = 2201) 4.7 G/DL CALC GLOBULIN (test code = 2240) 2.7 G/DL CALC A/G RATIO (test code = 2234) 1.7 RATIO BILIRUBIN, TOTAL (test code = 2207) 0.2 MG/DL ALKALINE PHOSPHATASE (test code = 2204) 87 U/L AST (test code = 2218) 27 U/L ALT (test code = 2219) 29 U/L COMPREHENSIVE METABOLIC [id number] 00:00:00* Test Item Value Reference Range Interpretation Comme nts GLUCOSE (test code = 2217) 100 MG/DL BUN (test code = 2208) 7 MG/DL CREATININE (test code = 2214) 1.08 MG/DL eGFR AMER. (test cod e = 13769) 82 ML/MIN/1.73 eGFR NON- AMER. (test code = 66402) 71 ML/MIN/1.73 CALC BUN/CREAT (test code = 2235) 6 RATIO SODIUM (test code = 2231) 139 MEQ/L POTASSIUM (test code = 2228) 4.2 MEQ/L CHLORIDE (test code = 2215) 100 MEQ/L CARBON DIOXIDE (test code = 2206) 28 MEQ/L CALCIUM (test code = 2209) 10.6 MG/DL PROTEIN, TOTAL (test code = 2229) 7.4 G/DL ALBUMIN (test code = 2201) 4.7 G/DL CALC GLOBULIN (test code = 2240) 2.7 G/DL CALC A/G RATIO (test code = 2234) 1.7 RATIO BILIRUBIN, TOTAL (test code = 2207) 0.2 MG/DL ALKALINE PHOSPHATASE (test code = 2204) 87 U/L AST (test code = 2218) 27 U/L ALT (test code = 2219) 29 U/L LIPID [id number] 00:00:00* Test Item Value Reference Range Interpretation Comme nts CHOLESTEROL (test code = 2210) 182 MG/DL TRIGLYCERIDES (test code = 2232) 96 MG/DL HDL CHOLESTEROL (test code = 2220) 44 MG/DL CALC LDL CHOL (test code = 2237) 118 MG/DL RISK RATIO LDL/HDL (test cod e = 2238) 2.68 RATIO LIPID [id number] 00:00:00* Test Item Value Reference Range Interpretation Comme nts CHOLESTEROL (test code = 2210) 182 MG/DL TRIGLYCERIDES (test code = 2232) 96 MG/DL HDL CHOLESTEROL (test code = 2220) 44 MG/DL CALC LDL CHOL (test code = 2237) 118 MG/DL RISK RATIO LDL/HDL (test cod e = 2238) 2.68 RATIO COMPREHENSIVE METABOLIC [id number] 00:00:00* Test Item Value Reference Range Interpretation Comme nts GLUCOSE (test code = 2217) 100 MG/DL BUN (test code = 2208) 7 MG/DL CREATININE (test code = 2214) 1.08 MG/DL eGFR AMER. (test cod e = 73767) 82 ML/MIN/1.73 eGFR NON- AMER. (test code = 55352) 71 ML/MIN/1.73 CALC BUN/CREAT (test code = 2235) 6 RATIO SODIUM (test code = 2231) 139 MEQ/L POTASSIUM (test code = 2228) 4.2 MEQ/L CHLORIDE (test code = 2215) 100 MEQ/L CARBON DIOXIDE (test code = 2206) 28 MEQ/L CALCIUM (test code = 2209) 10.6 MG/DL PROTEIN, TOTAL (test code = 2229) 7.4 G/DL ALBUMIN (test code = 2201) 4.7 G/DL CALC GLOBULIN (test code = 2240) 2.7 G/DL CALC A/G RATIO (test code = 2234) 1.7 RATIO BILIRUBIN, TOTAL (test code = 2207) 0.2 MG/DL ALKALINE PHOSPHATASE (test code = 2204) 87 U/L AST (test code = 2218) 27 U/L ALT (test code = 2219) 29 U/L COMPREHENSIVE METABOLIC [id number] 00:00:00* Test Item Value Reference Range Interpretation Comme nts GLUCOSE (test code = 2217) 100 MG/DL BUN (test code = 2208) 7 MG/DL CREATININE (test code = 2214) 1.08 MG/DL eGFR AMER. (test cod e = 10430) 82 ML/MIN/1.73 eGFR NON- AMER. (test code = 36001) 71 ML/MIN/1.73 CALC BUN/CREAT (test code = 2235) 6 RATIO SODIUM (test code = 2231) 139 MEQ/L POTASSIUM (test code = 2228) 4.2 MEQ/L CHLORIDE (test code = 2215) 100 MEQ/L CARBON DIOXIDE (test code = 2206) 28 MEQ/L CALCIUM (test code = 2209) 10.6 MG/DL PROTEIN, TOTAL (test code = 2229) 7.4 G/DL ALBUMIN (test code = 2201) 4.7 G/DL CALC GLOBULIN (test code = 2240) 2.7 G/DL CALC A/G RATIO (test code = 2234) 1.7 RATIO BILIRUBIN, TOTAL (test code = 2207) 0.2 MG/DL ALKALINE PHOSPHATASE (test code = 2204) 87 U/L AST (test code = 2218) 27 U/L ALT (test code = 2219) 29 U/L LIPID [id number] 00:00:00* Test Item Value Reference Range Interpretation Comme nts CHOLESTEROL (test code = 2210) 182 MG/DL TRIGLYCERIDES (test code = 2232) 96 MG/DL HDL CHOLESTEROL (test code = 2220) 44 MG/DL CALC LDL CHOL (test code = 2237) 118 MG/DL RISK RATIO LDL/HDL (test cod e = 2238) 2.68 RATIO LIPID [id number] 00:00:00* Test Item Value Reference Range Interpretation Comme nts CHOLESTEROL (test code = 2210) 182 MG/DL TRIGLYCERIDES (test code = 2232) 96 MG/DL HDL CHOLESTEROL (test code = 2220) 44 MG/DL CALC LDL CHOL (test code = 2237) 118 MG/DL RISK RATIO LDL/HDL (test cod e = 2238) 2.68 RATIO COMPREHENSIVE METABOLIC [id number] 00:00:00* Test Item Value Reference Range Interpretation Comme nts GLUCOSE (test code = 2217) 100 MG/DL BUN (test code = 2208) 7 MG/DL CREATININE (test code = 2214) 1.08 MG/DL eGFR AMER. (test cod e = 63139) 82 ML/MIN/1.73 eGFR NON- AMER. (test code = 88287) 71 ML/MIN/1.73 CALC BUN/CREAT (test code = 2235) 6 RATIO SODIUM (test code = 2231) 139 MEQ/L POTASSIUM (test code = 2228) 4.2 MEQ/L CHLORIDE (test code = 2215) 100 MEQ/L CARBON DIOXIDE (test code = 2206) 28 MEQ/L CALCIUM (test code = 2209) 10.6 MG/DL PROTEIN, TOTAL (test code = 2229) 7.4 G/DL ALBUMIN (test code = 2201) 4.7 G/DL CALC GLOBULIN (test code = 2240) 2.7 G/DL CALC A/G RATIO (test code = 2234) 1.7 RATIO BILIRUBIN, TOTAL (test code = 2207) 0.2 MG/DL ALKALINE PHOSPHATASE (test code = 2204) 87 U/L AST (test code = 2218) 27 U/L ALT (test code = 2219) 29 U/L COMPREHENSIVE METABOLIC [id number] 00:00:00* Test Item Value Reference Range Interpretation Comme nts GLUCOSE (test code = 2217) 100 MG/DL BUN (test code = 2208) 7 MG/DL CREATININE (test code = 2214) 1.08 MG/DL eGFR AMER. (test cod e = 24940) 82 ML/MIN/1.73 eGFR NON- AMER. (test code = 46808) 71 ML/MIN/1.73 CALC BUN/CREAT (test code = 2235) 6 RATIO SODIUM (test code = 2231) 139 MEQ/L POTASSIUM (test code = 2228) 4.2 MEQ/L CHLORIDE (test code = 2215) 100 MEQ/L CARBON DIOXIDE (test code = 2206) 28 MEQ/L CALCIUM (test code = 2209) 10.6 MG/DL PROTEIN, TOTAL (test code = 2229) 7.4 G/DL ALBUMIN (test code = 2201) 4.7 G/DL CALC GLOBULIN (test code = 2240) 2.7 G/DL CALC A/G RATIO (test code = 2234) 1.7 RATIO BILIRUBIN, TOTAL (test code = 2207) 0.2 MG/DL ALKALINE PHOSPHATASE (test code = 2204) 87 U/L AST (test code = 2218) 27 U/L ALT (test code = 2219) 29 U/L LIPID [id number] 00:00:00* Test Item Value Reference Range Interpretation Comme nts CHOLESTEROL (test code = 2210) 182 MG/DL TRIGLYCERIDES (test code = 2232) 96 MG/DL HDL CHOLESTEROL (test code = 2220) 44 MG/DL CALC LDL CHOL (test code = 2237) 118 MG/DL RISK RATIO LDL/HDL (test cod e = 2238) 2.68 RATIO LIPID [id number] 00:00:00* Test Item Value Reference Range Interpretation Comme nts CHOLESTEROL (test code = 2210) 182 MG/DL TRIGLYCERIDES (test code = 2232) 96 MG/DL HDL CHOLESTEROL (test code = 2220) 44 MG/DL CALC LDL CHOL (test code = 2237) 118 MG/DL RISK RATIO LDL/HDL (test cod e = 2238) 2.68 RATIO COMPREHENSIVE METABOLIC [id number] 00:00:00* Test Item Value Reference Range Interpretation Comme nts GLUCOSE (test code = 2217) 100 MG/DL BUN (test code = 2208) 7 MG/DL CREATININE (test code = 2214) 1.08 MG/DL eGFR AMER. (test cod e = 53718) 82 ML/MIN/1.73 eGFR NON- AMER. (test code = 58406) 71 ML/MIN/1.73 CALC BUN/CREAT (test code = 2235) 6 RATIO SODIUM (test code = 2231) 139 MEQ/L POTASSIUM (test code = 2228) 4.2 MEQ/L CHLORIDE (test code = 2215) 100 MEQ/L CARBON DIOXIDE (test code = 2206) 28 MEQ/L CALCIUM (test code = 2209) 10.6 MG/DL PROTEIN, TOTAL (test code = 2229) 7.4 G/DL ALBUMIN (test code = 2201) 4.7 G/DL CALC GLOBULIN (test code = 2240) 2.7 G/DL CALC A/G RATIO (test code = 2234) 1.7 RATIO BILIRUBIN, TOTAL (test code = 2207) 0.2 MG/DL ALKALINE PHOSPHATASE (test code = 2204) 87 U/L AST (test code = 2218) 27 U/L ALT (test code = 2219) 29 U/L COMPREHENSIVE METABOLIC [id number] 00:00:00* Test Item Value Reference Range Interpretation Comme nts GLUCOSE (test code = 2217) 100 MG/DL BUN (test code = 2208) 7 MG/DL CREATININE (test code = 2214) 1.08 MG/DL eGFR AMER. (test cod e = 20423) 82 ML/MIN/1.73 eGFR NON- AMER. (test code = 35251) 71 ML/MIN/1.73 CALC BUN/CREAT (test code = 2235) 6 RATIO SODIUM (test code = 2231) 139 MEQ/L POTASSIUM (test code = 2228) 4.2 MEQ/L CHLORIDE (test code = 2215) 100 MEQ/L CARBON DIOXIDE (test code = 2206) 28 MEQ/L CALCIUM (test code = 2209) 10.6 MG/DL PROTEIN, TOTAL (test code = 2229) 7.4 G/DL ALBUMIN (test code = 2201) 4.7 G/DL CALC GLOBULIN (test code = 2240) 2.7 G/DL CALC A/G RATIO (test code = 2234) 1.7 RATIO BILIRUBIN, TOTAL (test code = 2207) 0.2 MG/DL ALKALINE PHOSPHATASE (test code = 2204) 87 U/L AST (test code = 2218) 27 U/L ALT (test code = 2219) 29 U/L LIPID [id number] 00:00:00* Test Item Value Reference Range Interpretation Comme nts CHOLESTEROL (test code = 2210) 182 MG/DL TRIGLYCERIDES (test code = 2232) 96 MG/DL HDL CHOLESTEROL (test code = 2220) 44 MG/DL CALC LDL CHOL (test code = 2237) 118 MG/DL RISK RATIO LDL/HDL (test cod e = 2238) 2.68 RATIO LIPID [id number] 00:00:00* Test Item Value Reference Range Interpretation Comme nts CHOLESTEROL (test code = 2210) 182 MG/DL TRIGLYCERIDES (test code = 2232) 96 MG/DL HDL CHOLESTEROL (test code = 2220) 44 MG/DL CALC LDL CHOL (test code = 2237) 118 MG/DL RISK RATIO LDL/HDL (test cod e = 2238) 2.68 RATIO VITAMIN [id number] 00:00:00* Test Item Value Reference Range Interpretation Comme nts VITAMIN B-12 (test code = 2840) 421 PG/ML VITAMIN [id number] 00:00:00* Test Item Value Reference Range Interpretation Comme nts VITAMIN B-12 (test code = 2840) 421 PG/ML VITAMIN [id number] 00:00:00* Test Item Value Reference Range Interpretation Comme nts VITAMIN B-12 (test code = 2840) 421 PG/ML VITAMIN D, 25 [id number] 00:00:00* Test Item Value Reference Range Interpretation Comme nts VITAMIN D, 25 OH (test code = 4958) 23 NG/ML VITAMIN D, 25 [id number] 00:00:00* Test Item Value Reference Range Interpretation Comme nts VITAMIN D, 25 OH (test code = 4958) 23 NG/ML [id number] 00:00:00* Test Item Value Reference Range Interpretation Comme nts TESTOSTERONE (test code = 2830) 419 NG/DL [id number] 00:00:00* Test Item Value Reference Range Interpretation Comme nts TESTOSTERONE (test code = 2830) 419 NG/DL VITAMIN [id number] 00:00:00* Test Item Value Reference Range Interpretation Comme nts VITAMIN B-12 (test code = 2840) 421 PG/ML VITAMIN [id number] 00:00:00* Test Item Value Reference Range Interpretation Comme nts VITAMIN B-12 (test code = 2840) 421 PG/ML VITAMIN [id number] 00:00:00* Test Item Value Reference Range Interpretation Comme nts VITAMIN B-12 (test code = 2840) 421 PG/ML VITAMIN D, 25 [id number] 00:00:00* Test Item Value Reference Range Interpretation Comme nts VITAMIN D, 25 OH (test code = 4958) 23 NG/ML VITAMIN D, 25 [id number] 00:00:00* Test Item Value Reference Range Interpretation Comme nts VITAMIN D, 25 OH (test code = 4958) 23 NG/ML [id number] 00:00:00* Test Item Value Reference Range Interpretation Comme nts TESTOSTERONE (test code = 2830) 419 NG/DL [id number] 00:00:00* Test Item Value Reference Range Interpretation Comme nts TESTOSTERONE (test code = 2830) 419 NG/DL VITAMIN [id number] 00:00:00* Test Item Value Reference Range Interpretation Comme nts VITAMIN B-12 (test code = 2840) 421 PG/ML VITAMIN [id number] 00:00:00* Test Item Value Reference Range Interpretation Comme nts VITAMIN B-12 (test code = 2840) 421 PG/ML VITAMIN [id number] 00:00:00* Test Item Value Reference Range Interpretation Comme nts VITAMIN B-12 (test code = 2840) 421 PG/ML VITAMIN D, 25 [id number] 00:00:00* Test Item Value Reference Range Interpretation Comme nts VITAMIN D, 25 OH (test code = 4958) 23 NG/ML VITAMIN D, 25 [id number] 00:00:00* Test Item Value Reference Range Interpretation Comme nts VITAMIN D, 25 OH (test code = 4958) 23 NG/ML [id number] 00:00:00* Test Item Value Reference Range Interpretation Comme nts TESTOSTERONE (test code = 2830) 419 NG/DL [id number] 00:00:00* Test Item Value Reference Range Interpretation Comme nts TESTOSTERONE (test code = 2830) 419 NG/DL VITAMIN [id number] 00:00:00* Test Item Value Reference Range Interpretation Comme nts VITAMIN B-12 (test code = 2840) 421 PG/ML VITAMIN [id number] 00:00:00* Test Item Value Reference Range Interpretation Comme nts VITAMIN B-12 (test code = 2840) 421 PG/ML VITAMIN [id number] 00:00:00* Test Item Value Reference Range Interpretation Comme nts VITAMIN B-12 (test code = 2840) 421 PG/ML VITAMIN D, 25 [id number] 00:00:00* Test Item Value Reference Range Interpretation Comme nts VITAMIN D, 25 OH (test code = 4958) 23 NG/ML VITAMIN D, 25 [id number] 00:00:00* Test Item Value Reference Range Interpretation Comme nts VITAMIN D, 25 OH (test code = 4958) 23 NG/ML [id number] 00:00:00* Test Item Value Reference Range Interpretation Comme nts TESTOSTERONE (test code = 2830) 419 NG/DL [id number] 00:00:00* Test Item Value Reference Range Interpretation Comme nts TESTOSTERONE (test code = 2830) 419 NG/DL HEMOGLOBIN [id number] 00:00:00* Test Item Value Reference Range Interpretation Comme nts HEMOGLOBIN A1c (test code = 91905) 5.8 % HEMOGLOBIN [id number] 00:00:00* Test Item Value Reference Range Interpretation Comme nts HEMOGLOBIN A1c (test code = 76679) 5.8 % HEMOGLOBIN [id number] 00:00:00* Test Item Value Reference Range Interpretation Comme nts HEMOGLOBIN A1c (test code = 31326) 5.8 % LIPID [id number] 00:00:00* Test Item Value Reference Range Interpretation Comme nts CHOLESTEROL (test code = 2210) 151 MG/DL TRIGLYCERIDES (test code = 2232) 82 MG/DL HDL CHOLESTEROL (test code = 2220) 39 MG/DL CALC LDL CHOL (test code = 2237) 96 MG/DL RISK RATIO LDL/HDL (test cod e = 2238) 2.45 RATIO LIPID [id number] 00:00:00* Test Item Value Reference Range Interpretation Comme nts CHOLESTEROL (test code = 2210) 151 MG/DL TRIGLYCERIDES (test code = 2232) 82 MG/DL HDL CHOLESTEROL (test code = 2220) 39 MG/DL CALC LDL CHOL (test code = 2237) 96 MG/DL RISK RATIO LDL/HDL (test cod e = 2238) 2.45 RATIO COMPREHENSIVE METABOLIC [id number] 00:00:00* Test Item Value Reference Range Interpretation Comme nts GLUCOSE (test code = 2217) 93 MG/DL BUN (test code = 2208) 5 MG/DL CREATININE (test code = 2214) 0.95 MG/DL eGFR AMER. (test cod e = 15729) 96 ML/MIN/1.73 eGFR NON- AMER. (test code = 73444) 83 ML/MIN/1.73 CALC BUN/CREAT (test code = 2235) 5 RATIO SODIUM (test code = 2231) 143 MEQ/L POTASSIUM (test code = 2228) 4.6 MEQ/L CHLORIDE (test code = 2215) 102 MEQ/L CARBON DIOXIDE (test code = 2206) 27 MEQ/L CALCIUM (test code = 2209) 10.4 MG/DL PROTEIN, TOTAL (test code = 2229) 7.6 G/DL ALBUMIN (test code = 2201) 4.7 G/DL CALC GLOBULIN (test code = 2240) 2.9 G/DL CALC A/G RATIO (test code = 2234) 1.6 RATIO BILIRUBIN, TOTAL (test code = 2207) 0.4 MG/DL ALKALINE PHOSPHATASE (test code = 2204) 95 U/L AST (test code = 2218) 22 U/L ALT (test code = 2219) 22 U/L COMPREHENSIVE METABOLIC [id number] 00:00:00* Test Item Value Reference Range Interpretation Comme nts GLUCOSE (test code = 2217) 93 MG/DL BUN (test code = 2208) 5 MG/DL CREATININE (test code = 2214) 0.95 MG/DL eGFR AMER. (test cod e = 81090) 96 ML/MIN/1.73 eGFR NON- AMER. (test code = 77168) 83 ML/MIN/1.73 CALC BUN/CREAT (test code = 2235) 5 RATIO SODIUM (test code = 2231) 143 MEQ/L POTASSIUM (test code = 2228) 4.6 MEQ/L CHLORIDE (test code = 2215) 102 MEQ/L CARBON DIOXIDE (test code = 2206) 27 MEQ/L CALCIUM (test code = 2209) 10.4 MG/DL PROTEIN, TOTAL (test code = 2229) 7.6 G/DL ALBUMIN (test code = 2201) 4.7 G/DL CALC GLOBULIN (test code = 2240) 2.9 G/DL CALC A/G RATIO (test code = 2234) 1.6 RATIO BILIRUBIN, TOTAL (test code = 2207) 0.4 MG/DL ALKALINE PHOSPHATASE (test code = 2204) 95 U/L AST (test code = 2218) 22 U/L ALT (test code = 2219) 22 U/L VITAMIN D, 25 [id number] 00:00:00* Test Item Value Reference Range Interpretation Comme [facility] VITAMIN D, 25 OH (test code = 4958) 22 NG/ML VITAMIN D, 25 [id number] 00:00:00* Test Item Value Reference Range Interpretation Comme [facility] VITAMIN D, 25 OH (test code = 4958) 22 NG/ML VITAMIN B 12 AND FOLIC [id number] 00:00:00* Test Item Value Reference Range Interpretation Comme nts VITAMIN B-12 (test code = 2840) 437 PG/ML FOLIC ACID (test code = 2695) 6.6 UG/L VITAMIN B 12 AND FOLIC [id number] 00:00:00* Test Item Value Reference Range Interpretation Comme nts VITAMIN B-12 (test code = 2840) 437 PG/ML FOLIC ACID (test code = 2695) 6.6 UG/L HEPATITIS C [id number] 00:00:00* Test Item Value Reference Range Interpretation Comme nts HEPATITIS C ANTIBODY (test c ode = 4675) NON-REACTIVE HCV INDEX (test code = 91977) 0.12 HEPATITIS C [id number] 00:00:00* Test Item Value Reference Range Interpretation Comme nts HEPATITIS C ANTIBODY (test c ode = 4675) NON-REACTIVE HCV INDEX (test code = 09773) 0.12 HEMOGLOBIN [id number] 00:00:00* Test Item Value Reference Range Interpretation Comme nts HEMOGLOBIN A1c (test code = 37370) 5.8 % HEMOGLOBIN [id number] 00:00:00* Test Item Value Reference Range Interpretation Comme nts HEMOGLOBIN A1c (test code = 19740) 5.8 % HEMOGLOBIN [id number] 00:00:00* Test Item Value Reference Range Interpretation Comme nts HEMOGLOBIN A1c (test code = 90203) 5.8 % LIPID [id number] 00:00:00* Test Item Value Reference Range Interpretation Comme nts CHOLESTEROL (test code = 2210) 151 MG/DL TRIGLYCERIDES (test code = 2232) 82 MG/DL HDL CHOLESTEROL (test code = 2220) 39 MG/DL CALC LDL CHOL (test code = 2237) 96 MG/DL RISK RATIO LDL/HDL (test cod e = 2238) 2.45 RATIO LIPID [id number] 00:00:00* Test Item Value Reference Range Interpretation Comme nts CHOLESTEROL (test code = 2210) 151 MG/DL TRIGLYCERIDES (test code = 2232) 82 MG/DL HDL CHOLESTEROL (test code = 2220) 39 MG/DL CALC LDL CHOL (test code = 2237) 96 MG/DL RISK RATIO LDL/HDL (test cod e = 2238) 2.45 RATIO COMPREHENSIVE METABOLIC [id number] 00:00:00* Test Item Value Reference Range Interpretation Comme nts GLUCOSE (test code = 2217) 93 MG/DL BUN (test code = 2208) 5 MG/DL CREATININE (test code = 2214) 0.95 MG/DL eGFR AMER. (test cod e = 16566) 96 ML/MIN/1.73 eGFR NON- AMER. (test code = 56544) 83 ML/MIN/1.73 CALC BUN/CREAT (test code = 2235) 5 RATIO SODIUM (test code = 2231) 143 MEQ/L POTASSIUM (test code = 2228) 4.6 MEQ/L CHLORIDE (test code = 2215) 102 MEQ/L CARBON DIOXIDE (test code = 2206) 27 MEQ/L CALCIUM (test code = 2209) 10.4 MG/DL PROTEIN, TOTAL (test code = 2229) 7.6 G/DL ALBUMIN (test code = 2201) 4.7 G/DL CALC GLOBULIN (test code = 2240) 2.9 G/DL CALC A/G RATIO (test code = 2234) 1.6 RATIO BILIRUBIN, TOTAL (test code = 2207) 0.4 MG/DL ALKALINE PHOSPHATASE (test code = 2204) 95 U/L AST (test code = 2218) 22 U/L ALT (test code = 2219) 22 U/L COMPREHENSIVE METABOLIC [id number] 00:00:00* Test Item Value Reference Range Interpretation Comme nts GLUCOSE (test code = 2217) 93 MG/DL BUN (test code = 2208) 5 MG/DL CREATININE (test code = 2214) 0.95 MG/DL eGFR AMER. (test cod e = 09533) 96 ML/MIN/1.73 eGFR NON- AMER. (test code = 05058) 83 ML/MIN/1.73 CALC BUN/CREAT (test code = 2235) 5 RATIO SODIUM (test code = 2231) 143 MEQ/L POTASSIUM (test code = 2228) 4.6 MEQ/L CHLORIDE (test code = 2215) 102 MEQ/L CARBON DIOXIDE (test code = 2206) 27 MEQ/L CALCIUM (test code = 2209) 10.4 MG/DL PROTEIN, TOTAL (test code = 2229) 7.6 G/DL ALBUMIN (test code = 2201) 4.7 G/DL CALC GLOBULIN (test code = 2240) 2.9 G/DL CALC A/G RATIO (test code = 2234) 1.6 RATIO BILIRUBIN, TOTAL (test code = 2207) 0.4 MG/DL ALKALINE PHOSPHATASE (test code = 2204) 95 U/L AST (test code = 2218) 22 U/L ALT (test code = 2219) 22 U/L VITAMIN D, 25 [id number] 00:00:00* Test Item Value Reference Range Interpretation Comme nts VITAMIN D, 25 OH (test code = 4958) 22 NG/ML VITAMIN D, 25 [id number] 00:00:00* Test Item Value Reference Range Interpretation Comme nts VITAMIN D, 25 OH (test code = 4958) 22 NG/ML VITAMIN B 12 AND FOLIC [id number] 00:00:00* Test Item Value Reference Range Interpretation Comme nts VITAMIN B-12 (test code = 2840) 437 PG/ML FOLIC ACID (test code = 2695) 6.6 UG/L VITAMIN B 12 AND FOLIC [id number] 00:00:00* Test Item Value Reference Range Interpretation Comme nts VITAMIN B-12 (test code = 2840) 437 PG/ML FOLIC ACID (test code = 2695) 6.6 UG/L HEPATITIS C [id number] 00:00:00* Test Item Value Reference Range Interpretation Comme nts HEPATITIS C ANTIBODY (test c ode = 4675) NON-REACTIVE HCV INDEX (test code = 58236) 0.12 HEPATITIS C [id number] 00:00:00* Test Item Value Reference Range Interpretation Comme nts HEPATITIS C ANTIBODY (test c ode = 4675) NON-REACTIVE HCV INDEX (test code = 82389) 0.12 HEMOGLOBIN [id number] 00:00:00* Test Item Value Reference Range Interpretation Comme nts HEMOGLOBIN A1c (test code = 43545) 5.8 % HEMOGLOBIN [id number] 00:00:00* Test Item Value Reference Range Interpretation Comme nts HEMOGLOBIN A1c (test code = 47750) 5.8 % HEMOGLOBIN [id number] 00:00:00* Test Item Value Reference Range Interpretation Comme nts HEMOGLOBIN A1c (test code = 33057) 5.8 % LIPID [id number] 00:00:00* Test Item Value Reference Range Interpretation Comme nts CHOLESTEROL (test code = 2210) 151 MG/DL TRIGLYCERIDES (test code = 2232) 82 MG/DL HDL CHOLESTEROL (test code = 2220) 39 MG/DL CALC LDL CHOL (test code = 2237) 96 MG/DL RISK RATIO LDL/HDL (test cod e = 2238) 2.45 RATIO LIPID [id number] 00:00:00* Test Item Value Reference Range Interpretation Comme nts CHOLESTEROL (test code = 2210) 151 MG/DL TRIGLYCERIDES (test code = 2232) 82 MG/DL HDL CHOLESTEROL (test code = 2220) 39 MG/DL CALC LDL CHOL (test code = 2237) 96 MG/DL RISK RATIO LDL/HDL (test cod e = 2238) 2.45 RATIO COMPREHENSIVE METABOLIC [id number] 00:00:00* Test Item Value Reference Range Interpretation Comme nts GLUCOSE (test code = 2217) 93 MG/DL BUN (test code = 2208) 5 MG/DL CREATININE (test code = 2214) 0.95 MG/DL eGFR AMER. (test cod e = 04072) 96 ML/MIN/1.73 eGFR NON- AMER. (test code = 33192) 83 ML/MIN/1.73 CALC BUN/CREAT (test code = 2235) 5 RATIO SODIUM (test code = 2231) 143 MEQ/L POTASSIUM (test code = 2228) 4.6 MEQ/L CHLORIDE (test code = 2215) 102 MEQ/L CARBON DIOXIDE (test code = 2206) 27 MEQ/L CALCIUM (test code = 2209) 10.4 MG/DL PROTEIN, TOTAL (test code = 2229) 7.6 G/DL ALBUMIN (test code = 2201) 4.7 G/DL CALC GLOBULIN (test code = 2240) 2.9 G/DL CALC A/G RATIO (test code = 2234) 1.6 RATIO BILIRUBIN, TOTAL (test code = 2207) 0.4 MG/DL ALKALINE PHOSPHATASE (test code = 2204) 95 U/L AST (test code = 2218) 22 U/L ALT (test code = 2219) 22 U/L COMPREHENSIVE METABOLIC [id number] 00:00:00* Test Item Value Reference Range Interpretation Comme nts GLUCOSE (test code = 2217) 93 MG/DL BUN (test code = 2208) 5 MG/DL CREATININE (test code = 2214) 0.95 MG/DL eGFR AMER. (test cod e = 44695) 96 ML/MIN/1.73 eGFR NON- AMER. (test code = 92209) 83 ML/MIN/1.73 CALC BUN/CREAT (test code = 2235) 5 RATIO SODIUM (test code = 2231) 143 MEQ/L POTASSIUM (test code = 2228) 4.6 MEQ/L CHLORIDE (test code = 2215) 102 MEQ/L CARBON DIOXIDE (test code = 2206) 27 MEQ/L CALCIUM (test code = 2209) 10.4 MG/DL PROTEIN, TOTAL (test code = 2229) 7.6 G/DL ALBUMIN (test code = 2201) 4.7 G/DL CALC GLOBULIN (test code = 2240) 2.9 G/DL CALC A/G RATIO (test code = 2234) 1.6 RATIO BILIRUBIN, TOTAL (test code = 2207) 0.4 MG/DL ALKALINE PHOSPHATASE (test code = 2204) 95 U/L AST (test code = 2218) 22 U/L ALT (test code = 2219) 22 U/L VITAMIN D, 25 [id number] 00:00:00* Test Item Value Reference Range Interpretation [facility] D, 25 OH (test code = 4958) 22 NG/ML VITAMIN D, 25 [id number] 00:00:00* Test Item Value Reference Range Interpretation [facility] VITAMIN D, 25 OH (test code = 4958) 22 NG/ML VITAMIN B 12 AND FOLIC [id number] 00:00:00* Test Item Value Reference Range Interpretation Com[facility] VITAMIN B-12 (test code = 2840) 437 PG/ML FOLIC ACID (test code = 2695) 6.6 UG/L VITAMIN B 12 AND FOLIC [id number] 00:00:00* Test Item Value Reference Range Interpretation Com[facility] VIT[facility] B-12 (test code = 2840) 437 PG/ML FOLIC ACID (test code = 2695) 6.6 UG/L HEPATITIS C [id number] 00:00:00* Test Item Value Reference Range Interpretation Comme nts HEPATITIS C ANTIBODY (test c ode = 4675) NON-REACTIVE HCV INDEX (test code = 17088) 0.12 HEPATITIS C [id number] 00:00:00* Test Item Value Reference Range Interpretation Comme nts HEPATITIS C ANTIBODY (test c ode = 4675) NON-REACTIVE HCV INDEX (test code = 95458) 0.12 HEMOGLOBIN [id number] 00:00:00* Test Item Value Reference Range Interpretation Comme nts HEMOGLOBIN A1c (test code = 63002) 5.8 % HEMOGLOBIN [id number] 00:00:00* Test Item Value Reference Range Interpretation Comme nts HEMOGLOBIN A1c (test code = 28850) 5.8 % HEMOGLOBIN [id number] 00:00:00* Test Item Value Reference Range Interpretation Comme nts HEMOGLOBIN A1c (test code = 71665) 5.8 % LIPID [id number] 00:00:00* Test Item Value Reference Range Interpretation Comme nts CHOLESTEROL (test code = 2210) 151 MG/DL TRIGLYCERIDES (test code = 2232) 82 MG/DL HDL CHOLESTEROL (test code = 2220) 39 MG/DL CALC LDL CHOL (test code = 2237) 96 MG/DL RISK RATIO LDL/HDL (test cod e = 2238) 2.45 RATIO LIPID [id number] 00:00:00* Test Item Value Reference Range Interpretation Comme nts CHOLESTEROL (test code = 2210) 151 MG/DL TRIGLYCERIDES (test code = 2232) 82 MG/DL HDL CHOLESTEROL (test code = 2220) 39 MG/DL CALC LDL CHOL (test code = 2237) 96 MG/DL RISK RATIO LDL/HDL (test cod e = 2238) 2.45 RATIO COMPREHENSIVE METABOLIC [id number] 00:00:00* Test Item Value Reference Range Interpretation Comme nts GLUCOSE (test code = 2217) 93 MG/DL BUN (test code = 2208) 5 MG/DL CREATININE (test code = 2214) 0.95 MG/DL eGFR AMER. (test cod e = 31326) 96 ML/MIN/1.73 eGFR NON- AMER. (test code = 68883) 83 ML/MIN/1.73 CALC BUN/CREAT (test code = 2235) 5 RATIO SODIUM (test code = 2231) 143 MEQ/L POTASSIUM (test code = 2228) 4.6 MEQ/L CHLORIDE (test code = 2215) 102 MEQ/L CARBON DIOXIDE (test code = 2206) 27 MEQ/L CALCIUM (test code = 2209) 10.4 MG/DL PROTEIN, TOTAL (test code = 2229) 7.6 G/DL ALBUMIN (test code = 2201) 4.7 G/DL CALC GLOBULIN (test code = 2240) 2.9 G/DL CALC A/G RATIO (test code = 2234) 1.6 RATIO BILIRUBIN, TOTAL (test code = 2207) 0.4 MG/DL ALKALINE PHOSPHATASE (test code = 2204) 95 U/L AST (test code = 2218) 22 U/L ALT (test code = 2219) 22 U/L COMPREHENSIVE METABOLIC [id number] 00:00:00* Test Item Value Reference Range Interpretation Comme nts GLUCOSE (test code = 2217) 93 MG/DL BUN (test code = 2208) 5 MG/DL CREATININE (test code = 2214) 0.95 MG/DL eGFR AMER. (test cod e = 85993) 96 ML/MIN/1.73 eGFR NON- AMER. (test code = 96377) 83 ML/MIN/1.73 CALC BUN/CREAT (test code = 2235) 5 RATIO SODIUM (test code = 2231) 143 MEQ/L POTASSIUM (test code = 2228) 4.6 MEQ/L CHLORIDE (test code = 2215) 102 MEQ/L CARBON DIOXIDE (test code = 2206) 27 MEQ/L CALCIUM (test code = 2209) 10.4 MG/DL PROTEIN, TOTAL (test code = 2229) 7.6 G/DL ALBUMIN (test code = 2201) 4.7 G/DL CALC GLOBULIN (test code = 2240) 2.9 G/DL CALC A/G RATIO (test code = 2234) 1.6 RATIO BILIRUBIN, TOTAL (test code = 2207) 0.4 MG/DL ALKALINE PHOSPHATASE (test code = 2204) 95 U/L AST (test code = 2218) 22 U/L ALT (test code = 2219) 22 U/L VITAMIN D, 25 [id number] 00:00:00* Test Item Value Reference Range Interpretation Comme nts VITAMIN D, 25 OH (test code = 4958) 22 NG/ML VITAMIN D, 25 [id number] 00:00:00* Test Item Value Reference Range Interpretation Comme nts VITAMIN D, 25 OH (test code = 4958) 22 NG/ML VITAMIN B 12 AND FOLIC [id number] 00:00:00* Test Item Value Reference Range Interpretation Comme nts VITAMIN B-12 (test code = 2840) 437 PG/ML FOLIC ACID (test code = 2695) 6.6 UG/L VITAMIN B 12 AND FOLIC [id number] 00:00:00* Test Item Value Reference Range Interpretation Comme nts VITAMIN B-12 (test code = 2840) 437 PG/ML FOLIC ACID (test code = 2695) 6.6 UG/L HEPATITIS C [id number] 00:00:00* Test Item Value Reference Range Interpretation Comme nts HEPATITIS C ANTIBODY (test c ode = 4675) NON-REACTIVE HCV INDEX (test code = 23817) 0.12 HEPATITIS C [id number] 00:00:00* Test Item Value Reference Range Interpretation Comme nts HEPATITIS C ANTIBODY (test c ode = 4675) NON-REACTIVE HCV INDEX (test code = 47854) 0.12 COMPREHENSIVE METABOLIC [id number] 00:00:00* Test Item Value Reference Range Interpretation Comme nts GLUCOSE (test code = 2217) 97 MG/DL BUN (test code = 2208) 14 MG/DL CREATININE (test code = 2214) 1.10 MG/DL eGFR AMER. (test cod e = 62226) 81 ML/MIN/1.73 eGFR NON- AMER. (test code = 67598) 70 ML/MIN/1.73 CALC BUN/CREAT (test code = 2235) 13 RATIO SODIUM (test code = 2231) 138 MEQ/L POTASSIUM (test code = 2228) 4.4 MEQ/L CHLORIDE (test code = 2215) 98 MEQ/L CARBON DIOXIDE (test code = 2206) 25 MEQ/L CALCIUM (test code = 2209) 10.1 MG/DL PROTEIN, TOTAL (test code = 2229) 7.5 G/DL ALBUMIN (test code = 2201) 4.8 G/DL CALC GLOBULIN (test code = 2240) 2.7 G/DL CALC A/G RATIO (test code = 2234) 1.8 RATIO BILIRUBIN, TOTAL (test code = 2207) 0.3 MG/DL ALKALINE PHOSPHATASE (test code = 2204) 85 U/L AST (test code = 2218) 17 U/L ALT (test code = 2219) 20 U/L COMPREHENSIVE METABOLIC [id number] 00:00:00* Test Item Value Reference Range Interpretation Comme nts GLUCOSE (test code = 2217) 97 MG/DL BUN (test code = 2208) 14 MG/DL CREATININE (test code = 2214) 1.10 MG/DL eGFR AMER. (test cod e = 92534) 81 ML/MIN/1.73 eGFR NON- AMER. (test code = 13491) 70 ML/MIN/1.73 CALC BUN/CREAT (test code = 2235) 13 RATIO SODIUM (test code = 2231) 138 MEQ/L POTASSIUM (test code = 2228) 4.4 MEQ/L CHLORIDE (test code = 2215) 98 MEQ/L CARBON DIOXIDE (test code = 2206) 25 MEQ/L CALCIUM (test code = 2209) 10.1 MG/DL PROTEIN, TOTAL (test code = 2229) 7.5 G/DL ALBUMIN (test code = 2201) 4.8 G/DL CALC GLOBULIN (test code = 2240) 2.7 G/DL CALC A/G RATIO (test code = 2234) 1.8 RATIO BILIRUBIN, TOTAL (test code = 2207) 0.3 MG/DL ALKALINE PHOSPHATASE (test code = 2204) 85 U/L AST (test code = 2218) 17 U/L ALT (test code = 2219) 20 U/L LIPID [id number] 00:00:00* Test Item Value Reference Range Interpretation Comme nts CHOLESTEROL (test code = 2210) 149 MG/DL TRIGLYCERIDES (test code = 2232) 102 MG/DL HDL CHOLESTEROL (test code = 2220) 37 MG/DL CALC LDL CHOL (test code = 2237) 92 MG/DL RISK RATIO LDL/HDL (test cod e = 2238) 2.48 RATIO LIPID [id number] 00:00:00* Test Item Value Reference Range Interpretation Comme nts CHOLESTEROL (test code = 2210) 149 MG/DL TRIGLYCERIDES (test code = 2232) 102 MG/DL HDL CHOLESTEROL (test code = 2220) 37 MG/DL CALC LDL CHOL (test code = 2237) 92 MG/DL RISK RATIO LDL/HDL (test cod e = 2238) 2.48 RATIO CBC W/AUTO [id number] 00:00:00* Test Item Value Reference Range Interpretation Comme nts WBC (test code = 1001) 6.3 K/UL [...] code = 1015) 300 K/UL CBC W/AUTO [id number] 00:00:00* Test Item Value Reference Range Interpretation Comme nts WBC (test code = 1001) 6.3 K/UL [...] code = 1015) 300 K/UL CBC W/AUTO [id number] 00:00:00* Test Item Value Reference Range Interpretation Comme nts WBC (test code = 1001) 6.3 K/UL [...] (test code = 1015) 300 K/UL HEMOGLOBIN [id number] 00:00:00* Test Item Value Reference Range Interpretation Comme nts HEMOGLOBIN A1c (test code = 51170) 5.7 % HEMOGLOBIN [id number] 00:00:00* Test Item Value Reference Range Interpretation Comme nts HEMOGLOBIN A1c (test code = 15611) 5.7 % HEMOGLOBIN [id number] 00:00:00* Test Item Value Reference Range Interpretation Comme nts HEMOGLOBIN A1c (test code = 37191) 5.7 % [id number] 00:00:00* Test Item Value Reference Range Interpretation Comme nts TSH (test code = 2821) 1.170 UIU/ML [id number] 00:00:00* Test Item Value Reference Range Interpretation Comme nts TSH (test code = 2821) 1.170 UIU/ML [id number] 00:00:00* Test Item Value Reference Range Interpretation Comme nts TSH (test code = 2821) 1.170 UIU/ML VITAMIN [id number] 00:00:00* Test Item Value Reference Range Interpretation Comme nts VITAMIN B-12 (test code = 2840) 380 PG/ML VITAMIN [id number] 00:00:00* Test Item Value Reference Range Interpretation Comme nts VITAMIN B-12 (test code = 2840) 380 PG/ML VITAMIN [id number] 00:00:00* Test Item Value Reference Range Interpretation Comme nts VITAMIN B-12 (test code = 2840) 380 PG/ML VITAMIN D, 25 [id number] 00:00:00* Test Item Value Reference Range Interpretation Comme nts VITAMIN D, 25 OH (test code = 4958) 19 NG/ML VITAMIN D, 25 [id number] 00:00:00* Test Item Value Reference Range Interpretation Comme nts VITAMIN D, 25 OH (test code = 4958) 19 NG/ML COMPREHENSIVE METABOLIC [id number] 00:00:00* Test Item Value Reference Range Interpretation Comme nts GLUCOSE (test code = 2217) 97 MG/DL BUN (test code = 2208) 14 MG/DL CREATININE (test code = 2214) 1.10 MG/DL eGFR AMER. (test cod e = 88177) 81 ML/MIN/1.73 eGFR NON- AMER. (test code = 02090) 70 ML/MIN/1.73 CALC BUN/CREAT (test code = 2235) 13 RATIO SODIUM (test code = 2231) 138 MEQ/L POTASSIUM (test code = 2228) 4.4 MEQ/L CHLORIDE (test code = 2215) 98 MEQ/L CARBON DIOXIDE (test code = 2206) 25 MEQ/L CALCIUM (test code = 2209) 10.1 MG/DL PROTEIN, TOTAL (test code = 2229) 7.5 G/DL ALBUMIN (test code = 2201) 4.8 G/DL CALC GLOBULIN (test code = 2240) 2.7 G/DL CALC A/G RATIO (test code = 2234) 1.8 RATIO BILIRUBIN, TOTAL (test code = 2207) 0.3 MG/DL ALKALINE PHOSPHATASE (test code = 2204) 85 U/L AST (test code = 2218) 17 U/L ALT (test code = 2219) 20 U/L COMPREHENSIVE METABOLIC [id number] 00:00:00* Test Item Value Reference Range Interpretation Comme nts GLUCOSE (test code = 2217) 97 MG/DL BUN (test code = 2208) 14 MG/DL CREATININE (test code = 2214) 1.10 MG/DL eGFR AMER. (test cod e = 28367) 81 ML/MIN/1.73 eGFR NON- AMER. (test code = 32559) 70 ML/MIN/1.73 CALC BUN/CREAT (test code = 2235) 13 RATIO SODIUM (test code = 2231) 138 MEQ/L POTASSIUM (test code = 2228) 4.4 MEQ/L CHLORIDE (test code = 2215) 98 MEQ/L CARBON DIOXIDE (test code = 2206) 25 MEQ/L CALCIUM (test code = 2209) 10.1 MG/DL PROTEIN, TOTAL (test code = 2229) 7.5 G/DL ALBUMIN (test code = 2201) 4.8 G/DL CALC GLOBULIN (test code = 2240) 2.7 G/DL CALC A/G RATIO (test code = 2234) 1.8 RATIO BILIRUBIN, TOTAL (test code = 2207) 0.3 MG/DL ALKALINE PHOSPHATASE (test code = 2204) 85 U/L AST (test code = 2218) 17 U/L ALT (test code = 2219) 20 U/L LIPID [id number] 00:00:00* Test Item Value Reference Range Interpretation Comme nts CHOLESTEROL (test code = 2210) 149 MG/DL TRIGLYCERIDES (test code = 2232) 102 MG/DL HDL CHOLESTEROL (test code = 2220) 37 MG/DL CALC LDL CHOL (test code = 2237) 92 MG/DL RISK RATIO LDL/HDL (test cod e = 2238) 2.48 RATIO LIPID [id number] 00:00:00* Test Item Value Reference Range Interpretation Comme nts CHOLESTEROL (test code = 2210) 149 MG/DL TRIGLYCERIDES (test code = 2232) 102 MG/DL HDL CHOLESTEROL (test code = 2220) 37 MG/DL CALC LDL CHOL (test code = 2237) 92 MG/DL RISK RATIO LDL/HDL (test cod e = 2238) 2.48 RATIO CBC W/AUTO [id number] 00:00:00* Test Item Value Reference Range Interpretation Comme nts WBC (test code = 1001) 6.3 K/UL [...] code = 1015) 300 K/UL CBC W/AUTO [id number] 00:00:00* Test Item Value Reference Range Interpretation Comme nts WBC (test code = 1001) 6.3 K/UL [...] code = 1015) 300 K/UL CBC W/AUTO [id number] 00:00:00* Test Item Value Reference Range Interpretation Comme nts WBC (test code = 1001) 6.3 K/UL [...] (test code = 1015) 300 K/UL HEMOGLOBIN [id number] 00:00:00* Test Item Value Reference Range Interpretation Comme nts HEMOGLOBIN A1c (test code = 03163) 5.7 % HEMOGLOBIN [id number] 00:00:00* Test Item Value Reference Range Interpretation Comme nts HEMOGLOBIN A1c (test code = 54071) 5.7 % HEMOGLOBIN [id number] 00:00:00* Test Item Value Reference Range Interpretation Comme nts HEMOGLOBIN A1c (test code = 48176) 5.7 % [id number] 00:00:00* Test Item Value Reference Range Interpretation Comme nts TSH (test code = 2821) 1.170 UIU/ML [id number] 00:00:00* Test Item Value Reference Range Interpretation Comme nts TSH (test code = 2821) 1.170 UIU/ML [id number] 00:00:00* Test Item Value Reference Range Interpretation Comme nts TSH (test code = 2821) 1.170 UIU/ML VITAMIN [id number] 00:00:00* Test Item Value Reference Range Interpretation Comme nts VITAMIN B-12 (test code = 2840) 380 PG/ML VITAMIN [id number] 00:00:00* Test Item Value Reference Range Interpretation Comme nts VITAMIN B-12 (test code = 2840) 380 PG/ML VITAMIN [id number] 00:00:00* Test Item Value Reference Range Interpretation Comme nts VITAMIN B-12 (test code = 2840) 380 PG/ML VITAMIN D, 25 [id number] 00:00:00* Test Item Value Reference Range Interpretation Comme nts VITAMIN D, 25 OH (test code = 4958) 19 NG/ML VITAMIN D, 25 [id number] 00:00:00* Test Item Value Reference Range Interpretation Comme nts VITAMIN D, 25 OH (test code = 4958) 19 NG/ML COMPREHENSIVE METABOLIC [id number] 00:00:00* Test Item Value Reference Range Interpretation Comme nts GLUCOSE (test code = 2217) 97 MG/DL BUN (test code = 2208) 14 MG/DL CREATININE (test code = 2214) 1.10 MG/DL eGFR AMER. (test cod e = 70979) 81 ML/MIN/1.73 eGFR NON- AMER. (test code = 51919) 70 ML/MIN/1.73 CALC BUN/CREAT (test code = 2235) 13 RATIO SODIUM (test code = 2231) 138 MEQ/L POTASSIUM (test code = 2228) 4.4 MEQ/L CHLORIDE (test code = 2215) 98 MEQ/L CARBON DIOXIDE (test code = 2206) 25 MEQ/L CALCIUM (test code = 2209) 10.1 MG/DL PROTEIN, TOTAL (test code = 2229) 7.5 G/DL ALBUMIN (test code = 2201) 4.8 G/DL CALC GLOBULIN (test code = 2240) 2.7 G/DL CALC A/G RATIO (test code = 2234) 1.8 RATIO BILIRUBIN, TOTAL (test code = 2207) 0.3 MG/DL ALKALINE PHOSPHATASE (test code = 2204) 85 U/L AST (test code = 2218) 17 U/L ALT (test code = 2219) 20 U/L COMPREHENSIVE METABOLIC [id number] 00:00:00* Test Item Value Reference Range Interpretation Comme nts GLUCOSE (test code = 2217) 97 MG/DL BUN (test code = 2208) 14 MG/DL CREATININE (test code = 2214) 1.10 MG/DL eGFR AMER. (test cod e = 41843) 81 ML/MIN/1.73 eGFR NON- AMER. (test code = 24486) 70 ML/MIN/1.73 CALC BUN/CREAT (test code = 2235) 13 RATIO SODIUM (test code = 2231) 138 MEQ/L POTASSIUM (test code = 2228) 4.4 MEQ/L CHLORIDE (test code = 2215) 98 MEQ/L CARBON DIOXIDE (test code = 2206) 25 MEQ/L CALCIUM (test code = 2209) 10.1 MG/DL PROTEIN, TOTAL (test code = 2229) 7.5 G/DL ALBUMIN (test code = 2201) 4.8 G/DL CALC GLOBULIN (test code = 2240) 2.7 G/DL CALC A/G RATIO (test code = 2234) 1.8 RATIO BILIRUBIN, TOTAL (test code = 2207) 0.3 MG/DL ALKALINE PHOSPHATASE (test code = 2204) 85 U/L AST (test code = 2218) 17 U/L ALT (test code = 2219) 20 U/L LIPID [id number] 00:00:00* Test Item Value Reference Range Interpretation Comme nts CHOLESTEROL (test code = 2210) 149 MG/DL TRIGLYCERIDES (test code = 2232) 102 MG/DL HDL CHOLESTEROL (test code = 2220) 37 MG/DL CALC LDL CHOL (test code = 2237) 92 MG/DL RISK RATIO LDL/HDL (test cod e = 2238) 2.48 RATIO LIPID [id number] 00:00:00* Test Item Value Reference Range Interpretation Comme nts CHOLESTEROL (test code = 2210) 149 MG/DL TRIGLYCERIDES (test code = 2232) 102 MG/DL HDL CHOLESTEROL (test code = 2220) 37 MG/DL CALC LDL CHOL (test code = 2237) 92 MG/DL RISK RATIO LDL/HDL (test cod e = 2238) 2.48 RATIO CBC W/AUTO [id number] 00:00:00* Test Item Value Reference Range Interpretation Comme nts WBC (test code = 1001) 6.3 K/UL [...] code = 1015) 300 K/UL CBC W/AUTO [id number] 00:00:00* Test Item Value Reference Range Interpretation Comme nts WBC (test code = 1001) 6.3 K/UL [...] code = 1015) 300 K/UL CBC W/AUTO [id number] 00:00:00* Test Item Value Reference Range Interpretation Comme nts WBC (test code = 1001) 6.3 K/UL [...] (test code = 1015) 300 K/UL HEMOGLOBIN [id number] 00:00:00* Test Item Value Reference Range Interpretation Comme nts HEMOGLOBIN A1c (test code = 38322) 5.7 % HEMOGLOBIN [id number] 00:00:00* Test Item Value Reference Range Interpretation Comme nts HEMOGLOBIN A1c (test code = 46520) 5.7 % HEMOGLOBIN [id number] 00:00:00* Test Item Value Reference Range Interpretation Comme nts HEMOGLOBIN A1c (test code = 98066) 5.7 % [id number] 00:00:00* Test Item Value Reference Range Interpretation Comme nts TSH (test code = 2821) 1.170 UIU/ML [id number] 00:00:00* Test Item Value Reference Range Interpretation Comme nts TSH (test code = 2821) 1.170 UIU/ML [id number] 00:00:00* Test Item Value Reference Range Interpretation Comme nts TSH (test code = 2821) 1.170 UIU/ML VITAMIN [id number] 00:00:00* Test Item Value Reference Range Interpretation Comme nts VITAMIN B-12 (test code = 2840) 380 PG/ML VITAMIN [id number] 00:00:00* Test Item Value Reference Range Interpretation Comme nts VITAMIN B-12 (test code = 2840) 380 PG/ML VITAMIN [id number] 00:00:00* Test Item Value Reference Range Interpretation Comme nts VITAMIN B-12 (test code = 2840) 380 PG/ML VITAMIN D, 25 [id number] 00:00:00* Test Item Value Reference Range Interpretation Comme nts VITAMIN D, 25 OH (test code = 4958) 19 NG/ML VITAMIN D, 25 [id number] 00:00:00* Test Item Value Reference Range Interpretation Comme nts VITAMIN D, 25 OH (test code = 4958) 19 NG/ML COMPREHENSIVE METABOLIC [id number] 00:00:00* Test Item Value Reference Range Interpretation Comme nts GLUCOSE (test code = 2217) 97 MG/DL BUN (test code = 2208) 14 MG/DL CREATININE (test code = 2214) 1.10 MG/DL eGFR AMER. (test cod e = 96664) 81 ML/MIN/1.73 eGFR NON- AMER. (test code = 88014) 70 ML/MIN/1.73 CALC BUN/CREAT (test code = 2235) 13 RATIO SODIUM (test code = 2231) 138 MEQ/L POTASSIUM (test code = 2228) 4.4 MEQ/L CHLORIDE (test code = 2215) 98 MEQ/L CARBON DIOXIDE (test code = 2206) 25 MEQ/L CALCIUM (test code = 2209) 10.1 MG/DL PROTEIN, TOTAL (test code = 2229) 7.5 G/DL ALBUMIN (test code = 2201) 4.8 G/DL CALC GLOBULIN (test code = 2240) 2.7 G/DL CALC A/G RATIO (test code = 2234) 1.8 RATIO BILIRUBIN, TOTAL (test code = 2207) 0.3 MG/DL ALKALINE PHOSPHATASE (test code = 2204) 85 U/L AST (test code = 2218) 17 U/L ALT (test code = 2219) 20 U/L COMPREHENSIVE METABOLIC [id number] 00:00:00* Test Item Value Reference Range Interpretation Comme nts GLUCOSE (test code = 2217) 97 MG/DL BUN (test code = 2208) 14 MG/DL CREATININE (test code = 2214) 1.10 MG/DL eGFR AMER. (test cod e = 03937) 81 ML/MIN/1.73 eGFR NON- AMER. (test code = 90238) 70 ML/MIN/1.73 CALC BUN/CREAT (test code = 2235) 13 RATIO SODIUM (test code = 2231) 138 MEQ/L POTASSIUM (test code = 2228) 4.4 MEQ/L CHLORIDE (test code = 2215) 98 MEQ/L CARBON DIOXIDE (test code = 2206) 25 MEQ/L CALCIUM (test code = 2209) 10.1 MG/DL PROTEIN, TOTAL (test code = 2229) 7.5 G/DL ALBUMIN (test code = 2201) 4.8 G/DL CALC GLOBULIN (test code = 2240) 2.7 G/DL CALC A/G RATIO (test code = 2234) 1.8 RATIO BILIRUBIN, TOTAL (test code = 2207) 0.3 MG/DL ALKALINE PHOSPHATASE (test code = 2204) 85 U/L AST (test code = 2218) 17 U/L ALT (test code = 2219) 20 U/L LIPID [id number] 00:00:00* Test Item Value Reference Range Interpretation Comme nts CHOLESTEROL (test code = 2210) 149 MG/DL TRIGLYCERIDES (test code = 2232) 102 MG/DL HDL CHOLESTEROL (test code = 2220) 37 MG/DL CALC LDL CHOL (test code = 2237) 92 MG/DL RISK RATIO LDL/HDL (test cod e = 2238) 2.48 RATIO LIPID [id number] 00:00:00* Test Item Value Reference Range Interpretation Comme nts CHOLESTEROL (test code = 2210) 149 MG/DL TRIGLYCERIDES (test code = 2232) 102 MG/DL HDL CHOLESTEROL (test code = 2220) 37 MG/DL CALC LDL CHOL (test code = 2237) 92 MG/DL RISK RATIO LDL/HDL (test cod e = 2238) 2.48 RATIO CBC W/AUTO [id number] 00:00:00* Test Item Value Reference Range Interpretation Comme nts WBC (test code = 1001) 6.3 K/UL [...] code = 1015) 300 K/UL CBC W/AUTO [id number] 00:00:00* Test Item Value Reference Range Interpretation Comme nts WBC (test code = 1001) 6.3 K/UL [...] code = 1015) 300 K/UL CBC W/AUTO [id number] 00:00:00* Test Item Value Reference Range Interpretation Comme nts WBC (test code = 1001) 6.3 K/UL [...] (test code = 1015) 300 K/UL HEMOGLOBIN [id number] 00:00:00* Test Item Value Reference Range Interpretation Comme nts HEMOGLOBIN A1c (test code = 54139) 5.7 % HEMOGLOBIN [id number] 00:00:00* Test Item Value Reference Range Interpretation Comme nts HEMOGLOBIN A1c (test code = 62891) 5.7 % HEMOGLOBIN [id number] 00:00:00* Test Item Value Reference Range Interpretation Comme nts HEMOGLOBIN A1c (test code = 86945) 5.7 % [id number] 00:00:00* Test Item Value Reference Range Interpretation Comme nts TSH (test code = 2821) 1.170 UIU/ML [id number] 00:00:00* Test Item Value Reference Range Interpretation Comme nts TSH (test code = 2821) 1.170 UIU/ML [id number] 00:00:00* Test Item Value Reference Range Interpretation Comme nts TSH (test code = 2821) 1.170 UIU/ML VITAMIN [id number] 00:00:00* Test Item Value Reference Range Interpretation Comme nts VITAMIN B-12 (test code = 2840) 380 PG/ML VITAMIN [id number] 00:00:00* Test Item Value Reference Range Interpretation Comme nts VITAMIN B-12 (test code = 2840) 380 PG/ML VITAMIN [id number] 00:00:00* Test Item Value Reference Range Interpretation Comme nts VITAMIN B-12 (test code = 2840) 380 PG/ML VITAMIN D, 25 [id number] 00:00:00* Test Item Value Reference Range Interpretation Comme nts VITAMIN D, 25 OH (test code = 4958) 19 NG/ML VITAMIN D, 25 [id number] 00:00:00* Test Item Value Reference Range Interpretation Comme nts VITAMIN D, 25 OH (test code = 4958) 19 NG/ML COMPREHENSIVE METABOLIC [id number] 00:00:00* Test Item Value Reference Range Interpretation Comme nts GLUCOSE (test code = 2217) 101 MG/DL BUN (test code = 2208) 8 MG/DL CREATININE (test code = 2214) 1.04 MG/DL eGFR AMER. (test cod e = 21876) 87 ML/MIN/1.73 eGFR NON- AMER. (test code = 69392) 75 ML/MIN/1.73 CALC BUN/CREAT (test code = 2235) 8 RATIO SODIUM (test code = 2231) 143 MEQ/L POTASSIUM (test code = 2228) 4.3 MEQ/L CHLORIDE (test code = 2215) 102 MEQ/L CARBON DIOXIDE (test code = 2206) 27 MEQ/L CALCIUM (test code = 2209) 9.8 MG/DL PROTEIN, TOTAL (test code = 2229) 7.4 G/DL ALBUMIN (test code = 2201) 4.7 G/DL CALC GLOBULIN (test code = 2240) 2.7 G/DL CALC A/G RATIO (test code = 2234) 1.7 RATIO BILIRUBIN, TOTAL (test code = 2207) 0.2 MG/DL ALKALINE PHOSPHATASE (test code = 2204) 89 U/L AST (test code = 2218) 22 U/L ALT (test code = 2219) 26 U/L COMPREHENSIVE METABOLIC [id number] 00:00:00* Test Item Value Reference Range Interpretation Comme nts GLUCOSE (test code = 2217) 101 MG/DL BUN (test code = 2208) 8 MG/DL CREATININE (test code = 2214) 1.04 MG/DL eGFR AMER. (test cod e = 08283) 87 ML/MIN/1.73 eGFR NON- AMER. (test code = 79191) 75 ML/MIN/1.73 CALC BUN/CREAT (test code = 2235) 8 RATIO SODIUM (test code = 2231) 143 MEQ/L POTASSIUM (test code = 2228) 4.3 MEQ/L CHLORIDE (test code = 2215) 102 MEQ/L CARBON DIOXIDE (test code = 2206) 27 MEQ/L CALCIUM (test code = 2209) 9.8 MG/DL PROTEIN, TOTAL (test code = 2229) 7.4 G/DL ALBUMIN (test code = 2201) 4.7 G/DL CALC GLOBULIN (test code = 2240) 2.7 G/DL CALC A/G RATIO (test code = 2234) 1.7 RATIO BILIRUBIN, TOTAL (test code = 2207) 0.2 MG/DL ALKALINE PHOSPHATASE (test code = 2204) 89 U/L AST (test code = 2218) 22 U/L ALT (test code = 2219) 26 U/L COMPREHENSIVE METABOLIC [id number] 00:00:00* Test Item Value Reference Range Interpretation Comme nts GLUCOSE (test code = 2217) 101 MG/DL BUN (test code = 2208) 8 MG/DL CREATININE (test code = 2214) 1.04 MG/DL eGFR AMER. (test cod e = 20948) 87 ML/MIN/1.73 eGFR NON- AMER. (test code = 02000) 75 ML/MIN/1.73 CALC BUN/CREAT (test code = 2235) 8 RATIO SODIUM (test code = 2231) 143 MEQ/L POTASSIUM (test code = 2228) 4.3 MEQ/L CHLORIDE (test code = 2215) 102 MEQ/L CARBON DIOXIDE (test code = 2206) 27 MEQ/L CALCIUM (test code = 2209) 9.8 MG/DL PROTEIN, TOTAL (test code = 2229) 7.4 G/DL ALBUMIN (test code = 2201) 4.7 G/DL CALC GLOBULIN (test code = 2240) 2.7 G/DL CALC A/G RATIO (test code = 2234) 1.7 RATIO BILIRUBIN, TOTAL (test code = 2207) 0.2 MG/DL ALKALINE PHOSPHATASE (test code = 2204) 89 U/L AST (test code = 2218) 22 U/L ALT (test code = 2219) 26 U/L COMPREHENSIVE METABOLIC [id number] 00:00:00* Test Item Value Reference Range Interpretation Comme nts GLUCOSE (test code = 2217) 101 MG/DL BUN (test code = 2208) 8 MG/DL CREATININE (test code = 2214) 1.04 MG/DL eGFR AMER. (test cod e = 50968) 87 ML/MIN/1.73 eGFR NON- AMER. (test code = 21908) 75 ML/MIN/1.73 CALC BUN/CREAT (test code = 2235) 8 RATIO SODIUM (test code = 2231) 143 MEQ/L POTASSIUM (test code = 2228) 4.3 MEQ/L CHLORIDE (test code = 2215) 102 MEQ/L CARBON DIOXIDE (test code = 2206) 27 MEQ/L CALCIUM (test code = 2209) 9.8 MG/DL PROTEIN, TOTAL (test code = 2229) 7.4 G/DL ALBUMIN (test code = 2201) 4.7 G/DL CALC GLOBULIN (test code = 2240) 2.7 G/DL CALC A/G RATIO (test code = 2234) 1.7 RATIO BILIRUBIN, TOTAL (test code = 2207) 0.2 MG/DL ALKALINE PHOSPHATASE (test code = 2204) 89 U/L AST (test code = 2218) 22 U/L ALT (test code = 2219) 26 U/L COMPREHENSIVE METABOLIC [id number] 00:00:00* Test Item Value Reference Range Interpretation Comme nts GLUCOSE (test code = 2217) 101 MG/DL BUN (test code = 2208) 8 MG/DL CREATININE (test code = 2214) 1.04 MG/DL eGFR AMER. (test cod e = 98009) 87 ML/MIN/1.73 eGFR NON- AMER. (test code = 90720) 75 ML/MIN/1.73 CALC BUN/CREAT (test code = 2235) 8 RATIO SODIUM (test code = 2231) 143 MEQ/L POTASSIUM (test code = 2228) 4.3 MEQ/L CHLORIDE (test code = 2215) 102 MEQ/L CARBON DIOXIDE (test code = 2206) 27 MEQ/L CALCIUM (test code = 2209) 9.8 MG/DL PROTEIN, TOTAL (test code = 2229) 7.4 G/DL ALBUMIN (test code = 2201) 4.7 G/DL CALC GLOBULIN (test code = 2240) 2.7 G/DL CALC A/G RATIO (test code = 2234) 1.7 RATIO BILIRUBIN, TOTAL (test code = 2207) 0.2 MG/DL ALKALINE PHOSPHATASE (test code = 2204) 89 U/L AST (test code = 2218) 22 U/L ALT (test code = 2219) 26 U/L COMPREHENSIVE METABOLIC [id number] 00:00:00* Test Item Value Reference Range Interpretation Comme nts GLUCOSE (test code = 2217) 101 MG/DL BUN (test code = 2208) 8 MG/DL CREATININE (test code = 2214) 1.04 MG/DL eGFR AMER. (test cod e = 32363) 87 ML/MIN/1.73 eGFR NON- AMER. (test code = 19665) 75 ML/MIN/1.73 CALC BUN/CREAT (test code = 2235) 8 RATIO SODIUM (test code = 2231) 143 MEQ/L POTASSIUM (test code = 2228) 4.3 MEQ/L CHLORIDE (test code = 2215) 102 MEQ/L CARBON DIOXIDE (test code = 2206) 27 MEQ/L CALCIUM (test code = 2209) 9.8 MG/DL PROTEIN, TOTAL (test code = 2229) 7.4 G/DL ALBUMIN (test code = 2201) 4.7 G/DL CALC GLOBULIN (test code = 2240) 2.7 G/DL CALC A/G RATIO (test code = 2234) 1.7 RATIO BILIRUBIN, TOTAL (test code = 2207) 0.2 MG/DL ALKALINE PHOSPHATASE (test code = 2204) 89 U/L AST (test code = 2218) 22 U/L ALT (test code = 2219) 26 U/L COMPREHENSIVE METABOLIC [id number] 00:00:00* Test Item Value Reference Range Interpretation Comme nts GLUCOSE (test code = 2217) 101 MG/DL BUN (test code = 2208) 8 MG/DL CREATININE (test code = 2214) 1.04 MG/DL eGFR AMER. (test cod e = 24326) 87 ML/MIN/1.73 eGFR NON- AMER. (test code = 43456) 75 ML/MIN/1.73 CALC BUN/CREAT (test code = 2235) 8 RATIO SODIUM (test code = 2231) 143 MEQ/L POTASSIUM (test code = 2228) 4.3 MEQ/L CHLORIDE (test code = 2215) 102 MEQ/L CARBON DIOXIDE (test code = 2206) 27 MEQ/L CALCIUM (test code = 2209) 9.8 MG/DL PROTEIN, TOTAL (test code = 2229) 7.4 G/DL ALBUMIN (test code = 2201) 4.7 G/DL CALC GLOBULIN (test code = 2240) 2.7 G/DL CALC A/G RATIO (test code = 2234) 1.7 RATIO BILIRUBIN, TOTAL (test code = 2207) 0.2 MG/DL ALKALINE PHOSPHATASE (test code = 2204) 89 U/L AST (test code = 2218) 22 U/L ALT (test code = 2219) 26 U/L COMPREHENSIVE METABOLIC [id number] 00:00:00* Test Item Value Reference Range Interpretation Comme nts GLUCOSE (test code = 2217) 101 MG/DL BUN (test code = 2208) 8 MG/DL CREATININE (test code = 2214) 1.04 MG/DL eGFR AMER. (test cod e = 94856) 87 ML/MIN/1.73 eGFR NON- AMER. (test code = 03738) 75 ML/MIN/1.73 CALC BUN/CREAT (test code = 2235) 8 RATIO SODIUM (test code = 2231) 143 MEQ/L POTASSIUM (test code = 2228) 4.3 MEQ/L CHLORIDE (test code = 2215) 102 MEQ/L CARBON DIOXIDE (test code = 2206) 27 MEQ/L CALCIUM (test code = 2209) 9.8 MG/DL PROTEIN, TOTAL (test code = 2229) 7.4 G/DL ALBUMIN (test code = 2201) 4.7 G/DL CALC GLOBULIN (test code = 2240) 2.7 G/DL CALC A/G RATIO (test code = 2234) 1.7 RATIO BILIRUBIN, TOTAL (test code = 2207) 0.2 MG/DL ALKALINE PHOSPHATASE (test code = 2204) 89 U/L AST (test code = 2218) 22 U/L ALT (test code = 2219) 26 U/L HEMOGLOBIN [id number] 00:00:00* Test Item Value Reference Range Interpretation Comme nts HEMOGLOBIN A1c (test code = 94586) 5.9 % HEMOGLOBIN [id number] 00:00:00* Test Item Value Reference Range Interpretation Comme nts HEMOGLOBIN A1c (test code = 09534) 5.9 % HEMOGLOBIN [id number] 00:00:00* Test Item Value Reference Range Interpretation Comme nts HEMOGLOBIN A1c (test code = 02869) 5.9 % HEMOGLOBIN [id number] 00:00:00* Test Item Value Reference Range Interpretation Comme nts HEMOGLOBIN A1c (test code = 46708) 5.9 % HEMOGLOBIN [id number] 00:00:00* Test Item Value Reference Range Interpretation Comme nts HEMOGLOBIN A1c (test code = 22509) 5.9 % HEMOGLOBIN [id number] 00:00:00* Test Item Value Reference Range Interpretation Comme nts HEMOGLOBIN A1c (test code = 47984) 5.9 % HEMOGLOBIN [id number] 00:00:00* Test Item Value Reference Range Interpretation Comme nts HEMOGLOBIN A1c (test code = 22930) 5.9 % HEMOGLOBIN [id number] 00:00:00* Test Item Value Reference Range Interpretation Comme nts HEMOGLOBIN A1c (test code = 10876) 5.9 % HEMOGLOBIN [id number] 00:00:00* Test Item Value Reference Range Interpretation Comme nts HEMOGLOBIN A1c (test code = 07764) 5.9 % HEMOGLOBIN [id number] 00:00:00* Test Item Value Reference Range Interpretation Comme nts HEMOGLOBIN A1c (test code = 70746) 5.9 % HEMOGLOBIN [id number] 00:00:00* Test Item Value Reference Range Interpretation Comme nts HEMOGLOBIN A1c (test code = 53136) 5.9 % HEMOGLOBIN [id number] 00:00:00* Test Item Value Reference Range Interpretation Comme nts HEMOGLOBIN A1c (test code = 36882) 5.9 % LIPID [id number] 00:00:00* Test Item Value Reference Range Interpretation Comme nts CHOLESTEROL (test code = 2210) 139 MG/DL TRIGLYCERIDES (test code = 2232) 122 MG/DL HDL CHOLESTEROL (test code = 2220) 40 MG/DL CALC LDL CHOL (test code = 2237) 75 MG/DL RISK RATIO LDL/HDL (test cod e = 2238) 1.87 RATIO LIPID [id number] 00:00:00* Test Item Value Reference Range Interpretation Comme nts CHOLESTEROL (test code = 2210) 139 MG/DL TRIGLYCERIDES (test code = 2232) 122 MG/DL HDL CHOLESTEROL (test code = 2220) 40 MG/DL CALC LDL CHOL (test code = 2237) 75 MG/DL RISK RATIO LDL/HDL (test cod e = 2238) 1.87 RATIO HEMOGLOBIN [id number] 00:00:00* Test Item Value Reference Range Interpretation Comme nts HEMOGLOBIN A1c (test code = 87508) 6.0 % HEMOGLOBIN [id number] 00:00:00* Test Item Value Reference Range Interpretation Comme nts HEMOGLOBIN A1c (test code = 11813) 6.0 % HEMOGLOBIN [id number] 00:00:00* Test Item Value Reference Range Interpretation Comme nts HEMOGLOBIN A1c (test code = 56346) 6.0 % COMPREHENSIVE METABOLIC [id number] 00:00:00* Test Item Value Reference Range Interpretation Comme nts GLUCOSE (test code = 2217) 89 MG/DL BUN (test code = 2208) 9 MG/DL CREATININE (test code = 2214) 1.03 MG/DL eGFR AMER. (test cod e = 77649) 89 ML/MIN/1.73 eGFR NON- AMER. (test code = 61355) 76 ML/MIN/1.73 CALC BUN/CREAT (test code = 2235) 9 RATIO SODIUM (test code = 2231) 138 MEQ/L POTASSIUM (test code = 2228) 4.3 MEQ/L CHLORIDE (test code = 2215) 99 MEQ/L CARBON DIOXIDE (test code = 2206) 27 MEQ/L CALCIUM (test code = 2209) 10.1 MG/DL PROTEIN, TOTAL (test code = 2229) 7.4 G/DL ALBUMIN (test code = 2201) 4.8 G/DL CALC GLOBULIN (test code = 2240) 2.6 G/DL CALC A/G RATIO (test code = 2234) 1.8 RATIO BILIRUBIN, TOTAL (test code = 2207) 0.3 MG/DL ALKALINE PHOSPHATASE (test code = 2204) 89 U/L AST (test code = 2218) 24 U/L ALT (test code = 2219) 15 U/L COMPREHENSIVE METABOLIC [id number] 00:00:00* Test Item Value Reference Range Interpretation Comme nts GLUCOSE (test code = 2217) 89 MG/DL BUN (test code = 2208) 9 MG/DL CREATININE (test code = 2214) 1.03 MG/DL eGFR AMER. (test cod e = 01377) 89 ML/MIN/1.73 eGFR NON- AMER. (test code = 80672) 76 ML/MIN/1.73 CALC BUN/CREAT (test code = 2235) 9 RATIO SODIUM (test code = 2231) 138 MEQ/L POTASSIUM (test code = 2228) 4.3 MEQ/L CHLORIDE (test code = 2215) 99 MEQ/L CARBON DIOXIDE (test code = 2206) 27 MEQ/L CALCIUM (test code = 2209) 10.1 MG/DL PROTEIN, TOTAL (test code = 2229) 7.4 G/DL ALBUMIN (test code = 2201) 4.8 G/DL CALC GLOBULIN (test code = 2240) 2.6 G/DL CALC A/G RATIO (test code = 2234) 1.8 RATIO BILIRUBIN, TOTAL (test code = 2207) 0.3 MG/DL ALKALINE PHOSPHATASE (test code = 2204) 89 U/L AST (test code = 2218) 24 U/L ALT (test code = 2219) 15 U/L LIPID [id number] 00:00:00* Test Item Value Reference Range Interpretation Comme nts CHOLESTEROL (test code = 2210) 139 MG/DL TRIGLYCERIDES (test code = 2232) 122 MG/DL HDL CHOLESTEROL (test code = 2220) 40 MG/DL CALC LDL CHOL (test code = 2237) 75 MG/DL RISK RATIO LDL/HDL (test cod e = 2238) 1.87 RATIO LIPID [id number] 00:00:00* Test Item Value Reference Range Interpretation Comme nts CHOLESTEROL (test code = 2210) 139 MG/DL TRIGLYCERIDES (test code = 2232) 122 MG/DL HDL CHOLESTEROL (test code = 2220) 40 MG/DL CALC LDL CHOL (test code = 2237) 75 MG/DL RISK RATIO LDL/HDL (test cod e = 2238) 1.87 RATIO HEMOGLOBIN [id number] 00:00:00* Test Item Value Reference Range Interpretation Comme nts HEMOGLOBIN A1c (test code = 71537) 6.0 % HEMOGLOBIN [id number] 00:00:00* Test Item Value Reference Range Interpretation Comme nts HEMOGLOBIN A1c (test code = 30375) 6.0 % HEMOGLOBIN [id number] 00:00:00* Test Item Value Reference Range Interpretation Comme nts HEMOGLOBIN A1c (test code = 49463) 6.0 % COMPREHENSIVE METABOLIC [id number] 00:00:00* Test Item Value Reference Range Interpretation Comme nts GLUCOSE (test code = 2217) 89 MG/DL BUN (test code = 2208) 9 MG/DL CREATININE (test code = 2214) 1.03 MG/DL eGFR AMER. (test cod e = 14911) 89 ML/MIN/1.73 eGFR NON- AMER. (test code = 59185) 76 ML/MIN/1.73 CALC BUN/CREAT (test code = 2235) 9 RATIO SODIUM (test code = 2231) 138 MEQ/L POTASSIUM (test code = 2228) 4.3 MEQ/L CHLORIDE (test code = 2215) 99 MEQ/L CARBON DIOXIDE (test code = 2206) 27 MEQ/L CALCIUM (test code = 2209) 10.1 MG/DL PROTEIN, TOTAL (test code = 2229) 7.4 G/DL ALBUMIN (test code = 2201) 4.8 G/DL CALC GLOBULIN (test code = 2240) 2.6 G/DL CALC A/G RATIO (test code = 2234) 1.8 RATIO BILIRUBIN, TOTAL (test code = 2207) 0.3 MG/DL ALKALINE PHOSPHATASE (test code = 2204) 89 U/L AST (test code = 2218) 24 U/L ALT (test code = 2219) 15 U/L COMPREHENSIVE METABOLIC [id number] 00:00:00* Test Item Value Reference Range Interpretation Comme nts GLUCOSE (test code = 2217) 89 MG/DL BUN (test code = 2208) 9 MG/DL CREATININE (test code = 2214) 1.03 MG/DL eGFR AMER. (test cod e = 77286) 89 ML/MIN/1.73 eGFR NON- AMER. (test code = 16967) 76 ML/MIN/1.73 CALC BUN/CREAT (test code = 2235) 9 RATIO SODIUM (test code = 2231) 138 MEQ/L POTASSIUM (test code = 2228) 4.3 MEQ/L CHLORIDE (test code = 2215) 99 MEQ/L CARBON DIOXIDE (test code = 2206) 27 MEQ/L CALCIUM (test code = 2209) 10.1 MG/DL PROTEIN, TOTAL (test code = 2229) 7.4 G/DL ALBUMIN (test code = 2201) 4.8 G/DL CALC GLOBULIN (test code = 2240) 2.6 G/DL CALC A/G RATIO (test code = 2234) 1.8 RATIO BILIRUBIN, TOTAL (test code = 2207) 0.3 MG/DL ALKALINE PHOSPHATASE (test code = 2204) 89 U/L AST (test code = 2218) 24 U/L ALT (test code = 2219) 15 U/L LIPID [id number] 00:00:00* Test Item Value Reference Range Interpretation Comme nts CHOLESTEROL (test code = 2210) 139 MG/DL TRIGLYCERIDES (test code = 2232) 122 MG/DL HDL CHOLESTEROL (test code = 2220) 40 MG/DL CALC LDL CHOL (test code = 2237) 75 MG/DL RISK RATIO LDL/HDL (test cod e = 2238) 1.87 RATIO LIPID [id number] 00:00:00* Test Item Value Reference Range Interpretation Comme nts CHOLESTEROL (test code = 2210) 139 MG/DL TRIGLYCERIDES (test code = 2232) 122 MG/DL HDL CHOLESTEROL (test code = 2220) 40 MG/DL CALC LDL CHOL (test code = 2237) 75 MG/DL RISK RATIO LDL/HDL (test cod e = 2238) 1.87 RATIO HEMOGLOBIN [id number] 00:00:00* Test Item Value Reference Range Interpretation Comme nts HEMOGLOBIN A1c (test code = 28108) 6.0 % HEMOGLOBIN [id number] 00:00:00* Test Item Value Reference Range Interpretation Comme nts HEMOGLOBIN A1c (test code = 82877) 6.0 % HEMOGLOBIN [id number] 00:00:00* Test Item Value Reference Range Interpretation Comme nts HEMOGLOBIN A1c (test code = 94164) 6.0 % COMPREHENSIVE METABOLIC [id number] 00:00:00* Test Item Value Reference Range Interpretation Comme nts GLUCOSE (test code = 2217) 89 MG/DL BUN (test code = 2208) 9 MG/DL CREATININE (test code = 2214) 1.03 MG/DL eGFR AMER. (test cod e = 25425) 89 ML/MIN/1.73 eGFR NON- AMER. (test code = 86621) 76 ML/MIN/1.73 CALC BUN/CREAT (test code = 2235) 9 RATIO SODIUM (test code = 2231) 138 MEQ/L POTASSIUM (test code = 2228) 4.3 MEQ/L CHLORIDE (test code = 2215) 99 MEQ/L CARBON DIOXIDE (test code = 2206) 27 MEQ/L CALCIUM (test code = 2209) 10.1 MG/DL PROTEIN, TOTAL (test code = 2229) 7.4 G/DL ALBUMIN (test code = 2201) 4.8 G/DL CALC GLOBULIN (test code = 2240) 2.6 G/DL CALC A/G RATIO (test code = 2234) 1.8 RATIO BILIRUBIN, TOTAL (test code = 2207) 0.3 MG/DL ALKALINE PHOSPHATASE (test code = 2204) 89 U/L AST (test code = 2218) 24 U/L ALT (test code = 2219) 15 U/L COMPREHENSIVE METABOLIC [id number] 00:00:00* Test Item Value Reference Range Interpretation Comme nts GLUCOSE (test code = 2217) 89 MG/DL BUN (test code = 2208) 9 MG/DL CREATININE (test code = 2214) 1.03 MG/DL eGFR AMER. (test cod e = 30232) 89 ML/MIN/1.73 eGFR NON- AMER. (test code = 49306) 76 ML/MIN/1.73 CALC BUN/CREAT (test code = 2235) 9 RATIO SODIUM (test code = 2231) 138 MEQ/L POTASSIUM (test code = 2228) 4.3 MEQ/L CHLORIDE (test code = 2215) 99 MEQ/L CARBON DIOXIDE (test code = 2206) 27 MEQ/L CALCIUM (test code = 2209) 10.1 MG/DL PROTEIN, TOTAL (test code = 2229) 7.4 G/DL ALBUMIN (test code = 2201) 4.8 G/DL CALC GLOBULIN (test code = 2240) 2.6 G/DL CALC A/G RATIO (test code = 2234) 1.8 RATIO BILIRUBIN, TOTAL (test code = 2207) 0.3 MG/DL ALKALINE PHOSPHATASE (test code = 2204) 89 U/L AST (test code = 2218) 24 U/L ALT (test code = 2219) 15 U/L LIPID [id number] 00:00:00* Test Item Value Reference Range Interpretation Comme nts CHOLESTEROL (test code = 2210) 139 MG/DL TRIGLYCERIDES (test code = 2232) 122 MG/DL HDL CHOLESTEROL (test code = 2220) 40 MG/DL CALC LDL CHOL (test code = 2237) 75 MG/DL RISK RATIO LDL/HDL (test cod e = 2238) 1.87 RATIO LIPID [id number] 00:00:00* Test Item Value Reference Range Interpretation Comme nts CHOLESTEROL (test code = 2210) 139 MG/DL TRIGLYCERIDES (test code = 2232) 122 MG/DL HDL CHOLESTEROL (test code = 2220) 40 MG/DL CALC LDL CHOL (test code = 2237) 75 MG/DL RISK RATIO LDL/HDL (test cod e = 2238) 1.87 RATIO HEMOGLOBIN [id number] 00:00:00* Test Item Value Reference Range Interpretation Comme nts HEMOGLOBIN A1c (test code = 70056) 6.0 % HEMOGLOBIN [id number] 00:00:00* Test Item Value Reference Range Interpretation Comme nts HEMOGLOBIN A1c (test code = 26021) 6.0 % HEMOGLOBIN [id number] 00:00:00* Test Item Value Reference Range Interpretation Comme nts HEMOGLOBIN A1c (test code = 59346) 6.0 % COMPREHENSIVE METABOLIC [id number] 00:00:00* Test Item Value Reference Range Interpretation Comme nts GLUCOSE (test code = 2217) 89 MG/DL BUN (test code = 2208) 9 MG/DL CREATININE (test code = 2214) 1.03 MG/DL eGFR AMER. (test cod e = 91939) 89 ML/MIN/1.73 eGFR NON- AMER. (test code = 51102) 76 ML/MIN/1.73 CALC BUN/CREAT (test code = 2235) 9 RATIO SODIUM (test code = 2231) 138 MEQ/L POTASSIUM (test code = 2228) 4.3 MEQ/L CHLORIDE (test code = 2215) 99 MEQ/L CARBON DIOXIDE (test code = 2206) 27 MEQ/L CALCIUM (test code = 2209) 10.1 MG/DL PROTEIN, TOTAL (test code = 2229) 7.4 G/DL ALBUMIN (test code = 2201) 4.8 G/DL CALC GLOBULIN (test code = 2240) 2.6 G/DL CALC A/G RATIO (test code = 2234) 1.8 RATIO BILIRUBIN, TOTAL (test code = 2207) 0.3 MG/DL ALKALINE PHOSPHATASE (test code = 2204) 89 U/L AST (test code = 2218) 24 U/L ALT (test code = 2219) 15 U/L COMPREHENSIVE METABOLIC [id number] 00:00:00* Test Item Value Reference Range Interpretation Comme nts GLUCOSE (test code = 2217) 89 MG/DL BUN (test code = 2208) 9 MG/DL CREATININE (test code = 2214) 1.03 MG/DL eGFR AMER. (test cod e = 74678) 89 ML/MIN/1.73 eGFR NON- AMER. (test code = 69171) 76 ML/MIN/1.73 CALC BUN/CREAT (test code = 2235) 9 RATIO SODIUM (test code = 2231) 138 MEQ/L POTASSIUM (test code = 2228) 4.3 MEQ/L CHLORIDE (test code = 2215) 99 MEQ/L CARBON DIOXIDE (test code = 2206) 27 MEQ/L CALCIUM (test code = 2209) 10.1 MG/DL PROTEIN, TOTAL (test code = 2229) 7.4 G/DL ALBUMIN (test code = 2201) 4.8 G/DL CALC GLOBULIN (test code = 2240) 2.6 G/DL CALC A/G RATIO (test code = 2234) 1.8 RATIO BILIRUBIN, TOTAL (test code = 2207) 0.3 MG/DL ALKALINE PHOSPHATASE (test code = 2204) 89 U/L AST (test code = 2218) 24 U/L ALT (test code = 2219) 15 U/L CULTURE, [id number] 00:00:00* Test Item Value Reference Range Interpretation Comme nts CULTURE, URINE (test code = 87256) SPECIMEN NUMBER: [id number] CULTURE, [id number] 00:00:00* Test Item Value Reference Range Interpretation Comme nts CULTURE, URINE (test code = 27408) SPECIMEN NUMBER: [id number] CULTURE, [id number] 00:00:00* Test Item Value Reference Range Interpretation Comme nts CULTURE, URINE (test code = 71527) SPECIMEN NUMBER: [id number] CULTURE, [id number] 00:00:00* Test Item Value Reference Range Interpretation Comme nts CULTURE, URINE (test code = 98933) SPECIMEN NUMBER: [id number] CULTURE, [id number] 00:00:00* Test Item Value Reference Range Interpretation Comme nts CULTURE, URINE (test code = 00485) SPECIMEN NUMBER: [id number] CULTURE, [id number] 00:00:00* Test Item Value Reference Range Interpretation Comme nts CULTURE, URINE (test code = 13919) SPECIMEN NUMBER: [id number] CULTURE, [id number] 00:00:00* Test Item Value Reference Range Interpretation Comme nts CULTURE, URINE (test code = 07168) SPECIMEN NUMBER: [id number] CULTURE, [id number] 00:00:00* Test Item Value Reference Range Interpretation Comme nts CULTURE, URINE (test code = 65048) SPECIMEN NUMBER: [id number] COMPREHENSIVE METABOLIC [id number] 00:00:00* Test Item Value Reference Range Interpretation Comme nts GLUCOSE (test code = 2217) 102 MG/DL BUN (test code = 2208) 8 MG/DL CREATININE (test code = 2214) 1.14 MG/DL eGFR AMER. (test cod e = 34156) 78 ML/MIN/1.73 eGFR NON- AMER. (test code = 62581) 68 ML/MIN/1.73 CALC BUN/CREAT (test code = 2235) 7 RATIO SODIUM (test code = 2231) 143 MEQ/L POTASSIUM (test code = 2228) 4.3 MEQ/L CHLORIDE (test code = 2215) 102 MEQ/L CARBON DIOXIDE (test code = 2206) 29 MEQ/L CALCIUM (test code = 2209) 9.8 MG/DL PROTEIN, TOTAL (test code = 2229) 7.1 G/DL ALBUMIN (test code = 2201) 4.5 G/DL CALC GLOBULIN (test code = 2240) 2.6 G/DL CALC A/G RATIO (test code = 2234) 1.7 RATIO BILIRUBIN, TOTAL (test code = 2207) 0.1 MG/DL ALKALINE PHOSPHATASE (test code = 2204) 88 U/L AST (test code = 2218) 17 U/L ALT (test code = 2219) 20 U/L COMPREHENSIVE METABOLIC [id number] 00:00:00* Test Item Value Reference Range Interpretation Comme nts GLUCOSE (test code = 2217) 102 MG/DL BUN (test code = 2208) 8 MG/DL CREATININE (test code = 2214) 1.14 MG/DL eGFR AMER. (test cod e = 26132) 78 ML/MIN/1.73 eGFR NON- AMER. (test code = 17085) 68 ML/MIN/1.73 CALC BUN/CREAT (test code = 2235) 7 RATIO SODIUM (test code = 2231) 143 MEQ/L POTASSIUM (test code = 2228) 4.3 MEQ/L CHLORIDE (test code = 2215) 102 MEQ/L CARBON DIOXIDE (test code = 2206) 29 MEQ/L CALCIUM (test code = 2209) 9.8 MG/DL PROTEIN, TOTAL (test code = 2229) 7.1 G/DL ALBUMIN (test code = 2201) 4.5 G/DL CALC GLOBULIN (test code = 2240) 2.6 G/DL CALC A/G RATIO (test code = 2234) 1.7 RATIO BILIRUBIN, TOTAL (test code = 2207) 0.1 MG/DL ALKALINE PHOSPHATASE (test code = 2204) 88 U/L AST (test code = 2218) 17 U/L ALT (test code = 2219) 20 U/L PSA, [id number] 00:00:00* Test Item Value Reference Range Interpretation Comme nts PSA, TOTAL (test code = 2606) 1.39 NG/ML PSA, [id number] 00:00:00* Test Item Value Reference Range Interpretation Comme nts PSA, TOTAL (test code = 2606) 1.39 NG/ML PSA, [id number] 00:00:00* Test Item Value Reference Range Interpretation Comme nts PSA, TOTAL (test code = 2606) 1.39 NG/ML HEMOGLOBIN [id number] 00:00:00* Test Item Value Reference Range Interpretation Comme nts HEMOGLOBIN A1c (test code = 14249) 6.2 % HEMOGLOBIN [id number] 00:00:00* Test Item Value Reference Range Interpretation Comme nts HEMOGLOBIN A1c (test code = 88310) 6.2 % HEMOGLOBIN [id number] 00:00:00* Test Item Value Reference Range Interpretation Comme nts HEMOGLOBIN A1c (test code = 79942) 6.2 % COMPREHENSIVE METABOLIC [id number] 00:00:00* Test Item Value Reference Range Interpretation Comme nts GLUCOSE (test code = 2217) 102 MG/DL BUN (test code = 2208) 8 MG/DL CREATININE (test code = 2214) 1.14 MG/DL eGFR AMER. (test cod e = 88454) 78 ML/MIN/1.73 eGFR NON- AMER. (test code = 95624) 68 ML/MIN/1.73 CALC BUN/CREAT (test code = 2235) 7 RATIO SODIUM (test code = 2231) 143 MEQ/L POTASSIUM (test code = 2228) 4.3 MEQ/L CHLORIDE (test code = 2215) 102 MEQ/L CARBON DIOXIDE (test code = 2206) 29 MEQ/L CALCIUM (test code = 2209) 9.8 MG/DL PROTEIN, TOTAL (test code = 2229) 7.1 G/DL ALBUMIN (test code = 2201) 4.5 G/DL CALC GLOBULIN (test code = 2240) 2.6 G/DL CALC A/G RATIO (test code = 2234) 1.7 RATIO BILIRUBIN, TOTAL (test code = 2207) 0.1 MG/DL ALKALINE PHOSPHATASE (test code = 2204) 88 U/L AST (test code = 2218) 17 U/L ALT (test code = 2219) 20 U/L COMPREHENSIVE METABOLIC [id number] 00:00:00* Test Item Value Reference Range Interpretation Comme nts GLUCOSE (test code = 2217) 102 MG/DL BUN (test code = 2208) 8 MG/DL CREATININE (test code = 2214) 1.14 MG/DL eGFR AMER. (test cod e = 10789) 78 ML/MIN/1.73 eGFR NON- AMER. (test code = 32644) 68 ML/MIN/1.73 CALC BUN/CREAT (test code = 2235) 7 RATIO SODIUM (test code = 2231) 143 MEQ/L POTASSIUM (test code = 2228) 4.3 MEQ/L CHLORIDE (test code = 2215) 102 MEQ/L CARBON DIOXIDE (test code = 2206) 29 MEQ/L CALCIUM (test code = 2209) 9.8 MG/DL PROTEIN, TOTAL (test code = 2229) 7.1 G/DL ALBUMIN (test code = 2201) 4.5 G/DL CALC GLOBULIN (test code = 2240) 2.6 G/DL CALC A/G RATIO (test code = 2234) 1.7 RATIO BILIRUBIN, TOTAL (test code = 2207) 0.1 MG/DL ALKALINE PHOSPHATASE (test code = 2204) 88 U/L AST (test code = 2218) 17 U/L ALT (test code = 2219) 20 U/L PSA, [id number] 00:00:00* Test Item Value Reference Range Interpretation Comme nts PSA, TOTAL (test code = 2606) 1.39 NG/ML PSA, [id number] 00:00:00* Test Item Value Reference Range Interpretation Comme nts PSA, TOTAL (test code = 2606) 1.39 NG/ML PSA, [id number] 00:00:00* Test Item Value Reference Range Interpretation Comme nts PSA, TOTAL (test code = 2606) 1.39 NG/ML HEMOGLOBIN [id number] 00:00:00* Test Item Value Reference Range Interpretation Comme nts HEMOGLOBIN A1c (test code = 75270) 6.2 % HEMOGLOBIN [id number] 00:00:00* Test Item Value Reference Range Interpretation Comme nts HEMOGLOBIN A1c (test code = 74304) 6.2 % HEMOGLOBIN [id number] 00:00:00* Test Item Value Reference Range Interpretation Comme nts HEMOGLOBIN A1c (test code = 62952) 6.2 % COMPREHENSIVE METABOLIC [id number] 00:00:00* Test Item Value Reference Range Interpretation Comme nts GLUCOSE (test code = 2217) 102 MG/DL BUN (test code = 2208) 8 MG/DL CREATININE (test code = 2214) 1.14 MG/DL eGFR AMER. (test cod e = 67280) 78 ML/MIN/1.73 eGFR NON- AMER. (test code = 00290) 68 ML/MIN/1.73 CALC BUN/CREAT (test code = 2235) 7 RATIO SODIUM (test code = 2231) 143 MEQ/L POTASSIUM (test code = 2228) 4.3 MEQ/L CHLORIDE (test code = 2215) 102 MEQ/L CARBON DIOXIDE (test code = 2206) 29 MEQ/L CALCIUM (test code = 2209) 9.8 MG/DL PROTEIN, TOTAL (test code = 2229) 7.1 G/DL ALBUMIN (test code = 2201) 4.5 G/DL CALC GLOBULIN (test code = 2240) 2.6 G/DL CALC A/G RATIO (test code = 2234) 1.7 RATIO BILIRUBIN, TOTAL (test code = 2207) 0.1 MG/DL ALKALINE PHOSPHATASE (test code = 2204) 88 U/L AST (test code = 2218) 17 U/L ALT (test code = 2219) 20 U/L COMPREHENSIVE METABOLIC [id number] 00:00:00* Test Item Value Reference Range Interpretation Comme nts GLUCOSE (test code = 2217) 102 MG/DL BUN (test code = 2208) 8 MG/DL CREATININE (test code = 2214) 1.14 MG/DL eGFR AMER. (test cod e = 53290) 78 ML/MIN/1.73 eGFR NON- AMER. (test code = 27742) 68 ML/MIN/1.73 CALC BUN/CREAT (test code = 2235) 7 RATIO SODIUM (test code = 2231) 143 MEQ/L POTASSIUM (test code = 2228) 4.3 MEQ/L CHLORIDE (test code = 2215) 102 MEQ/L CARBON DIOXIDE (test code = 2206) 29 MEQ/L CALCIUM (test code = 2209) 9.8 MG/DL PROTEIN, TOTAL (test code = 2229) 7.1 G/DL ALBUMIN (test code = 2201) 4.5 G/DL CALC GLOBULIN (test code = 2240) 2.6 G/DL CALC A/G RATIO (test code = 2234) 1.7 RATIO BILIRUBIN, TOTAL (test code = 2207) 0.1 MG/DL ALKALINE PHOSPHATASE (test code = 2204) 88 U/L AST (test code = 2218) 17 U/L ALT (test code = 2219) 20 U/L PSA, [id number] 00:00:00* Test Item Value Reference Range Interpretation Comme nts PSA, TOTAL (test code = 2606) 1.39 NG/ML PSA, [id number] 00:00:00* Test Item Value Reference Range Interpretation Comme nts PSA, TOTAL (test code = 2606) 1.39 NG/ML PSA, [id number] 00:00:00* Test Item Value Reference Range Interpretation Comme nts PSA, TOTAL (test code = 2606) 1.39 NG/ML HEMOGLOBIN [id number] 00:00:00* Test Item Value Reference Range Interpretation Comme nts HEMOGLOBIN A1c (test code = 91050) 6.2 % HEMOGLOBIN [id number] 00:00:00* Test Item Value Reference Range Interpretation Comme nts HEMOGLOBIN A1c (test code = 02911) 6.2 % HEMOGLOBIN [id number] 00:00:00* Test Item Value Reference Range Interpretation Comme nts HEMOGLOBIN A1c (test code = 56487) 6.2 % COMPREHENSIVE METABOLIC [id number] 00:00:00* Test Item Value Reference Range Interpretation Comme nts GLUCOSE (test code = 2217) 102 MG/DL BUN (test code = 2208) 8 MG/DL CREATININE (test code = 2214) 1.14 MG/DL eGFR AMER. (test cod e = 23371) 78 ML/MIN/1.73 eGFR NON- AMER. (test code = 75214) 68 ML/MIN/1.73 CALC BUN/CREAT (test code = 2235) 7 RATIO SODIUM (test code = 2231) 143 MEQ/L POTASSIUM (test code = 2228) 4.3 MEQ/L CHLORIDE (test code = 2215) 102 MEQ/L CARBON DIOXIDE (test code = 2206) 29 MEQ/L CALCIUM (test code = 2209) 9.8 MG/DL PROTEIN, TOTAL (test code = 2229) 7.1 G/DL ALBUMIN (test code = 2201) 4.5 G/DL CALC GLOBULIN (test code = 2240) 2.6 G/DL CALC A/G RATIO (test code = 2234) 1.7 RATIO BILIRUBIN, TOTAL (test code = 2207) 0.1 MG/DL ALKALINE PHOSPHATASE (test code = 2204) 88 U/L AST (test code = 2218) 17 U/L ALT (test code = 2219) 20 U/L COMPREHENSIVE METABOLIC [id number] 00:00:00* Test Item Value Reference Range Interpretation Comme nts GLUCOSE (test code = 2217) 102 MG/DL BUN (test code = 2208) 8 MG/DL CREATININE (test code = 2214) 1.14 MG/DL eGFR AMER. (test cod e = 54780) 78 ML/MIN/1.73 eGFR NON- AMER. (test code = 93971) 68 ML/MIN/1.73 CALC BUN/CREAT (test code = 2235) 7 RATIO SODIUM (test code = 2231) 143 MEQ/L POTASSIUM (test code = 2228) 4.3 MEQ/L CHLORIDE (test code = 2215) 102 MEQ/L CARBON DIOXIDE (test code = 2206) 29 MEQ/L CALCIUM (test code = 2209) 9.8 MG/DL PROTEIN, TOTAL (test code = 2229) 7.1 G/DL ALBUMIN (test code = 2201) 4.5 G/DL CALC GLOBULIN (test code = 2240) 2.6 G/DL CALC A/G RATIO (test code = 2234) 1.7 RATIO BILIRUBIN, TOTAL (test code = 2207) 0.1 MG/DL ALKALINE PHOSPHATASE (test code = 2204) 88 U/L AST (test code = 2218) 17 U/L ALT (test code = 2219) 20 U/L PSA, [id number] 00:00:00* Test Item Value Reference Range Interpretation Comme nts PSA, TOTAL (test code = 2606) 1.39 NG/ML PSA, [id number] 00:00:00* Test Item Value Reference Range Interpretation Comme nts PSA, TOTAL (test code = 2606) 1.39 NG/ML PSA, [id number] 00:00:00* Test Item Value Reference Range Interpretation Comme nts PSA, TOTAL (test code = 2606) 1.39 NG/ML HEMOGLOBIN [id number] 00:00:00* Test Item Value Reference Range Interpretation Comme nts HEMOGLOBIN A1c (test code = 10577) 6.2 % HEMOGLOBIN [id number] 00:00:00* Test Item Value Reference Range Interpretation Comme nts HEMOGLOBIN A1c (test code = 39646) 6.2 % HEMOGLOBIN [id number] 00:00:00* Test Item Value Reference Range Interpretation Comme nts HEMOGLOBIN A1c (test code = 31124) 6.2 % COMPREHENSIVE METABOLIC [id number] 00:00:00* Test Item Value Reference Range Interpretation Comme nts GLUCOSE (test code = 2217) 103 MG/DL BUN (test code = 2208) 10 MG/DL CREATININE (test code = 2214) 1.11 MG/DL eGFR AMER. (test cod e = 45122) 81 ML/MIN/1.73 eGFR NON- AMER. (test code = 94655) 70 ML/MIN/1.73 CALC BUN/CREAT (test code = 2235) 9 RATIO SODIUM (test code = 2231) 134 MEQ/L POTASSIUM (test code = 2228) 4.4 MEQ/L CHLORIDE (test code = 2215) 91 MEQ/L CARBON DIOXIDE (test code = 2206) 21 MEQ/L CALCIUM (test code = 2209) 10.2 MG/DL PROTEIN, TOTAL (test code = 2229) 7.3 G/DL ALBUMIN (test code = 2201) 4.7 G/DL CALC GLOBULIN (test code = 2240) 2.6 G/DL CALC A/G RATIO (test code = 2234) 1.8 RATIO BILIRUBIN, TOTAL (test code = 2207) 0.3 MG/DL ALKALINE PHOSPHATASE (test code = 2204) 100 U/L AST (test code = 2218) 21 U/L ALT (test code = 2219) 24 U/L COMPREHENSIVE METABOLIC [id number] 00:00:00* Test Item Value Reference Range Interpretation Comme nts GLUCOSE (test code = 2217) 103 MG/DL BUN (test code = 2208) 10 MG/DL CREATININE (test code = 2214) 1.11 MG/DL eGFR AMER. (test cod e = 57985) 81 ML/MIN/1.73 eGFR NON- AMER. (test code = 22484) 70 ML/MIN/1.73 CALC BUN/CREAT (test code = 2235) 9 RATIO SODIUM (test code = 2231) 134 MEQ/L POTASSIUM (test code = 2228) 4.4 MEQ/L CHLORIDE (test code = 2215) 91 MEQ/L CARBON DIOXIDE (test code = 2206) 21 MEQ/L CALCIUM (test code = 2209) 10.2 MG/DL PROTEIN, TOTAL (test code = 2229) 7.3 G/DL ALBUMIN (test code = 2201) 4.7 G/DL CALC GLOBULIN (test code = 2240) 2.6 G/DL CALC A/G RATIO (test code = 2234) 1.8 RATIO BILIRUBIN, TOTAL (test code = 2207) 0.3 MG/DL ALKALINE PHOSPHATASE (test code = 2204) 100 U/L AST (test code = 2218) 21 U/L ALT (test code = 2219) 24 U/L LIPID [id number] 00:00:00* Test Item Value Reference Range Interpretation Comme nts CHOLESTEROL (test code = 2210) 140 MG/DL TRIGLYCERIDES (test code = 2232) 114 MG/DL HDL CHOLESTEROL (test code = 2220) 39 MG/DL CALC LDL CHOL (test code = 2237) 78 MG/DL RISK RATIO LDL/HDL (test cod e = 2238) 2.01 RATIO LIPID [id number] 00:00:00* Test Item Value Reference Range Interpretation Comme nts CHOLESTEROL (test code = 2210) 140 MG/DL TRIGLYCERIDES (test code = 2232) 114 MG/DL HDL CHOLESTEROL (test code = 2220) 39 MG/DL CALC LDL CHOL (test code = 2237) 78 MG/DL RISK RATIO LDL/HDL (test cod e = 2238) 2.01 RATIO [id number] 00:00:00* Test Item Value Reference Range Interpretation Comme nts TSH (test code = 2821) 0.9 UIU/ML [id number] 00:00:00* Test Item Value Reference Range Interpretation Comme nts TSH (test code = 2821) 0.9 UIU/ML [id number] 00:00:00* Test Item Value Reference Range Interpretation Comme nts TSH (test code = 2821) 0.9 UIU/ML PSA, [id number] 00:00:00* Test Item Value Reference Range Interpretation Comme nts PSA, TOTAL (test code = 2606) 1.3 NG/ML PSA, [id number] 00:00:00* Test Item Value Reference Range Interpretation Comme nts PSA, TOTAL (test code = 2606) 1.3 NG/ML PSA, [id number] 00:00:00* Test Item Value Reference Range Interpretation Comme nts PSA, TOTAL (test code = 2606) 1.3 NG/ML COMPREHENSIVE METABOLIC [id number] 00:00:00* Test Item Value Reference Range Interpretation Comme nts GLUCOSE (test code = 2217) 103 MG/DL BUN (test code = 2208) 10 MG/DL CREATININE (test code = 2214) 1.11 MG/DL eGFR AMER. (test cod e = 01404) 81 ML/MIN/1.73 eGFR NON- AMER. (test code = 98480) 70 ML/MIN/1.73 CALC BUN/CREAT (test code = 2235) 9 RATIO SODIUM (test code = 2231) 134 MEQ/L POTASSIUM (test code = 2228) 4.4 MEQ/L CHLORIDE (test code = 2215) 91 MEQ/L CARBON DIOXIDE (test code = 2206) 21 MEQ/L CALCIUM (test code = 2209) 10.2 MG/DL PROTEIN, TOTAL (test code = 2229) 7.3 G/DL ALBUMIN (test code = 2201) 4.7 G/DL CALC GLOBULIN (test code = 2240) 2.6 G/DL CALC A/G RATIO (test code = 2234) 1.8 RATIO BILIRUBIN, TOTAL (test code = 2207) 0.3 MG/DL ALKALINE PHOSPHATASE (test code = 2204) 100 U/L AST (test code = 2218) 21 U/L ALT (test code = 2219) 24 U/L COMPREHENSIVE METABOLIC [id number] 00:00:00* Test Item Value Reference Range Interpretation Comme nts GLUCOSE (test code = 2217) 103 MG/DL BUN (test code = 2208) 10 MG/DL CREATININE (test code = 2214) 1.11 MG/DL eGFR AMER. (test cod e = 63920) 81 ML/MIN/1.73 eGFR NON- AMER. (test code = 50904) 70 ML/MIN/1.73 CALC BUN/CREAT (test code = 2235) 9 RATIO SODIUM (test code = 2231) 134 MEQ/L POTASSIUM (test code = 2228) 4.4 MEQ/L CHLORIDE (test code = 2215) 91 MEQ/L CARBON DIOXIDE (test code = 2206) 21 MEQ/L CALCIUM (test code = 2209) 10.2 MG/DL PROTEIN, TOTAL (test code = 2229) 7.3 G/DL ALBUMIN (test code = 2201) 4.7 G/DL CALC GLOBULIN (test code = 2240) 2.6 G/DL CALC A/G RATIO (test code = 2234) 1.8 RATIO BILIRUBIN, TOTAL (test code = 2207) 0.3 MG/DL ALKALINE PHOSPHATASE (test code = 2204) 100 U/L AST (test code = 2218) 21 U/L ALT (test code = 2219) 24 U/L LIPID [id number] 00:00:00* Test Item Value Reference Range Interpretation Comme nts CHOLESTEROL (test code = 2210) 140 MG/DL TRIGLYCERIDES (test code = 2232) 114 MG/DL HDL CHOLESTEROL (test code = 2220) 39 MG/DL CALC LDL CHOL (test code = 2237) 78 MG/DL RISK RATIO LDL/HDL (test cod e = 2238) 2.01 RATIO LIPID [id number] 00:00:00* Test Item Value Reference Range Interpretation Comme nts CHOLESTEROL (test code = 2210) 140 MG/DL TRIGLYCERIDES (test code = 2232) 114 MG/DL HDL CHOLESTEROL (test code = 2220) 39 MG/DL CALC LDL CHOL (test code = 2237) 78 MG/DL RISK RATIO LDL/HDL (test cod e = 2238) 2.01 RATIO [id number] 00:00:00* Test Item Value Reference Range Interpretation Comme nts TSH (test code = 2821) 0.9 UIU/ML [id number] 00:00:00* Test Item Value Reference Range Interpretation Comme nts TSH (test code = 2821) 0.9 UIU/ML [id number] 00:00:00* Test Item Value Reference Range Interpretation Comme nts TSH (test code = 2821) 0.9 UIU/ML PSA, [id number] 00:00:00* Test Item Value Reference Range Interpretation Comme nts PSA, TOTAL (test code = 2606) 1.3 NG/ML PSA, [id number] 00:00:00* Test Item Value Reference Range Interpretation Comme nts PSA, TOTAL (test code = 2606) 1.3 NG/ML PSA, [id number] 00:00:00* Test Item Value Reference Range Interpretation Comme nts PSA, TOTAL (test code = 2606) 1.3 NG/ML COMPREHENSIVE METABOLIC [id number] 00:00:00* Test Item Value Reference Range Interpretation Comme nts GLUCOSE (test code = 2217) 103 MG/DL BUN (test code = 2208) 10 MG/DL CREATININE (test code = 2214) 1.11 MG/DL eGFR AMER. (test cod e = 01438) 81 ML/MIN/1.73 eGFR NON- AMER. (test code = 50486) 70 ML/MIN/1.73 CALC BUN/CREAT (test code = 2235) 9 RATIO SODIUM (test code = 2231) 134 MEQ/L POTASSIUM (test code = 2228) 4.4 MEQ/L CHLORIDE (test code = 2215) 91 MEQ/L CARBON DIOXIDE (test code = 2206) 21 MEQ/L CALCIUM (test code = 2209) 10.2 MG/DL PROTEIN, TOTAL (test code = 2229) 7.3 G/DL ALBUMIN (test code = 2201) 4.7 G/DL CALC GLOBULIN (test code = 2240) 2.6 G/DL CALC A/G RATIO (test code = 2234) 1.8 RATIO BILIRUBIN, TOTAL (test code = 2207) 0.3 MG/DL ALKALINE PHOSPHATASE (test code = 2204) 100 U/L AST (test code = 2218) 21 U/L ALT (test code = 2219) 24 U/L COMPREHENSIVE METABOLIC [id number] 00:00:00* Test Item Value Reference Range Interpretation Comme nts GLUCOSE (test code = 2217) 103 MG/DL BUN (test code = 2208) 10 MG/DL CREATININE (test code = 2214) 1.11 MG/DL eGFR AMER. (test cod e = 35518) 81 ML/MIN/1.73 eGFR NON- AMER. (test code = 06890) 70 ML/MIN/1.73 CALC BUN/CREAT (test code = 2235) 9 RATIO SODIUM (test code = 2231) 134 MEQ/L POTASSIUM (test code = 2228) 4.4 MEQ/L CHLORIDE (test code = 2215) 91 MEQ/L CARBON DIOXIDE (test code = 2206) 21 MEQ/L CALCIUM (test code = 2209) 10.2 MG/DL PROTEIN, TOTAL (test code = 2229) 7.3 G/DL ALBUMIN (test code = 2201) 4.7 G/DL CALC GLOBULIN (test code = 2240) 2.6 G/DL CALC A/G RATIO (test code = 2234) 1.8 RATIO BILIRUBIN, TOTAL (test code = 2207) 0.3 MG/DL ALKALINE PHOSPHATASE (test code = 2204) 100 U/L AST (test code = 2218) 21 U/L ALT (test code = 2219) 24 U/L LIPID [id number] 00:00:00* Test Item Value Reference Range Interpretation Comme nts CHOLESTEROL (test code = 2210) 140 MG/DL TRIGLYCERIDES (test code = 2232) 114 MG/DL HDL CHOLESTEROL (test code = 2220) 39 MG/DL CALC LDL CHOL (test code = 2237) 78 MG/DL RISK RATIO LDL/HDL (test cod e = 2238) 2.01 RATIO LIPID [id number] 00:00:00* Test Item Value Reference Range Interpretation Comme nts CHOLESTEROL (test code = 2210) 140 MG/DL TRIGLYCERIDES (test code = 2232) 114 MG/DL HDL CHOLESTEROL (test code = 2220) 39 MG/DL CALC LDL CHOL (test code = 2237) 78 MG/DL RISK RATIO LDL/HDL (test cod e = 2238) 2.01 RATIO [id number] 00:00:00* Test Item Value Reference Range Interpretation Comme nts TSH (test code = 2821) 0.9 UIU/ML [id number] 00:00:00* Test Item Value Reference Range Interpretation Comme nts TSH (test code = 2821) 0.9 UIU/ML [id number] 00:00:00* Test Item Value Reference Range Interpretation Comme nts TSH (test code = 2821) 0.9 UIU/ML PSA, [id number] 00:00:00* Test Item Value Reference Range Interpretation Comme nts PSA, TOTAL (test code = 2606) 1.3 NG/ML PSA, [id number] 00:00:00* Test Item Value Reference Range Interpretation Comme nts PSA, TOTAL (test code = 2606) 1.3 NG/ML PSA, [id number] 00:00:00* Test Item Value Reference Range Interpretation Comme nts PSA, TOTAL (test code = 2606) 1.3 NG/ML COMPREHENSIVE METABOLIC [id number] 00:00:00* Test Item Value Reference Range Interpretation Comme nts GLUCOSE (test code = 2217) 103 MG/DL BUN (test code = 2208) 10 MG/DL CREATININE (test code = 2214) 1.11 MG/DL eGFR AMER. (test cod e = 89722) 81 ML/MIN/1.73 eGFR NON- AMER. (test code = 28852) 70 ML/MIN/1.73 CALC BUN/CREAT (test code = 2235) 9 RATIO SODIUM (test code = 2231) 134 MEQ/L POTASSIUM (test code = 2228) 4.4 MEQ/L CHLORIDE (test code = 2215) 91 MEQ/L CARBON DIOXIDE (test code = 2206) 21 MEQ/L CALCIUM (test code = 2209) 10.2 MG/DL PROTEIN, TOTAL (test code = 2229) 7.3 G/DL ALBUMIN (test code = 2201) 4.7 G/DL CALC GLOBULIN (test code = 2240) 2.6 G/DL CALC A/G RATIO (test code = 2234) 1.8 RATIO BILIRUBIN, TOTAL (test code = 2207) 0.3 MG/DL ALKALINE PHOSPHATASE (test code = 2204) 100 U/L AST (test code = 2218) 21 U/L ALT (test code = 2219) 24 U/L COMPREHENSIVE METABOLIC [id number] 00:00:00* Test Item Value Reference Range Interpretation Comme nts GLUCOSE (test code = 2217) 103 MG/DL BUN (test code = 2208) 10 MG/DL CREATININE (test code = 2214) 1.11 MG/DL eGFR AMER. (test cod e = 75470) 81 ML/MIN/1.73 eGFR NON- AMER. (test code = 31316) 70 ML/MIN/1.73 CALC BUN/CREAT (test code = 2235) 9 RATIO SODIUM (test code = 2231) 134 MEQ/L POTASSIUM (test code = 2228) 4.4 MEQ/L CHLORIDE (test code = 2215) 91 MEQ/L CARBON DIOXIDE (test code = 2206) 21 MEQ/L CALCIUM (test code = 2209) 10.2 MG/DL PROTEIN, TOTAL (test code = 2229) 7.3 G/DL ALBUMIN (test code = 2201) 4.7 G/DL CALC GLOBULIN (test code = 2240) 2.6 G/DL CALC A/G RATIO (test code = 2234) 1.8 RATIO BILIRUBIN, TOTAL (test code = 2207) 0.3 MG/DL ALKALINE PHOSPHATASE (test code = 2204) 100 U/L AST (test code = 2218) 21 U/L ALT (test code = 2219) 24 U/L LIPID [id number] 00:00:00* Test Item Value Reference Range Interpretation Comme nts CHOLESTEROL (test code = 2210) 140 MG/DL TRIGLYCERIDES (test code = 2232) 114 MG/DL HDL CHOLESTEROL (test code = 2220) 39 MG/DL CALC LDL CHOL (test code = 2237) 78 MG/DL RISK RATIO LDL/HDL (test cod e = 2238) 2.01 RATIO LIPID [id number] 00:00:00* Test Item Value Reference Range Interpretation Comme nts CHOLESTEROL (test code = 2210) 140 MG/DL TRIGLYCERIDES (test code = 2232) 114 MG/DL HDL CHOLESTEROL (test code = 2220) 39 MG/DL CALC LDL CHOL (test code = 2237) 78 MG/DL RISK RATIO LDL/HDL (test cod e = 2238) 2.01 RATIO [id number] 00:00:00* Test Item Value Reference Range Interpretation Comme nts TSH (test code = 2821) 0.9 UIU/ML [id number] 00:00:00* Test Item Value Reference Range Interpretation Comme nts TSH (test code = 2821) 0.9 UIU/ML [id number] 00:00:00* Test Item Value Reference Range Interpretation Comme nts TSH (test code = 2821) 0.9 UIU/ML PSA, [id number] 00:00:00* Test Item Value Reference Range Interpretation Comme nts PSA, TOTAL (test code = 2606) 1.3 NG/ML PSA, [id number] 00:00:00* Test Item Value Reference Range Interpretation Comme nts PSA, TOTAL (test code = 2606) 1.3 NG/ML PSA, [id number] 00:00:00* Test Item Value Reference Range Interpretation Comme nts PSA, TOTAL (test code = 2606) 1.3 NG/ML CBC W/AUTO [id number] 00:00:00* Test Item Value Reference Range Interpretation Comme nts WBC (test code = 1001) 6.4 K/UL [...] code = 1015) 289 K/UL CBC W/AUTO [id number] 00:00:00* Test Item Value Reference Range Interpretation Comme nts WBC (test code = 1001) 6.4 K/UL [...] code = 1015) 289 K/UL CBC W/AUTO [id number] 00:00:00* Test Item Value Reference Range Interpretation Comme nts WBC (test code = 1001) 6.4 K/UL [...] (test code = 1015) 289 K/UL HEMOGLOBIN [id number] 00:00:00* Test Item Value Reference Range Interpretation Comme nts HEMOGLOBIN A1c (test code = 17187) 6.0 % HEMOGLOBIN [id number] 00:00:00* Test Item Value Reference Range Interpretation Comme nts HEMOGLOBIN A1c (test code = 39979) 6.0 % HEMOGLOBIN [id number] 00:00:00* Test Item Value Reference Range Interpretation Comme nts HEMOGLOBIN A1c (test code = 28670) 6.0 % CBC W/AUTO [id number] 00:00:00* Test Item Value Reference Range Interpretation Comme nts WBC (test code = 1001) 6.4 K/UL [...] code = 1015) 289 K/UL CBC W/AUTO [id number] 00:00:00* Test Item Value Reference Range Interpretation Comme nts WBC (test code = 1001) 6.4 K/UL [...] code = 1015) 289 K/UL CBC W/AUTO [id number] 00:00:00* Test Item Value Reference Range Interpretation Comme nts WBC (test code = 1001) 6.4 K/UL [...] (test code = 1015) 289 K/UL HEMOGLOBIN [id number] 00:00:00* Test Item Value Reference Range Interpretation Comme nts HEMOGLOBIN A1c (test code = 16998) 6.0 % HEMOGLOBIN [id number] 00:00:00* Test Item Value Reference Range Interpretation Comme nts HEMOGLOBIN A1c (test code = 51967) 6.0 % HEMOGLOBIN [id number] 00:00:00* Test Item Value Reference Range Interpretation Comme nts HEMOGLOBIN A1c (test code = 77910) 6.0 % CBC W/AUTO [id number] 00:00:00* Test Item Value Reference Range Interpretation Comme nts WBC (test code = 1001) 6.4 K/UL [...] code = 1015) 289 K/UL CBC W/AUTO [id number] 00:00:00* Test Item Value Reference Range Interpretation Comme nts WBC (test code = 1001) 6.4 K/UL [...] code = 1015) 289 K/UL CBC W/AUTO [id number] 00:00:00* Test Item Value Reference Range Interpretation Comme nts WBC (test code = 1001) 6.4 K/UL [...] (test code = 1015) 289 K/UL HEMOGLOBIN [id number] 00:00:00* Test Item Value Reference Range Interpretation Comme nts HEMOGLOBIN A1c (test code = 76876) 6.0 % HEMOGLOBIN [id number] 00:00:00* Test Item Value Reference Range Interpretation Comme nts HEMOGLOBIN A1c (test code = 42140) 6.0 % HEMOGLOBIN [id number] 00:00:00* Test Item Value Reference Range Interpretation Comme nts HEMOGLOBIN A1c (test code = 83961) 6.0 % CBC W/AUTO [id number] 00:00:00* Test Item Value Reference Range Interpretation Comme nts WBC (test code = 1001) 6.4 K/UL [...] code = 1015) 289 K/UL CBC W/AUTO [id number] 00:00:00* Test Item Value Reference Range Interpretation Comme nts WBC (test code = 1001) 6.4 K/UL [...] code = 1015) 289 K/UL CBC W/AUTO [id number] 00:00:00* Test Item Value Reference Range Interpretation Comme nts WBC (test code = 1001) 6.4 K/UL [...] (test code = 1015) 289 K/UL HEMOGLOBIN [id number] 00:00:00* Test Item Value Reference Range Interpretation Comme nts HEMOGLOBIN A1c (test code = 18086) 6.0 % HEMOGLOBIN [id number] 00:00:00* Test Item Value Reference Range Interpretation Comme nts HEMOGLOBIN A1c (test code = 46720) 6.0 % HEMOGLOBIN [id number] 00:00:00* Test Item Value Reference Range Interpretation Comme nts HEMOGLOBIN A1c (test code = 11392) 6.0 % COMPREHENSIVE METABOLIC [id number] 00:00:00* Test Item Value Reference Range Interpretation Comme nts GLUCOSE (test code = 2217) 92 MG/DL BUN (test code = 2208) 12 MG/DL CREATININE (test code = 2214) 1.1 MG/DL eGFR AMER. (test cod e = 58732) 82 ML/MIN/1.73 eGFR NON- AMER. (test code = 87510) 68 ML/MIN/1.73 CALCULATED BUN/CREAT (test code = 2235) 11 RATIO SODIUM (test code = 2231) 134 MEQ/L POTASSIUM (test code = 2228) 4.2 MEQ/L CHLORIDE (test code = 2215) 98 MEQ/L CARBON DIOXIDE (test code = 2206) 25 MEQ/L CALCIUM (test code = 2209) 10.0 MG/DL PROTEIN, TOTAL (test code = 2229) 8.1 G/DL ALBUMIN (test code = 2201) 4.7 G/DL CALCULATED GLOBULIN (test co de = 2240) 3.4 G/DL CALCULATED A/G RATIO (test code = 2234) 1.4 RATIO BILIRUBIN, TOTAL (test code = 2207) 0.4 MG/DL ALKALINE PHOSPHATASE (test code = 2204) 84 U/L SGOT (AST) (test code = 2218) 18 U/L SGPT (ALT) (test code = 2219) 20 U/L COMPREHENSIVE METABOLIC [id number] 00:00:00* Test Item Value Reference Range Interpretation Comme nts GLUCOSE (test code = 2217) 92 MG/DL BUN (test code = 2208) 12 MG/DL CREATININE (test code = 2214) 1.1 MG/DL eGFR AMER. (test cod e = 88617) 82 ML/MIN/1.73 eGFR NON- AMER. (test code = 96631) 68 ML/MIN/1.73 CALCULATED BUN/CREAT (test code = 2235) 11 RATIO SODIUM (test code = 2231) 134 MEQ/L POTASSIUM (test code = 2228) 4.2 MEQ/L CHLORIDE (test code = 2215) 98 MEQ/L CARBON DIOXIDE (test code = 2206) 25 MEQ/L CALCIUM (test code = 2209) 10.0 MG/DL PROTEIN, TOTAL (test code = 2229) 8.1 G/DL ALBUMIN (test code = 2201) 4.7 G/DL CALCULATED GLOBULIN (test co de = 2240) 3.4 G/DL CALCULATED A/G RATIO (test code = 2234) 1.4 RATIO BILIRUBIN, TOTAL (test code = 2207) 0.4 MG/DL ALKALINE PHOSPHATASE (test code = 2204) 84 U/L SGOT (AST) (test code = 2218) 18 U/L SGPT (ALT) (test code = 2219) 20 U/L LIPID [id number] 00:00:00* Test Item Value Reference Range Interpretation Comme nts CHOLESTEROL (test code = 2210) 204 MG/DL TRIGLYCERIDES (test code = 2232) 90 MG/DL HDL CHOLESTEROL (test code = 2220) 44 MG/DL CALCULATED LDL CHOL (test co de = 2237) 142 MG/DL RISK RATIO LDL/HDL (test cod e = 2238) 3.23 RATIO LIPID [id number] 00:00:00* Test Item Value Reference Range Interpretation Comme nts CHOLESTEROL (test code = 2210) 204 MG/DL TRIGLYCERIDES (test code = 2232) 90 MG/DL HDL CHOLESTEROL (test code = 2220) 44 MG/DL CALCULATED LDL CHOL (test co de = 2237) 142 MG/DL RISK RATIO LDL/HDL (test cod e = 2238) 3.23 RATIO CBC W/AUTO [id number] 00:00:00* Test Item Value Reference Range Interpretation Comme nts WBC (test code = 1001) 6.6 K/UL [...] code = 1015) 324 K/UL CBC W/AUTO [id number] 00:00:00* Test Item Value Reference Range Interpretation Comme nts WBC (test code = 1001) 6.6 K/UL [...] code = 1015) 324 K/UL CBC W/AUTO [id number] 00:00:00* Test Item Value Reference Range Interpretation Comme nts WBC (test code = 1001) 6.6 K/UL [...] (test code = 1015) 324 K/UL HEMOGLOBIN [id number] 00:00:00* Test Item Value Reference Range Interpretation Comme nts HEMOGLOBIN A1c (test code = 72875) 6.0 % HEMOGLOBIN [id number] 00:00:00* Test Item Value Reference Range Interpretation Comme nts HEMOGLOBIN A1c (test code = 19957) 6.0 % HEMOGLOBIN [id number] 00:00:00* Test Item Value Reference Range Interpretation Comme nts HEMOGLOBIN A1c (test code = 94827) 6.0 % THYROID II PROFILE (T3U, T4, T7, TSH)2015-05-12 00:00:00* Test Item Value Reference Range Interpretation Comme nts T3 UPTAKE (test code = 2817) 25.8 % T4 (THYROXINE) (test code = 2819) 8.8 UG/DL CALCULATED T7 (FTI) (test co de = 2820) 2.27 TSH (test code = 2821) 1.2 UIU/ML THYROID II PROFILE (T3U, T4, T7, TSH)2015-05-12 00:00:00* Test Item Value Reference Range Interpretation Comme nts T3 UPTAKE (test code = 2817) 25.8 % T4 (THYROXINE) (test code = 2819) 8.8 UG/DL CALCULATED T7 (FTI) (test co de = 2820) 2.27 TSH (test code = 2821) 1.2 UIU/ML COMPREHENSIVE METABOLIC [id number] 00:00:00* Test Item Value Reference Range Interpretation Comme nts GLUCOSE (test code = 2217) 92 MG/DL BUN (test code = 2208) 12 MG/DL CREATININE (test code = 2214) 1.1 MG/DL eGFR AMER. (test cod e = 26169) 82 ML/MIN/1.73 eGFR NON- AMER. (test code = 24484) 68 ML/MIN/1.73 CALCULATED BUN/CREAT (test code = 2235) 11 RATIO SODIUM (test code = 2231) 134 MEQ/L POTASSIUM (test code = 2228) 4.2 MEQ/L CHLORIDE (test code = 2215) 98 MEQ/L CARBON DIOXIDE (test code = 2206) 25 MEQ/L CALCIUM (test code = 2209) 10.0 MG/DL PROTEIN, TOTAL (test code = 2229) 8.1 G/DL ALBUMIN (test code = 2201) 4.7 G/DL CALCULATED GLOBULIN (test co de = 2240) 3.4 G/DL CALCULATED A/G RATIO (test code = 2234) 1.4 RATIO BILIRUBIN, TOTAL (test code = 2207) 0.4 MG/DL ALKALINE PHOSPHATASE (test code = 2204) 84 U/L SGOT (AST) (test code = 2218) 18 U/L SGPT (ALT) (test code = 2219) 20 U/L COMPREHENSIVE METABOLIC [id number] 00:00:00* Test Item Value Reference Range Interpretation Comme nts GLUCOSE (test code = 2217) 92 MG/DL BUN (test code = 2208) 12 MG/DL CREATININE (test code = 2214) 1.1 MG/DL eGFR AMER. (test cod e = 53630) 82 ML/MIN/1.73 eGFR NON- AMER. (test code = 23038) 68 ML/MIN/1.73 CALCULATED BUN/CREAT (test code = 2235) 11 RATIO SODIUM (test code = 2231) 134 MEQ/L POTASSIUM (test code = 2228) 4.2 MEQ/L CHLORIDE (test code = 2215) 98 MEQ/L CARBON DIOXIDE (test code = 2206) 25 MEQ/L CALCIUM (test code = 2209) 10.0 MG/DL PROTEIN, TOTAL (test code = 2229) 8.1 G/DL ALBUMIN (test code = 2201) 4.7 G/DL CALCULATED GLOBULIN (test co de = 2240) 3.4 G/DL CALCULATED A/G RATIO (test code = 2234) 1.4 RATIO BILIRUBIN, TOTAL (test code = 2207) 0.4 MG/DL ALKALINE PHOSPHATASE (test code = 2204) 84 U/L SGOT (AST) (test code = 2218) 18 U/L SGPT (ALT) (test code = 2219) 20 U/L LIPID [id number] 00:00:00* Test Item Value Reference Range Interpretation Comme nts CHOLESTEROL (test code = 2210) 204 MG/DL TRIGLYCERIDES (test code = 2232) 90 MG/DL HDL CHOLESTEROL (test code = 2220) 44 MG/DL CALCULATED LDL CHOL (test co de = 2237) 142 MG/DL RISK RATIO LDL/HDL (test cod e = 2238) 3.23 RATIO LIPID [id number] 00:00:00* Test Item Value Reference Range Interpretation Comme nts CHOLESTEROL (test code = 2210) 204 MG/DL TRIGLYCERIDES (test code = 2232) 90 MG/DL HDL CHOLESTEROL (test code = 2220) 44 MG/DL CALCULATED LDL CHOL (test co de = 2237) 142 MG/DL RISK RATIO LDL/HDL (test cod e = 2238) 3.23 RATIO CBC W/AUTO [id number] 00:00:00* Test Item Value Reference Range Interpretation Comme nts WBC (test code = 1001) 6.6 K/UL [...] code = 1015) 324 K/UL CBC W/AUTO [id number] 00:00:00* Test Item Value Reference Range Interpretation Comme nts WBC (test code = 1001) 6.6 K/UL [...] code = 1015) 324 K/UL CBC W/AUTO [id number] 00:00:00* Test Item Value Reference Range Interpretation Comme nts WBC (test code = 1001) 6.6 K/UL [...] (test code = 1015) 324 K/UL HEMOGLOBIN [id number] 00:00:00* Test Item Value Reference Range Interpretation Comme nts HEMOGLOBIN A1c (test code = 36457) 6.0 % HEMOGLOBIN [id number] 00:00:00* Test Item Value Reference Range Interpretation Comme nts HEMOGLOBIN A1c (test code = 89349) 6.0 % HEMOGLOBIN [id number] 00:00:00* Test Item Value Reference Range Interpretation Comme nts HEMOGLOBIN A1c (test code = 99393) 6.0 % THYROID II PROFILE (T3U, T4, T7, TSH)2015-05-12 00:00:00* Test Item Value Reference Range Interpretation Comme nts T3 UPTAKE (test code = 2817) 25.8 % T4 (THYROXINE) (test code = 2819) 8.8 UG/DL CALCULATED T7 (FTI) (test co de = 2820) 2.27 TSH (test code = 2821) 1.2 UIU/ML THYROID II PROFILE (T3U, T4, T7, TSH)2015-05-12 00:00:00* Test Item Value Reference Range Interpretation Comme nts T3 UPTAKE (test code = 2817) 25.8 % T4 (THYROXINE) (test code = 2819) 8.8 UG/DL CALCULATED T7 (FTI) (test co de = 2820) 2.27 TSH (test code = 2821) 1.2 UIU/ML COMPREHENSIVE METABOLIC [id number] 00:00:00* Test Item Value Reference Range Interpretation Comme nts GLUCOSE (test code = 2217) 92 MG/DL BUN (test code = 2208) 12 MG/DL CREATININE (test code = 2214) 1.1 MG/DL eGFR AMER. (test cod e = 49898) 82 ML/MIN/1.73 eGFR NON- AMER. (test code = 41090) 68 ML/MIN/1.73 CALCULATED BUN/CREAT (test code = 2235) 11 RATIO SODIUM (test code = 2231) 134 MEQ/L POTASSIUM (test code = 2228) 4.2 MEQ/L CHLORIDE (test code = 2215) 98 MEQ/L CARBON DIOXIDE (test code = 2206) 25 MEQ/L CALCIUM (test code = 2209) 10.0 MG/DL PROTEIN, TOTAL (test code = 2229) 8.1 G/DL ALBUMIN (test code = 2201) 4.7 G/DL CALCULATED GLOBULIN (test co de = 2240) 3.4 G/DL CALCULATED A/G RATIO (test code = 2234) 1.4 RATIO BILIRUBIN, TOTAL (test code = 2207) 0.4 MG/DL ALKALINE PHOSPHATASE (test code = 2204) 84 U/L SGOT (AST) (test code = 2218) 18 U/L SGPT (ALT) (test code = 2219) 20 U/L COMPREHENSIVE METABOLIC [id number] 00:00:00* Test Item Value Reference Range Interpretation Comme nts GLUCOSE (test code = 2217) 92 MG/DL BUN (test code = 2208) 12 MG/DL CREATININE (test code = 2214) 1.1 MG/DL eGFR AMER. (test cod e = 59436) 82 ML/MIN/1.73 eGFR NON- AMER. (test code = 95213) 68 ML/MIN/1.73 CALCULATED BUN/CREAT (test code = 2235) 11 RATIO SODIUM (test code = 2231) 134 MEQ/L POTASSIUM (test code = 2228) 4.2 MEQ/L CHLORIDE (test code = 2215) 98 MEQ/L CARBON DIOXIDE (test code = 2206) 25 MEQ/L CALCIUM (test code = 2209) 10.0 MG/DL PROTEIN, TOTAL (test code = 2229) 8.1 G/DL ALBUMIN (test code = 2201) 4.7 G/DL CALCULATED GLOBULIN (test co de = 2240) 3.4 G/DL CALCULATED A/G RATIO (test code = 2234) 1.4 RATIO BILIRUBIN, TOTAL (test code = 220) 0.4 MG/DL ALKALINE PHOSPHATASE (test code = 220) 84 U/L SGOT (AST) (test code = 221) 18 U/L SGPT (ALT) (test code = 221) 20 U/L LIPID [id number] 00:00:00* Test Item Value Reference Range Interpretation Comme nts CHOLESTEROL (test code = 2210) 204 MG/DL TRIGLYCERIDES (test code = 2232) 90 MG/DL HDL CHOLESTEROL (test code = 2220) 44 MG/DL CALCULATED LDL CHOL (test co de = 2237) 142 MG/DL RISK RATIO LDL/HDL (test cod e = 2238) 3.23 RATIO LIPID [id number] 00:00:00* Test Item Value Reference Range Interpretation Comme nts CHOLESTEROL (test code = 2210) 204 MG/DL TRIGLYCERIDES (test code = 2232) 90 MG/DL HDL CHOLESTEROL (test code = 2220) 44 MG/DL CALCULATED LDL CHOL (test co de = 2237) 142 MG/DL RISK RATIO LDL/HDL (test cod e = 2238) 3.23 RATIO CBC W/AUTO [id number] 00:00:00* Test Item Value Reference Range Interpretation Comme nts WBC (test code = 1001) 6.6 K/UL [...] code = 1015) 324 K/UL CBC W/AUTO [id number] 00:00:00* Test Item Value Reference Range Interpretation Comme nts WBC (test code = 1001) 6.6 K/UL [...] code = 1015) 324 K/UL CBC W/AUTO [id number] 00:00:00* Test Item Value Reference Range Interpretation Comme nts WBC (test code = 1001) 6.6 K/UL [...] (test code = 1015) 324 K/UL HEMOGLOBIN [id number] 00:00:00* Test Item Value Reference Range Interpretation Comme nts HEMOGLOBIN A1c (test code = 36359) 6.0 % HEMOGLOBIN [id number] 00:00:00* Test Item Value Reference Range Interpretation Comme nts HEMOGLOBIN A1c (test code = 91601) 6.0 % HEMOGLOBIN [id number] 00:00:00* Test Item Value Reference Range Interpretation Comme nts HEMOGLOBIN A1c (test code = 17055) 6.0 % THYROID II PROFILE (T3U, T4, T7, TSH)2015-05-12 00:00:00* Test Item Value Reference Range Interpretation Comme nts T3 UPTAKE (test code = 2817) 25.8 % T4 (THYROXINE) (test code = 2819) 8.8 UG/DL CALCULATED T7 (FTI) (test co de = 2820) 2.27 TSH (test code = 2821) 1.2 UIU/ML THYROID II PROFILE (T3U, T4, T7, TSH)2015-05-12 00:00:00* Test Item Value Reference Range Interpretation Comme nts T3 UPTAKE (test code = 2817) 25.8 % T4 (THYROXINE) (test code = 2819) 8.8 UG/DL CALCULATED T7 (FTI) (test co de = 2820) 2.27 TSH (test code = 2821) 1.2 UIU/ML COMPREHENSIVE METABOLIC [id number] 00:00:00* Test Item Value Reference Range Interpretation Comme nts GLUCOSE (test code = 2217) 92 MG/DL BUN (test code = 2208) 12 MG/DL CREATININE (test code = 2214) 1.1 MG/DL eGFR AMER. (test cod e = 25330) 82 ML/MIN/1.73 eGFR NON- AMER. (test code = 25739) 68 ML/MIN/1.73 CALCULATED BUN/CREAT (test code = 2235) 11 RATIO SODIUM (test code = 2231) 134 MEQ/L POTASSIUM (test code = 2228) 4.2 MEQ/L CHLORIDE (test code = 2215) 98 MEQ/L CARBON DIOXIDE (test code = 2206) 25 MEQ/L CALCIUM (test code = 2209) 10.0 MG/DL PROTEIN, TOTAL (test code = 2229) 8.1 G/DL ALBUMIN (test code = 2201) 4.7 G/DL CALCULATED GLOBULIN (test co de = 2240) 3.4 G/DL CALCULATED A/G RATIO (test code = 2234) 1.4 RATIO BILIRUBIN, TOTAL (test code = 2207) 0.4 MG/DL ALKALINE PHOSPHATASE (test code = 2204) 84 U/L SGOT (AST) (test code = 2218) 18 U/L SGPT (ALT) (test code = 2219) 20 U/L COMPREHENSIVE METABOLIC [id number] 00:00:00* Test Item Value Reference Range Interpretation Comme nts GLUCOSE (test code = 2217) 92 MG/DL BUN (test code = 2208) 12 MG/DL CREATININE (test code = 2214) 1.1 MG/DL eGFR AMER. (test cod e = 08695) 82 ML/MIN/1.73 eGFR NON- AMER. (test code = 90527) 68 ML/MIN/1.73 CALCULATED BUN/CREAT (test code = 2235) 11 RATIO SODIUM (test code = 2231) 134 MEQ/L POTASSIUM (test code = 2228) 4.2 MEQ/L CHLORIDE (test code = 2215) 98 MEQ/L CARBON DIOXIDE (test code = 2206) 25 MEQ/L CALCIUM (test code = 2209) 10.0 MG/DL PROTEIN, TOTAL (test code = 2229) 8.1 G/DL ALBUMIN (test code = 2201) 4.7 G/DL CALCULATED GLOBULIN (test co de = 2240) 3.4 G/DL CALCULATED A/G RATIO (test code = 2234) 1.4 RATIO BILIRUBIN, TOTAL (test code = 2207) 0.4 MG/DL ALKALINE PHOSPHATASE (test code = 2204) 84 U/L SGOT (AST) (test code = 2218) 18 U/L SGPT (ALT) (test code = 2219) 20 U/L LIPID [id number] 00:00:00* Test Item Value Reference Range Interpretation Comme nts CHOLESTEROL (test code = 2210) 204 MG/DL TRIGLYCERIDES (test code = 2232) 90 MG/DL HDL CHOLESTEROL (test code = 2220) 44 MG/DL CALCULATED LDL CHOL (test co de = 2237) 142 MG/DL RISK RATIO LDL/HDL (test cod e = 2238) 3.23 RATIO LIPID [id number] 00:00:00* Test Item Value Reference Range Interpretation Comme nts CHOLESTEROL (test code = 2210) 204 MG/DL TRIGLYCERIDES (test code = 2232) 90 MG/DL HDL CHOLESTEROL (test code = 2220) 44 MG/DL CALCULATED LDL CHOL (test co de = 2237) 142 MG/DL RISK RATIO LDL/HDL (test cod e = 2238) 3.23 RATIO CBC W/AUTO [id number] 00:00:00* Test Item Value Reference Range Interpretation Comme nts WBC (test code = 1001) 6.6 K/UL [...] code = 1015) 324 K/UL CBC W/AUTO [id number] 00:00:00* Test Item Value Reference Range Interpretation Comme nts WBC (test code = 1001) 6.6 K/UL [...] code = 1015) 324 K/UL CBC W/AUTO [id number] 00:00:00* Test Item Value Reference Range Interpretation Comme nts WBC (test code = 1001) 6.6 K/UL [...] (test code = 1015) 324 K/UL HEMOGLOBIN [id number] 00:00:00* Test Item Value Reference Range Interpretation Comme nts HEMOGLOBIN A1c (test code = 89772) 6.0 % HEMOGLOBIN [id number] 00:00:00* Test Item Value Reference Range Interpretation Comme nts HEMOGLOBIN A1c (test code = 28144) 6.0 % HEMOGLOBIN [id number] 00:00:00* Test Item Value Reference Range Interpretation Comme nts HEMOGLOBIN A1c (test code = 26369) 6.0 % THYROID II PROFILE (T3U, T4, T7, TSH)2015-05-12 00:00:00* Test Item Value Reference Range Interpretation Comme nts T3 UPTAKE (test code = 2817) 25.8 % T4 (THYROXINE) (test code = 2819) 8.8 UG/DL CALCULATED T7 (FTI) (test co de = 2820) 2.27 TSH (test code = 2821) 1.2 UIU/ML THYROID II PROFILE (T3U, T4, T7, TSH)2015-05-12 00:00:00* Test Item Value Reference Range Interpretation Comme nts T3 UPTAKE (test code = 2817) 25.8 % T4 (THYROXINE) (test code = 2819) 8.8 UG/DL CALCULATED T7 (FTI) (test co de = 2820) 2.27 TSH (test code = 2821) 1.2 UIU/ML
[2023-10-24 00:20] LABS: Absolute Lymphocytes (CBC) 1.1 K/uL (0.7-4.9); Hematocrit 34.8 % (39.6-49.0); MCV 84.9 fL (80-100); Platelets 237 thou/uL (152-406)
[2023-10-24 01:11] LABS: Albumin 3.3 g/dL (3.4-5.0); Bilirubin Total 0.2 mg/dL (0.2-1.0); Protein, Total 6.7 g/dL (6.4-8.2)
[2023-10-24 02:58] LABS: Specific Gravity 1.015 (1.005-1.030); Urine Bacteria None Seen /HPF (<20); Urine Bilirubin NEGATIVE (Negative); Urine Blood Negative (Negative); Urine Clarity Clear (Clear); Urine Color Light-Yellow (Yellow); Urine Glucose NEGATIVE (Negative); Urine Mucus Slight /HPF (None Seen); Urine Protein NEGATIVE (Negative); Urine RBC None Seen /HPF (None Seen); Urine Urobilinogen Normal (Normal)
--- NOTE | 2023-10-24 03:02 | EDPHYS ---
Physician Documentation [facility] Name: Colt Casanova Age: 73 yrs Sex: Male : 1950 Arrival Date: 10/23/2023 Time: 22:18 Bed 20 Private MD: ED Physician Colt Cohen HPI: 10/23 22:30 This 73 yrs old Black Male presents to ER via Unassigned with complaints of nausea and ec2 vomiting. 22:30 Patient arrives today for evaluation of nausea and vomiting. Has been having nausea and ec2 vomiting since today. No reported abdominal pain however patient with history of dementia. Patient no urinary complaints. Denies any cough and cold symptoms. Is not taking medications for this.. Historical: - Allergies: 22:31 No Known Allergies; hb - PMHx: 22:31 Hypertension; hb - Immunization history:: Adult Immunizations up to date. - Social history:: Smoking status: Patient denies any tobacco usage or history of. ROS: 22:30 Constitutional: as per hpi ec2 Exam: 22:30 Constitutional: GEN: NAD Head: atraumatic Eyes: EOMI Ears: External ears are ec2 normal. CV: regular rate LUNGS: no respiratory distress ABD: non-distended, soft, tender, no guarding, not rigid SKIN: no evidence of rashes MSK: no evidence of trauma NEURO: moves all extremities equally Vital Signs: 22:30 BP 173 / 78; Pulse 71; Resp 16; Temp 98.3(O); Pulse Ox 98% on R/A; Weight 63.5 kg; hb Height 5 ft. 7 in. ; Pain 0/10; 23:39 BP 154 / 68; Pulse 57; Resp 16; Pulse Ox 100% on R/A; cm10 10/24 00:33 BP 163 / 78; Pulse 58; Resp 17; Pulse Ox 99% ; Pain 0/10; jj7 01:32 BP 149 / 79; Pulse 59; Resp 16; Pulse Ox 99% ; jj7 02:36 BP 164 / 77; Pulse 60; Resp 17; Pulse Ox 100% ; jj7 10/23 22:30 Body Mass Index 21.93 (63.50 kg, 170.18 cm) hb 10/23 22:30 Pain Scale: Adult hb 10/24 00:33 Pain Scale: Adult jj7 MDM: 10/23 22:28 Patient medically screened. ec2 22:30 Data reviewed: vital signs. ED course: Patient arrives today for nausea and vomiting. ec2 Examination remarkable for some tenderness on palpation of his abdomen, will obtain lab work, CT imaging, treat his symptoms and reassess. Evaluating for electrolyte disturbances, kidney dysfunction, liver abnormalities.. 10/24 00:33 ED course: CBC reassuring.. ec2 01:14 ED course: Metabolic profile shows appropriate electrolytes and renal function. Lipase ec2 within normal ranges. Pending CT imaging. . 02:36 ED course: CT abdomen pelvis shows possible gastritis versus malignancy, can follow-up ec2 outpatient with GI for this. Also with bladder wall thickening, will send UA. Does have constipation noted. Otherwise chronic findings noted. Will send UA. . 03:01 ED course: Urine noninfectious appearing. On reassessment patient is well-appearing in ec2 no acute distress. Will discharge home. Return precautions given.. 10/23 22:29 Order name: CBC with Diff; Complete Time: 00:33 ec2 10/23 22:29 Order name: CMP; Complete Time: 01:14 ec2 10/23 22:29 Order name: Lipase; Complete Time: 01:14 ec2 10/24 02:35 Order name: UAM; Complete Time: 03:01 ec2 10/23 22:29 Order name: CT Abd/Pelvis - IV Contrast Only ec2 10/23 22:29 Order name: IV Saline Lock; Complete Time: 23:16 ec2 10/23 22:29 Order name: Labs collected and sent; Complete Time: 23:16 ec2 Administered Medications: 10/23 23:16 Drug: NS 0.9% IV 1000 ml IV at 1 bolus Per protocol; 1000 mL bolus Route: IV; Rate: 1 cm10 bolus; Site: right forearm; 10/24 03:01 Follow up: IV Status: Completed infusion j7 10/23 23:16 Drug: Ondansetron IVP 4 mg IVP once; over 2 minutes Route: IVP; Site: right forearm; cm10 10/24 00:00 Follow up: Response: Nausea is decreased jj7 Disposition Summary: 10/24/23 03:01 Discharge Ordered Notes: Location: Home ec2 Condition: Stable ec2 Diagnosis - Abdominal pain, Generalized ec2 - Vomiting ec2 Followup: ec2 - With: Private Physician - When: - Reason: Re-evaluation by your physician Discharge Instructions: - Discharge Summary Sheet ec2 - Abdominal Pain, Adult ec2 Forms: - Medication Reconciliation Form ec2 - Thank You Letter ec2 - Antibiotic Education ec2 - Prescription Opioid Use ec2 - Patient Portal Instructions ec2 - Leadership Thank You Letter ec2 Prescriptions: - Zofran 4 mg Oral Tablet - take 1 tablet ORAL route every 12 hours As needed; 20 tablet; Refills: 0, ec2 Product Selection Permitted Signatures: Dispatcher [employer] EDKelsey Matthew RN RN Uma Araujo RN RN cm10 Colt Cohen MD MD ec2 Wanda Payne RN jj7
--- NOTE | 2023-10-24 03:02 | ER ---
Nurse's Notes [facility] Name: Colt Casanova Age: 73 yrs Sex: Male : 1950 Arrival Date: 10/23/2023 Time: 22:18 Bed 20 Private MD: Diagnosis: Abdominal pain, Generalized;Vomiting Presentation: 10/23 22:30 Chief complaint: EMS states: Toned out for high blood pressure. Pt c/o N/V since this hb afternoon. Denies pain/diarrhea/fever. Coronavirus screen: At this time, the client does not indicate any symptoms associated with coronavirus-19. Ebola Screen: No symptoms or risks identified at this time. Initial Sepsis Screen: Does the patient meet any 2 criteria? No. Patient's initial sepsis screen is negative. Does the patient have a suspected source of infection? No. Patient's initial sepsis screen is negative. Risk Assessment: Do you want to hurt yourself or someone else? Patient reports no desire to harm self or others. Onset of symptoms was October 23, 2023. 22:30 Method Of Arrival: EMS: [facility] 22:30 Acuity: MADALYN 3 hb Triage Assessment: 22:31 General: Appears in no apparent distress. Behavior is calm, cooperative. Pain: Denies hb pain. Neuro: Level of Consciousness is awake, alert, obeys commands, Oriented to person, place, time, situation. Cardiovascular: Patient's skin is warm and dry. Respiratory: Respiratory effort is even, unlabored, Respiratory pattern is regular, symmetrical. GI: Reports nausea, vomiting. Historical: - Allergies: 22:31 No Known Allergies; hb - PMHx: 22:31 Hypertension; hb - Immunization history:: Adult Immunizations up to date. - Social history:: Smoking status: Patient denies any tobacco usage or history of. Screenin:35 [facility] ED Fall Risk Assessment (Adult) History of falling in the last 3 months, cm10 including since admission No falls in past 3 months (0 pts) Confusion or Disorientation No (0 pts) Intoxicated or Sedated No (0 pts) Impaired Gait No (0 pts) Mobility Assist Device Used No (0 pt) Altered Elimination No (0 pt) Score/Fall Risk Level 0 - 2 = Low Risk Oriented to surroundings, Maintained a safe environment, Hourly rounding (assess needs \T\ fall precautionary measures) done. Abuse screen: Denies threats or abuse. Denies injuries from another. Nutritional screening: No deficits noted. Tuberculosis screening: No symptoms or risk factors identified. Assessment: 23:33 General: Appears in no apparent distress. comfortable, Behavior is calm, cooperative. cm10 Pain: Complains of pain in abdomen. Neuro: No deficits noted. Level of Consciousness is awake, alert, obeys commands, Oriented to person, place, time, situation. Cardiovascular: No deficits noted. Heart tones present Capillary refill < 3 seconds Patient's skin is warm and dry. Respiratory: No deficits noted. Airway is patent Respiratory effort is even, unlabored, Respiratory pattern is regular, symmetrical. GI: No deficits noted. Abdomen is flat, Bowel sounds present X 4 quads. Abd is soft and non tender X 4 quads. Reports nausea, vomiting. : No deficits noted. No signs and/or symptoms were reported regarding the genitourinary system. EENT: No deficits noted. No signs and/or symptoms were reported regarding the EENT system. Derm: No deficits noted. No signs and/or symptoms reported regarding the dermatologic system. Skin is intact, Skin is pink, warm \T\ dry. Musculoskeletal: No deficits noted. Range of motion: intact in all extremities. 10/24 00:19 Reassessment: ASSUMED CARE OF PT. PT SITTING UP IN BED. STATES HE IS FEELING MUCH jj7 BETTER. NO N/V. STATES HE IS READY TO GO HOME. VS STABLE. CALL LEMON IN REACH. FAMILY AT BEDSIDE. Vital Signs: 10/23 22:30 BP 173 / 78; Pulse 71; Resp 16; Temp 98.3(O); Pulse Ox 98% on R/A; Weight 63.5 kg; hb Height 5 ft. 7 in. ; Pain 0/10; 23:39 BP 154 / 68; Pulse 57; Resp 16; Pulse Ox 100% on R/A; cm10 10/24 00:33 BP 163 / 78; Pulse 58; Resp 17; Pulse Ox 99% ; Pain 0/10; jj7 01:32 BP 149 / 79; Pulse 59; Resp 16; Pulse Ox 99% ; jj7 02:36 BP 164 / 77; Pulse 60; Resp 17; Pulse Ox 100% ; jj7 10/23 22:30 Body Mass Index 21.93 (63.50 kg, 170.18 cm) hb 10/23 22:30 Pain Scale: Adult hb 10/24 00:33 Pain Scale: Adult j7 ED Course: 10/23 22:28 Patient arrived in ED. ec2 22:28 Colt Cohen MD is Attending Physician. ec2 22:31 Triage completed. hb 22:31 Arm band placed on. hb 23:35 Patient has correct armband on for positive identification. Bed in low position. Call cm10 light in reach. Side rails up X2. Provided Education on: ER process and procedures. . Pulse ox on. NIBP on. 23:36 No provider procedures requiring assistance completed. Initial lab(s) drawn, by ak, cm10 sent to lab. Inserted saline lock: 20 gauge in right forearm, using aseptic technique. Blood collected. 10/24 00:18 Wanda Payne, RN is Primary Nurse. jj7 01:21 CT Abd/Pelvis - IV Contrast Only In Process Unspecified. EDMS 03:09 IV discontinued, intact, bleeding controlled, No redness/swelling at site. Pressure jj7 dressing applied. Administered Medications: 10/23 23:16 Drug: NS 0.9% IV 1000 ml IV at 1 bolus Per protocol; 1000 mL bolus Route: IV; Rate: 1 cm10 bolus; Site: right forearm; 10/24 03:01 Follow up: IV Status: Completed infusion jj7 10/23 23:16 Drug: Ondansetron IVP 4 mg IVP once; over 2 minutes Route: IVP; Site: right forearm; cm10 10/24 00:00 Follow up: Response: Nausea is decreased jj7 Medication: 10/23 23:35 VIS not applicable for this client. cm10 Outcome: 10/24 03:01 Discharge ordered by . ec2 03:09 Discharged to home ambulatory, with significant other, jj7 03:09 Discharge instructions given to patient, significant other, Instructed on discharge instructions, follow up and referral plans. medication usage, Demonstrated understanding of instructions, follow-up care, medications, Prescriptions given X 1, 03:09 Patient left the ED. jj7 Signatures: Dis[facility] ED[facility] Kelsey López RN RN Wanda Payne RN RN jjUma Fowler RN RN cm10 Colt Cohen MD MD ec2 Corrections: (The following items were deleted from the chart) 10/23 23:35 23:33 GI: No deficits noted. Abdomen is flat, Bowel sounds present X 4 quads. Abd is cm10 soft and non tender X 4 quads. cm10
[2023-10-24 03:28] VITALS: BP 164/77; TEMP 98.3; O2SAT 100
--- NOTE | 2023-10-24 14:13 | RAD REPORT ---
EXAM DESCRIPTION: CT - Abdomen Pelvis W Contrast - 10/24/2023 7:10 am CLINICAL HISTORY: The patient is 73 years old and is Male; ABD PAIN IV ONLY Bed Name: 20 TECHNIQUE: Axial computed tomography images of the abdomen and pelvis with intravenous contrast. S agittal and coronal reformatted images were created and reviewed. This CT exam was performed using one or more of the following dose reduction techniques: automated exposure control, adjustment of t he mA and/or kV according to patient size, and/or use of iterative reconstruction technique. COMPARISON: 11/03/2022 CT chest abdomen and pelvis angiography FINDINGS: LUNG BASES: Unremarkable No mass. No consolidation. ABDOMEN: LIVER: Low attenuation foci in the liver which may be due to cysts but are too small to characteriz e. GALLBLADDER AND BILE DUCTS: Unremarkable No calcified stones. No ductal dilation. PANCREAS: Unremarkable No mass. No ductal dilation. SPLEEN: Unremarkable No splenomegaly. ADRENALS: Unremarkable No mass. KIDNEYS AND URETERS: Unremarkable No solid mass. No hydronephrosis. STOMACH AND BOWEL: Moderate colonic stool burden with fecalization contents of multiple loops of sm all bowel. Nonspecific, but suggests decreased motility. No evidence of overt bowel obstruction or abnormal mucosal thickening. PELVIS: APPENDIX: No findings to suggest acute appendicitis. BLADDER: Bladder wall thickening which may be due to the decompressed state of the bladder or due t o cystitis. REPRODUCTIVE: Prostatomegaly. ABDOMEN and PELVIS: INTRAPERITONEAL SPACE: Unremarkable No free air. No significant fluid collection. BONES/JOINTS: Multilevel spondylosis. No acute osseous abnormality. Unchanged appearance of geographic sclerotic focus within the left femoral head, with no over lying cortical disruption. Appearance and location suggests AVN. No dislocation. SOFT TISSUES: Small fat-containing umbilical hernia. 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 Moderate to severe calcified atherosclerosis of the abdominal aorta without aneurysmal dilata tion. Moderate to severe calcified atherosclerosis of the bilateral iliofemoral arteries. LYMPH NODES: Asymmetric thickening of the mucosa of the greater gastric curvature versus the lesser curvature, with prominent but not pathologically enlarged perigastric lymph nodes demonstrated. IMPRESSION: 1. Asymmetric thickening of the mucosa of the greater gastric curvature versus the les ser curvature, with prominent but not pathologically enlarged perigastric lymph nodes demonstrated. R ecommend further characterization by endoscopy to exclude underlying gastric malignancy or gastritis. 2. Bladder wall thickening which may be due to the decompressed state of the bladder or due to cyst itis. Correlation with urinalysis recommended. 3. Moderate colonic stool burden with fecalization contents of multiple loops of small bowel. Nonsp ecific, but suggests decreased motility. 4. 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 5. Unchanged appearance of geographic sclerotic focus within the left femoral head, with no overlyi ng cortical disruption. Appearance and location suggests AVN. 6. Prostamegaly. Correlation with PSA levels recommended. Electronically signed by: Yannick Whitlock MD 10/24/2023 02:17 AM [employer] Due to temporary technical issues with the PACS/Fluency reporting system, reports are being signed by the in house radiologists without review as a courtesy to insure prompt reporting. The interpreting radiologist is fully responsible for the content of the report
== END ==
LOC: ER 22:18
DX: R10.84 Generalized abdominal pain (principal); R11.2 Nausea with vomiting, unspecified; I10 Essential (primary) hypertension
CPT/HCPCS: 36415; 74177; Q9967; J2405; J7030

== ENCOUNTER 2024-10-05 12:55 | Emergency (ER) | payer OTHER ==
--- OUTSIDE RECORDS SUMMARY | 2024-10-05 13:02 | XMS REPORT | Continuity of Care Document ---
Author Name Unknown Address [address] [facility] [address] [place] [address] [facility] thconnect Address [address] [facility] [address] [place] [address] Care Team Providers Care Supervisor [employer] Name Role Phone Shannan RECIO, [facility] Primary Care Physician [phone] Medications Ordered Medication Name Filled Medication Name [...] No Dose Unknown 2021-08 00:00: 00 No celecoxib 200 mg [...] FOR 90 DAYS 2021-08 00:00: 00 No Dose Unknown 2021-08 [...] 5 mg tablet 2021-08 00:00: 00 No celecoxib 200 mg capsule 2021-08 00:00: 00 No Dose Unknown 2021-08 00:00: 00 No TAKE 1 CAPSULE BY MOUTH DAILY FOR URINATION ONCE A DAY 90 DAYS 2021-08 00:00: 00 No lisinopril 40 mg tablet 2021-08 00:00: 00 No TAKE 1 TABLET BY MOUTH TWICE A DAY WITH FOOD FOR 2021-08 00:00: 00 No memantine 5 mg tablet 2021-08 00:00: 00 No Dose Unknown 2021-08 00:00: 00 No TAKE 1 TABLET BY MOUTH EVERY DAY FOR 90 DAYS 2021-08 00:00: 00 No Shingrix (PF) 50 mcg/0.5 mL intramuscul ar suspension, kit 2021-08 2- 00:00: 00 No Fluad Quad (6 5yr [...] 14 mg capsule sprinkle,ex tended release 24hr 2021-1 0-04 00:00: 00 No memantine 14 mg capsule sprinkle,ex tended release 24hr 1 0-04 00:00: 00 No memantine 14 mg capsule sprinkle,ex tended release 24hr 2021-1 0-04 00:00: 00 No Dose Unknown 2021-0 4-13 00:00: 00 No Dose Unknown 2021-0 4-13 00:00: 00 No Dose Unknown 2021-0 4-13 00:00: 00 No Dose Unknown 2021-0 4-13 00:00: 00 No Dose Unknown 2020-0 3-12 00:00: 00 No Dose Unknown 2020-0 3-12 00:00: 00 No Dose Unknown 2020-0 3-12 00:00: 00 No Dose Unknown 2020-0 3-12 00:00: 00 No Dose Unknown 2020-0 1-04 00:00: 00 No Dose Unknown 2020-0 1-04 00:00: 00 No Dose Unknown 2020-0 1-04 00:00: 00 No Dose Unknown 2020-0 1-04 00:00: 00 No Dose Unknown 2020-0 1-04 00:00: 00 No Dose Unknown 2020-0 1-04 00:00: 00 No Dose Unknown 0 [...] 00:00: 00 No lisinopril 40 mg tablet 2019-0814 00:00: 00 No 1mg amlodipine 5 mg tablet 2019-0814 00:00: 00 No 1mg memantine 5 mg [...] No 1mg diclofenac 1 % topical gel 616 00:00: [...] 00 No 2mg Flomax 0.4 mg capsule 24 00:00: 00 No 1mg Vitamin D2 1,250 mcg (50,000 unit) capsule 24 00:00: 00 No 1(50,00 0 unit) rivastigmin e 6 mg capsule 15 00:00: 00 No 2mg Vitamin D2 1,250 mcg (50,000 unit) capsule 15 00:00: 00 No 1(50,00 0 unit) rivastigmin e 6 mg capsule 15 00:00: 00 No 2mg Vitamin D2 1,250 mcg (50,000 unit) capsule 09-11 00:00: 00 No 1(50,00 0 unit) rivastigmin e 6 mg capsule 15 00:00: 00 No 2mg Vitamin D2 1,250 mcg (50,000 unit) capsule 15 00:00: 00 No 1(50,00 0 unit) rivastigmin e 6 mg capsule 15 00:00: 00 No 2mg Vitamin D2 1,250 mcg (50,000 unit) capsule 15 00:00: 00 No 1(50,00 0 unit) Flomax 0.4 mg capsule 09-10 00:00: 00 No 1mg diclofenac 1 % topical gel -14 00:00: 00 No 1% metoprolol tartrate 50 mg tablet -14 00:00: 00 No 1mg lisinopril 20 mg-hydrochl orothiazide 12.5 mg tablet - 00:00: 00 No 1mg simvastatin 20 mg tablet 09-10 00:00: 00 No 1mg Flomax 0.4 mg capsule -14 00:00: 00 No 1mg diclofenac 1 % topical gel - 00:00: 00 No 1% metoprolol tartrate 50 [...] mg tablet 2017-08 00:00: 00 No 1mg Flomax 0.4 mg capsule 2017-08 00:00: 00 No 1mg metoprolol tartrate 50 mg tablet 2017-08 00:00: 00 No 1mg lisinopril 20 mg-hydrochl orothiazide 12.5 mg tablet 2017-08 00:00: 00 No 1mg simvastatin 20 mg tablet 2017-08 00:00: 00 No 1mg Flomax 0.4 mg capsule 2017-08 00:00: 00 No 1mg meloxicam 15 mg tablet 2017-08 00:00: 00 [...] 00 No 1mg Flomax 0.4 mg capsule 06 00:00: 00 No 1mg Vitamin D2 50,000 [...] 1mg metoprolol tartrate 50 mg tablet 2016-08 215 00:00: 00 No 1mg lisinopril 20 mg-hydrochl [...] / Time Performed Performing Clinic[facility] n Source [address] Ecg Routine Ecg W/leas t 12 Lds W/i r 2016-06-10 00:00:00 Plan of Care Planned Activity Planned Date Details Comments Source Goal Plan of Care Note [code = 62294-3] Goal Plan of Care Note [code = 74775-7] Goal Plan of Care Note [code = 37396-1] Goal Plan of Care Note [code = 07590-8] Goal Plan of Care Note [code = 78946-1] Goal Plan of Care Note [code = 07101-0] Goal Plan of Care Note [code = 12999-0] Goal Plan of Care Note [code = 33249-7] Goal Plan of Care Note [code = 57799-8] Goal Plan of Care Note [code = 11441-6] Goal Plan of Care Note [code = 49676-0] Goal Plan of Care Note [code = 93290-5] Goal Plan of Care Note [code = 99091-1] Goal Plan of Care Note [code = 12691-9] Goal Plan of Care Note [code = 75075-2] Goal Plan of Care Note [code = 19616-5] Goal Plan of Care Note [code = 77986-5] Goal Plan of Care Note [code = 60888-9] Goal Plan of Care Note [code = 94963-9] Goal Plan of Care Note [code = 00973-2] Goal Plan of Care Note [code = 02896-6] Goal Plan of Care Note [code = 06214-1] Goal Plan of Care Note [code = 70343-1] Goal Plan of Care Note [code = 42897-0] Goal Plan of Care Note [code = 25840-2] Goal Plan of Care Note [code = 51831-1] Goal Plan of Care Note [code = 84004-8] Goal Plan of Care Note [code = 04142-0] Goal Plan of Care Note [code = 52408-5] Goal Plan of Care Note [code = 34438-3] Goal Plan of Care Note [code = 14042-8] Goal Plan of Care Note [code = 02508-9] Goal Plan of Care Note [code = 88606-2] Goal Plan of Care Note [code = 32280-9] Goal Plan of Care Note [code = 95631-7] Goal Plan of Care Note [code = 50456-2] Goal Plan of Care Note [code = 55361-5] Goal Plan of Care Note [code = 51972-5] Goal Plan of Care Note [code = 96407-5] Goal Plan of Care Note [code = 04497-6] Goal Plan of Care Note [code = 36046-3] Goal Plan of Care Note [code = 49840-5] Goal Plan of Care Note [code = 79642-8] Goal Plan of Care Note [code = 44002-0] Goal Plan of Care Note [code = 13102-9] Goal Plan of Care Note [code = 83631-9] Goal Plan of Care Note [code = 95898-4] Goal Plan of Care Note [code = 07632-6] Goal Plan of Care Note [code = 15781-1] Goal Plan of Care Note [code = 58015-4] Goal Plan of Care Note [code = 55070-5] Goal Plan of Care Note [code = 17973-0] Goal Plan of Care Note [code = 67262-2] Goal Plan of Care Note [code = 27080-4] Goal Plan of Care Note [code = 42424-2] Goal Plan of Care Note [code = 19722-6] Goal Plan of Care Note [code = 88972-4] Goal Plan of Care Note [code = 36396-7] Goal Plan of Care Note [code = 16441-0] Goal Plan of Care Note [code = 32337-2] Goal Plan of Care Note [code = 59079-9] Goal Plan of Care Note [code = 12801-0] Goal Plan of Care Note [code = 94232-2] Goal Plan of Care Note [code = 33772-3] Goal Plan of Care Note [code = 71054-6] Goal Plan of Care Note [code = 81566-0] Goal Plan of Care Note [code = 87790-3] Goal Plan of Care Note [code = 13597-2] Goal Plan of Care Note [code = 53812-5] Goal Plan of Care Note [code = 45899-8] Goal Plan of Care Note [code = 79776-0] Goal Plan of Care Note [code = 60723-3] Goal Plan of Care Note [code = 51327-1] Goal Plan of Care Note [code = 46691-1] Goal Plan of Care Note [code = 72496-1] Goal Plan of Care Note [code = 88581-8] Goal Plan of Care Note [code = 78175-1] Goal Plan of Care Note [code = 03208-4] Goal Plan of Care Note [code = 98180-9] Goal Plan of Care Note [code = 03050-3] Goal Plan of Care Note [code = 48387-5] Goal Plan of Care Note [code = 10691-3] Goal Plan of Care Note [code = 26405-3] Goal Plan of Care Note [code = 92524-1] Goal Plan of Care Note [code = 68677-0] Goal Plan of Care Note [code = 95944-3] Goal Plan of Care Note [code = 40823-9] Goal Plan of Care Note [code = 69950-6] Goal Plan of Care Note [code = 77826-2] Goal Plan of Care Note [code = 85215-0] Goal Plan of Care Note [code = 44498-1] Goal Plan of Care Note [code = 18238-4] Goal Plan of Care Note [code = 35457-2] Goal Plan of Care Note [code = 32279-7] Goal Plan of Care Note [code = 39415-7] Goal Plan of Care Note [code = 23685-6] Goal Plan of Care Note [code = 84019-9] Goal Plan of Care Note [code = 96418-3] Goal Plan of Care Note [code = 64400-3] Goal Plan of Care Note [code = 68828-8] Goal Plan of Care Note [code = 91424-4] Goal Plan of Care Note [code = 87244-1] Goal Plan of Care Note [code = 88113-0] Goal Plan of Care Note [code = 49370-9] Goal Plan of Care Note [code = 92796-8] Goal Plan of Care Note [code = 89096-6] Goal Plan of Care Note [code = 15110-5] Goal Plan of Care Note [code = 62312-3] Goal Plan of Care Note [code = 58437-3] Goal Plan of Care Note [code = 58953-1] Goal Plan of Care Note [code = 25479-9] Goal Plan of Care Note [code = 39649-7] Goal Plan of Care Note [code = 50820-7] Goal Plan of Care Note [code = 10434-1] Goal Plan of Care Note [code = 66867-4] Goal Plan of Care Note [code = 84159-3] Goal Plan of Care Note [code = 50531-8] Goal Plan of Care Note [code = 15015-6] Goal Plan of Care Note [code = 89306-2] Goal Plan of Care Note [code = 80739-4] Goal Plan of Care Note [code = 88772-2] Goal Plan of Care Note [code = 31475-2] Goal Plan of Care Note [code = 21350-0] Goal Plan of Care Note [code = 63411-0] Goal Plan of Care Note [code = 24556-6] Goal Plan of Care Note [code = 95820-9] Goal Plan of Care Note [code = 10488-7] Goal Plan of Care Note [code = 14075-7] Goal Plan of Care Note [code = 07477-5] Goal Plan of Care Note [code = 24984-4] Goal Plan of Care Note [code = 16256-4] Goal Plan of Care Note [code = 70691-3] Goal Plan of Care Note [code = 50322-2] Goal Plan of Care Note [code = 78818-8] Goal Plan of Care Note [code = 52828-0] Goal Plan of Care Note [code = 03169-9] Goal Plan of Care Note [code = 75520-3] Goal Plan of Care Note [code = 98758-3] Goal Plan of Care Note [code = 66350-2] Goal Plan of Care Note [code = 67293-5] Goal Plan of Care Note [code = 70156-2] Encounters Start Date/Time End Date/Time Encounter Type Admission Type Attending [facility] Facility Care Department Encounter ID Source 2023-08-23 11:33:16 2023-08-23 11:33:16 Outpatient SFA S[facility] [address] 2023-07-06 08:46:24 2023-07-06 08:46:24 Outpatient SFA SFA 1109 [address] Pizarro 2023-05-04 09:57:42 2023-05-04 09:57:42 Outpatient SFA SFA 0907 [address] Pizarro 2022-12-02 10:26:18 2022-12-02 10:26:18 Outpatient SFA SFA 0407 [address] Pizarro 2022-09-14 09:25:22 2022-09-14 09:25:22 Outpatient SFA SFA 0118 [address] Pizarro 2022-09-08 10:45:06 2022-09-08 10:45:06 Outpatient SFA SFA 0112 [address] Pizarro 2022-09-08 00:00:00 2022-09-08 00:00:00 Outpatient Visit [id number] 2022-08-18 10:15:05 2022-08-18 10:15:05 Outpatient SFA SFA 1222 [address] 2022-08-18 00:00:00 2022-08-18 00:00:00 Outpatient Visit [id number] 2022-08-09 10:49:12 2022-08-09 10:49:[address] [facility] [address] 2022-08-09 00:00:00 2022-08-09 00:00:00 Outpatient Visit [id number] 2022-06-01 11:18:06 2022-06-01 11:18:[address] [facility] 100[address] 2022-06-01 00:00:00 2022-06-01 00:00:00 Outpatient Visit [id number] Results Test Description Test Time Test Comments Results Result Co mments Source COMPREHENSIVE METABOLIC [id number] 06:56:53* Test Item Value Reference Range Interpretation Comme nts GLUCOSE (test code = 2217) 110 MG/DL 70-99 H BUN (test code = 2208) 5 MG/DL 8-23 L CREATININE (test code = 2214) 1.07 MG/DL 0.80-1.40 eGFR (2020 CKD-EPI) (test code = 28775) 75 ML/MIN/1.73 >60 CALC BUN/CREAT (test code = 2235) 5 RATIO 6-28 L SODIUM (test code = 2231) 147 MEQ/L 133-146 H POTASSIUM (test code [...] code = 2219) 9 U/L 5-50 LIPID [id number] 06:56:53* Test Item Value Reference Range Interpretation [...] SPECIMENS. FOR MOREINFORMATION, SEE CLIENT ANNOUNCEMENT AT [email or web address] RISK RATIO LDL/HDL (test code = 2238) 2.02 RATIO <3.55 VITAMIN B 12 AND FOLIC [id number] 05:46:23* Test Item Value Reference Range Interpretation [...] TESTING PERFORMED AT [facility] [address] [place] [address] MARKETING OPERATIONS ASSOCIATE: EFRAIN BAXTER M.D. [place] NUMBER [id number] [place] [id number] HEMOGLOBIN [id number] 04:04:07* Test Item Value Reference Range Interpretation Comme nts HEMOGLOBIN A1c (test code = 09020) 5.9 % 4.2-5.6 H [employer] GUIDELINES FOR HGB A1C: [...] OR LABORATORY CONSULTATION. CBC W/AUTO DIFF WITH [id number] 03:33:42* Test Item Value Reference Range Interpretation [...] = 1065) 0.0 /100 WBC'S See_Comment [Automated [employer] ge] The system which generated this result [...] 0.00-0.10 ABS NUCLEATED RBCS (test code = 08605) 0.02 K/UL 0.00-0.11 VITAMIN B 12 AND FOLIC [id number] 06:16:45* Test Item Value Reference Range Interpretation Comme [facility] VITAMIN B-12 (test code = 2840) [...] . . . UG/L >=6.0 TSH, THIRD [id number] 06:16:45* Test Item Value Reference Range Interpretation Comme [facility] TSH, THIRD GENERATION (test code = 2821) 1.790 UIU/ML 0.400-4.100 UNLESS OTHERWISE INDICATED, ALL TESTING PERFORMED [facility] [address] [place] [address] MARKETING OPERATIONS ASSOCIATE: TOMER QUEZADA M.D. CLIA NUMBER [id number] [facility] [place]. [id number] HEPATITIS PANEL, [id number] 05:58:55* Test Item Value Reference Range Interpretation Comme [facility] HEPATITIS A IgM (test code = 11077) NON-REACTIVE NON-REACTIVE HEPATITIS B CORE IgM (test code = 4644) NON-REACTIVE NON-REACTIVE HEPATITIS B SURF AG (test code = 2739) NON-REACTIVE NON-REACTIVE HEPATITIS C ANTIBODY (test code = 4675) NON-REACTIVE NON-REACTIVE INTERPRETATION HEPATITIS A: (test code = 2552) (NOTE) Hepatitis A serology shows no evidence of acute hepatitis A. INTERPRETATION HEPATITIS B: (test code = 15835) (NOTE) Hepatitis B serology shows no evidence of acute hepatitis B andno indication of exposure to hepatitis B virus in the previous juve eight months. INTERPRETATION HEPATITIS C: (test code = 53541) (NOTE) Hepatitis C serology shows no evidence of exposure to hepatitisC virus at this time. It can take up to 12 months after exposure tothe hepatitis C virus for antibodies to become detectable in the blood in certain patients. COMPREHENSIVE METABOLIC [id number] 05:20:19* Test Item Value Reference Range Interpretation Comme nts GLUCOSE (test code = 2217) 100 MG/DL 70-99 H BUN (test code = 2207) 7 MG/DL 8-23 L CREATININE (test code = 2214) 1.07 MG/DL 0.80-1.40 eGFR (2020 CKD-EPI) (test code = 95503) 75 ML/MIN/1.73 >60 CALC BUN/CREAT (test code = 2235) 7 RATIO 6-28 SODIUM (test code = 2231) 144 MEQ/L 133-146 POTASSIUM (test code = 2228) 4.1 MEQ/L 3.5-5.4 CHLORIDE (test code = 2215) 105 MEQ/L 95-107 CARBON DIOXIDE (test code = 2206) 26 MEQ/L 19-31 CALCIUM (test code = 2209) 10.5 MG/DL 8.5-10.5 PROTEIN, TOTAL (test code = 222) 7.5 G/DL 6.1-8.3 ALBUMIN (test code = 2201) 4.7 G/DL 3.5-5.2 CALC GLOBULIN (test code = 2240) 2.8 G/DL 1.9-3.7 CALC A/G RATIO (test code = 2234) 1.7 RATIO 1.0-2.6 BILIRUBIN, TOTAL (test code = 2207) 0.4 MG/DL See_Comment [Automated me ssage] The system which generated this result transmitted reference range: <=1.2. The reference range was not used to interpret this result as normal/abnormal. ALKALINE PHOSPHATASE (test code = 2204) 120 U/L 40-125 AST (test code = 2218) 14 U/L 9-50 ALT (test code = 2219) 12 U/L 5-50 RPR REFLEX TO T. PALLIDUM - [id number] 04:29:46* Test Item Value Reference Range Interpretation Comme nts RPR (test code = 68325) NON-REACTIVE NON-REACTIVE RPR TITER (test code = 3500) NOT INDIC. TITER NOT INDIC. COMPREHENSIVE METABOLIC [id number] 00:00:00* Test Item Value Reference Range Interpretation Comme nts GLUCOSE (test code = 2217) 100 MG/DL BUN (test code = 2208) 7 MG/DL CREATININE (test code = 2214) 1.07 MG/DL eGFR (2020 CKD-EPI) (test co de = 43077) 75 ML/MIN/1.73 CALC BUN/CREAT (test code = [...] U/L RPR REFLEX TO T. PALLIDUM - [id number] 00:00:00* Test Item Value Reference Range Interpretation Comme nts RPR (test code = 63893) NON-REACTIVE RPR TITER (test code = 3500) NOT INDIC. TITER VITAMIN B 12 AND FOLIC [id number] 00:00:00* Test Item Value Reference Range Interpretation Comme nts VITAMIN B-12 (test code = 2840) 379 PG/ML FOLIC ACID (test code = 2695) 5.1 UG/L ACUTE HEPATITIS [id number] 00:00:00* Test Item Value Reference Range Interpretation Comme nts HEPATITIS A IgM (test code = 92629) NON-REACTIVE HEPATITIS B CORE IgM (test c ode = 4644) NON-REACTIVE HEPATITIS B SURF AG (test co de = 2739) NON-REACTIVE HEPATITIS C ANTIBODY (test c ode = 4667) NON-REACTIVE INTERPRETATION HEPATITIS A: (test code = 2552) (NOTE) INTERPRETATION HEPATITIS B: (test code = 31539) (NOTE) INTERPRETATION HEPATITIS C: (test code = 71421) (NOTE) [id number] 00:00:00* Test Item Value Reference Range Interpretation Comme nts TSH, THIRD GENERATION (test code = 2821) 1.790 UIU/ML COMPREHENSIVE METABOLIC [id number] 00:00:00* Test Item Value Reference Range Interpretation Comme nts GLUCOSE (test code = 2217) 100 MG/DL BUN (test code = 2208) 7 MG/DL CREATININE (test code = 2214) 1.07 MG/DL eGFR (2020 CKD-EPI) (test co de = 57822) 75 ML/MIN/1.73 CALC BUN/CREAT (test code = [...] U/L RPR REFLEX TO T. PALLIDUM - [id number] 00:00:00* Test Item Value Reference Range Interpretation Comme nts RPR (test code = 85714) NON-REACTIVE RPR TITER (test code = 3500) NOT INDIC. TITER VITAMIN B 12 AND FOLIC [id number] 00:00:00* Test Item Value Reference Range Interpretation Comme nts VITAMIN B-12 (test code = 2840) 379 PG/ML FOLIC ACID (test code = 2695) 5.1 UG/L ACUTE HEPATITIS [id number] 00:00:00* Test Item Value Reference Range Interpretation Comme nts HEPATITIS A IgM (test code = 52697) NON-REACTIVE HEPATITIS B CORE IgM (test c ode = 4644) NON-REACTIVE HEPATITIS B SURF AG (test co de = 2739) NON-REACTIVE HEPATITIS C ANTIBODY (test c ode = 4675) NON-REACTIVE INTERPRETATION HEPATITIS A: (test code = 2552) (NOTE) INTERPRETATION HEPATITIS B: (test code = 10223) (NOTE) INTERPRETATION HEPATITIS C: (test code = 15400) (NOTE) [id number] 00:00:00* Test Item Value Reference Range Interpretation Comme nts TSH, THIRD GENERATION (test code = 2821) 1.790 UIU/ML CBC W/AUTO DIFF WITH [id number] 06:52:48* Test Item Value Reference Range Interpretation [...] 0.00-0.10 ABS NUCLEATED RBCS (test code = 22052) 0.00 K/UL 0.00-0.11 HEMOGLOBIN [id number] 06:15:02* Test Item Value Reference Range Interpretation Comme [facility] HEMOGLOBIN A1c (test code = 07859) 5.6 % 4.2-5.6 UNLESS OTHERWISE INDICATED, ALL TESTING [facility]FORMED [facility] [address] [place] [address] MARKETING OPERATIONS ASSOCIATE: TOMER QUEZADA M.D. IA NUMBER [id number] [place] [id number] COMPREHENSIVE METABOLIC [id number] 03:59:12* Test Item Value Reference Range Interpretation Comme nts GLUCOSE (test code = 2217) 81 MG/DL 70-99 BUN (test code = 8) 9 MG/DL 8-23 CREATININE (test code = 2214) 1.09 MG/DL 0.80-1.40 eGFR (2020 CKD-EPI) (test code = 79487) 73 ML/MIN/1.73 >60 CALC BUN/CREAT (test code = 2235) 8 RATIO 6-28 SODIUM (test code = 2231) 145 MEQ/L 133-146 POTASSIUM (test code = 2228) 4.7 MEQ/L 3.5-5.4 CHLORIDE (test code = 2215) 105 MEQ/L 95-107 CARBON DIOXIDE (test code = 2205) 28 MEQ/L 19-31 CALCIUM (test code = [...] = 2219) 11 U/L 5-50 COMPREHENSIVE METABOLIC [id number] 00:00:00* Test Item Value Reference Range Interpretation Comme nts GLUCOSE (test code = 2217) 81 MG/DL BUN (test code = 2208) 9 MG/DL CREATININE (test code = 2214) 1.09 MG/DL eGFR (2020 CKD-EPI) (test co de = 96722) 73 ML/MIN/1.73 CALC BUN/CREAT (test code = [...] code = 2219) 11 U/L CBC W/AUTO [id number] 00:00:00* Test Item Value Reference Range Interpretation [...] ABS NUCLEATED RBCS (test cod e = 67162) 0.00 K/UL HEMOGLOBIN [id number] 00:00:00* Test Item Value Reference Range Interpretation Comme nts HEMOGLOBIN A1c (test code = 81704) 5.6 % COMPREHENSIVE METABOLIC [id number] 00:00:00* Test Item Value Reference Range Interpretation Comme nts GLUCOSE (test code = 2217) 81 MG/DL BUN (test code = 2208) 9 MG/DL CREATININE (test code = 2214) 1.09 MG/DL eGFR (2020 CKD-EPI) (test co de = 27402) 73 ML/MIN/1.73 CALC BUN/CREAT (test code = [...] code = 2219) 11 U/L CBC W/AUTO [id number] 00:00:00* Test Item Value Reference Range Interpretation [...] ABS NUCLEATED RBCS (test cod e = 52759) 0.00 K/UL HEMOGLOBIN [id number] 00:00:00* Test Item Value Reference Range Interpretation Comme nts HEMOGLOBIN A1c (test code = 63560) 5.6 % COMPREHENSIVE METABOLIC [id number] 00:00:00* Test Item Value Reference Range Interpretation Comme nts GLUCOSE (test code = 2217) 81 MG/DL BUN (test code = 2208) 9 MG/DL CREATININE (test code = 2214) 1.09 MG/DL eGFR (2020 CKD-EPI) (test co de = 11791) 73 ML/MIN/1.73 CALC BUN/CREAT (test code = [...] code = 2219) 11 U/L CBC W/AUTO [id number] 00:00:00* Test Item Value Reference Range Interpretation [...] ABS NUCLEATED RBCS (test cod e = 00165) 0.00 K/UL HEMOGLOBIN [id number] 00:00:00* Test Item Value Reference Range Interpretation Comme nts HEMOGLOBIN A1c (test code = 10210) 5.6 % COMPREHENSIVE METABOLIC [id number] 00:00:00* Test Item Value Reference Range Interpretation Comme nts GLUCOSE (test code = 2217) 100 MG/DL BUN (test code = 2208) 7 MG/DL CREATININE (test code = 2214) 1.08 MG/DL eGFR AMER. (test cod e = 78300) 82 ML/MIN/1.73 eGFR NON- AMER. (test code = 82962) 71 ML/MIN/1.73 CALC BUN/CREAT (test code = [...] (test code = 2219) 29 U/L LIPID [id number] 00:00:00* Test Item Value Reference Range Interpretation Comme nts CHOLESTEROL (test code = 2210) 182 MG/DL TRIGLYCERIDES (test code = 2232) 96 MG/DL HDL CHOLESTEROL (test code = 2220) 44 MG/DL CALC LDL CHOL (test code = 2237) 118 MG/DL RISK RATIO LDL/HDL (test cod e = 2238) 2.68 RATIO COMPREHENSIVE METABOLIC [id number] 00:00:00* Test Item Value Reference Range Interpretation Comme nts GLUCOSE (test code = 2217) 100 MG/DL BUN (test code = 2208) 7 MG/DL CREATININE (test code = 2214) 1.08 MG/DL eGFR AMER. (test cod e = 41027) 82 ML/MIN/1.73 eGFR NON- AMER. (test code = 86819) 71 ML/MIN/1.73 CALC BUN/CREAT (test code = [...] (test code = 2219) 29 U/L LIPID [id number] 00:00:00* Test Item Value Reference Range Interpretation Comme nts CHOLESTEROL (test code = 2210) 182 MG/DL TRIGLYCERIDES (test code = 2232) 96 MG/DL HDL CHOLESTEROL (test code = 2220) 44 MG/DL CALC LDL CHOL (test code = 2237) 118 MG/DL RISK RATIO LDL/HDL (test cod e = 2238) 2.68 RATIO COMPREHENSIVE METABOLIC [id number] 00:00:00* Test Item Value Reference Range Interpretation Comme nts GLUCOSE (test code = 2217) 100 MG/DL BUN (test code = 2208) 7 MG/DL CREATININE (test code = 2214) 1.08 MG/DL eGFR AMER. (test cod e = 29079) 82 ML/MIN/1.73 eGFR NON- AMER. (test code = 72598) 71 ML/MIN/1.73 CALC BUN/CREAT (test code = [...] (test code = 2219) 29 U/L LIPID [id number] 00:00:00* Test Item Value Reference Range Interpretation Comme nts CHOLESTEROL (test code = 2210) 182 MG/DL TRIGLYCERIDES (test code = 2232) 96 MG/DL HDL CHOLESTEROL (test code = 2220) 44 MG/DL CALC LDL CHOL (test code = 2237) 118 MG/DL RISK RATIO LDL/HDL (test cod e = 2238) 2.68 RATIO COMPREHENSIVE METABOLIC [id number] 00:00:00* Test Item Value Reference Range Interpretation Comme nts GLUCOSE (test code = 2217) 100 MG/DL BUN (test code = 2208) 7 MG/DL CREATININE (test code = 2214) 1.08 MG/DL eGFR AMER. (test cod e = 03416) 82 ML/MIN/1.73 eGFR NON- AMER. (test code = 28423) 71 ML/MIN/1.73 CALC BUN/CREAT (test code = [...] (test code = 2219) 29 U/L LIPID [id number] 00:00:00* Test Item Value Reference Range Interpretation Comme nts CHOLESTEROL (test code = 2210) 182 MG/DL TRIGLYCERIDES (test code = 2232) 96 MG/DL HDL CHOLESTEROL (test code = 2220) 44 MG/DL CALC LDL CHOL (test code = 2237) 118 MG/DL RISK RATIO LDL/HDL (test cod e = 2238) 2.68 RATIO VITAMIN [id number] 00:00:00* Test Item Value Reference Range Interpretation Comme [facility] VITAMIN B-12 (test code = 2840) 421 PG/ML VITAMIN D, 25 [id number] 00:00:00* Test Item Value Reference Range Interpretation Comme [facility] VITAMIN D, 25 OH (test code = 4958) 23 NG/ML [id number] 00:00:00* Test Item Value Reference Range Interpretation Comme nts TESTOSTERONE (test code = 2830) 419 NG/DL VITAMIN [id number] 00:00:00* Test Item Value Reference Range Interpretation Comme nts VITAMIN B-12 (test code = 2840) 421 PG/ML VITAMIN D, 25 [id number] 00:00:00* Test Item Value Reference Range Interpretation Comme nts VITAMIN D, 25 OH (test code = 4958) 23 NG/ML [id number] 00:00:00* Test Item Value Reference Range Interpretation Comme nts TESTOSTERONE (test code = 2830) 419 NG/DL VITAMIN [id number] 00:00:00* Test Item Value Reference Range Interpretation Comme nts VITAMIN B-12 (test code = 2840) 421 PG/ML VITAMIN D, 25 [id number] 00:00:00* Test Item Value Reference Range Interpretation Comme [facility] VITAMIN D, 25 OH (test code = 4958) 23 NG/ML [id number] 00:00:00* Test Item Value Reference Range Interpretation Comme [facility] TESTOSTERONE (test code = 2830) 419 NG/DL VITAMIN [id number] 00:00:00* Test Item Value Reference Range Interpretation Comme [facility] VITAMIN B-12 (test code = 2840) 421 PG/ML VITAMIN D, 25 [id number] 00:00:00* Test Item Value Reference Range Interpretation Comme [facility] VITAMIN D, 25 OH (test code = 4958) 23 NG/ML [id number] 00:00:00* Test Item Value Reference Range Interpretation Comme [facility] TESTOSTERONE (test code = 2830) 419 NG/DL HEMOGLOBIN [id number] 00:00:00* Test Item Value Reference Range Interpretation Comme [facility] HEMOGLOBIN A1c (test code = 95920) 5.8 % LIPID [id number] 00:00:00* Test Item Value Reference Range Interpretation Comme [facility] CHOLESTEROL (test code = 2210) 151 MG/DL TRIGLYCERIDES (test code = 2232) 82 MG/DL HDL CHOLESTEROL (test code = 2220) 39 MG/DL CALC LDL CHOL (test code = 2237) 96 MG/DL RISK RATIO LDL/HDL (test cod e = 2238) 2.45 RATIO COMPREHENSIVE METABOLIC [id number] 00:00:00* Test Item Value Reference Range Interpretation Comme [facility] GLUCOSE (test code = 2217) 93 MG/DL BUN (test code = 2208) 5 MG/DL CREATININE (test code = 2214) 0.95 MG/DL eGFR AMER. (test cod e = 31374) 96 ML/MIN/1.73 eGFR NON- AMER. (test code = 29056) 83 ML/MIN/1.73 CALC BUN/CREAT (test code = [...] = 2219) 22 U/L VITAMIN D, 25 [id number] 00:00:00* Test Item Value Reference Range Interpretation Comme nts VITAMIN D, 25 OH (test code = 4958) 22 NG/ML VITAMIN B 12 AND FOLIC [id number] 00:00:00* Test Item Value Reference Range Interpretation Comme [facility] VITAMIN B-12 (test code = 2840) 437 PG/ML FOLIC ACID (test code = 2695) 6.6 UG/L HEPATITIS C [id number] 00:00:00* Test Item Value Reference Range Interpretation Comme [facility] HEPATITIS C ANTIBODY (test c ode = 4675) NON-REACTIVE HCV INDEX (test code = 82466) 0.12 HEMOGLOBIN [id number] 00:00:00* Test Item Value Reference Range Interpretation Comme nts HEMOGLOBIN A1c (test code = 68445) 5.8 % LIPID [id number] 00:00:00* Test Item Value Reference Range Interpretation Comme nts CHOLESTEROL (test code = 2210) 151 MG/DL TRIGLYCERIDES (test code = 2232) 82 MG/DL HDL CHOLESTEROL (test code = 2220) 39 MG/DL CALC LDL CHOL (test code = 2237) 96 MG/DL RISK RATIO LDL/HDL (test cod e = 2238) 2.45 RATIO COMPREHENSIVE METABOLIC [id number] 00:00:00* Test Item Value Reference Range Interpretation Comme nts GLUCOSE (test code = 2217) 93 MG/DL BUN (test code = 2208) 5 MG/DL CREATININE (test code = 2214) 0.95 MG/DL eGFR AMER. (test cod e = 14332) 96 ML/MIN/1.73 eGFR NON- AMER. (test code = 99789) 83 ML/MIN/1.73 CALC BUN/CREAT (test code = [...] = 2219) 22 U/L VITAMIN D, 25 [id number] 00:00:00* Test Item Value Reference Range Interpretation Comme [facility] VITAMIN D, 25 OH (test code = 4958) 22 NG/ML VITAMIN B 12 AND FOLIC [id number] 00:00:00* Test Item Value Reference Range Interpretation Comme [facility] VITAMIN B-12 (test code = 2840) 437 PG/ML FOLIC ACID (test code = 2695) 6.6 UG/L HEPATITIS C [id number] 00:00:00* Test Item Value Reference Range Interpretation Comme [facility] HEPATITIS C ANTIBODY (test c ode = 4675) NON-REACTIVE HCV INDEX (test code = 54706) 0.12 HEMOGLOBIN [id number] 00:00:00* Test Item Value Reference Range Interpretation Comme [facility] HEMOGLOBIN A1c (test code = 42725) 5.8 % LIPID [id number] 00:00:00* Test Item Value Reference Range Interpretation Comme nts CHOLESTEROL (test code = 2210) 151 MG/DL TRIGLYCERIDES (test code = 2232) 82 MG/DL HDL CHOLESTEROL (test code = 2220) 39 MG/DL CALC LDL CHOL (test code = 2237) 96 MG/DL RISK RATIO LDL/HDL (test cod e = 2238) 2.45 RATIO COMPREHENSIVE METABOLIC [id number] 00:00:00* Test Item Value Reference Range Interpretation Comme nts GLUCOSE (test code = 2217) 93 MG/DL BUN (test code = 2208) 5 MG/DL CREATININE (test code = 2214) 0.95 MG/DL eGFR AMER. (test cod e = 42549) 96 ML/MIN/1.73 eGFR NON- AMER. (test code = 03751) 83 ML/MIN/1.73 CALC BUN/CREAT (test code = [...] = 2219) 22 U/L VITAMIN D, 25 [id number] 00:00:00* Test Item Value Reference Range Interpretation Comme [facility] VITAMIN D, 25 OH (test code = 4958) 22 NG/ML VITAMIN B 12 AND FOLIC [id number] 00:00:00* Test Item Value Reference Range Interpretation Comme [facility] VITAMIN B-12 (test code = 2840) 437 PG/ML FOLIC ACID (test code = 2695) 6.6 UG/L HEPATITIS C [id number] 00:00:00* Test Item Value Reference Range Interpretation Comme [facility] HEPATITIS C ANTIBODY (test c ode = 4675) NON-REACTIVE HCV INDEX (test code = 10642) 0.12 HEMOGLOBIN [id number] 00:00:00* Test Item Value Reference Range Interpretation Comme nts HEMOGLOBIN A1c (test code = 52957) 5.8 % LIPID [id number] 00:00:00* Test Item Value Reference Range Interpretation Comme nts CHOLESTEROL (test code = 2210) 151 MG/DL TRIGLYCERIDES (test code = 2232) 82 MG/DL HDL CHOLESTEROL (test code = 2220) 39 MG/DL CALC LDL CHOL (test code = 2237) 96 MG/DL RISK RATIO LDL/HDL (test cod e = 2238) 2.45 RATIO COMPREHENSIVE METABOLIC [id number] 00:00:00* Test Item Value Reference Range Interpretation Comme nts GLUCOSE (test code = 2217) 93 MG/DL BUN (test code = 2208) 5 MG/DL CREATININE (test code = 2214) 0.95 MG/DL eGFR AMER. (test cod e = 43658) 96 ML/MIN/1.73 eGFR NON- AMER. (test code = 24445) 83 ML/MIN/1.73 CALC BUN/CREAT (test code = [...] = 2219) 22 U/L VITAMIN D, 25 [id number] 00:00:00* Test Item Value Reference Range Interpretation Comme nts VITAMIN D, 25 OH (test code = 4958) 22 NG/ML VITAMIN B 12 AND FOLIC [id number] 00:00:00* Test Item Value Reference Range Interpretation Comme nts VITAMIN B-12 (test code = 2840) 437 PG/ML FOLIC ACID (test code = 2695) 6.6 UG/L HEPATITIS C [id number] 00:00:00* Test Item Value Reference Range Interpretation Comme nts HEPATITIS C ANTIBODY (test c ode = 4675) NON-REACTIVE HCV INDEX (test code = 24933) 0.12 COMPREHENSIVE METABOLIC [id number] 00:00:00* Test Item Value Reference Range Interpretation Comme nts GLUCOSE (test code = 2217) 97 MG/DL BUN (test code = 2208) 14 MG/DL CREATININE (test code = 2214) 1.10 MG/DL eGFR AMER. (test cod e = 83833) 81 ML/MIN/1.73 eGFR NON- AMER. (test code = 60529) 70 ML/MIN/1.73 CALC BUN/CREAT (test code = [...] (test code = 2219) 20 U/L LIPID [id number] 00:00:00* Test Item Value Reference Range Interpretation Comme nts CHOLESTEROL (test code = 2210) 149 MG/DL TRIGLYCERIDES (test code = 2232) 102 MG/DL HDL CHOLESTEROL (test code = 2220) 37 MG/DL CALC LDL CHOL (test code = 2237) 92 MG/DL RISK RATIO LDL/HDL (test cod e = 2238) 2.48 RATIO CBC W/AUTO [id number] 00:00:00* Test Item Value Reference Range Interpretation [...] (test code = 1015) 300 K/UL HEMOGLOBIN [id number] 00:00:00* Test Item Value Reference Range Interpretation Comme [facility] HEMOGLOBIN A1c (test code = 67353) 5.7 % [id number] 00:00:00* Test Item Value Reference Range Interpretation Comme [facility] TSH (test code = 2821) 1.170 UIU/ML VITAMIN [id number] 00:00:00* Test Item Value Reference Range Interpretation Comme [facility] VITAMIN B-12 (test code = 2840) 380 PG/ML VITAMIN D, 25 [id number] 00:00:00* Test Item Value Reference Range Interpretation Comme [facility] VITAMIN D, 25 OH (test code = 4958) 19 NG/ML COMPREHENSIVE METABOLIC [id number] 00:00:00* Test Item Value Reference Range Interpretation Comme nts GLUCOSE (test code = 2217) 97 MG/DL BUN (test code = 2208) 14 MG/DL CREATININE (test code = 2214) 1.10 MG/DL eGFR AMER. (test cod e = 05204) 81 ML/MIN/1.73 eGFR NON- AMER. (test code = 36434) 70 ML/MIN/1.73 CALC BUN/CREAT (test code = [...] (test code = 2219) 20 U/L LIPID [id number] 00:00:00* Test Item Value Reference Range Interpretation Comme nts CHOLESTEROL (test code = 2210) 149 MG/DL TRIGLYCERIDES (test code = 2232) 102 MG/DL HDL CHOLESTEROL (test code = 2220) 37 MG/DL CALC LDL CHOL (test code = 2237) 92 MG/DL RISK RATIO LDL/HDL (test cod e = 2238) 2.48 RATIO CBC W/AUTO [id number] 00:00:00* Test Item Value Reference Range Interpretation [...] (test code = 1015) 300 K/UL HEMOGLOBIN [id number] 00:00:00* Test Item Value Reference Range Interpretation Comme [facility] HEMOGLOBIN A1c (test code = 13617) 5.7 % [id number] 00:00:00* Test Item Value Reference Range Interpretation Comme [facility] TSH (test code = 2821) 1.170 UIU/ML VITAMIN [id number] 00:00:00* Test Item Value Reference Range Interpretation Comme [facility] VITAMIN B-12 (test code = 2840) 380 PG/ML VITAMIN D, 25 [id number] 00:00:00* Test Item Value Reference Range Interpretation Comme [facility] VITAMIN D, 25 OH (test code = 4958) 19 NG/ML COMPREHENSIVE METABOLIC [id number] 00:00:00* Test Item Value Reference Range Interpretation Comme nts GLUCOSE (test code = 2217) 97 MG/DL BUN (test code = 2208) 14 MG/DL CREATININE (test code = 2214) 1.10 MG/DL eGFR AMER. (test cod e = 17722) 81 ML/MIN/1.73 eGFR NON- AMER. (test code = 37847) 70 ML/MIN/1.73 CALC BUN/CREAT (test code = [...] (test code = 2219) 20 U/L LIPID [id number] 00:00:00* Test Item Value Reference Range Interpretation Comme nts CHOLESTEROL (test code = 2210) 149 MG/DL TRIGLYCERIDES (test code = 2232) 102 MG/DL HDL CHOLESTEROL (test code = 2220) 37 MG/DL CALC LDL CHOL (test code = 2237) 92 MG/DL RISK RATIO LDL/HDL (test cod e = 2238) 2.48 RATIO CBC W/AUTO [id number] 00:00:00* Test Item Value Reference Range Interpretation [...] (test code = 1015) 300 K/UL HEMOGLOBIN [id number] 00:00:00* Test Item Value Reference Range Interpretation Comme [facility] HEMOGLOBIN A1c (test code = 13182) 5.7 % [id number] 00:00:00* Test Item Value Reference Range Interpretation Comme nts TSH (test code = 2821) 1.170 UIU/ML VITAMIN [id number] 00:00:00* Test Item Value Reference Range Interpretation Comme [facility] VITAMIN B-12 (test code = 2840) 380 PG/ML VITAMIN D, 25 [id number] 00:00:00* Test Item Value Reference Range Interpretation Comme [facility] VITAMIN D, 25 OH (test code = 4958) 19 NG/ML COMPREHENSIVE METABOLIC [id number] 00:00:00* Test Item Value Reference Range Interpretation Comme nts GLUCOSE (test code = 2217) 97 MG/DL BUN (test code = 2208) 14 MG/DL CREATININE (test code = 2214) 1.10 MG/DL eGFR AMER. (test cod e = 66525) 81 ML/MIN/1.73 eGFR NON- AMER. (test code = 47000) 70 ML/MIN/1.73 CALC BUN/CREAT (test code = [...] (test code = 2219) 20 U/L LIPID [id number] 00:00:00* Test Item Value Reference Range Interpretation Comme nts CHOLESTEROL (test code = 2210) 149 MG/DL TRIGLYCERIDES (test code = 2232) 102 MG/DL HDL CHOLESTEROL (test code = 2220) 37 MG/DL CALC LDL CHOL (test code = 2237) 92 MG/DL RISK RATIO LDL/HDL (test cod e = 2238) 2.48 RATIO CBC W/AUTO [id number] 00:00:00* Test Item Value Reference Range Interpretation [...] (test code = 1015) 300 K/UL HEMOGLOBIN [id number] 00:00:00* Test Item Value Reference Range Interpretation Comme [facility] HEMOGLOBIN A1c (test code = 26607) 5.7 % [id number] 00:00:00* Test Item Value Reference Range Interpretation Comme [facility] TSH (test code = 2821) 1.170 UIU/ML VITAMIN [id number] 00:00:00* Test Item Value Reference Range Interpretation Comme [facility] VITAMIN B-12 (test code = 2840) 380 PG/ML VITAMIN D, 25 [id number] 00:00:00* Test Item Value Reference Range Interpretation Comme [facility] VITAMIN D, 25 OH (test code = 4958) 19 NG/ML COMPREHENSIVE METABOLIC [id number] 00:00:00* Test Item Value Reference Range Interpretation Comme nts GLUCOSE (test code = 2217) 101 MG/DL BUN (test code = 2208) 8 MG/DL CREATININE (test code = 2214) 1.04 MG/DL eGFR AMER. (test cod e = 50011) 87 ML/MIN/1.73 eGFR NON- AMER. (test code = 98353) 75 ML/MIN/1.73 CALC BUN/CREAT (test code = [...] code = 2219) 26 U/L COMPREHENSIVE METABOLIC [id number] 00:00:00* Test Item Value Reference Range Interpretation Comme nts GLUCOSE (test code = 2217) 101 MG/DL BUN (test code = 2208) 8 MG/DL CREATININE (test code = 2214) 1.04 MG/DL eGFR AMER. (test cod e = 94445) 87 ML/MIN/1.73 eGFR NON- AMER. (test code = 84694) 75 ML/MIN/1.73 CALC BUN/CREAT (test code = [...] code = 2219) 26 U/L COMPREHENSIVE METABOLIC [id number] 00:00:00* Test Item Value Reference Range Interpretation Comme nts GLUCOSE (test code = 2217) 101 MG/DL BUN (test code = 2208) 8 MG/DL CREATININE (test code = 2214) 1.04 MG/DL eGFR AMER. (test cod e = 34677) 87 ML/MIN/1.73 eGFR NON- AMER. (test code = 70562) 75 ML/MIN/1.73 CALC BUN/CREAT (test code = [...] code = 2219) 26 U/L COMPREHENSIVE METABOLIC [id number] 00:00:00* Test Item Value Reference Range Interpretation Comme nts GLUCOSE (test code = 2217) 101 MG/DL BUN (test code = 2208) 8 MG/DL CREATININE (test code = 2214) 1.04 MG/DL eGFR AMER. (test cod e = 82791) 87 ML/MIN/1.73 eGFR NON- AMER. (test code = 13085) 75 ML/MIN/1.73 CALC BUN/CREAT (test code = [...] (test code = 2219) 26 U/L HEMOGLOBIN [id number] 00:00:00* Test Item Value Reference Range Interpretation Comme nts HEMOGLOBIN A1c (test code = 52601) 5.9 % HEMOGLOBIN [id number] 00:00:00* Test Item Value Reference Range Interpretation Comme nts HEMOGLOBIN A1c (test code = 30627) 5.9 % HEMOGLOBIN [id number] 00:00:00* Test Item Value Reference Range Interpretation Comme nts HEMOGLOBIN A1c (test code = 49830) 5.9 % HEMOGLOBIN [id number] 00:00:00* Test Item Value Reference Range Interpretation Comme nts HEMOGLOBIN A1c (test code = 75786) 5.9 % LIPID [id number] 00:00:00* Test Item Value Reference Range Interpretation Comme nts CHOLESTEROL (test code = 2210) 139 MG/DL TRIGLYCERIDES (test code = 2232) 122 MG/DL HDL CHOLESTEROL (test code = 2220) 40 MG/DL CALC LDL CHOL (test code = 2237) 75 MG/DL RISK RATIO LDL/HDL (test cod e = 2238) 1.87 RATIO HEMOGLOBIN [id number] 00:00:00* Test Item Value Reference Range Interpretation Comme nts HEMOGLOBIN A1c (test code = 89950) 6.0 % COMPREHENSIVE METABOLIC [id number] 00:00:00* Test Item Value Reference Range Interpretation Comme nts GLUCOSE (test code = 2217) 89 MG/DL BUN (test code = 2208) 9 MG/DL CREATININE (test code = 2214) 1.03 MG/DL eGFR AMER. (test cod e = 09534) 89 ML/MIN/1.73 eGFR NON- AMER. (test code = 20422) 76 ML/MIN/1.73 CALC BUN/CREAT (test code = [...] (test code = 2219) 15 U/L LIPID [id number] 00:00:00* Test Item Value Reference Range Interpretation Comme nts CHOLESTEROL (test code = 2210) 139 MG/DL TRIGLYCERIDES (test code = 2232) 122 MG/DL HDL CHOLESTEROL (test code = 2220) 40 MG/DL CALC LDL CHOL (test code = 2237) 75 MG/DL RISK RATIO LDL/HDL (test cod e = 2238) 1.87 RATIO HEMOGLOBIN [id number] 00:00:00* Test Item Value Reference Range Interpretation Comme nts HEMOGLOBIN A1c (test code = 99779) 6.0 % COMPREHENSIVE METABOLIC [id number] 00:00:00* Test Item Value Reference Range Interpretation Comme nts GLUCOSE (test code = 2217) 89 MG/DL BUN (test code = 2208) 9 MG/DL CREATININE (test code = 2214) 1.03 MG/DL eGFR AMER. (test cod e = 97926) 89 ML/MIN/1.73 eGFR NON- AMER. (test code = 88261) 76 ML/MIN/1.73 CALC BUN/CREAT (test code = [...] (test code = 2219) 15 U/L LIPID [id number] 00:00:00* Test Item Value Reference Range Interpretation Comme nts CHOLESTEROL (test code = 2210) 139 MG/DL TRIGLYCERIDES (test code = 2232) 122 MG/DL HDL CHOLESTEROL (test code = 2220) 40 MG/DL CALC LDL CHOL (test code = 2237) 75 MG/DL RISK RATIO LDL/HDL (test cod e = 2238) 1.87 RATIO HEMOGLOBIN [id number] 00:00:00* Test Item Value Reference Range Interpretation Comme nts HEMOGLOBIN A1c (test code = 71701) 6.0 % COMPREHENSIVE METABOLIC [id number] 00:00:00* Test Item Value Reference Range Interpretation Comme nts GLUCOSE (test code = 2217) 89 MG/DL BUN (test code = 8) 9 MG/DL CREATININE (test code = 2214) 1.03 MG/DL eGFR AMER. (test cod e = 53096) 89 ML/MIN/1.73 eGFR NON- AMER. (test code = 95298) 76 ML/MIN/1.73 CALC BUN/CREAT (test code = [...] (test code = 2219) 15 U/L LIPID [id number] 00:00:00* Test Item Value Reference Range Interpretation Comme nts CHOLESTEROL (test code = 2210) 139 MG/DL TRIGLYCERIDES (test code = 2232) 122 MG/DL HDL CHOLESTEROL (test code = 2220) 40 MG/DL CALC LDL CHOL (test code = 2237) 75 MG/DL RISK RATIO LDL/HDL (test cod e = 2238) 1.87 RATIO HEMOGLOBIN [id number] 00:00:00* Test Item Value Reference Range Interpretation Comme nts HEMOGLOBIN A1c (test code = 70181) 6.0 % COMPREHENSIVE METABOLIC [id number] 00:00:00* Test Item Value Reference Range Interpretation Comme nts GLUCOSE (test code = 2217) 89 MG/DL BUN (test code = 2208) 9 MG/DL CREATININE (test code = 2214) 1.03 MG/DL eGFR AMER. (test cod e = 06967) 89 ML/MIN/1.73 eGFR NON- AMER. (test code = 53430) 76 ML/MIN/1.73 CALC BUN/CREAT (test code = [...] (test code = 2219) 15 U/L CULTURE, [id number] 00:00:00* Test Item Value Reference Range Interpretation Comme nts CULTURE, URINE (test code = 01030) SPECIMEN NUMBER: [id number] CULTURE, [id number] 00:00:00* Test Item Value Reference Range Interpretation Comme nts CULTURE, URINE (test code = 95751) SPECIMEN NUMBER: [id number] CULTURE, [id number] 00:00:00* Test Item Value Reference Range Interpretation Comme nts CULTURE, URINE (test code = 78104) SPECIMEN NUMBER: [id number] CULTURE, [id number] 00:00:00* Test Item Value Reference Range Interpretation Comme nts CULTURE, URINE (test code = 17705) SPECIMEN NUMBER: [id number] COMPREHENSIVE METABOLIC [id number] 00:00:00* Test Item Value Reference Range Interpretation Comme nts GLUCOSE (test code = 2217) 102 MG/DL BUN (test code = 2208) 8 MG/DL CREATININE (test code = 2214) 1.14 MG/DL eGFR AMER. (test cod e = 55156) 78 ML/MIN/1.73 eGFR NON- AMER. (test code = 51256) 68 ML/MIN/1.73 CALC BUN/CREAT (test code = [...] (test code = 2219) 20 U/L PSA, [id number] 00:00:00* Test Item Value Reference Range Interpretation Comme nts PSA, TOTAL (test code = 2606) 1.39 NG/ML HEMOGLOBIN [id number] 00:00:00* Test Item Value Reference Range Interpretation Comme nts HEMOGLOBIN A1c (test code = 07452) 6.2 % COMPREHENSIVE METABOLIC [id number] 00:00:00* Test Item Value Reference Range Interpretation Comme nts GLUCOSE (test code = 2217) 102 MG/DL BUN (test code = 2208) 8 MG/DL CREATININE (test code = 2214) 1.14 MG/DL eGFR AMER. (test cod e = 33062) 78 ML/MIN/1.73 eGFR NON- AMER. (test code = 88158) 68 ML/MIN/1.73 CALC BUN/CREAT (test code = [...] (test code = 2219) 20 U/L PSA, [id number] 00:00:00* Test Item Value Reference Range Interpretation Comme nts PSA, TOTAL (test code = 2606) 1.39 NG/ML HEMOGLOBIN [id number] 00:00:00* Test Item Value Reference Range Interpretation Comme nts HEMOGLOBIN A1c (test code = 60788) 6.2 % COMPREHENSIVE METABOLIC [id number] 00:00:00* Test Item Value Reference Range Interpretation Comme nts GLUCOSE (test code = 2217) 102 MG/DL BUN (test code = 2208) 8 MG/DL CREATININE (test code = 2214) 1.14 MG/DL eGFR AMER. (test cod e = 83740) 78 ML/MIN/1.73 eGFR NON- AMER. (test code = 68803) 68 ML/MIN/1.73 CALC BUN/CREAT (test code = [...] (test code = 2219) 20 U/L PSA, [id number] 00:00:00* Test Item Value Reference Range Interpretation Comme nts PSA, TOTAL (test code = 2606) 1.39 NG/ML HEMOGLOBIN [id number] 00:00:00* Test Item Value Reference Range Interpretation Comme nts HEMOGLOBIN A1c (test code = 35264) 6.2 % COMPREHENSIVE METABOLIC [id number] 00:00:00* Test Item Value Reference Range Interpretation Comme nts GLUCOSE (test code = 2217) 102 MG/DL BUN (test code = 2208) 8 MG/DL CREATININE (test code = 2214) 1.14 MG/DL eGFR AMER. (test cod e = 32701) 78 ML/MIN/1.73 eGFR NON- AMER. (test code = 22100) 68 ML/MIN/1.73 CALC BUN/CREAT (test code = [...] (test code = 2219) 20 U/L PSA, [id number] 00:00:00* Test Item Value Reference Range Interpretation Comme nts PSA, TOTAL (test code = 2606) 1.39 NG/ML HEMOGLOBIN [id number] 00:00:00* Test Item Value Reference Range Interpretation Comme nts HEMOGLOBIN A1c (test code = 36076) 6.2 % COMPREHENSIVE METABOLIC [id number] 00:00:00* Test Item Value Reference Range Interpretation Comme nts GLUCOSE (test code = 2217) 103 MG/DL BUN (test code = 2208) 10 MG/DL CREATININE (test code = 2214) 1.11 MG/DL eGFR AMER. (test cod e = 36567) 81 ML/MIN/1.73 eGFR NON- AMER. (test code = 76682) 70 ML/MIN/1.73 CALC BUN/CREAT (test code = [...] (test code = 2219) 24 U/L LIPID [id number] 00:00:00* Test Item Value Reference Range Interpretation Comme nts CHOLESTEROL (test code = 2210) 140 MG/DL TRIGLYCERIDES (test code = 2232) 114 MG/DL HDL CHOLESTEROL (test code = 2220) 39 MG/DL CALC LDL CHOL (test code = 2237) 78 MG/DL RISK RATIO LDL/HDL (test cod e = 2238) 2.01 RATIO [id number] 00:00:00* Test Item Value Reference Range Interpretation Comme nts TSH (test code = 2821) 0.9 UIU/ML PSA, [id number] 00:00:00* Test Item Value Reference Range Interpretation Comme nts PSA, TOTAL (test code = 2606) 1.3 NG/ML COMPREHENSIVE METABOLIC [id number] 00:00:00* Test Item Value Reference Range Interpretation Comme nts GLUCOSE (test code = 2217) 103 MG/DL BUN (test code = 2208) 10 MG/DL CREATININE (test code = 2214) 1.11 MG/DL eGFR AMER. (test cod e = 55557) 81 ML/MIN/1.73 eGFR NON- AMER. (test code = 21420) 70 ML/MIN/1.73 CALC BUN/CREAT (test code = [...] (test code = 2219) 24 U/L LIPID [id number] 00:00:00* Test Item Value Reference Range Interpretation Comme nts CHOLESTEROL (test code = 2210) 140 MG/DL TRIGLYCERIDES (test code = 2232) 114 MG/DL HDL CHOLESTEROL (test code = 2220) 39 MG/DL CALC LDL CHOL (test code = 2237) 78 MG/DL RISK RATIO LDL/HDL (test cod e = 2238) 2.01 RATIO [id number] 00:00:00* Test Item Value Reference Range Interpretation Comme nts TSH (test code = 2821) 0.9 UIU/ML PSA, [id number] 00:00:00* Test Item Value Reference Range Interpretation Comme nts PSA, TOTAL (test code = 2606) 1.3 NG/ML COMPREHENSIVE METABOLIC [id number] 00:00:00* Test Item Value Reference Range Interpretation Comme nts GLUCOSE (test code = 2217) 103 MG/DL BUN (test code = 2208) 10 MG/DL CREATININE (test code = 2214) 1.11 MG/DL eGFR AMER. (test cod e = 54781) 81 ML/MIN/1.73 eGFR NON- AMER. (test code = 75572) 70 ML/MIN/1.73 CALC BUN/CREAT (test code = [...] (test code = 2219) 24 U/L LIPID [id number] 00:00:00* Test Item Value Reference Range Interpretation Comme nts CHOLESTEROL (test code = 2210) 140 MG/DL TRIGLYCERIDES (test code = 2232) 114 MG/DL HDL CHOLESTEROL (test code = 2220) 39 MG/DL CALC LDL CHOL (test code = 2237) 78 MG/DL RISK RATIO LDL/HDL (test cod e = 2238) 2.01 RATIO [id number] 00:00:00* Test Item Value Reference Range Interpretation Comme nts TSH (test code = 2821) 0.9 UIU/ML PSA, [id number] 00:00:00* Test Item Value Reference Range Interpretation Comme nts PSA, TOTAL (test code = 2606) 1.3 NG/ML COMPREHENSIVE METABOLIC [id number] 00:00:00* Test Item Value Reference Range Interpretation Comme nts GLUCOSE (test code = 2217) 103 MG/DL BUN (test code = 2208) 10 MG/DL CREATININE (test code = 2214) 1.11 MG/DL eGFR AMER. (test cod e = 44676) 81 ML/MIN/1.73 eGFR NON- AMER. (test code = 02857) 70 ML/MIN/1.73 CALC BUN/CREAT (test code = [...] (test code = 2219) 24 U/L LIPID [id number] 00:00:00* Test Item Value Reference Range Interpretation Comme nts CHOLESTEROL (test code = 2210) 140 MG/DL TRIGLYCERIDES (test code = 2232) 114 MG/DL HDL CHOLESTEROL (test code = 2220) 39 MG/DL CALC LDL CHOL (test code = 2237) 78 MG/DL RISK RATIO LDL/HDL (test cod e = 2238) 2.01 RATIO [id number] 00:00:00* Test Item Value Reference Range Interpretation Comme nts TSH (test code = 2821) 0.9 UIU/ML PSA, [id number] 00:00:00* Test Item Value Reference Range Interpretation Comme nts PSA, TOTAL (test code = 2606) 1.3 NG/ML CBC W/AUTO [id number] 00:00:00* Test Item Value Reference Range Interpretation [...] (test code = 1015) 289 K/UL HEMOGLOBIN [id number] 00:00:00* Test Item Value Reference Range Interpretation Comme nts HEMOGLOBIN A1c (test code = 66207) 6.0 % CBC W/AUTO [id number] 00:00:00* Test Item Value Reference Range Interpretation [...] (test code = 1015) 289 K/UL HEMOGLOBIN [id number] 00:00:00* Test Item Value Reference Range Interpretation Comme nts HEMOGLOBIN A1c (test code = 35414) 6.0 % CBC W/AUTO [id number] 00:00:00* Test Item Value Reference Range Interpretation [...] (test code = 1015) 289 K/UL HEMOGLOBIN [id number] 00:00:00* Test Item Value Reference Range Interpretation Comme nts HEMOGLOBIN A1c (test code = 17589) 6.0 % CBC W/AUTO [id number] 00:00:00* Test Item Value Reference Range Interpretation [...] (test code = 1015) 289 K/UL HEMOGLOBIN [id number] 00:00:00* Test Item Value Reference Range Interpretation Comme nts HEMOGLOBIN A1c (test code = 61855) 6.0 % COMPREHENSIVE METABOLIC [id number] 00:00:00* Test Item Value Reference Range Interpretation Comme nts GLUCOSE (test code = 2217) 92 MG/DL BUN (test code = 2208) 12 MG/DL CREATININE (test code = 2214) 1.1 MG/DL eGFR AMER. (test cod e = 15710) 82 ML/MIN/1.73 eGFR NON- AMER. (test code = 01467) 68 ML/MIN/1.73 CALCULATED BUN/CREAT (test code = 2235) 11 RATIO SODIUM (test code = 2231) 134 MEQ/L POTASSIUM (test code = 2228) 4.2 MEQ/L CHLORIDE (test code = 2215) 98 MEQ/L CARBON DIOXIDE (test code = 2206) 25 MEQ/L CALCIUM (test code = 2209) 10.0 MG/DL PROTEIN, TOTAL (test code = 222) 8.1 G/DL ALBUMIN (test code = 220) 4.7 G/DL CALCULATED GLOBULIN (test co de = 2240) 3.4 G/DL CALCULATED A/G RATIO (test code = 2234) 1.4 RATIO BILIRUBIN, TOTAL (test code = 220) 0.4 MG/DL ALKALINE PHOSPHATASE (test code = 2204) 84 U/L SGOT (AST) (test code = 2218) 18 U/L SGPT (ALT) (test code = 2219) 20 U/L LIPID [id number] 00:00:00* Test Item Value Reference Range Interpretation Comme nts CHOLESTEROL (test code = 2210) 204 MG/DL TRIGLYCERIDES (test code = 2232) 90 MG/DL HDL CHOLESTEROL (test code = 2220) 44 MG/DL CALCULATED LDL CHOL (test co de = 2236) 142 MG/DL RISK RATIO LDL/HDL (test cod e = 223) 3.23 RATIO CBC W/AUTO [id number] 00:00:00* Test Item Value Reference Range Interpretation [...] (test code = 1015) 324 K/UL HEMOGLOBIN [id number] 00:00:00* Test Item Value Reference Range Interpretation Comme nts HEMOGLOBIN A1c (test code = 97662) 6.0 % THYROID II PROFILE (T3U, T4, T7, TSH)2015-05-12 00:00:00* Test Item Value Reference Range Interpretation Comme nts T3 UPTAKE (test code = 2817) 25.8 % T4 (THYROXINE) (test code = 2819) 8.8 UG/DL CALCULATED T7 (FTI) (test co de = 2820) 2.27 TSH (test code = 2821) 1.2 UIU/ML COMPREHENSIVE METABOLIC [id number] 00:00:00* Test Item Value Reference Range Interpretation Comme nts GLUCOSE (test code = 2217) 92 MG/DL BUN (test code = 2208) 12 MG/DL CREATININE (test code = 2214) 1.1 MG/DL eGFR AMER. (test cod e = 69980) 82 ML/MIN/1.73 eGFR NON- AMER. (test code = 88926) 68 ML/MIN/1.73 CALCULATED BUN/CREAT (test code = [...] (test code = 2219) 20 U/L LIPID [id number] 00:00:00* Test Item Value Reference Range Interpretation Comme nts CHOLESTEROL (test code = 2210) 204 MG/DL TRIGLYCERIDES (test code = 2232) 90 MG/DL HDL CHOLESTEROL (test code = 2220) 44 MG/DL CALCULATED LDL CHOL (test co de = 2237) 142 MG/DL RISK RATIO LDL/HDL (test cod e = 2238) 3.23 RATIO CBC W/AUTO [id number] 00:00:00* Test Item Value Reference Range Interpretation [...] (test code = 1015) 324 K/UL HEMOGLOBIN [id number] 00:00:00* Test Item Value Reference Range Interpretation Comme nts HEMOGLOBIN A1c (test code = 58512) 6.0 % THYROID II PROFILE (T3U, T4, T7, TSH)2015-05-12 00:00:00* Test Item Value Reference Range Interpretation Comme nts T3 UPTAKE (test code = 2817) 25.8 % T4 (THYROXINE) (test code = 2819) 8.8 UG/DL CALCULATED T7 (FTI) (test co de = 2820) 2.27 TSH (test code = 2821) 1.2 UIU/ML COMPREHENSIVE METABOLIC [id number] 00:00:00* Test Item Value Reference Range Interpretation Comme nts GLUCOSE (test code = 2217) 92 MG/DL BUN (test code = 2208) 12 MG/DL CREATININE (test code = 2214) 1.1 MG/DL eGFR AMER. (test cod e = 73305) 82 ML/MIN/1.73 eGFR NON- AMER. (test code = 95491) 68 ML/MIN/1.73 CALCULATED BUN/CREAT (test code = [...] (test code = 2219) 20 U/L LIPID [id number] 00:00:00* Test Item Value Reference Range Interpretation Comme nts CHOLESTEROL (test code = 2210) 204 MG/DL TRIGLYCERIDES (test code = 2232) 90 MG/DL HDL CHOLESTEROL (test code = 2220) 44 MG/DL CALCULATED LDL CHOL (test co de = 2237) 142 MG/DL RISK RATIO LDL/HDL (test cod e = 2238) 3.23 RATIO CBC W/AUTO [id number] 00:00:00* Test Item Value Reference Range Interpretation [...] (test code = 1015) 324 K/UL HEMOGLOBIN [id number] 00:00:00* Test Item Value Reference Range Interpretation Comme nts HEMOGLOBIN A1c (test code = 29835) 6.0 % THYROID II PROFILE (T3U, T4, T7, TSH)2015-05-12 00:00:00* Test Item Value Reference Range Interpretation Comme nts T3 UPTAKE (test code = 2817) 25.8 % T4 (THYROXINE) (test code = 2819) 8.8 UG/DL CALCULATED T7 (FTI) (test co de = 2820) 2.27 TSH (test code = 2821) 1.2 UIU/ML COMPREHENSIVE METABOLIC [id number] 00:00:00* Test Item Value Reference Range Interpretation Comme nts GLUCOSE (test code = 2217) 92 MG/DL BUN (test code = 2208) 12 MG/DL CREATININE (test code = 2214) 1.1 MG/DL eGFR AMER. (test cod e = 73126) 82 ML/MIN/1.73 eGFR NON- AMER. (test code = 10070) 68 ML/MIN/1.73 CALCULATED BUN/CREAT (test code = [...] (test code = 2219) 20 U/L LIPID [id number] 00:00:00* Test Item Value Reference Range Interpretation Comme nts CHOLESTEROL (test code = 2210) 204 MG/DL TRIGLYCERIDES (test code = 2232) 90 MG/DL HDL CHOLESTEROL (test code = 2220) 44 MG/DL CALCULATED LDL CHOL (test co de = 2237) 142 MG/DL RISK RATIO LDL/HDL (test cod e = 2238) 3.23 RATIO CBC W/AUTO [id number] 00:00:00* Test Item Value Reference Range Interpretation [...] (test code = 1015) 324 K/UL HEMOGLOBIN [id number] 00:00:00* Test Item Value Reference Range Interpretation Comme [facility] HEMOGLOBIN A1c (test code = 81956) 6.0 % THYROID II PROFILE (T3U, T4, T7, TSH)2015-05-12 00:00:00* Test Item Value Reference Range Interpretation Comme nts T3 UPTAKE (test code = 2817) 25.8 % T4 (THYROXINE) (test code = 2819) 8.8 UG/DL CALCULATED T7 (FTI) (test co de = 2820) 2.27 TSH (test code = 2821) 1.2 UIU/ML
[2024-10-05] MEDS ORDERED: METOCLOPRAMIDE 10 MG/2mL INJ ONE (14:24)
[2024-10-05] MEDS ORDERED: DIPHENHYDRAMINE 50 MG/ML VIAL ONE (14:24)
[2024-10-05] MEDS ORDERED: NA CHLORIDE 0.9% 500 ML ONE (14:24)
[2024-10-05 14:40] LABS: Absolute Lymphocytes (CBC) 0.6 K/uL (0.7-4.9); Absolute Monocytes 0.9 K/uL (0.1-1.3); Basophils % 0.2 % (0-1.3); Eosinophils % 0.1 % (0-4.4); Hematocrit 35.7 % (39.6-49.0); Lymphocytes % 5.4 % (15.3-44.8); MCHC 33.5 g/dL (32.0-36.0); MCV 83.7 fL (80-100); MPV 8.2 fL (7.6-11.3); Monocytes % 7.8 % (3.3-12.3); Neutrophils % 86.5 % (41.7-73.7); Platelets 241 thou/uL (152-406); RBC Red Blood Cell Count 4.26 M/uL (4.33-5.43); Red Cell Distribution Width 14.3 % (12.1-15.2)
[2024-10-05 14:54] LABS: Albumin 3.7 g/dL (3.4-5.0); Albumin/Globulin Ratio 1.1 (1.1-1.8); Alkaline Phosphatase 95 U/L (45-117); BUN Blood Urea Nitrogen 11 mg/dL (7-18); Bicarbonate 29 mEq/L (21-32); Bilirubin Total 0.5 mg/dL (0.2-1.0); Globulin 3.4 g/dL (2.3-3.5); Glomerular Filtration Rate 84 ml/min (=/>90); Glucose Level 120 mg/dL (74-106); Lipase 33 U/L (13-75); Protein, Total 7.1 g/dL (6.4-8.2); Sodium Level 140 mEq/L (136-145)
[2024-10-05 15:07] LABS: ALT/SGPT < 14 U/L (16-61); AST/SGOT < 10 U/L (15-37)
[2024-10-05 15:41] LABS: Differential Total Cells Count 100
[2024-10-05 15:42] LABS: Lymphocytes 6 % (15-42); Monocytes 5 % (0-10); Segmented Neutrophils 89 % (40-80)
[2024-10-05 15:43] LABS: Blood Morphology Comment NOT SEEN (NOT SEEN); Platelet Estimate ADEQ
--- NOTE | 2024-10-05 16:00 | RAD REPORT ---
EXAMINATION: CT HEAD WITHOUT CONTRAST CLINICAL INDICATION: Male, 74 years old.headache, poor historian, fall? TECHNIQUE: Axial CT images from the skull base to the vertex without intravenous contrast. Coronal an d sagittal reformatted images were created from the data set. One or more of the following dose reduction techniques were used: Automated exposure control, adjustment of the mA and/or kV according to patient size, and/or iterative reconstruction. Unless otherwise specified, incidental findings do not require dedicated imaging follow-up. [id number]. COMPARISON: No prior exam. FINDINGS: INTRACRANIAL: No acute intracranial hemorrhage. No hydrocephalus. No mass effect or midline shift. Mo derate chronic small vessel ischemic changes.Age advanced cerebral atrophy. VASCULATURE: No visualized abnormalities in the arteries or dural venous sinuses. SCALP/SKULL: No significant soft tissue or osseous abnormalities. SINUSES: The visualized paranasal sinuses and mastoid air cells are predominantly clear. IMPRESSION: No acute intracranial abnormality.
[2024-10-05 16:14] LABS: Specific Gravity > 1.030 (1.005-1.030); Sqamous Epithelial None Seen /HPF (None Seen); Urine Bacteria None Seen /HPF (<20); Urine Bilirubin NEGATIVE (Negative); Urine Blood Negative (Negative); Urine Clarity Clear (Clear); Urine Color Light-Yellow (Yellow); Urine Culture Reflex Order NOT NEEDED; Urine Glucose NEGATIVE (Negative); Urine Ketones NEGATIVE (Negative); Urine Microscopic Reflex YN ORDER UMIC; Urine Mucus Slight /HPF (None Seen); Urine Nitrite NEGATIVE (Negative); Urine Protein NEGATIVE (Negative); Urine RBC <5 /HPF (None Seen); Urine Urobilinogen Normal (Normal); Urine WBC <5 /HPF (<5); Urine pH 6.5 (5.0-7.0)
--- NOTE | 2024-10-05 16:34 | RAD REPORT ---
EXAMINATION: CT ABDOMEN AND PELVIS WITH CONTRAST CLINICAL INDICATION: Male, 74 years old.ABD PAIN TECHNIQUE: CT abdomen and pelvis was performed, after the administration of IV contrast, as per [facility]. Axial, sagittal and coronal reconstructions were obtained. One or more of the following dose reduction techniques were used: Automated exposure control, adjustment of the mA and/o r kV according to patient size, and/or iterative reconstruction. Unless otherwise specified, incidental findings do not require dedicated imaging follow-up. [id number]. COMPARISON: 10/24/2023 FINDINGS: LOWER CHEST: No acute process identified.No significant pericardial effusion. Mild circumferential th ickening of the distal esophagus which could reflect esophagitis. UPPER GI: No significant abnormality. LIVER: Benign appearing low density liver lesions. No suspicious mass. GALLBLADDER/BILE DUCTS: No biliary ductal dilatation.? PANCREAS: No mass, ductal dilation, or eulalio-pancreatic fluid. SPLEEN: Unremarkable. ADRENALS: No adrenal masses. KIDNEYS AND URETERS: No hydronephrosis.No suspicious renal mass. ABDOMINAL AORTA AND OTHER VESSELS: Moderate atherosclerotic changes without aortic aneurysm. PERITONEUM: No abnormal free fluid. No free air. LYMPH NODES: No pathologic lymphadenopathy. ABDOMINAL WALL: Unremarkable SMALL BOWEL/COLON: Small bowel has normal course and caliber. No colonic wall thickening or pericolon ic inflammatory changes. URINARY BLADDER: Underdistended but grossly unremarkable. REPRODUCTIVE ORGANS: No pathologic process. MUSCULOSKELETAL: Multilevel degenerative changes in the spine. No acute fracture. 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 ADDITIONAL FINDINGS: None. IMPRESSION: No acute or significant abnormalities seen in the abdomen or pelvis.
--- NOTE | 2024-10-05 16:46 | ER ---
Nurse's Notes [facility] Name: Colt Casanova Age: 74 yrs Sex: Male : 1950 Arrival Date: 10/05/2024 Time: 12:55 Bed 18 Private MD: Diagnosis: Other specified injuries of neck;Upper abdominal pain, unspecified;Nausea Presentation: 10/05 13:13 Chief complaint: Abdominal pain and headache since this morning. Coronavirus screen: At this time, the client does not indicate any symptoms associated with coronavirus-19. Ebola Screen: No symptoms or risks identified at this time. Initial Sepsis Screen: Does the patient meet any 2 criteria? No. Patient's initial sepsis screen is negative. Does the patient have a suspected source of infection? No. Patient's initial sepsis screen is negative. Risk Assessment: Do you want to hurt yourself or someone else? Patient reports no desire to harm self or others. Onset of symptoms was October 05, 2024. 13:13 Method Of Arrival: Ambulatory 13:13 Acuity: MADALYN 3 hb Triage Assessment: 14:00 Headache History: Denies prior headaches. General: Appears in no apparent distress. kj2 Pain: Pain currently is 3 out of 10 on a pain scale. Pain began suddenly. 15:00 Pain: Complains of pain in HEAD Also complains of. kj2 Historical: - Allergies: 13:15 No Known Allergies; hb - Home Meds: 13:15 lisinopril Oral [Active]; Metoprolol Tartrate Oral [Active]; hb - PMHx: 13:15 Hypertension; Dementia; hb - Immunization history:: Adult Immunizations up to date. - Infectious Disease History:: Denies. - Social history:: Smoking status: Patient denies any tobacco usage or history of. Screenin:21 [facility] ED Fall Risk Assessment (Adult) History of falling in the last 3 months, kj2 including since admission No falls in past 3 months (0 pts) Confusion or Disorientation Yes (5 pts) Intoxicated or Sedated No (0 pts) Impaired Gait No (0 pts) Mobility Assist Device Used No (0 pt) Altered Elimination No (0 pt) Score/Fall Risk Level 0 - 2 = Low Risk Maintained a safe environment, Hourly rounding (assess needs \T\ fall precautionary measures) done. Abuse screen: Denies threats or abuse. Denies injuries from another. Nutritional screening: No deficits noted. Tuberculosis screening: No symptoms or risk factors identified. Assessment: 13:20 General: Appears in no apparent distress. uncomfortable, Behavior is calm, cooperative. kj2 Pain: Complains of pain in abdomen, head. Neuro: Level of Consciousness is awake, alert, obeys commands, Oriented to person, place, time, situation. Cardiovascular: Patient's skin is warm and dry. Respiratory: Airway is patent Respiratory effort is even, unlabored. GI: No signs and/or symptoms were reported involving the gastrointestinal system. GI: Reports lower abdominal pain. : No signs and/or symptoms were reported regarding the genitourinary system. 14:20 Reassessment: Patient appears in no apparent distress at this time. Patient and/or kj2 family updated on plan of care and expected duration. Pain level reassessed. Patient is alert, oriented x 3, equal unlabored respirations, skin warm/dry/pink. 15:30 Reassessment: Patient appears in no apparent distress at this time. Patient and/or kj2 family updated on plan of care and expected duration. Pain level reassessed. Patient is alert, oriented x 3, equal unlabored respirations, skin warm/dry/pink. 17:28 Reassessment: Patient appears in no apparent distress at this time. Patient and/or kj2 family updated on plan of care and expected duration. Pain level reassessed. Patient is alert, oriented x 3, equal unlabored respirations, skin warm/dry/pink. 17:44 Reassessment: TRANSPORTATION/FAMILY IN ROUTE TO WIRE COATER PATIENT. kj2 18:09 Reassessment: SISTER ARRIVED. kj2 Vital Signs: 13:13 BP 160 / 96; Pulse 60; Resp 16; Temp 98.4(O); Pulse Ox 100% on R/A; Weight 57.61 kg; hb Height 5 ft. 7 in. ; Pain 10/10; 14:20 BP 155 / 74; Pulse 79; Resp 18; Pulse Ox 98% on R/A; kj2 15:30 BP 142 / 78; Pulse 78; Resp 20; Pulse Ox 98% on R/A; kj2 17:30 BP 148 / 84; Pulse 82; Resp 20; Temp 98; Pulse Ox 100% on R/A; kj2 13:13 Body Mass Index 19.89 (57.61 kg, 170.18 cm) hb 13:13 Pain Scale: Adult hb ED Course: 13:01 Patient arrived in ED. ra3 13:10 Colt Cohen MD is Attending Physician. ec2 13:15 Triage completed. hb 13:16 Arm band placed on. hb 13:20 Prerna Van, RN is Primary Nurse. kj2 13:22 Patient has correct armband on for positive identification. Bed in low position. Call kj2 light in reach. Side rails up X 1. Adult w/ patient. Provided Education on: call light, fall precautions. 14:00 Inserted saline lock: 20 gauge in left antecubital area, using aseptic technique. Blood kj2 collected. Flushed with 10 mL NS. 15:42 CT Head Brain wo Cont In Process Unspecified. EDMS 16:20 CT Abd/Pelvis - IV Contrast Only In Process Unspecified. EDMS 17:27 No provider procedures requiring assistance completed. IV discontinued, intact, kj2 bleeding controlled, No redness/swelling at site. Pressure dressing applied. Administered Medications: 14:38 Drug: metoCLOPramide IVP 10 mg IVP once; over 1 to 2 minutes Route: IVP; Site: left kj2 antecubital; 15:12 Follow up: Response: No adverse reaction kj2 14:38 Drug: diphenhydrAMINE IVP 12.5 mg IVP once Route: IVP; Site: left antecubital; kj2 15:12 Follow up: Response: No adverse reaction kj2 14:38 Drug: NS 0.9% IV 500 ml 500 ml IV at 1 bolus once; to be given as a bolus over 30 kj2 minutes Volume: 500 ml; Route: IV; Rate: 1 bolus; Site: left antecubital; 17:30 Follow up: IV Status: Completed infusion; IV Intake: 500ml kj2 Medication: 13:22 VIS not applicable for this client. kj2 Intake: 17:30 IV: 500ml; Total: 500ml. kj2 Outcome: 16:45 Discharge ordered by . ec2 17:31 Discharged to home ambulatory, with family, kj2 17:31 Condition: stable 17:31 Discharge instructions given to patient, Instructed on discharge instructions, follow up and referral plans. Demonstrated understanding of instructions, follow-up care, 18:10 Patient left the ED. kj2 Signatures: Dispatcher [employer] Kelsey Sanders, RN RN Colt Herzog MD MD 2 Dottie Newman 3 Prerna Van RN RN kj2
--- NOTE | 2024-10-05 16:46 | EDPHYS ---
Physician Documentation [facility] Name: Colt Casanova Age: 74 yrs Sex: Male : 1950 Arrival Date: 10/05/2024 Time: 12:55 Bed 18 Private MD: ED Physician Colt Cohen HPI: 10/05 13:46 This 74 yrs old Black Male presents to ER via Ambulatory with complaints of Headache - ec2 Altered Stomach pain. 13:46 Patient arrives today for evaluation of abdominal pain along with neck pain. Patient ec2 with history of dementia and is a significantly poor historian. No reported falls however daughter is unsure about this. Some nausea. No vomiting. No diarrhea. No urinary complaints.. Historical: - Allergies: 13:15 No Known Allergies; hb - Home Meds: 13:15 lisinopril Oral [Active]; Metoprolol Tartrate Oral [Active]; hb - PMHx: 13:15 Hypertension; Dementia; hb - Immunization history:: Adult Immunizations up to date. - Infectious Disease History:: Denies. - Social history:: Smoking status: Patient denies any tobacco usage or history of. ROS: 13:46 Constitutional: as per hpi ec2 Exam: 13:46 Constitutional: GEN: NAD Head: atraumatic Eyes: EOMI Ears: External ears are ec2 normal. CV: regular rate LUNGS: no respiratory distress ABD: non-distended, soft, generally tender, not guarding or rigid SKIN: no evidence of rashes MSK: no evidence of trauma. Neuro: Cranial nerves II through XII intact, strength intact upper extremities. Vital Signs: 13:13 BP 160 / 96; Pulse 60; Resp 16; Temp 98.4(O); Pulse Ox 100% on R/A; Weight 57.61 kg; hb Height 5 ft. 7 in. ; Pain 10/10; 14:20 BP 155 / 74; Pulse 79; Resp 18; Pulse Ox 98% on R/A; kj2 15:30 BP 142 / 78; Pulse 78; Resp 20; Pulse Ox 98% on R/A; kj2 17:30 BP 148 / 84; Pulse 82; Resp 20; Temp 98; Pulse Ox 100% on R/A; kj2 13:13 Body Mass Index 19.89 (57.61 kg, 170.18 cm) hb 13:13 Pain Scale: Adult hb MDM: 13:15 Medical Screening Exam initiated ec2 13:47 Data reviewed: vital signs, nurses notes. ED course: Patient arrives today for ec2 evaluation of neck pain, headache as well as abdominal pain. Examination is revealing for abdominal TTP. Will obtain lab work, CT imaging given the patient's poor historian capabilities. Differential diagnosis include processes such as MSK pain for the neck, intracranial mass or bleed with fall, intra-abdominal infection.. 15:10 ED course: EKG independently reviewed and interpreted by me, shows atrial fibrillation, ec2 rate of 59, no acute ST segment elevations, motion artifact noted, intervals are nonactionable.. 16:45 ED course: Imaging is nonactionable. Will discharge home. Return precautions given.. ec2 10/05 13:11 Order name: CBC with Diff; Complete Time: 16:12 ec2 10/05 13:11 Order name: CMP; Complete Time: 15:14 ec2 10/05 13:11 Order name: Lipase; Complete Time: 15:14 ec2 10/05 13:11 Order name: Urinalysis w/ reflexes; Complete Time: 16:15 ec2 10/05 14:53 Order name: Manual Differential; Complete Time: 16:12 EDMS 10/05 13:45 Order name: CT Abd/Pelvis - IV Contrast Only; Complete Time: 16:44 ec2 10/05 13:45 Order name: CT Head Brain wo Cont; Complete Time: 16:12 ec2 10/05 13:11 Order name: IV Saline Lock; Complete Time: 15:13 ec2 10/05 13:11 Order name: Labs collected and sent; Complete Time: 15:13 ec2 Administered Medications: 14:38 Drug: metoCLOPramide IVP 10 mg IVP once; over 1 to 2 minutes Route: IVP; Site: left kj2 antecubital; 15:12 Follow up: Response: No adverse reaction kj2 14:38 Drug: diphenhydrAMINE IVP 12.5 mg IVP once Route: IVP; Site: left antecubital; kj2 15:12 Follow up: Response: No adverse reaction kj2 14:38 Drug: NS 0.9% IV 500 ml 500 ml IV at 1 bolus once; to be given as a bolus over 30 kj2 minutes Volume: 500 ml; Route: IV; Rate: 1 bolus; Site: left antecubital; 17:30 Follow up: IV Status: Completed infusion; IV Intake: 500ml kj2 Disposition Summary: 10/05/24 16:45 Discharge Ordered Notes: Location: Home ec2 Condition: Stable ec2 Diagnosis - Other specified injuries of neck ec2 - Upper abdominal pain, unspecified ec2 - Nausea ec2 Followup: ec2 - With: Private Physician - When: - Reason: Re-evaluation by your physician Discharge Instructions: - Discharge Summary Sheet ec2 - Abdominal Pain, Adult ec2 Forms: - Medication Reconciliation Form ec2 - Antibiotic Education ec2 - Prescription Opioid Use ec2 - Patient Portal Instructions ec2 - Leadership Thank You Letter ec2 Signatures: Dispatcher [employer] EDKelsey Matthew, PELON RN Colt Cohen MD MD ec2 Prerna Van RN RN kj2 Corrections: (The following items were deleted from the chart) 13:11 13:11 CBC+H.LAB.BRZ ordered. EDMS EDMS 13:11 13:11 COMPREHENSIVE METABOLIC PANEL+C.LAB.BRZ ordered. EDMS EDMS 13:11 13:11 LIPASE+C.LAB.BRZ ordered. EDMS EDMS 13:11 13:11 Urinalysis+U.LAB.BRZ ordered. EDMS EDMS 13:46 13:45 Abdomen Pelvis W Con+CT.RAD.BRZ ordered. EDMS EDMS 13:46 13:46 Head Brain Wo Cont+CT.RAD.BRZ ordered. EDMS EDMS
[2024-10-05 18:36] VITALS: BP 148/84; TEMP 98; O2SAT 100
--- NOTE | 2024-10-08 12:51 | EKG ---
Test Date: 2024-10-05 Test Time: 15:05:25 Knowledge Manager: LINDA MEASUREMENT RESULTS: Intervals: Rate: 59 OR: QRSD: 80 QT: 426 QTc: 421 [place]: P: OR: QRS: 83 T: 68 INTERPRETIVE STATEMENTS: Atrial fibrillation Abnormal ECG Compared to ECG 11/03/2022 07:41:17 Sinus bradycardia no longer present Electronically Signed On 10-08-24 12:44:52 TECHNICAL WRITER by Nathaniel Gilmore
== END 2024-10-05 18:10 | disposition home or self-care (01) ==
LOC: ER 12:55
DX: S19.80XA Other specified injuries of unspecified part of neck, initial encounter (principal); R10.10 Upper abdominal pain, unspecified; R11.0 Nausea; I10 Essential (primary) hypertension
CPT/HCPCS: 96361; 93005; 85025; 81001; 36415; 83690; 80053; 70450; 74177; 96375; 96374; 99284; Q9967; J2765; J1200; J7040